=== PATIENT | male | born 1945 | race Caucasian/White ===

== ENCOUNTER 2018-03-18 21:21 | Emergency (ER) | payer MEDICARE, OTHER, SELFPAY ==
[2018-03-18 21:31] VITALS: BP 183/80; PULSE 78; RESP 20; TEMP 36.8; O2SAT 98; BMI 30.4
== END 2018-03-18 22:33 | disposition left against medical advice (07) ==
LOC: ED 21:24
DX: R10.9 Unspecified abdominal pain (principal)
CPT/HCPCS: 99281; 99282

== ENCOUNTER 2019-07-09 23:27 | Observation (INO) | payer MEDICARE, OTHER, SELFPAY ==
[2019-07-09 23:30] VITALS: BP 173/89; PULSE 97; RESP 16; TEMP 37.1; O2SAT 97; BMI 30.4
[2019-07-09 23:50] LABS: Add Manual Diff / Slide Review NO; Basophils Absolute Auto 100 /uL (0-100); Basophils Percent Auto 0.6 % (0-2); Eosinophils Absolute Auto 100 /uL (0-450); Eosinophils Percent Auto 0.5 % (2-4); Hematocrit 44.5 % (41-53); Hemoglobin 14.9 g/dL (13.5-17.5); Lymphocytes Absolute Auto 500 /uL (1100-4500); Lymphocytes Percent Auto 2.9 % (25-40); Mean Corpuscular HGB Conc 33.6 % (30-36); Mean Corpuscular Hemoglobin 29.1 PG (26-34); Mean Corpuscular Volume 86.5 fL (80-100); Monocytes Absolute Auto 400 /uL (0-900); Monocytes Percent Auto 2.6 % (3-14); Neutrophils Absolute Auto 15700 /uL (1500-7000); Neutrophils Percent Auto 93.4 % (50-75); Platelet Count 172 X10^3/uL (150-400); Red Blood Cell Count 5.14 X10^6/uL (4.5-5.9); Red Cell Distribution Width 13.4 % (11.6-14.8); White Blood Cell Count 16.8 X10^3/uL (4.5-11.0)
[2019-07-09 23:54] LABS: Prothrombin Time 11.9 SECONDS (10.1-12.7)
[2019-07-09 23:57] LABS: PTT Partial Thromboplastin Tim 41 SECONDS (26.4-36.2)
[2019-07-09 23:59] LABS: Alanine Aminotransferase 97 IU/L (21-72); Albumin 4.5 g/dL (3.5-5.0); Albumin Globulin Ratio 1.6 (1.0-2.8); Alkaline Phosphatase 102 U/L (38-126); Aspartate Aminotransferase 251 IU/L (17-59); Bilirubin Total 1.2 mg/dL (0.2-1.3); Blood Urea Nitrogen 16 mg/dL (9-20); Calcium 9.8 mg/dL (8.4-10.2); Carbon Dioxide 30 mmol/L (22-32); Chloride 100 mmol/L (98-107); Estimated Glomerular Filt Rate > 60.0 mL/min (>60); Globulin 2.9 g/dL (1.7-4.1); Glucose 155 mg/dL (80-110); HEMOLYSIS < 15 (0-50); Lipase 67 U/L (23-300); Potassium 3.7 mmol/L (3.4-5.1); Sodium 139 mmol/L (137-145); Total Protein 7.4 g/dL (6.3-8.2)
[2019-07-10] VITALS (26 sets, daily range): BP systolic 109–172; BP diastolic 50–92; PULSE 66–103; RESP 10–94; TEMP 36.5–38; O2SAT 94–98; BMI 29.5
--- NOTE | 2019-07-10 | PATH_ITS ---
[facility] Accession Number: [id number] . 01 Material submitted: . gallbladder - GALLBLADDER AND CONTENTS . 02 Diagnosis: Gallbladder and Contents: Acute and chronic cholecystitis, cholesterolosis, and cholelithiasis. MRV 07/12/2019 1433 Local . 02 Electronically signed: . Hattie Noriega MD, Pathologist NPI- [id number] . 01 Gross description: . Received in formalin, labeled gallbladder and contents, is a perforated gallbladder (length-9.5 cm, diameter-3.5 cm) with doherty-pink smooth shiny serosa and a patent cystic duct. No lymph nodes are identified. The lumen contains brown-green watery bile and multiple brown gritty friable calculi (3.7 x 2.5 x 0.7 cm in aggregate). The mucosa is diaz smooth and flat. The wall is up to 0.1 thick. No nodules, masses or lesions are identified. Section code: (A1) cystic duct resection margin and two serial sections from the body; (A2) two longitudinal sections from the fundus. ([id number]) /MRV 07/11/2019 1045 Local . 02 Pathologist provided ICD-10: K81.2, K80.60 . 02 CPT . 475743 Performed at: 01 [facility] [address], [place], [place] [id number] MD Edvin Galvan MD Phone: [phone] Performed at: 02 [facility] [address] [place], [place] [id number] MD Maya Ramsay MD Phone: [phone]
--- NOTE | 2019-07-10 00:26 | ED_ITS ---
HPI - Abdominal Pain General Chief Complaint: Abdominal Pain Stated Complaint: Stomach pain and chills Time Seen by Provider: 07/10/19 00:15 Source: patient Mode of arrival: ambulatory Limitations: no limitations History of Present Illness HPI narrative: This 74-year-old gentleman who comes to the emergency department with complaint of abdominal pain patient states pain started this evening sort of abruptly in onset. Patient states that it did seem a little bit worse after eating some saltines. It is sort of eased up somewhat but is still present. He denies any fevers but felt a little chilled. He denies any shortness of breath. He denies any pain in his chest. He denies any diaphoresis. Patient states that he has not had any nausea or vomiting. He had 1 episode of diarrhea earlier but states it was not a significant amount. He denies any bright red blood or melena. He denies any urinary issues. Patient states that the pain is in the anterior abdomen and does not radiate to his back chest or elsewhere. Has not changed in location. He states he takes medication for hypertension and he has been told in the past that he has a heart murmur. Related Data Home Medications Medication Instructions Recorded Confirmed losartan-hydrochlorothiazide 1 tab PO DAILY 07/10/19 07/10/19 Allergies Allergy/AdvReac Type Severity Reaction Status Date / Time Sulfa (Sulfonamide Allergy Mild Verified 07/09/19 23:39 Antibiotics) Review of Systems Review of Systems ROS Unobtainable: All systems reviewed & are unremarkable except as noted in HPI and below Constitutional Constitutional: Denies chills, Denies fever(s), Denies lethargy and Denies weakness Cardiovascular Cardiovascular: Denies chest pain, Denies edema, Denies irregular heart rhythm, Denies lightheadedness, Denies palpitations, Denies dyspnea, Denies dyspnea on exertion and Denies orthopnea Respiratory Respiratory: Denies change in phlegm color, Denies chest congestion, Denies cough, Denies dyspnea and Denies dyspnea on exertion Gastrointestinal Gastrointestinal: Reports abdominal pain, Denies melena, Denies hematochezia, Denies change in bowel habits, Reports diarrhea, Denies nausea and Denies vomiting Genitourinary Genitourinary: Denies hematuria, Reports difficulty urinating, Denies dysuria, Denies flank pain, Denies urinary frequency, Denies urinary hesitancy, Denies urinary incontinence and Denies urinary urgency Musculoskeletal Musculoskeletal: Denies back pain Integumentary/Breasts Skin/Breast: Denies rash Neurologic Neurologic: Denies weakness Endocrine Endocrine: Denies palpitations PENDING SALE TO [facility] Medical History Heart murmur (Acute) High blood pressure (Acute) Social History Smoking Status: Never smoker Social History Smoking Status: Never smoker alcohol intake: never substance use type: does not use Exam Narrative Exam Narrative: GENERAL: Alert and oriented x three, well-nourished, well- appearing male in mild distress HEENT: Head normocephalic, atraumatic, EOMI, pupils reactive, face symmetric, moist mucous membranes NECK: Supple, full range of motion CARDIOVASCULAR: Regular rate and rhythm with systolic ejection murmurs, rubs or gallops. No JVD. No swelling in lower extremities. RESPIRATORY: Breath sounds equal bilaterally, no wheezes rales or rhonchi. ABDOMEN: Soft, nontender. Normoactive bowel sounds all 4 quadrants. No guarding or rebound, rigidity, no mass, no pulsatile mass. : No CVA tenderness EXTREMITIES: Normal range of motion, no clubbing or edema. Neurovascularly intact NEUROLOGICAL: Cranial nerves II through XII grossly intact. Moving all extremities SKIN: Warm, dry, no petechiae, no rashes or lesions of abdomen or chest Initial Vital Signs Initial Vital Signs: Vital Signs Temperature 98.8 F 07/09/19 23:30 Pulse Rate 97 H 07/09/19 23:30 Respiratory Rate 16 07/09/19 23:30 Blood Pressure 173/89 H 07/09/19 23:30 Pulse Oximetry 97 07/09/19 23:30 Course Orders Ordered: ED Orders 07/09/19 23:35 Complete Blood Count AUTO DIFF Stat Comprehensive Metabolic Panel Stat Lipase Stat Partial Thromboplastin Time Stat Prothrombin Time INR Stat 07/09/19 23:38 EKG-12 Lead Stat 07/10/19 00:26 Troponin & CK Cardiac Panel Stat 07/10/19 00:30 XR KUB Stat 07/10/19 00:40 Lactate (Lactic Acid) Stat 07/10/19 01:05 Blood Culture Stat 07/10/19 01:23 CT abdomen pelvis w con Stat Sodium Chloride (Normal Saline 0.9%) 1,000 mls @ 200 mls/hr IV CONT DUSTIN Morphine Sulfate (Morphine) 2 mg IV Q4HR PRN PRN Reason: Pain, Mild (1-3) Ondansetron HCl (Zofran) 4 mg IV Q4HR PRN PRN Reason: Nausea And Vomiting Discontinued Medications Acetaminophen (Tylenol) 650 mg PO NOW ONE Stop: 07/10/19 02:47 Last Admin: 07/10/19 03:09 Dose: 650 mg Documented by: TRINH Sodium Chloride (Normal Saline 0.9%) 1,000 mls @ 1,000 mls/hr IV BOLUS ONE Stop: 07/10/19 01:25 Last Infusion: 07/10/19 03:02 Dose: 0 mls/hr Documented by: Infusion: 07/10/19 01:36 Dose: 0 mls/hr Documented by: Infusion: 07/10/19 01:18 Dose: 1,000 mls/hr Documented by: Infusion: 07/10/19 00:45 Dose: 0 mls/hr Documented by: Admin: 07/10/19 00:32 Dose: 1,000 mls/hr Documented by: BISMARK Piperacillin/Tazobactam/Dextrose (Zosyn) 3.375 gm in 50 mls @ 100 mls/hr IV NOW ONE Stop: 07/10/19 03:15 Last Infusion: 07/10/19 03:45 Dose: 0 mls/hr Documented by: Admin: 07/10/19 03:10 Dose: 100 mls/hr Documented by: TRINH Sodium Chloride (Normal Saline 0.9%) 1,000 mls @ 1,000 mls/hr IV BOLUS ONE Stop: 07/10/19 03:45 Last Admin: 07/10/19 03:09 Dose: 1,000 mls/hr Documented by: TRINH Ketorolac Tromethamine (Toradol) 15 mg IV NOW ONE Stop: 07/10/19 00:27 Last Admin: 07/10/19 00:32 Dose: 15 mg Documented by: BISMARK Vital Signs Vital signs: Vital Signs - 8 hr 07/09/19 23:30 07/10/19 01:31 07/10/19 02:29 Temperature 98.8 F 100.4 F H Pulse Rate 97 H 103 H Respiratory Rate 16 20 Blood Pressure 173/89 H Blood Pressure [Right Arm] 160/67 H Pulse Oximetry 97 97 MDM - Abdominal Pain Lab Data Attestation: I reviewed the patient's lab results. Result diagrams: 07/09/19 23:35 07/09/19 23:35 Labs: Lab Results 07/09/19 07/09/19 07/09/19 Range/Units 23:35 23:35 23:35 WBC 16.8 H (4.5-11.0) X10^3/uL RBC 5.14 (4.5-5.9) X10^6/uL Hgb 14.9 (13.5-17.5) g/dL Hct 44.5 (41-53) % MCV 86.5 (80-100) fL MCH 29.1 (26-34) PG MCHC 33.6 (30-36) % RDW 13.4 (11.6-14.8) % Plt Count 172 (150-400) X10^3/uL Neut % (Auto) 93.4 H (50-75) % Lymph % (Auto) 2.9 L (25-40) % [place] % (Auto) 2.6 L (3-14) % Eos % (Auto) 0.5 L (2-4) % Baso % (Auto) 0.6 (0-2) % Neut # (Auto) 89442 H (7199-2306) /uL Lymph # (Auto) 500 L (0759-7581) /uL [place] # (Auto) 400 (0-900) /uL Eos # (Auto) 100 (0-450) /uL Baso # (Auto) 100 (0-100) /uL PT 11.9 (10.1-12.7) SECONDS INR 1.0 (0.9-1.3) APTT 41 H (26.4-36.2) SECONDS Sodium 139 (137-145) mmol/L Potassium 3.7 (3.4-5.1) mmol/L Chloride 100 (98-107) mmol/L Carbon Dioxide 30 (22-32) mmol/L BUN 16 (9-20) mg/dL Creatinine 0.80 (0.66-1.25) mg/dL Estimated GFR > 60.0 (>60) mL/min BUN/Creatinine Ratio 20.0 (6-22) Glucose 155 H (80-110) mg/dL Lactate (0.7-2.1) mmol/L Calcium 9.8 (8.4-10.2) mg/dL Total Bilirubin 1.2 (0.2-1.3) mg/dL AST 251 H (17-59) IU/L ALT 97 H (21-72) IU/L Alkaline Phosphatase 102 (38-126) U/L Total Creatine Kinase (55-170) U/L CK-MB (CK-2) CK-MB (CK-2) Rel Index Troponin I (0.01-0.034) ng/mL Total Protein 7.4 (6.3-8.2) g/dL Albumin 4.5 (3.5-5.0) g/dL Globulin 2.9 (1.7-4.1) g/dL Albumin/Globulin Ratio 1.6 (1.0-2.8) Lipase 67 (23-300) U/L 07/09/19 07/10/19 Range/Units 23:35 00:40 WBC (4.5-11.0) X10^3/uL RBC (4.5-5.9) X10^6/uL Hgb (13.5-17.5) g/dL Hct (41-53) % MCV (80-100) fL MCH (26-34) PG MCHC (30-36) % RDW (11.6-14.8) % Plt Count (150-400) X10^3/uL Neut % (Auto) (50-75) % Lymph % (Auto) (25-40) % [place] % (Auto) (3-14) % Eos % (Auto) (2-4) % Baso % (Auto) (0-2) % Neut # (Auto) (4107-6479) /uL Lymph # (Auto) (2653-0161) /uL [place] # (Auto) (0-900) /uL Eos # (Auto) (0-450) /uL Baso # (Auto) (0-100) /uL PT (10.1-12.7) SECONDS INR (0.9-1.3) APTT (26.4-36.2) SECONDS Sodium (137-145) mmol/L Potassium (3.4-5.1) mmol/L Chloride (98-107) mmol/L Carbon Dioxide (22-32) mmol/L BUN (9-20) mg/dL Creatinine (0.66-1.25) mg/dL Estimated GFR (>60) mL/min BUN/Creatinine Ratio (6-22) Glucose (80-110) mg/dL Lactate 3.3 H (0.7-2.1) mmol/L Calcium (8.4-10.2) mg/dL Total Bilirubin (0.2-1.3) mg/dL AST (17-59) IU/L ALT (21-72) IU/L Alkaline Phosphatase (38-126) U/L Total Creatine Kinase 93 (55-170) U/L CK-MB (CK-2) TNP CK-MB (CK-2) Rel Index TNP Troponin I < 0.012 (0.01-0.034) ng/mL Total Protein (6.3-8.2) g/dL Albumin (3.5-5.0) g/dL Globulin (1.7-4.1) g/dL Albumin/Globulin Ratio (1.0-2.8) Lipase (23-300) U/L Imaging Data KUB xray: My impression: nap noted. CT scan - abdomen: Radiologist's impression: Gallbladder wall thickening suggest possibility of cholecystitis. Pericholecystic fluid suspected. Sludge is present within the neck, small avulsed gallstones within this could be present. A few small wall calcifications are suspected. Hiatal hernia. Sigmoid diverticula without diverticulitis. Prostate enlargement. Chronic appearing compressions of anterior aspects L1 and L3. ECG Data Attestation: I personally reviewed and interpreted this ECG as follows: Prior ECG tracings: not available for review Interpretation: Sinus rhythm with a rate of 98 P are 180 do QRS of 112 and QTC of 386. Left anterior fascicular block. No ST elevation appreciated, no depression noted. No prior EKGs available for comparison. MDM Narrative Medical decision making narrative: Recheck after pain medication and fluids started, patient is feeling better. His HR is still a little elevated, WBC is elevated at 16 with elevated neuts, electrolytes are normal range with normal room function, lactate elevated at 3.3 with elevated AST and ALT at 2:51 a.m. and 97, alk phos and bilirubin are normal with a normal lipase. Patient's troponin is negative. Patient has had a cough some but his pain is more intra- abdominal so my suspicion for pneumonia is lower. CT abd/pelvis ordered and shows changes consistent with a coli cystitis. poc urine shows leuks but no nitrates. Patient has developed a fever the department, he has had his heart rate elevated above 90 and typically in the 1 teen range consistently. Patient's blood pressure has been intermittently elevated than low. He does seem to respond to fluids. IV antibiotics were started with Zosyn. Spoke with General surgery and Dr. De Santiago accepts with plan for surgical intervention later today. Patient is NPO status and aware. Patient pain is much improved after initial medication. Discharge Plan Departure Patient Disposition: Admitted As Inpatient Clinical Impression: Cholecystitis, Sepsis Admit Date/Time: 07/10/19 02:52 Admit Provider: Aaron De Santiago
--- NOTE | 2019-07-10 00:30 | DI.RAD.S_ITS ---
PROCEDURE: XR KUB INDICATIONS: epigastric pain, sudden onset TECHNIQUE: One view of the abdomen acquired. COMPARISON: None. FINDINGS: Surgical changes and devices: A certified medical coder projects over the left femoral head and likely outside the patient's body. Bowel: Bowel gas pattern is normal. Moderate fecal load identified in the right abdomen. Soft tissues: No suspicious abdominal calcifications. Visualized solid organ contours appear normal in size. Several pelvic calcifications are present. Bones: No suspicious bony lesions. IMPRESSION: Nonobstructive bowel gas pattern. No acute radiographic abnormalities. Dictated by: Scar Reardon M.D. on 07/10/2019 at 8:08 Approved by: Scar Reardon M.D. on 07/10/2019 at 8:27
[2019-07-10] MEDS: SODIUM CHLORIDE 0.9% 1,000 ML 1000 ML IV ×2 (00:32→03:09)
[2019-07-10] MEDS: KETOROLAC 60 MG/2 ML VIAL 15 MG IV (00:32)
[2019-07-10 01:02] LABS: Creatine Kinase 93 U/L (55-170)
[2019-07-10 01:03] LABS: Lactate (Lactic Acid) 3.3 mmol/L (0.7-2.1)
[2019-07-10 01:14] LABS: Troponin I < 0.012 ng/mL (0.01-0.034)
--- NOTE | 2019-07-10 01:23 | DI.CT.S_ITS ---
PROCEDURE: CT ABDOMEN PELVIS W CON INDICATIONS: epigastric pain TECHNIQUE: After the administration of intravenous contrast, 5 mm thick sections acquired from the diaphragm to the symphysis. 5 mm coronal and sagittal reformats were acquired. For radiation dose reduction, the following was used: automated exposure control, adjustment of mA and/or kV according to patient size. COMPARISON: None. FINDINGS: Image quality: Excellent. ABDOMEN: Lung bases: Mild bibasilar atelectasis. Heart size is normal. Moderate-sized hiatal hernia. Solid organs: Liver is normal in size and enhancement. Gallbladder demonstrates mild wall thickening and pericholecystic stranding. There is also relative hyperdense material in the dependent portions of the gallbladder neck. No hypodense gallstones identified.. Biliary system is non dilated. Pancreas enhances normally. Spleen is normal in size and enhancement. No adrenal nodules. Kidneys demonstrate normal size and enhancement, without hydronephrosis. Peritoneum and bowel: Bowel loops demonstrate normal wall thickness and caliber. No free fluid or air. Scattered colonic diverticulosis without acute diverticulitis. Nodes and vessels: No retroperitoneal or mesenteric adenopathy by size criteria. Aorta and inferior vena cava are normal in size. Miscellaneous: No ventral hernias. PELVIS: Genitourinary: Bladder wall thickness is normal. There is prostatic enlargement which causes mass effect upon the inferior margin of the urinary bladder. Miscellaneous: No inguinal hernias or adenopathy. Bones: No suspicious bony lesions. No acute vertebral body compression fractures. Chronic appearing anterior compression deformities of L1 and L3. IMPRESSION: #1. Gallbladder wall thickening with surrounding pericholecystic inflammatory stranding and likely sludge in the gallbladder neck. Findings may represent acute cholecystitis. #2. Moderate-sized hiatal hernia. #3. Scattered colonic diverticulosis without acute diverticulitis. #4. Chronic appearing anterior compression deformities of the L1 and L3 vertebral bodies. #5. Prostatic hypertrophy. No significant discrepancy with the chainstitch binder radiology preliminary report. Dictated by: Scar Reardon M.D. on 07/10/2019 at 9:32 Approved by: Scar Reardon M.D. on 07/10/2019 at 9:50
--- NOTE | 2019-07-10 01:28 | PC.NURSE ---
Dr. Wooten at bedside to update patient.
[2019-07-10 02:47] LABS: Reflexed Lactate in 2 Hours Y
[2019-07-10] MEDS: ACETAMINOPHEN 325 MG TABLET 650 MG PO (03:09)
[2019-07-10] MEDS: PIPERACILLIN-TAZO 3.375 GM/50 ML FROZ.PIGGY IV ×4 (03:10→19:52)
[2019-07-10 03:21] LABS: Lactate 2HR (Lactic Acid Rflx) 2.9 mmol/L (0.7-2.1)
--- NOTE | 2019-07-10 03:54 | PC.NURSE ---
report called to beau burks
[2019-07-10] MEDS: SODIUM CHLORIDE 0.9% 1,000 ML 200 ML IV (04:53)
[2019-07-10] MEDS: SODIUM CHLORIDE 0.9% FLUSH 10 ML IV (04:53)
[2019-07-10 05:22] LABS: Bacteria Urine Occasional (0-1); RBC Urine 0-1/HPF (0-5/HPF); WBC Urine 0-1/HPF (0-5/HPF)
[2019-07-10 05:23] LABS: Culture Indicated Urine Specimen Cultured; Squamous Epithelial Cell Urine 0-1 /HPF (0-5/HPF)
--- NOTE | 2019-07-10 05:25 | PC.ADMIT ---
Patient admitted to room 226 per stretcher from ER at 0416. Is alert and oriented although reports he had a concussion several years ago and sometimes has trouble completing his thought/conversation. Breath sounds CTA with RA sat of 96%. HRR. Denies nausea. BT present and abdomen is soft. Denies dysuria, frequency, urgency or incontinence; up to bathroom with SBA and voided 150cc clear sharla urine. Is able to turn self in bed. Scattered abrasions/scratches noted on bilateral LE and right UE. Skin is soiled from working. Denies pain at present time. Discussed plan of care including NPO status with potential for surgery later today. Fall risk score is moderate; bed alarm activated and patient verbalizes understanding to call for assistance if getting out of bed. Oriented to room, call light and bed controls. Checkbook, debit cards and maradiaga placed in valuables envelope and placed in safe by coordinatorAlana. [address] Admission Note: The patient,Herbert Bautista,74 y/o, was given written information regarding hospital policies, unit procedures and contact persons. Patient's smoking status: Never smoker. Vital Signs - 8 hr 07/09/19 23:30 07/10/19 01:31 07/10/19 02:29 Temperature 98.8 F 100.4 F H Pulse Rate 97 H 103 H Respiratory Rate 16 20 Blood Pressure 173/89 H Blood Pressure [Right Arm] 160/67 H Pulse Oximetry 97 97 07/10/19 04:01 07/10/19 04:10 07/10/19 04:16 Temperature 98.9 F 98.5 F Pulse Rate 103 H 96 H Respiratory Rate 16 18 Blood Pressure 120/61 Blood Pressure [Right Arm] 109/50 L Pulse Oximetry 95 96
[2019-07-10] MEDS: SODIUM CHLORIDE 0.9% 1,000 ML 100 ML IV (08:49)
--- NOTE | 2019-07-10 08:52 | PM.HP.1 ---
History of Present Illness History of Present Illness Date Patient Seen: 07/10/19 Time Patient Seen: 08:52 Chief complaint: Stomach pain and chills Narrative: 74-year-old white male with rather sudden onset of abdominal pain right upper quadrant epigastrium yesterday with some nausea vomiting actually some diarrhea as well. Denies prior significant history for this. [place] [id number] [place] scan showing acute cholecystitis and he had the findings of early sepsis. Was admitted given IV fluids and started on IV Zosyn in preparation for laparoscopic cholecystectomy today. Does have a history of hypertension and has a history of a heart murmur takes losartan hydrochlorothiazide. Heart murmurs felt to be benign. Denies prior surgery or history of cardiac decompensation. Patient History Medical History Heart murmur (Acute) High blood pressure (Acute) Social History household members: none Smoking Status: Never smoker alcohol intake: never substance use type: does not use Family & Social History Social History: household members none Prior Living Arrangements Mobile home Safety & Behavioral: Feels Safe in Current Yes Environment Been Physically Hurt or No Threatened By a Person Suicidal Ideation Description None Tobacco & Substance use: Smoking Status Never smoker alcohol intake never alcohol intake frequency holiday/special occasion Substance Use Type does not use Meds Home Medications and Allergies Home Medications Medication Instructions Recorded Confirmed Type losartan-hydrochlorothiazide 1 tab PO DAILY 07/10/19 07/10/19 History Allergies Allergy/AdvReac Type Severity Reaction Status Date / Time Sulfa (Sulfonamide Allergy Mild Verified 07/09/19 23:39 Antibiotics) Review of Systems Review of Systems ROS Unobtainable: All systems reviewed & are unremarkable except as noted in HPI and below Exam Vital Signs (past 8 hours): - 07/10/19 01:31 07/10/19 02:29 07/10/19 04:01 Temperature 100.4 F H Pulse Rate 103 H 103 H Respiratory Rate 20 16 Blood Pressure Blood Pressure [Right Arm] 160/67 H 109/50 L Pulse Oximetry 97 95 07/10/19 04:10 07/10/19 04:16 07/10/19 08:10 Temperature 98.9 F 98.5 F 99.2 F Pulse Rate 96 H 81 Respiratory Rate 18 16 Blood Pressure 120/61 128/81 Blood Pressure [Right Arm] Pulse Oximetry 96 98 Oxygen Delivery Method Room Air Narrative Exam Narrative: Patient is alert and oriented and denies any significant abdominal pain at this moment. Blood pressure 120/80 heart rate in the upper 80s regular. Ears nose and throat are unremarkable skin is clear with no signs of icterus Lungs are clear with no rales or wheezes Heart regular rhythm he does have a grade 3/6 systolic ejection murmur heard in the upper sternum radiates toward the neck. This is likely aortic in origin. No diastolic murmur. Abdomen very slight right subcostal tenderness now. No abdominal masses no scars no organomegaly. No hernia identified. Neurologic is unremarkable Extremities unremarkable Objective Labs Result Diagrams: 07/09/19 23:35 07/09/19 23:35 Labs: Laboratory Results - last 24 hr 07/09/19 07/09/19 07/09/19 23:35 23:35 23:35 WBC 16.8 H RBC 5.14 Hgb 14.9 Hct 44.5 MCV 86.5 MCH 29.1 MCHC 33.6 RDW 13.4 Plt Count 172 Neut % (Auto) 93.4 H Lymph % (Auto) 2.9 L [place] % (Auto) 2.6 L Eos % (Auto) 0.5 L Baso % (Auto) 0.6 Neut # (Auto) 35373 H Lymph # (Auto) 500 L [place] # (Auto) 400 Eos # (Auto) 100 Baso # (Auto) 100 PT 11.9 INR 1.0 APTT 41 H Sodium 139 Potassium 3.7 Chloride 100 Carbon Dioxide 30 BUN 16 Creatinine 0.80 Estimated GFR > 60.0 BUN/Creatinine Ratio 20.0 Glucose 155 H Lactate Calcium 9.8 Total Bilirubin 1.2 AST 251 H ALT 97 H Alkaline Phosphatase 102 Total Creatine Kinase CK-MB (CK-2) CK-MB (CK-2) Rel Index Troponin I Total Protein 7.4 Albumin 4.5 Globulin 2.9 Albumin/Globulin Ratio 1.6 Lipase 67 Urine RBC Urine WBC Ur Squamous Epith Cells Urine Bacteria Ur Culture Indicated? 07/09/19 07/10/19 07/10/19 23:35 00:40 02:58 WBC RBC Hgb Hct MCV MCH MCHC RDW Plt Count Neut % (Auto) Lymph % (Auto) [place] % (Auto) Eos % (Auto) Baso % (Auto) Neut # (Auto) Lymph # (Auto) [place] # (Auto) Eos # (Auto) Baso # (Auto) PT INR APTT Sodium Potassium Chloride Carbon Dioxide BUN Creatinine Estimated GFR BUN/Creatinine Ratio Glucose Lactate 3.3 H 2.9 H Calcium Total Bilirubin AST ALT Alkaline Phosphatase Total Creatine Kinase 93 CK-MB (CK-2) TNP CK-MB (CK-2) Rel Index TNP Troponin I < 0.012 Total Protein Albumin Globulin Albumin/Globulin Ratio Lipase Urine RBC Urine WBC Ur Squamous Epith Cells Urine Bacteria Ur Culture Indicated? 07/10/19 05:19 WBC RBC Hgb Hct MCV MCH MCHC RDW Plt Count Neut % (Auto) Lymph % (Auto) [place] % (Auto) Eos % (Auto) Baso % (Auto) Neut # (Auto) Lymph # (Auto) [place] # (Auto) Eos # (Auto) Baso # (Auto) PT INR APTT Sodium Potassium Chloride Carbon Dioxide BUN Creatinine Estimated GFR BUN/Creatinine Ratio Glucose Lactate Calcium Total Bilirubin AST ALT Alkaline Phosphatase Total Creatine Kinase CK-MB (CK-2) CK-MB (CK-2) Rel Index Troponin I Total Protein Albumin Globulin Albumin/Globulin Ratio Lipase Urine RBC 0-1/hpf Urine WBC 0-1/hpf Ur Squamous Epith Cells 0-1 /hpf Urine Bacteria Occasional (0-1) Ur Culture Indicated? Specimen cultured Assessment & Plan Assessment & Plan narrative: Patient with acute cholecystitis early signs of sepsis which are resolving with IV fluid therapy and antibiotics. He is being prepared for laparoscopic cholecystectomy today. Patient understands the nature of his illness and agrees to the plan of cholecystectomy. He has no unanswered questions. Quality VTE Deep Vein Thrombosis/Pulmonary Embolism Present on Admission: No
--- NOTE | 2019-07-10 09:59 | PC.NURSE ---
Addendum entered by Anamika Estrella R.N. 07/10/19 15:31: Pt's black strapped watch placed in pt's belongings bag in the room closet of room 226. Original Note: Day Shift- Pt A&OX4, able to make needs known using call light. Moderate fall risk, bed alarm on. Pt aware and compliant with care. Rates 2-3/10 abd cramping with intermittent sharp spasms to RUQ Abd. IVF decreased from 200ml/hr to 100ml/hr at 0849 per order. NPO at this time. Water mouth swabs given for comfort. Pt last had solid and liquid foods yesterday 07/09 at 1300. Pt also c/o right hell pain, skin intact, no redness noted. Pt states having had this symptom for some time. He is in the process of switching PCP and Cardiologists. 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 Awaiting surgery around [address] De Santiago. Pt does have scabs and abrasions to BLE and BUE. Plan for pt to have shower prior to surgery.
[2019-07-10] MEDS: ALBUTEROL/IPRATROPIUM 3 ML AMPUL INH (15:56)
--- NOTE | 2019-07-10 16:39 | SUR.OPER ---
Supine on padded OR bed, head on pillow, arms secured on padded arm boards at <90 degrees abduction, legs uncrossed, safety belt at thigh, tape over blanket over lower legs.
[2019-07-10] MEDS: NEOMYCIN/POLYMYXIN/BACITRA UD OINT 1 EACH TOP (16:45)
[2019-07-10] MEDS: BUPIVACAINE 0.5% W/ EPI (PF) VIAL 30 ML INJ (16:46)
[2019-07-10] MEDS: LACTATED RINGERS 1,000 ML 42 ML IV (17:05)
--- NOTE | 2019-07-10 17:10 | PM.OP.1 ---
Operative Date/Time/Diagnoses Date of procedure: 07/10/19 Time of procedure: 17:10 Pre-op diagnosis: Acute cholecystitis cholelithiasis Post-op diagnosis: same Procedure & Clinicians Procedure: Laparoscopic cholecystectomy Same procedure as scheduled: Yes Surgeon: Aaron De Santiago Click Yes if Unassisted: Yes Anesthesia Type: General Operative Notes Findings: Very edematous gallbladder with acute cholecystitis and cholelithiasis Closure Type: primary Specimen(s): other (Gallbladder) Estimated Blood Loss (mL): 100 Blood products transfused: none Procedure in detail: The patient was properly identified during surgical pause. He was prepped and draped in a sterile fashion exposure of the right upper quadrant. He was given general endotracheal anesthetic. 5 mm incision is made to the right to the umbilicus using an Opti View port direct entry was made into the peritoneal cavity under direct vision and a pneumoperitoneum safely established there was no visceral injury. Three right subcostal ports placed under direct vision. Gallbladder was severely edematous I opened the gallbladder to aspirate its contents to make dissection safer and easier. Gallbladder was then elevated toward the patient's right shoulder and the cholecystoduodenal ligament dissect down to the critical view of Calot's triangle clearly showing the cystic duct cystic artery and Calot's node there was considerable edema there. Cystic duct was closed with multiple clips divided leaving several with the patient there was no bile leak cystic artery closed with multiple clips divided leaving several with the patient there was no bleeding. The gallbladder was then elevated further and dissected away from the liver bed using the Bovie electric cautery for meticulous hemostasis clips were used at various places to ensure hemostasis. Because of the inflammatory changes in the gallbladder bed I laid a piece of Surgicel for added security for hemostasis. The operative site irrigated with a L of sterile saline aspirated dry the was no bleeding and no bile leak. Trocars removed under direct vision there was no bleeding the skin closed with rhina sterile dressings applied the procedure was very well tolerated ending dictation.
[2019-07-10] MEDS: fentaNYL 100 MCG/2 ML INJ 50 MCG IV ×2 (17:47→17:55)
[2019-07-10] MEDS: OXYCODONE/ACETAMINOPHEN 5/325 TABLET 1 TAB PO (19:50)
[2019-07-10] MEDS: GABAPENTIN 300 MG CAPSULE PO (19:52)
--- NOTE | 2019-07-10 21:54 | PC.NURSE ---
Evening Shift Note_ Patient arrived bed from PACU via bed at . Patient alert and oriented and able to make needs known to staff. No complaints of pain upon arrival. No complaints of N/V. Patient given soup and crackers, tolerated without issue. Lung sounds clear. Even and unlabored respirations noted. Patient complaints of occasional cough. Patient requested cough drops, called Dr Mustafa. New order recieved for cepacol lozenges. Safety measures in place. Patient agrees to call for assistance. Bed alarm activated. Call harris and phone within reach. Will continue to monitor.
[2019-07-11] VITALS (9 sets, daily range): BP systolic 108–149; BP diastolic 61–73; PULSE 59–95; RESP 18–20; TEMP 36.2–37; O2SAT 95–97
[2019-07-11] MEDS: PIPERACILLIN-TAZO 3.375 GM/50 ML FROZ.PIGGY IV ×4 (03:55→20:54)
[2019-07-11] MEDS: OXYCODONE/ACETAMINOPHEN 5/325 TABLET 1 TAB PO ×3 (06:56→20:54)
--- NOTE | 2019-07-11 07:39 | PC.NURSE ---
Pt had 440mL in bladder scan at start of shift. Anyi called for a straight cath. Got 525mL dark sharla urine out. NS@100mL/hr running as ordered. Pt drank a few teas and full cups of water during the night. This morning pt voided only 50cc of dark sharla urine again with some blood looking to appear in it. Bladder scanned after showed 280mL. Will pass along to reassess. Lap sites with some old drainage, looking fine. Passing gas but no BM.
[2019-07-11] MEDS: ACETAMINOPHEN 325 MG TABLET 650 MG PO (08:36)
[2019-07-11] MEDS: GABAPENTIN 300 MG CAPSULE PO ×3 (08:37→20:53)
--- NOTE | 2019-07-11 09:27 | P.PN_ITS ---
Subjective Subjective Date Patient Seen: 07/11/19 Time Patient Seen: 09:27 Interval history: Patient is approximately 12 hours post laparoscopic cholecystectomy for severe acute cholecystitis with cholelithiasis. Subjectively he feels much better today than preoperatively. He is tolerating a soft diet with no nausea or vomiting. He still has right upper quadrant abdominal pain post surgery. No bowel movement yet. Exam Vital Signs (past 8 hours): - 07/11/19 05:20 07/11/19 07:55 07/11/19 08:39 Temperature 97.8 F 98.6 F Pulse Rate 65 61 Respiratory Rate 18 18 Blood Pressure 108/62 111/61 Pulse Oximetry 96 97 97 Oxygen Delivery Method Room Air Oxygen Flow Rate 0 Narrative Exam Narrative: Patient is afebrile resting comfortably in bed eating his breakfast. Vital signs are stable. Abdomen is mildly distended trocar sites healing normally for 12 hours postop. No signs of bleeding. Objective Labs Result Diagrams: 07/09/19 23:35 07/09/19 23:35 Labs: Laboratory Results - last 24 hr 07/10/19 05:19 Urine RBC 0-1/hpf Urine WBC 0-1/hpf Ur Squamous Epith Cells 0-1 /hpf Urine Bacteria Occasional (0-1) Ur Culture Indicated? Specimen cultured Assessment & Plan Assessment & Plan narrative: Patient had considerable inflammatory change and infection around the gallbladder. I will continue another day of IV antibiotic therapy. Check his CBC to see if his white count has fallen from 16/6. Patient will ambulate today he has SCDs for DVT prophylaxis and he is getting out of be d. Anticipate patient being discharged tomorrow. Quality VTE Deep Vein Thrombosis/Pulmonary Embolism Present on Admission: No
[2019-07-11] MEDS: SIMETHICONE 80 MG TABLET PO ×4 (10:06→20:53)
[2019-07-11] MEDS: BISACODYL 10 MG SUPP PR (10:06)
[2019-07-11 12:22] LABS: Add Manual Diff / Slide Review NO; Basophils Absolute Auto 0 /uL (0-100); Eosinophils Absolute Auto 0 /uL (0-450); Hematocrit 37.2 % (41-53); Hemoglobin 12.4 g/dL (13.5-17.5); Lymphocytes Absolute Auto 200 /uL (1100-4500); Lymphocytes Percent Auto 2.2 % (25-40); Mean Corpuscular HGB Conc 33.3 % (30-36); Mean Corpuscular Hemoglobin 28.9 PG (26-34); Mean Corpuscular Volume 86.9 fL (80-100); Monocytes Absolute Auto 500 /uL (0-900); Monocytes Percent Auto 4.4 % (3-14); Neutrophils Absolute Auto 9600 /uL (1500-7000); Neutrophils Percent Auto 93.4 % (50-75); Platelet Count 137 X10^3/uL (150-400); Red Blood Cell Count 4.28 X10^6/uL (4.5-5.9); Red Cell Distribution Width 13.9 % (11.6-14.8); White Blood Cell Count 10.3 X10^3/uL (4.5-11.0)
[2019-07-11] MEDS: SODIUM CHLORIDE 0.9% FLUSH 10 ML IV (20:54)
[2019-07-12] VITALS (10 sets, daily range): BP systolic 106–169; BP diastolic 60–101; PULSE 60–84; RESP 16–19; TEMP 36.3–37.1; O2SAT 95–98
[2019-07-12] MEDS: PIPERACILLIN-TAZO 3.375 GM/50 ML FROZ.PIGGY IV ×2 (03:13→09:16)
[2019-07-12] MEDS: SODIUM CHLORIDE 0.9% FLUSH 10 ML IV ×3 (03:13→20:51)
[2019-07-12] MEDS: SIMETHICONE 80 MG TABLET PO ×3 (09:18→20:49)
[2019-07-12] MEDS: GABAPENTIN 300 MG CAPSULE PO ×3 (09:18→20:50)
--- NOTE | 2019-07-12 11:41 | PM.DS.1 ---
History of Present Illness History of Present Illness Chief complaint: Stomach pain and chills Narrative: 74-year-old white male with rather sudden onset of abdominal pain right upper quadrant epigastrium yesterday with some nausea vomiting actually some diarrhea as well. Denies prior significant history for this. Came [place] [address] [place] scan showing acute cholecystitis and he had the findings of early sepsis. Was admitted given IV fluids and started on IV Zosyn in preparation for laparoscopic cholecystectomy today. Does have a history of hypertension and has a history of a heart murmur takes losartan hydrochlorothiazide. Heart murmurs felt to be benign. Denies prior surgery or history of cardiac decompensation. Discharge Providers Provider Date of admission: 07/10/19 02:52 Discharge Date: 07/12/19 Discharge provider: Aaron De Santiago MD Summary Hospital Course Discharge Diagnosis: Acute cholecystitis cholelithiasis Hospital Course: 74-year-old white male patient is admitted through the emergency department at about 3:00 a.m. given intravenous fluids and intravenous Zosyn to alleviate early signs of sepsis. Approximately 12 hours after admission was taken to the operating room and underwent a laparoscopic cholecystectomy. The findings were acute cholecystitis with a lot of edema around the gallbladder no purulence was noted. Postoperatively he did very well. [place] [id number]. Hemoglobin remained stable at 12.5. He was able to tolerate a solid diet with no nausea vomiting had a bowel movement prior to discharge passing flatus. He is discharged on Augmentin 500 t.i.d.. Ultram for as needed pain. I started Flomax because he has a history of BPH with difficulty passing his urine. He will continue his pre-admission home medication of losartan. He was seen in the clinic in a week for having staple removal. Normal bathing. Status at Discharge Cognitive/behavioral status at discharge: oriented Functional status at discharge: independent ambulation Overall status at discharge: patient is back to baseline Time Spent with Patient Time spent: Greater than 30 minutes Exam Vital Signs (past 8 hours): - 07/12/19 03:50 07/12/19 04:00 07/12/19 07:51 Temperature 98.3 F 97.9 F 98.3 F Pulse Rate 60 60 72 Respiratory Rate 16 16 19 Blood Pressure 148/83 H 135/77 137/77 Pulse Oximetry 98 96 97 07/12/19 09:00 07/12/19 11:31 Temperature 98.4 F Pulse Rate 80 Respiratory Rate 17 Blood Pressure 139/72 Pulse Oximetry 97 97 Oxygen Delivery Method Room Air Oxygen Flow Rate 0 Objective Labs Result Diagrams: 07/11/19 11:35 07/09/19 23:35 Labs: Laboratory Results - last 24 hr 07/11/19 11:35 WBC 10.3 RBC 4.28 L Hgb 12.4 L Hct 37.2 L MCV 86.9 MCH 28.9 MCHC 33.3 RDW 13.9 Plt Count 137 L Neut % (Auto) 93.4 H Lymph % (Auto) 2.2 L Arroyo % (Auto) 4.4 Eos % (Auto) 0.0 L Baso % (Auto) 0.0 Neut # (Auto) 9600 H Lymph # (Auto) 200 L Arroyo # (Auto) 500 Eos # (Auto) 0 Baso # (Auto) 0 Discharge Plan Discharge Plan Patient Disposition: Home Discharge Med Rec/Prescriptions Prescriptions: New amoxicillin-pot clavulanate [Augmentin] 500-125 mg Tablet 1 tab PO TID 5 Days Qty: 15 RF: 0 tramadol 50 mg Tablet 50 mg PO TID PRN (Reason: Pain, Moderate (4-6)) 5 Days Qty: 15 RF: 0 tamsulosin [Flomax] 0.4 mg Capsule 0.4 mg PO DAILY Qty: 30 RF: 0 Continued losartan-hydrochlorothiazide 100-12.5 mg Tablet 1 tab PO DAILY RF: 0 Follow up/Referrals: Aaron De Santiago MD [Physician] - 07/18/19 9:30 am (Office visit will be Dr. Colorado to have your rhina removed) Provider Discharge Instructions Diet: Diet as Tolerated Skin/Wound/Dressing Care Report to your healthcare provider any signs of infection, such as:: chills, fever, night sweats, increased pain, unusual drainage and unusual redness Dressing: bathe normally Other wound treatment: rhina removed in a week Visit Report/Discharge Packet Instructions: DI for Cholecystectomy, How to Prevent Falls, DI for Postoperative Pain, Tramadol, Tamsulosin, [facility]: Wound Care Discharge Data Attending Provider: Aaron De Santiago Admit Date/Time: 07/10/19 02:52 Quality VTE Deep Vein Thrombosis/Pulmonary Embolism Present on Admission: No
--- NOTE | 2019-07-12 11:45 | PC.NURSE ---
Addendum entered by Anamika Estrella R.N. 07/12/19 12:22: Dr. De Santiago removed Lap Site X4 outer bandages, rhina GEOVANNY. Original Note: Day Shift- Spoke with Dr. De Santiago regarding pt's urinary frequency and flow interruptions. New order for Flomax rec'd. Biscodyl PRN Supp given at 1147. for abd bloating. Plan to go home likely after lunch.
[2019-07-12] MEDS: BISACODYL 10 MG SUPP PR (11:52)
[2019-07-12] MEDS: TAMSULOSIN 0.4 MG CAPSULE PO (11:52)
[2019-07-12] MEDS: TRAMADOL 50 MG TABLET PO (15:29)
[2019-07-12] MEDS: ACETAMINOPHEN 325 MG TABLET 650 MG PO (15:29)
[2019-07-12] MEDS: LOSARTAN 50 MG TABLET 100 MG PO (15:36)
[2019-07-12] MEDS: hydroCHLOROthiazide 25 MG TABLET 12.5 MG PO (15:38)
--- NOTE | 2019-07-12 16:20 | CM.DANOTE ---
Discharge Planning/Care Management DCP: assessment: Case received yesterday and discussed Team Rounds. Care team members noted that pt was having was having ongoing issues with pain,nausea and urinary retention with need for in and out straight needed. DC was not planned and caseload triage dictated need to see pt today to continue this process. Met now with pt and introduced self and role. Pt is found lying in bed, urinal in place, I feel like I am going to explode. I need a catheter placed. Kiara WATERS stated she is aware and is alerting Dr. Mustafa who had put in a d/c order for home. Pt is a 74 year old male who admitted 07/10 with acute cholecystitis: care of [facility] Team:Dr. Mustafa. Dr. Mustafa took him to surgery for a Lap Ira. Payer: Medicare and [employer] PCP: he says he currently does not have one. Is trying to get established and I know it's important and I will work on that when I get home. Pt says his friend Alejandra will be picking him up at d/c. He lives alone but says he has lots of community support. P: home setting when medically stable for same. DCP will follow prn for needs. CM Discharge Assessment Start: 07/12/19 16:19 Freq: Status: Active Protocol: Document 07/12/19 16:20 ITV (Rec: 07/12/19 16:20 ITV [id number]) Discharge Planning Assessment Advance Directives? No History Provided By Patient,Medical Record Prior Living Arrangements Mobile home Household Members none Independent with ADL's Yes Is patient alert and oriented? Yes Review Status In Process
[2019-07-12] MEDS: AMOXICILLIN/CLAV 500/125 MG 1 TAB PO ×2 (16:55→20:50)
--- NOTE | 2019-07-12 18:14 | PC.NURSE ---
Pt struggling to void for 2 hours at beginning of shift. C/o prostate pain. Bladder scan = 693. Used 16 Fr and 16 Fr coude with no success and evidence of blood clots and bleeding, so obtained order for indwelling and another RN was successful on second try. Got +/- 1000 mLs out after 60 mins.
[2019-07-13] VITALS: BP 121/70; PULSE 78; RESP 17; TEMP 36.6; O2SAT 96
[2019-07-13 06:00] VITALS: BP 107/66; PULSE 80; RESP 16; TEMP 36.9; O2SAT 95
[2019-07-13] MEDS: ACETAMINOPHEN 325 MG TABLET 650 MG PO ×2 (06:17→14:29)
[2019-07-13 08:00] VITALS: BP 122/64; PULSE 80; RESP 18; TEMP 36.7; O2SAT 95
[2019-07-13] MEDS: hydroCHLOROthiazide 25 MG TABLET 12.5 MG PO (08:39)
[2019-07-13 08:40] VITALS: BP 122/64; PULSE 64
[2019-07-13] MEDS: LOSARTAN 50 MG TABLET 100 MG PO (08:40)
[2019-07-13] MEDS: SIMETHICONE 80 MG TABLET PO ×2 (08:41→13:12)
[2019-07-13] MEDS: TAMSULOSIN 0.4 MG CAPSULE PO (08:42)
[2019-07-13] MEDS: GABAPENTIN 300 MG CAPSULE PO ×2 (08:42→14:30)
[2019-07-13] MEDS: AMOXICILLIN/CLAV 500/125 MG 1 TAB PO ×2 (08:43→13:47)
--- NOTE | 2019-07-13 10:23 | P.DS_ITS ---
History of Present Illness History of Present Illness Chief complaint: Stomach pain and chills Narrative: 74-year-old white male with rather sudden onset of abdominal pain right upper quadrant epigastrium yesterday with some nausea vomiting actually some diarrhea as well. Denies prior significant history for this. Came [place] [address] [place] scan showing acute cholecystitis and he had the findings of early sepsis. Was admitted given IV fluids and started on IV Zosyn in preparation for laparoscopic cholecystectomy today. Does have a history of hypertension and has a history of a heart murmur takes losartan hydrochlorothiazide. Heart murmurs felt to be benign. Denies prior surgery or history of cardiac decompensation. Discharge Providers Provider Date of admission: 07/10/19 02:52 Discharge Date: 07/13/19 Discharge provider: Aaron De aSntiago MD Summary Hospital Course Discharge Diagnosis: Acute cholecystitis cholelithiasis with early sepsis Hospital Course: 74-year-old white male came in with acute cholecystitis cholelithiasis and early sepsis was treated with IV fluids and IV antibiotic therapy. He was taken promptly to the operating room underwent a laparoscopic cholecystectomy and recovered very nicely. His only postoperative problem was urinary retention which is been going on for some months prior to being hospitalized. He has not seen a urologist and is not been on any medication for BPH. I tried to discharge him yesterday but then he went into urinary retention again so I kept him overnight placed an indwelling Torres catheter with a leg bag. We will discharge him with that Torres and leg bag and have started him on Flomax. He will see a urologist as an outpatient. He will come back to our clinic in a week. Status at Discharge Cognitive/behavioral status at discharge: oriented Functional status at discharge: independent ambulation Overall status at discharge: patient is back to baseline Time Spent with Patient Time spent: Less than 30 minutes Exam Vital Signs (past 8 hours): - 07/13/19 06:00 07/13/19 08:00 07/13/19 08:40 Temperature 98.5 F 98.1 F Pulse Rate 80 80 64 Respiratory Rate 16 18 Blood Pressure 107/66 122/64 122/64 Pulse Oximetry 95 95 Oxygen Delivery Method Room Air Oxygen Flow Rate 0 Objective Labs Result Diagrams: 07/11/19 11:35 07/09/19 23:35 Discharge Plan Discharge Plan Patient Disposition: Home Discharge Med Rec/Prescriptions Prescriptions: New amoxicillin-pot clavulanate [Augmentin] 500-125 mg Tablet 1 tab PO TID 5 Days Qty: 15 RF: 0 tramadol 50 mg Tablet 50 mg PO TID PRN (Reason: Pain, Moderate (4-6)) 5 Days Qty: 15 RF: 0 tamsulosin [Flomax] 0.4 mg Capsule 0.4 mg PO DAILY Qty: 30 RF: 0 Continued losartan-hydrochlorothiazide 100-12.5 mg Tablet 1 tab PO DAILY RF: 0 Follow up/Referrals: Aaron De Santiago MD [Physician] - 07/18/19 9:30 am (Office visit will be Dr. Colorado to have your rhina removed) Provider Discharge Instructions Diet: Diet as Tolerated Skin/Wound/Dressing Care Report to your healthcare provider any signs of infection, such as:: chills, fever, night sweats, increased pain, unusual drainage and unusual redness Dressing: bathe normally Other wound treatment: rhina removed in a week Visit Report/Discharge Packet Instructions: DI for Cholecystectomy, How to Prevent Falls, DI for Postop erative Pain, Tramadol, Tamsulosin, [facility]: Wound Care Discharge Data Attending Provider: Aaron De Santiago Admit Date/Time: 07/10/19 02:52 Quality VTE Deep Vein Thrombosis/Pulmonary Embolism Present on Admission: No
--- NOTE | 2019-07-13 10:49 | PC.NURSE ---
Addendum entered by Cheyanne Ambriz R.N. 07/13/19 15:15: 1514 patient is discharging home. Leaving with friend, Pastor Servin. Discharge paperwork and education complete. IV removed-tip intact, site is WNL. Original Note: 0800 patient resting in bed, eating breakfast. Denies pain, SOB, or nausea at this time. C/O productive cough with doherty sputum, noted cup containing phlegm at bedside. Torres catheter is patent and draining pink urine-patient denies burning or pain at this time. Abd is slightly distended, incisions are clean, rhina intact, absence of drainage, redness or warmth.
[2019-07-13 12:00] VITALS: RESP 18
--- NOTE | 2019-07-13 15:09 | CM.DPC ---
DCP Discharge Home Per MD, pt has some urinary retention over the past few months and continues to have urinary retention here which is why he could not d/c home yesterday. MD had indwelling doe placed and pt will d/c home with that and a leg bag with follow up with his urologist and their clinic after discharge today. No further identified discharge planning needs. Plan: Patient to d/c home today with doe and leg bag and follow up outpt. No further SW needs at this time. JESSICA Albert
--- NOTE | 2019-07-26 12:30 | PC.NURSE ---
late entry: lactated ringers stopped 07/10 1855
== END 2019-07-13 18:24 | disposition home or self-care (01) ==
LOC: ED 07-10 02:52 → AC 07-10 03:03
PROVIDERS: Admitting Provider Surgery; Emergency Provider Emergency Medicine; Visit Provider Surgery
PROC: 0FT44ZZ Resection of Gallbladder, Percutaneous Endoscopic Approach (ICD-10-PCS; CPT 47562; principal; 2019-07-10 16:30)
DX: K80.00 Calculus of gallbladder with acute cholecystitis without obstruction (principal); R10.9 Unspecified abdominal pain; R01.1 Cardiac murmur, unspecified; I10 Essential (primary) hypertension
CPT/HCPCS: 47562; 36415; 36591; 74018; 74177; 80053; 81003; 81015; 82550; 83605; 83690; 84484; 85025; 85610; 85730; 87040; 87077; 87086; 87147; 87186; 93005; 93010; 96361; 96365; 96366; 96375; 99220; 99285; G0378; J0330; J1100; J1885; J2405; J2543; J2704; J3010; Q9967

== ENCOUNTER 2019-07-21 20:28 | Emergency (ER) | payer MEDICARE, OTHER, SELFPAY ==
[2019-07-10 04:21] VITALS: BMI 29.5
[2019-07-21 20:45] VITALS: BP 142/74; PULSE 59; RESP 15; TEMP 37.3; O2SAT 98; BMI 30.4
--- NOTE | 2019-07-21 21:12 | ED.EXTPRO ---
HPI - Extremity Problem General Chief complaint: Extremity Problem,Nontraumatic Stated complaint: right thigh has a sore spot, thinks blood clot Time Seen by Provider: 07/21/19 20:54 Source: patient Mode of arrival: Ambulatory Limitations: no limitations History of Present Illness HPI Narrative: Patient is a 74-year-old male here for evaluation of 3 days of occasional sharp pain on the front of his right leg. Patient is concerned about a blood clot. He states he has never had a blood clot in the past but he has heard about them and is concerned about this. No skin changes. No trauma. He states that the pain is sharp. It does radiate to the front of his right leg. Has not tried anything for symptoms prior to arrival. No hip pain, no knee pain, no ankle pain, Related Data Home Medications Medication Instructions Recorded Confirmed losartan-hydrochlorothiazide 1 tab PO DAILY 07/10/19 07/18/19 Previous Rx's Medication Instructions Recorded amoxicillin-pot clavulanate 1 tab PO TID 5 Days #15 tab 07/12/19 [Augmentin] tamsulosin [Flomax] 0.4 mg PO DAILY #30 cap 07/12/19 tramadol 50 mg PO TID PRN 5 Days #15 tab 07/12/19 Allergies Allergy/AdvReac Type Severity Reaction Status Date / Time Sulfa (Sulfonamide Allergy Mild Verified 07/18/19 10:02 Antibiotics) Review of Systems Constitutional Constitutional: Denies fatigue and Denies frequent falls Cardiovascular Cardiovascular: Denies chest pain and Denies dyspnea Respiratory Respiratory: Denies dyspnea Gastrointestinal Gastrointestinal: Denies abdominal pain Musculoskeletal Musculoskeletal: Denies myalgias and Denies arthralgias Integumentary/Breasts Comments: Pain on the front of his right hip Neurologic Neurologic: Denies frequent falls Comments: Tingling/sharp pain in the front of his right hip Endocrine Endocrine: Denies fatigue Hematologic/Lymphatic Hematologic/Lymphatic: Denies easy bleeding and Denies easy bruising [facility] Medical History Heart murmur (Acute) High blood pressure (Acute) Social History household members: none Smoking Status: Never smoker alcohol intake: never substance use type: does not use Exam Initial Vital Signs Initial Vital Signs: Vital Signs Temperature 99.1 F 07/21/19 20:45 Pulse Rate 59 L 07/21/19 20:45 Respiratory Rate 15 07/21/19 20:45 Blood Pressure 142/74 H 07/21/19 20:45 Pulse Oximetry 98 07/21/19 20:45 Const General: cooperative, healthy appearing, comfortable, well developed and well groomed Orientation: alert, awake and oriented x3 HENMT Head: normal to inspection and normocephalic Resp Effort & Inspection: normal respiratory effort Cardio Rate: regular rate Skin Lesions: no lesions Rashes: no rashes Neuro General: alert, awake and oriented x3 Cognition: normal cognition Speech: speech normal Sensory Exam: no sensory deficits noted Extrem General: normal to inspection and capillary refill normal Other: Patient has no tenderness to palpation on the medial aspect of his right upper extremity. No tenderness to palpation of the calf or posterior right knee. Patient points to the anterior portion of his right thigh has to wear his symptoms occur. It is in the distribution of the anterior femoral cutaneous nerve. Psych Appearance: well kempt Mental Status: mental status grossly normal Attitude: cooperative Thought Content: normal Judgment: judgment good Course Vital Signs Vital signs: Vital Signs - 8 hr 07/21/19 20:45 Temperature 99.1 F Pulse Rate 59 L Respiratory Rate 15 Blood Pressure 142/74 H Pulse Oximetry 98 MDM - Extremity (Nontraumatic) MDM Narrative Medical decision making narrative: Given the patient's history and physical exam I have low suspicion for a DVT. Will hold on ultrasound for now. He has no rashes consistent with zoster. His symptoms do seem to occur in the distribution of the right anterior femoral cutaneous nerve. I do suspect that irritation of this nerve is the cause of his symptoms. He has no trauma. He can move his right hip without any discomfort. We did discuss the use of anti-inflammatories. We discussed return precautions. Patient expressed understanding and agreement with plan. Discharge Plan Departure Patient Disposition: Home Clinical Impression: Right leg paresthesias Discharge Date/Time: 07/21/19 21:27 Instructions: DI for Numbness/tingling Activity Restrictions/Additional Instructions: I recommend that you take Advil like we discussed with food. If your legs starts to develop a rash please return to the emergency department. Contact your primary provider for a follow-up. Go Disautel Prescriptions: No Action losartan-hydrochlorothiazide 100-12.5 mg Tablet 1 tab PO DAILY RF: 0 amoxicillin-pot clavulanate [Augmentin] 500-125 mg Tablet 1 tab PO TID 5 Days Qty: 15 RF: 0 tramadol 50 mg Tablet 50 mg PO TID PRN (Reason: Pain, Moderate (4-6)) 5 Days Qty: 15 RF: 0 tamsulosin [Flomax] 0.4 mg Capsule 0.4 mg PO DAILY Qty: 30 RF: 0
== END 2019-07-21 21:27 | disposition home or self-care (01) ==
PROVIDERS: Emergency Provider Emergency Medicine
DX: R20.2 Paresthesia of skin (principal)
CPT/HCPCS: 99282

== ENCOUNTER 2021-11-02 21:35 | Observation (INO) | payer MEDICARE, OTHER, SELFPAY ==
--- NOTE | 2021-11-02 | DI.US.S_ITS ---
PROCEDURE: US CAROTID DOPPLER BI INDICATIONS: TRANSIENT ISCHEMIC ATTACK TECHNIQUE: Color and pulse Doppler interrogation was performed of both carotid systems, with image documentation and velocity measurements. COMPARISON: None. FINDINGS: This is a technically difficult exam, with high carotid bifurcations and patient immobility. Stenosis calculations are based on SRU (Society of Radiologists in Ultrasound) criteria. The flow velocities and the arterial waveforms are normal within both carotid arterial systems. Atherosclerotic plaque is seen on both sides. The estimated degree of internal carotid artery stenosis is less than 50%. Antegrade flow is confirmed within both vertebral arteries. IMPRESSION: No hemodynamically significant stenosis is seen. Atherosclerotic plaque is noted bilaterally. Dictated by: Petey Vega M.D. on 11/03/2021 at 15:23 Approved by: Petey Vega M.D. on 11/03/2021 at 15:24
[2021-11-02 21:36] VITALS: BMI 29.5
[2021-11-02 21:40] VITALS: BP 208/109; PULSE 88; RESP 20; TEMP 36.6; O2SAT 96; BMI 30.4
--- NOTE | 2021-11-02 21:51 | DI.CT.S_ITS ---
PROCEDURE: CT HEAD/BRAIN WO CON INDICATIONS: word finding issues TECHNIQUE: Noncontrast 4.5 mm thick angled axial sections acquired from the foramen magnum to the vertex, with coronal and sagittal reformats. For radiation dose reduction, the following was used: automated exposure control, adjustment of mA and/or kV according to patient size. COMPARISON: None. FINDINGS: Image quality: Excellent. CSF spaces: Basal cisterns are patent. No extra-axial fluid collections. There is mild to moderate cerebral volume loss, with resultant ventricular and sulcal prominence. Brain: No intracranial hemorrhage, mass, or mass effect. There are subcortical, periventricular and deep white matter hypodensities consistent with mild to moderate chronic small vessel ischemic changes. A focal hypodensity in the right external capsule is consistent with sequelae of a prior lacunar infarct. The doherty-white matter junction appears preserved. There is intracranial internal carotid artery atherosclerosis. Skull and face: Calvarium and visualized facial bones appear intact, without suspicious lesions. Sinuses: Visualized sinuses and mastoids are clear. IMPRESSION: 1. No definite acute intracranial abnormality. 2. Mild to moderate cerebral volume loss and chronic white matter small vessel ischemic changes. 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 Dictated by: Edvin Dietz M.D. on 11/02/2021 at 22:18 Approved by: Edvin Dietz M.D. on 11/02/2021 at 22:22
[2021-11-02 22:03] VITALS: PULSE 76; RESP 24; O2SAT 96
--- NOTE | 2021-11-02 22:04 | ED_ITS ---
HPI - Neuro Symptoms/Deficit General Chief Complaint: Neuro Symptoms/Deficit Stated Complaint: disoriented, aphagia Time Seen by Provider: 11/02/21 21:51 Source: patient Mode of arrival: Ambulatory History of Present Illness HPI Narrative: Patient is a 76-year-old male. Does have a history of high blood pressure but does not take any medications for this. States he does not take any medication. Several hours prior to arrival he was talk with the family member on the phone. The pain remember states that he seem to have a lot of problems with speaking. She stated that he seemed to have problems with finding words that he wanted to say. Also seem like he was very disoriented. The patient agreed that for short period of time he knew what he wanted to say but could not actually express it. The words he was saying seem to be clear. Patient's family states that he has been more ?disoriented? over the past couple days. At the time my evaluation patient reports that all of his symptoms that initially brought him to the [facility] department had resolved. He denied any other symptoms at the time of the word-finding issues. Has not tried that with symptoms prior to arrival. On Anticoagulants: No Related Data Home Medications Medication Instructions Recorded Confirmed No Known Home Medications 11/03/21 11/03/21 Allergies Allergy/AdvReac Type Severity Reaction Status Date / Time Sulfa (Sulfonamide Allergy Mild Verified 07/18/19 10:02 Antibiotics) Review of Systems Constitutional Constitutional: Denies fatigue, Denies fever(s), Denies headache(s) and Denies weakness Eyes Eyes: Denies change in vision ENT Ears, Nose, Mouth, and Throat: Denies vertigo, Denies dizziness, Denies headache(s) and Denies disequilibrium Cardiovascular Cardiovascular: Denies chest pain, Denies syncope, Denies rapid heart rate and Denies dyspnea Respiratory Respiratory: Denies cough and Denies dyspnea Gastrointestinal Gastrointestinal: Denies abdominal pain, Denies nausea and Denies vomiting Genitourinary Genitourinary: Reports system reviewed and no additional complaints, except as documented Musculoskeletal Musculoskeletal: Reports system reviewed and no additional complaints, except as documented, Denies numbness and Denies tingling Integumentary/Breasts Skin/Breast: Reports system reviewed and no additional complaints, except as documented Neurologic Neurologic: Denies abnormal movements, Reports abnormal speech, Reports confusion, Denies vertigo, Denies dizziness, Denies syncope, Denies headache(s), Denies localized weakness, Denies numbness, Denies tingling, Denies disequilibrium and Denies weakness Psychiatric Psychiatric: Reports confusion Endocrine Endocrine: Denies fatigue Hematologic/Lymphatic On Anticoagulants: No Allergic/Immunologic Allergic/Immunologic: Reports system reviewed and no additional complaints, except as documented Patient History Medical History H/O: CVA (cerebrovascular accident) Heart murmur High blood pressure Surgical History (Updated 11/02/21 @ 23:05 by Chasidy Lyons MD) History of cholecystectomy Family History (Updated 11/02/21 @ 23:03 by Chasidy Lyons MD) Mother Dementia Social History household members: none Smoking Status: Never smoker alcohol intake: never substance use type: does not use Smoking Status: Never smoker alcohol intake frequency: holidays/special occasions only Substance Use Type: does not use Exam Initial Vital Signs Initial Vital Signs: Vital Signs Temperature 97.9 F 11/02/21 21:40 Pulse Rate 88 11/02/21 21:40 Respiratory Rate 20 11/02/21 21:40 Blood Pressure 208/109 H 11/02/21 21:40 Pulse Oximetry 96 11/02/21 21:40 Const General: cooperative, healthy appearing, comfortable and well developed HENOH Head: normal to inspection and normocephalic Face and sinus: normal facial exam Mouth: oral mucosae normal Eyes Pupils: PERRL EOM: EOM intact bilaterally Resp Effort & Inspection: normal respiratory effort Auscultation: clear to auscultation bilaterally Cardio Rate: regular rate Rhythm: regular rhythm GI Palpation: soft and No tender Skin General: no rashes or lesions noted Lesions: no lesions Neuro General: patient alert, patient awake, patient oriented x3 and moves all extremities Cranial Nerves: CN's II-XI intact bilaterally Cognition: normal cognition Speech: speech normal Motor: muscle tone normal throughout Sensory Exam: no sensory deficits noted Coordination: [id number] test normal and [id number] test normal Extrem General: normal to inspection and capillary refill normal Psych Appearance: grossly normal and well kempt Scores GCS [place] coma scale eye opening: Spontaneous Jay coma scale verbal response: Orientated [place] coma scale motor response: Obey commands Jay coma scale total score: 15 NIH Stroke Scale Level of Conciousness: Alert, keenly responsive Ask month/age: Answers both questions correctly. Open/close eyes, close hand: Performs both tasks correctly Best gaze horizontal: Normal Visual mercado: No visual loss Facial palsy: Normal symetrical movement Left arm drift: No drift for full 10 sec Right arm drift: No drift for full 10 sec Left leg drift: No drift for full 5 sec Right leg drift: No drift for full 5 sec Limb ataxia: Present in one limb (Left lower extremity) Sensory on face/arms/legs: Normal, no sensory loss Best language: No aphasia, normal Dysarthria: Normal Extinction or inattention: No abnormality Total NIH Stroke scale score: 1 Course Orders Ordered: ED Orders 11/02/21 21:51 CT head/brain wo con Stat 11/02/21 22:00 A1C [Hemoglobin A1C% w Est Avg Glu] Stat Complete Blood Count AUTO DIFF Stat Comprehensive Metabolic Panel Stat Lipase Stat Partial Thromboplastin Time Stat Prothrombin Time INR Stat Troponin & CK Cardiac Panel Stat 11/02/21 22:02 COVID19 - ADMIT (CLASSROOM AIDE swab/PCR) Stat 11/02/21 22:38 EKG-12 Lead Stat 11/02/21 22:40 Consult to Discharge Planning Routine Consult to Occupational Therapy Evaluate & Treat Consult to Physical Therapy Evaluate & Treat Consult to Speech Therapy Evaluate & Treat MR stroke Stat Education, smoking cessation ONGOING Education, smoking cessation ONGOING 11/02/21 22:41 EC echo doppler complete Urgent 11/03/21 05:00 Basic Metabolic Panel Routine Complete Blood Count AUTO DIFF Routine Magnesium Routine Thyroid Stimulating Hormone Routine 11/03/21 06:00 Lipid Panel Stat Metoprolol Tartrate (Metoprolol Ir 25 Mg Tablet) 25 mg PO BID[facility] Last Admin: 11/02/21 23:59 Dose: 25 mg Documented by: SARA Naloxone HCl (Naloxone 0.4 Mg/Ml Vial) 0.2 mg IV Q2MIN PRN PRN Reason: Opiate Reversal Vital Signs Vital signs: Vital Signs - 8 hr 11/02/21 21:40 11/02/21 22:03 11/02/21 22:30 Temperature 97.9 F Pulse Rate 88 76 75 Respiratory Rate 20 24 23 Blood Pressure 208/109 H Pulse Oximetry 96 96 96 MDM - Neuro Symptoms/Deficit Lab Data Attestation: I reviewed the patient's lab results. Result diagrams: 11/02/21 22:00 11/02/21 22:00 Labs: Lab Results 11/02/21 11/02/21 11/02/21 Range/Units 22:00 22:00 22:00 WBC 9.4 (4.5-11.0) X10^3/uL RBC 5.25 (4.5-5.9) X10^6/uL Hgb 15.3 (13.5-17.5) g/dL Hct 44.8 (41-53) % MCV 85.3 (80-100) fL MCH 29.1 (26-34) PG MCHC 34.1 (30-36) % RDW 13.6 (11.6-14.8) % Plt Count 184 (150-400) X10^3/uL Neut % (Auto) 74.7 (50-75) % Lymph % (Auto) 14.3 L (25-40) % [place] % (Auto) 8.5 (3-14) % Eos % (Auto) 1.4 L (2-4) % Baso % (Auto) 1.1 (0-2) % Neut # (Auto) 7000 (6941-1129) /uL Lymph # (Auto) 1400 (0059-7647) /uL [place] # (Auto) 800 (0-900) /uL Eos # (Auto) 100 (0-450) /uL Baso # (Auto) 100 (0-100) /uL PT 11.9 (10.1-12.7) SECONDS INR 1.1 (0.9-1.3) APTT 41 H (26.4-36.2) SECONDS Sodium 139 (137-145) mmol/L Potassium 3.6 (3.4-5.1) mmol/L Chloride 103 (98-107) mmol/L Carbon Dioxide 33 H (22-32) mmol/L BUN 15 (9-20) mg/dL Creatinine 0.85 (0.66-1.25) mg/dL Estimated GFR > 60.0 (>60) mL/min BUN/Creatinine Ratio 17.6 (6-22) Glucose 117 H (80-110) mg/dL Hemoglobin A1c (4.0-6.0) % Calcium 10.7 H (8.4-10.2) mg/dL Total Bilirubin 0.7 (0.2-1.3) mg/dL AST 25 (17-59) IU/L ALT 16 (<50) IU/L Alkaline Phosphatase 71 (38-126) U/L Total Creatine Kinase 71 (55-170) U/L CK-MB (CK-2) TNP CK-MB (CK-2) Rel Index TNP Troponin I < 0.012 (0.01-0.034) ng/mL Total Protein 7.7 (6.3-8.2) g/dL Albumin 4.6 (3.5-5.0) g/dL Globulin 3.1 (1.7-4.1) g/dL Albumin/Globulin Ratio 1.5 (1.0-2.8) Lipase 66 (23-300) U/L SARS-CoV-2 (PCR) (Negative) 11/02/21 11/02/21 Range/Units 22:00 22:02 WBC (4.5-11.0) X10^3/uL RBC (4.5-5.9) X10^6/uL Hgb (13.5-17.5) g/dL Hct (41-53) % MCV (80-100) fL MCH (26-34) PG MCHC (30-36) % RDW (11.6-14.8) % Plt Count (150-400) X10^3/uL Neut % (Auto) (50-75) % Lymph % (Auto) (25-40) % [place] % (Auto) (3-14) % Eos % (Auto) (2-4) % Baso % (Auto) (0-2) % Neut # (Auto) (4736-1979) /uL Lymph # (Auto) (6048-0610) /uL [place] # (Auto) (0-900) /uL Eos # (Auto) (0-450) /uL Baso # (Auto) (0-100) /uL PT (10.1-12.7) SECONDS INR (0.9-1.3) APTT (26.4-36.2) SECONDS Sodium (137-145) mmol/L Potassium (3.4-5.1) mmol/L Chloride (98-107) mmol/L Carbon Dioxide (22-32) mmol/L BUN (9-20) mg/dL Creatinine (0.66-1.25) mg/dL Estimated GFR (>60) mL/min BUN/Creatinine Ratio (6-22) Glucose (80-110) mg/dL Hemoglobin A1c 5.7 (4.0-6.0) % Calcium (8.4-10.2) mg/dL Total Bilirubin (0.2-1.3) mg/dL AST (17-59) IU/L ALT (<50) IU/L Alkaline Phosphatase (38-126) U/L Total Creatine Kinase (55-170) U/L CK-MB (CK-2) CK-MB (CK-2) Rel Index Troponin I (0.01-0.034) ng/mL Total Protein (6.3-8.2) g/dL Albumin (3.5-5.0) g/dL Globulin (1.7-4.1) g/dL Albumin/Globulin Ratio (1.0-2.8) Lipase (23-300) U/L SARS-CoV-2 (PCR) Negative (Negative) Imaging Data CT scan - head: Radiologist's Impression: [place] [address] CT Scan Report Signed Patient: Herbert Bautista MR#: [id number] : 1945 Acct:[id number] Age/Sex: 76 / M Date of Service: 11/02/21 Loc: ED Accession Number: [id number] ?? Procedure: CT head/brain wo con Ordering Provider: Rakan Mckenzie D.O. PROCEDURE:? CT HEAD/BRAIN WO CON ? INDICATIONS:? word finding issues ? TECHNIQUE:? Noncontrast 4.5 mm thick angled axial sections acquired from the foramen magnum to the vertex, with coronal and sagittal reformats.? For radiation dose reduction, the following was used:? automated exposure control, adjustment of mA and/or kV according to patient size.? ? COMPARISON:? None. ? FINDINGS:? Image quality:? Excellent.? ? CSF spaces:? Basal cisterns are patent.? No extra-axial fluid collections.? There is mild to moderate cerebral volume loss, with resultant ventricular and sulcal prominence.? ? Brain:? No intracranial hemorrhage, mass, or mass effect.? There are subcortica l, periventricular and deep white matter hypodensities consistent with mild to moderate chronic small vessel ischemic changes.? A focal hypodensity in the right external capsule is consistent with sequelae of a prior lacunar infarct.? The doherty-white matter junction appears preserved.? There is intracranial internal carotid artery atherosclerosis.? ? Skull and face:? Calvarium and visualized facial bones appear intact, without suspicious lesions.? ? Sinuses:? Visualized sinuses and mastoids are clear.? ? IMPRESSION:? ? 1. No definite acute intracranial abnormality. ? 2. Mild to moderate cerebral volume loss and chronic white matter small vessel ischemic changes.? Sequelae of a prior infarct demonstrated in the right external capsule.? ? Dictated by: Edvin Dietz M.D. on 11/02/2021 at 22:18 ? ? Approved by: Edvin Dietz M.D. on 11/02/2021 at 22:22 ECG Data Attestation: I personally reviewed and interpreted this ECG as follows: Interpretation: Sinus rhythm Ventricular rate is 67 Occasional PACs Left axis deviation Normal QRS Normal QTC No ST T wave changes MDM Narrative Medical decision making narrative: Patient reports that his presenting symptoms have completely resolved. Was hypertensive upon arrival with systolic blood pressure greater than 200 which improved to a systolic blood pressure in the 70s without intervention. He does have a NIH score of 1 is he had difficulty with heel to jimenez with the left lower extremity. Does have somewhat of a droop to the right side of his mouth but family at bedside states this is normal for him. His head CT is unremarkable. We did discuss his presenting symptoms and the concern for TIA. Discussed options and recommendations for admission to the hospital for further workup. Patient expressed understanding and is agreeable to be admitted to the hospital. Discussed the case with Dr. Lyons 3rd who bedside who will admit for further evaluation treatment. Discharge Plan Departure Patient Disposition: Admitted as Observation Clinical Impression: Transient cerebral ischemia, Hypertension Admit Date/Time: 11/02/21 23:11 Admit Provider: Chasidy Lyons
[2021-11-02 22:07] LABS: Add Manual Diff / Slide Review NO; Basophils Absolute Auto 100 /uL (0-100); Basophils Percent Auto 1.1 % (0-2); Eosinophils Absolute Auto 100 /uL (0-450); Eosinophils Percent Auto 1.4 % (2-4); Hematocrit 44.8 % (41-53); Hemoglobin 15.3 g/dL (13.5-17.5); Lymphocytes Absolute Auto 1400 /uL (1100-4500); Lymphocytes Percent Auto 14.3 % (25-40); Mean Corpuscular HGB Conc 34.1 % (30-36); Mean Corpuscular Hemoglobin 29.1 PG (26-34); Mean Corpuscular Volume 85.3 fL (80-100); Monocytes Absolute Auto 800 /uL (0-900); Monocytes Percent Auto 8.5 % (3-14); Neutrophils Absolute Auto 7000 /uL (1500-7000); Neutrophils Percent Auto 74.7 % (50-75); Platelet Count 184 X10^3/uL (150-400); Red Blood Cell Count 5.25 X10^6/uL (4.5-5.9); Red Cell Distribution Width 13.6 % (11.6-14.8); White Blood Cell Count 9.4 X10^3/uL (4.5-11.0)
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
[2021-11-02 22:13] LABS: INR 1.1 (0.9-1.3); Prothrombin Time 11.9 SECONDS (10.1-12.7)
[2021-11-02 22:15] LABS: PTT Partial Thromboplastin Tim 41 SECONDS (26.4-36.2)
[2021-11-02 22:18] LABS: Alanine Aminotransferase 16 IU/L (<50); Albumin 4.6 g/dL (3.5-5.0); Albumin Globulin Ratio 1.5 (1.0-2.8); Alkaline Phosphatase 71 U/L (38-126); Aspartate Aminotransferase 25 IU/L (17-59); BUN Creatinine Ratio 17.6 (6-22); Bilirubin Total 0.7 mg/dL (0.2-1.3); Blood Urea Nitrogen 15 mg/dL (9-20); Calcium 10.7 mg/dL (8.4-10.2); Carbon Dioxide 33 mmol/L (22-32); Chloride 103 mmol/L (98-107); Creatine Kinase 71 U/L (55-170); Estimated Glomerular Filt Rate > 60.0 mL/min (>60); Globulin 3.1 g/dL (1.7-4.1); Glucose 117 mg/dL (80-110); HEMOLYSIS 22 (0-50); Lipase 66 U/L (23-300); Potassium 3.6 mmol/L (3.4-5.1); Sodium 139 mmol/L (137-145); Total Protein 7.7 g/dL (6.3-8.2)
[2021-11-02 22:29] LABS: Troponin I < 0.012 ng/mL (0.01-0.034)
[2021-11-02 22:30] VITALS: PULSE 75; RESP 23; O2SAT 96
--- NOTE | 2021-11-02 22:40 | DI.MRI.S_ITS ---
PROCEDURE: MR HEAD/BRAIN WO CON INDICATIONS: TIA TECHNIQUE: Non-contrast sagittal FLAIR, axial diffusion and ADC through the brain. Please note patient requested termination of imaging prior to acquisition of all sequences. COMPARISON: [facility], CT, CT HEAD/BRAIN WO CON, 11/02/2021, 22:00. FINDINGS: Image quality: Limited secondary to incomplete image acquisition at the request of the patient to terminate the study. CSF spaces: Lateral and 3rd ventricles are enlarged. Basal cisterns are patent. No extra-axial fluid collections. Brain: No intracranial bleeds or mass effects. There is mild cerebral volume loss for age. There are mild periventricular and deep white matter chronic small vessel ischemic changes. Brainstem appears normal. Diffusion-weighted images show no acute ischemic insults. No chronic ischemic insults. Normal intravascular flow voids are present. Skull and face: Calvarial bone marrow is normal in signal. Orbits are normal. Sinuses: Mucosal thickening noted in the right maxillary sinus. Right maxillary sinus mucous retention cyst versus polyp. The mastoids are clear. IMPRESSION: 1. Limited examination secondary to incomplete image acquisition. Patient requested termination of the study prior to acquisition of all sequences. 2. No areas of acute or chronic infarction. 3. Ventriculomegaly which could be due to central volume loss versus normal pressure hydrocephalus. Recommend correlation with clinical findings. 4. Mild, diffuse cerebral volume loss. 5. Mild periventricular and subcortical white matter chronic microvascular ischemic change. Dictated by: Tati Mehta MD, PhD on 11/03/2021 at 10:00 Approved by: Tati Mehta MD, PhD on 11/03/2021 at 10:05
--- NOTE | 2021-11-02 22:41 | DI.ECHO.S_ITS ---
[facility]---------+ [facility] +---------+ : : [address] : : : : [id number] : : : : Phone: [phone] Echocardiogram Report + + :Name: NAFISA MUKHERJEE Study Date: 11/03/2021 Height: 68 in : :[facility] ReadingLocation: Weight: 200 lb : : Gender: Male BSA: 2.0 m2 : :: 1945 Age: 76 yrs BP: 149/83 mmHg: :Reason For Study: TIA : :Ordering Physician: KEVIN, : :NANCY Jimenez Performed By: Micheline eBdoya : :Referring: NANCY BROWN : + + Interpretation Summary The left ventricle is normal in size and wall thickness. The ejection fraction is estimated to be 60-65%. The right ventricle is normal in size and function. The aortic valve is mildly calcified. The peak aortic velocity is 2.7 m/sec. The aortic valve mean gradient is 18 mmHg. The calculated aortic valve area is 1.4 cm2. There is mild to moderate aortic stenosis. There is mild aortic regurgitation. There is aortic root sclerosis/calcification. Procedure: A two-dimensional transthoracic echocardiogram with color flow and Doppler was performed. The study quality was technically adequate. There is no prior echocardiogram noted for this patient. The patient was in sinus rhythm with heart rates between 57-86 bpm during the exam. The patient had frequent PACs during the exam. Left Ventricle: The left ventricle is normal in size and wall thickness. There is no thrombus. The ejection fraction is estimated to be 60-65%. There are no focal wall motion abnormalities. Diastolic parameters suggest a relaxation abnormality of the left ventricle, consistent with probable normal filling pressures. Right Ventricle: The right ventricle is normal in size and function. Atria: The left atrial size is normal. Right atrial size is normal. There is no Doppler evidence for an interatrial shunt. Mitral Valve: There is mild mitral annular calcification. The mitral valve leaflets are mildly calcified. The tip of anterior mitral leaflet is calcified. No significant mitral stenosis. There is trace mitral regurgitation. Aortic Valve: The aortic valve is mildly calcified. The aortic valve is not well visualized. There is mild to moderate aortic stenosis. The peak aortic velocity is 2.7 m/sec. The aortic valve mean gradient is 18 mmHg. The calculated aortic valve area is 1.4 cm2. There is mild aortic regurgitation. Tricuspid Valve: The tricuspid valve is normal in structure and function. There is trace tricuspid regurgitation. The right ventricular systolic pressure is estimated to be at least 17 mmHg based on an estimated right atrial pressure of 3 mm Hg. Pulmonic Valve: The pulmonic valve is not well visualized. There is no pulmonic valvular regurgitation. Great Vessels: The aortic root is normal size. There is aortic root sclerosis/calcification. The dimensions of the ascending aorta are normal. The IVC is of normal diameter and collapses greater than 50% with a sniff. This suggests a low right atrial pressure of 3 mm Hg. Pericardium/ Pleura There is no pericardial effusion. There is no pleural effusion. MMode/2D Measurements & Calculations LVIDd: 4.4 cm LVOT diam: 2.2 cm LVIDs: 2.7 cm Ao root diam: 3.5 cm FS: 39.3 % asc Aorta Diam: 3.1 cm IVSd: 1.1 cm Ao Arch Diam (Prox Trans): 2.6 cm LVPWd: 0.98 cm LV garay. diameter/BSA (cm/m^2): 2.2 LV sys. diameter/BSA (cm/m^2): 1.3 LA A2 area: 22.0 cm2 RA long axis: 5.8 cm LA A4 area: 20.2 cm2 RA area: 17.8 cm2 LA length (vol): 6.0 cm RA vol: 46.8 ml LA vol: 63.4 ml RA : 22.9 ml/m2 LA vol index: 31.0 ml/m2 IVC diam: 1.6 cm RVD1 (basal): 3.2 cm RVD2 (mid): 3.3 cm TAPSE: 2.6 cm Doppler Measurements & Calculations Ao V2 max: 269.1 cm/sec LVOT Max Benito: 91.0 cm/sec Ao V2 mean: 193.9 cm/sec LV V1 max P.3 mmHg Ao max P.0 mmHg LV V1 VTI: 21.4 cm Ao mean P.1 mmHg RAYMOND(I,D): 1.4 cm2 Ao V2 VTI: 57.6 cm RAYMOND(V,D): 1.3 cm2 sev ratio: 0.37 RAYMOND indexed to BSA (cm^2/m^2): 0.68 MV E max benito: 73.2 cm/sec TR max benito: 187.0 cm/sec MV A max benito: 86.0 cm/sec TR max P.0 mmHg MV E/A: 0.85 PA pr(Accel): 39.6 mmHg Med Peak E' Benito: 5.6 cm/sec E/E' med: 13.1 Lat Peak E' Benito: 6.1 cm/sec E/E' lat: 11.9 E/e' average: 12.5 MV dec time: 0.28 sec SV(LVOT): 80.6 ml Reading Physician:01:32 PM
[2021-11-02 22:54] LABS: COVID19 - ADMIT (NP swab/PCR) Negative (Negative)
[2021-11-02 23:15] VITALS: BP 149/83; PULSE 75; RESP 16; TEMP 36.6; O2SAT 95
[2021-11-02 23:32] LABS: Hemoglobin A1C% w Est Avg Glu 5.7 % (4.0-6.0)
[2021-11-02 23:39] VITALS: BMI 30.4
[2021-11-02] MEDS: METOPROLOL IR 25 MG TABLET PO (23:59)
[2021-11-03 03:30] VITALS: BP 149/87; PULSE 70; RESP 15; TEMP 36.3; O2SAT 96
--- NOTE | 2021-11-03 03:34 | PC.NURSE ---
Late entry: Pt arrived via wheelchair from the ED at 2315. Pt was able to ambulate from the chair to the bed with SBA. Patient did not want to remove his clothing at this time so a full skin assessment could not be done. Home medications were reviewed and patient states his PCP left and he stopped taking his medications after that but does take an over the counter prostate medication. Pt was oriented to room, call light, and fall precautions. Call light and belongings were left within reach and patient refused SCD's. Bed is in lowest and locked position and patient is resting comfortably.
[2021-11-03 07:36] LABS: Add Manual Diff / Slide Review NO; Basophils Absolute Auto 100 /uL (0-100); Basophils Percent Auto 1.9 % (0-2); Eosinophils Absolute Auto 200 /uL (0-450); Eosinophils Percent Auto 3.2 % (2-4); Hematocrit 40.8 % (41-53); Hemoglobin 13.9 g/dL (13.5-17.5); Lymphocytes Absolute Auto 1300 /uL (1100-4500); Lymphocytes Percent Auto 21.6 % (25-40); Mean Corpuscular HGB Conc 34.1 % (30-36); Mean Corpuscular Volume 85.2 fL (80-100); Monocytes Absolute Auto 700 /uL (0-900); Monocytes Percent Auto 10.8 % (3-14); Neutrophils Absolute Auto 3900 /uL (1500-7000); Neutrophils Percent Auto 62.5 % (50-75); Platelet Count 163 X10^3/uL (150-400); Red Blood Cell Count 4.79 X10^6/uL (4.5-5.9); Red Cell Distribution Width 13.4 % (11.6-14.8); White Blood Cell Count 6.2 X10^3/uL (4.5-11.0)
[2021-11-03 07:51] LABS: Cholesterol 185 mg/dL (140-199); HDL Cholesterol 41 mg/dL (40-60); LDL Cholesterol Calculated 118 mg/dL (<100); Triglycerides 131 mg/dL (35-150)
[2021-11-03 07:57] LABS: BUN Creatinine Ratio 16.5 (6-22); Blood Urea Nitrogen 15 mg/dL (9-20); Calcium 10.2 mg/dL (8.4-10.2); Carbon Dioxide 30 mmol/L (22-32); Chloride 105 mmol/L (98-107); Estimated Glomerular Filt Rate > 60.0 mL/min (>60); Glucose 103 mg/dL (80-110); HEMOLYSIS 21 (0-50); Magnesium 2.1 mg/dL (1.6-2.3); Potassium 3.8 mmol/L (3.4-5.1); Sodium 139 mmol/L (137-145)
[2021-11-03 08:21] LABS: Thyroid Stimulating Hormone 1.11 uIU/mL (0.47-4.68)
[2021-11-03 08:50] VITALS: BP 143/78; PULSE 65; RESP 18; TEMP 36.4; O2SAT 96
[2021-11-03] MEDS: METOPROLOL IR 25 MG TABLET PO (09:16)
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
[2021-11-03] MEDS: ATORVASTATIN 20 MG TABLET PO (12:29)
[2021-11-03] MEDS: ASPIRIN EC 81 MG TABLET 162 MG PO (12:29)
[2021-11-03] MEDS: NIFEdipine 30 MG TAB ER PO (12:29)
--- NOTE | 2021-11-03 12:44 | CM.DANOTE ---
DCP: Case received, EMR reviewed and met with patient. Introduced self and role. Was able to obtain some information regarding patient's baseline activity level at home prior to hospitalization, as well as his current living situation. Received additional information from speech and occupational therapy. DCP assessment completed with information currently available. Patient is a 76 year old male who admitted yesterday evening to the care of the hospitalist team. PCP: None currently, used to see Sachin Rush. Payer: confirmed: Medicare/[employer]. Patient came to the hospital via private vehicle secondary to having some difficulty with word finding, as well as disorientation. According to notes, symptoms had resolved here at the hospital. Patient had MRI as well. Diagnosis TIA. Patient has history of right internal capsule CVA. Met with patient in his room. He was ambulatory. Working with Sharon occupational therapist. Patient resides alone in [place]. Main contact is Lew Shu, a friend. He is single, no immediate family. Patient indicated that he is independent, and still drives. He has no current provider, patient indicated, he used to have Sachin Rush, but he left. Went ahead and printed him out providers from [facility]. According to speech and occupational therapy, patient does have cognitive deficits. It is unclear what his baseline is, as far as cognition. Patient is alert to self, place, where he lives. He told this community development planner that he does have a friend available to pick him up. The therapy team mentioned patient having a friend named Alejandra, but is not listed on demographics. P: DCP to continue to follow. Plan is more than likely home. He will need to have friend pick him up. 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 No History Provided By Patient,Medical Record Prior Living Arrangements Mobile home Household Members none Type of transporation used prior to Drives own vehicle admit Independent with ADL's Yes Is patient alert and oriented? Yes Caregiver for Another No Barriers to Discharge No Comment O.T, and Speech, stated, patient did poorly on SLUMMS, but unsure of baseline. Discharge Plan Home Transportation Arrangement Friend Referrals Initiated None needed Review Status In Process Next Review Type Continued Stay Review
--- NOTE | 2021-11-03 12:55 | PT.IIE ---
Medical History (Last Reviewed 11/03/21 @ 01:54 by Rakan Mckenzie DO) H/O: CVA (cerebrovascular accident) Heart murmur High blood pressure Physical Therapy Inpatient Evaluation/Re-Eval M1 PT/OT-IP Prior Functional Status Start: 11/03/21 09:15 Freq: NEEDED Status: Active Protocol: Document 11/03/21 12:55 [facility] (Rec: 11/03/21 13:27 AW [id number]) Medical Review Prior Functional Status Medical History Reviewed Yes Communication Independent Mobility and Gait Pt states does not use a device to get around with. Activities of Daily Living and IADL's Pt states prior completely independent for all ADL,IADl, medication and finances. Prior Functional Level (Other details) Pt states has a friend who assists his at times but not sure if she would stay with him to assist him. Social History Household Members none Living Arrangements Mobile home Number of Stairs To Enter/Railing? 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 He lives alone in [place] and still likes to get out and about fixing cars. He has a friend who drove him here and will take him home. She checks on him occasionally but he denies any needs. I have my cell phone if something goes wrong. M2 PT-IP Current Condition Start: 11/03/21 09:15 Freq: NEEDED Status: Active Protocol: Document 11/03/21 12:55 [facility] (Rec: 11/03/21 13:27 AW [id number]) Physical Therapy Current Condition Current Condition Evaluation Date 11/03/21 Treatment Diagnosis TIA; impaired balance Onset Date 11/02/21 M3 PT-IP Subjective Start: 11/03/21 09:15 Freq: NEEDED Status: Active Protocol: Document 11/03/21 12:55 [facility] (Rec: 11/03/21 13:27 AW [id number]) Subjective Physical Therapy Visit Type Type Initial Evaluation Visit Start Time 12:33 Visit Stop Time 12:55 Total Visit Minutes 22 Physical Therapy Visit Comments Patient Comments Pt is willing to participate with PT. I'm feeling like I'm ready to get out of here. Patient Goals Return home. Pt is open to outpatient PT to improve balance. Therapy Pain Assessment Pain When Pain Assessed During Mobility Pain Present Pain Present Denied Pain M4 PT-IP Mobility and Gait Start: 11/03/21 09:15 Freq: NEEDED Status: Active Protocol: Document 11/03/21 12:55 AW (Rec: 11/03/21 13:27 AW [id number]) PT-Bed Mobility Assessment Supine to Sit Supine to Sit Independent Sit to Supine Sit to Supine Independent PT-Transfer Assessment Sit to and From Stand Sit to and from Stand Independent Equipment Transfer Assistive Device None,Gait Belt Transfers Transfer Destination Chair Transfer Technique pt ambulated without AD Transfer Ability Level of Assist Standby Assistance Comments Mobility Comments Pt was sitting up in the chair as PT arrived. BP 140/78. Pt stood from the chair SBA and ambulated in the halls a total of 200 feet, completing Dynamic Gait Index. Prior to testing, pt had one lateral LOB during a turn; he was able to recover without assist. On return to the room, pt demonstrated independent bed mobility and then transferred back to the chair SBA. Pt was left with call light in reach. Gait Assessment Gait Gait Assistance Required: Standby Assistance Distance (Feet) 200 Assistive Devices Assistive Device None,Gait Belt Orthotic/Prosthetic Devices or Brace: No Gait Deviations General Gait Pattern Decreased Stride Length, Decreased Feet Clearance Factors Limiting Gait Function Factors Limiting Gait Function Poor Balance,Poor Safety Awareness Comments Gait Comments Pt scored 17/24 on Dynamic Gait Index. Single points were deducted for change in speed, gait with horizontal and vertical head turns, step over object, and stairs. Two points were deducted for pivot turn due to slow movement and LOB. Stair Climbing Assessment Evaluation Level of Assist On Stairs Standby Assistance Devices Stair Climbing Assistive Devices None Technique/Endurance Stair Climbing Direction Ascend and Descend Stair Climbing Technique Step Over Step Number of Steps Climbed 3 Query Text: Stair Climbing Set # Repetitions (reps) 2 Comments Stair Climbing Comments One set with rails. One set without rails. Close SBA required without rails. PT-Balance Assessment Sitting Balance and Reactions Static Sitting Balance Ability Normal Dynamic Sitting Balance Ability Normal Standing Balance and Reactions Static Standing Balance Ability Good Dynamic Standing Balance Ability Fair Device Used no AD Functional Assessments Functional Tests Dynamic Gait Index 17/24 M5 PT-IP Objective Assessments Start: 11/03/21 09:15 Freq: NEEDED Status: Active Protocol: Document 11/03/21 12:55 AW (Rec: 11/03/21 13:27 AW [id number]) Orientation Orientation/Cognition Level of Alertness Alert Orientation Name,Day of Week,Place, Situation Language Function Ability No Deficits Noted Safety Awareness Decreased Safety Awareness Gross Range of Motion Lower Extremity ROM Assessment Within Functional Limits Strength Lower Extremity Strength Assessment Within Functional Limits Hip 4+/5 Knee 4+/5 Ankle 4/5 Comments Strength Comments No unilateral deficit was appreciated on exam. Coordination Assessment Assessment Finger to Nose Test Normal Performance Pronation/Supination Test Minimal Impairment Foot Tapping Test Normal Performance Heel on Rosa Test Normal Performance Sensation Assessment Sensation Gross Sensation WNL Muscle Tone Muscle Tone WNL Yes Other Assessments Other Other Assessments Oculomotor exam was grossly normal. Cranial nerves intact. M6 PT-IP Treatment Start: 11/03/21 09:15 Freq: NEEDED Status: Active Protocol: Document 11/03/21 12:55 AW (Rec: 11/03/21 13:27 [id number]) Physical Therapy Treatment Education Education Provided Safety Other Treatments Other Treatment Performed Educated pt on recommendation for outpatient PT to address dynamic balance impairments. Requested pt arrange transportation to appointments as driving unsafe per SLUMS completed with OT. M7 PT-IP Assessment and Plan Start: 11/03/21 09:15 Freq: NEEDED Status: Active Protocol: Document 11/03/21 12:55 AW (Rec: 11/03/21 13:27 [id number]) PT Summary Assessment and Plan Potential Rehabilitation Potential Good Status of Condition at Evaluation Stable Summary Impairments Balance,Transfers,Gait Assessment Summary Herbert is a 76 yo man seen for PT evaluation per stroke protocol. He is independent in all regards at baseline. He lives alone in a mobile home but has some supportive friends. On assessment, pt had mildly impaired coordination on dysdiadochokinesia testing and dynamic balance was impaired as evidenced by score of 17/24 on DGI which indicates elevated falls risk. Pt states balance has not been affected in the past 48 hours and his performance on DGI reflects baseline performance. PT recommends discharge home with assist PRN and outpatient PT to address balance deficits. Ideally, pt would have transportation to appointment as he is unsafe to drive per cognitive testing and observation conducted by OT and TRANSPORTATION DISPATCH MANAGER. Goals Transfer Goal Independent Gait Goal Independent Gait Distance 500 Other Goals - up/down 4 steps without rails IND Frequency of Treatment Frequency Of Treatment Once a Day Treatment Plan Physical Therapy Treatment Plan Transfer Training,Gait Training,Therapeutic Exercise, Balance Retraining,Discharge Planning,Neuromuscular Re-ed Other Recommendations and Next Treatment static and dynamic balance Focus interventions, gait training Recommendations To Nursing Amount of Assist Needed Standby Assistance Discharge Recommendations PT Discharge Recommendations Home with Assistance, Outpatient PT Transportation Needs at Discharge Private Vehicle
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
--- NOTE | 2021-11-03 16:48 | PM.PN.1 ---
Subjective Subjective Date Patient Seen: 11/03/21 Interval history: PATIENT ADMITTED TO HOSPITAL SUSPICION OF POSSIBLE TIA HE HAS SIGNIFICANT UNDERLYING DEMENTIA REVIEW OF SYSTEM IS UNRELIABLE HE DOES ANSWER QUESTIONS HOWEVER NOT QUITE APPROPRIATELY Exam Vital Signs (past 8 hours): - 11/03/21 08:50 Temperature 97.5 F L Pulse Rate 65 Respiratory Rate 18 Blood Pressure 143/78 H Pulse Oximetry 96 Oxygen Delivery Method Room Air Narrative Exam Narrative: NO ACUTE DISTRESS.? PATIENT IS AA BUT ORIENTED TO PERSON BUT NOT ORIENTED TO TIME AND PLACE HEAD ATRAUMATIC NORMOCEPHALIC NECK : SUPPLE WITHOUT ADENOPATHY NO CAROTID BRUITS EYE:? EOMI, PERRLA, NORMAL CONJUNCTIVA; NO JAUNDICE CHEST:? REGULAR RATE.? ? NO RUBS.? PMI IS NON DISPLACED.? NO MURMURS; NORMAL S1-S2 PULMONARY:? DECREASED BS OVER THE BASES.? MILD BIBASILAR CRACKLES NOTED; NO INCREASED DULLNESS TO PERCUSSION ABDOMEN:? OBESE BUT SOFT.? NONTENDER.? NONDISTENDED.? BOWEL SOUNDS ARE PRESENT IN ALL 4 QUADRANTS.? NO MASS. EXTREMITIES: NO EDEMA..? NO CYANOSIS CLUBBING NOTED. NEURO:? CRANIAL NERVES 2-12 GROSSLY INTACT. NO FOCAL NEUROLOGICAL DEFICIT NOTED. DEMENTIA MSK:? NORMAL RANGE OF MOTION FOR AGE.? NO JOINT EFFUSION. SKIN:? .? NO LESION. ? FAIR? TURGOR.; NO RASHES PSYCH :? CALM. COOPERATIVE. POOR INSIGHT Objective Labs Result Diagrams: 11/03/21 06:50 11/03/21 06:50 Labs: Laboratory Results - last 24 hr 11/02/21 11/02/21 11/02/21 22:00 22:00 22:00 WBC 9.4 RBC 5.25 Hgb 15.3 Hct 44.8 MCV 85.3 MCH 29.1 MCHC 34.1 RDW 13.6 Plt Count 184 Neut % (Auto) 74.7 Lymph % (Auto) 14.3 L Pender % (Auto) 8.5 Eos % (Auto) 1.4 L Baso % (Auto) 1.1 Neut # (Auto) 7000 Lymph # (Auto) 1400 Pender # (Auto) 800 Eos # (Auto) 100 Baso # (Auto) 100 PT 11.9 INR 1.1 APTT 41 H Sodium 139 Potassium 3.6 Chloride 103 Carbon Dioxide 33 H BUN 15 Creatinine 0.85 Estimated GFR > 60.0 BUN/Creatinine Ratio 17.6 Glucose 117 H Hemoglobin A1c Calcium 10.7 H Magnesium Total Bilirubin 0.7 AST 25 ALT 16 Alkaline Phosphatase 71 Total Creatine Kinase 71 CK-MB (CK-2) TNP CK-MB (CK-2) Rel Index TNP Troponin I < 0.012 Total Protein 7.7 Albumin 4.6 Globulin 3.1 Albumin/Globulin Ratio 1.5 Triglycerides Cholesterol LDL Cholesterol, Calc HDL Cholesterol Lipase 66 TSH SARS-CoV-2 (PCR) 11/02/21 11/02/21 11/03/21 22:00 22:02 06:50 WBC 6.2 RBC 4.79 Hgb 13.9 Hct 40.8 L MCV 85.2 MCH 29.0 MCHC 34.1 RDW 13.4 Plt Count 163 Neut % (Auto) 62.5 Lymph % (Auto) 21.6 L Pender % (Auto) 10.8 Eos % (Auto) 3.2 Baso % (Auto) 1.9 Neut # (Auto) 3900 Lymph # (Auto) 1300 Pender # (Auto) 700 Eos # (Auto) 200 Baso # (Auto) 100 PT INR APTT Sodium Potassium Chloride Carbon Dioxide BUN Creatinine Estimated GFR BUN/Creatinine Ratio Glucose Hemoglobin A1c 5.7 Calcium Magnesium Total Bilirubin AST ALT Alkaline Phosphatase Total Creatine Kinase CK-MB (CK-2) CK-MB (CK-2) Rel Index Troponin I Total Protein Albumin Globulin Albumin/Globulin Ratio Triglycerides Cholesterol LDL Cholesterol, Calc HDL Cholesterol Lipase TSH SARS-CoV-2 (PCR) Negative 11/03/21 11/03/21 11/03/21 06:50 06:50 06:50 WBC RBC Hgb Hct MCV MCH MCHC RDW Plt Count Neut % (Auto) Lymph % (Auto) Pender % (Auto) Eos % (Auto) Baso % (Auto) Neut # (Auto) Lymph # (Auto) Pender # (Auto) Eos # (Auto) Baso # (Auto) PT INR APTT Sodium 139 Potassium 3.8 Chloride 105 Carbon Dioxide 30 BUN 15 Creatinine 0.91 Estimated GFR > 60.0 BUN/Creatinine Ratio 16.5 Glucose 103 Hemoglobin A1c Calcium 10.2 Magnesium 2.1 Total Bilirubin AST ALT Alkaline Phosphatase Total Creatine Kinase CK-MB (CK-2) CK-MB (CK-2) Rel Index Troponin I Total Protein Albumin Globulin Albumin/Globulin Ratio Triglycerides 131 Cholesterol 185 LDL Cholesterol, Calc 118 H HDL Cholesterol 41 Lipase TSH 1.11 SARS-CoV-2 (PCR) [facility] Medical History H/O: CVA (cerebrovascular accident) Heart murmur High blood pressure Surgical History (Updated 11/02/21 @ 23:05 by Chasidy Lyons MD) History of cholecystectomy Family History (Updated 11/02/21 @ 23:03 by Chasidy Lyons MD) Mother Dementia Social History household members: none Smoking Status: Never smoker alcohol intake: never substance use type: does not use Assessment & Plan Assessment & Plan narrative: PROBLEM LIST POSSIBLE TIA. CVA STATUS SUSPECTED HYPERTENSIVE URGENCY. RESOLVED DEMENTIA. APPEAR TO BE AT BASELINE. PLAN WILL SWITCH METOPROLOL IR TO XL WILL ALSO ADD NIFEDIPINE FOR BETTER BP CONTROL WILL ALSO ADD SEROQUEL TO HELP SLEEP AT NIGHT AND CONTROL BEHAVIOR REGARD TO HIS DEMENTIA PATIENT HAS SIGNIFICANT MENTAL DEFICIT NURSING STAFF TO KEEP LIGHT ON AT ALL TIMES TO DECREASE THE RISK OF STONE DROWNING MAINTAIN ASPIRATION FALL PRECAUTION WILL GET LABS IN THE MORNING ADDITIONAL MANAGEMENT PER CLINICAL COURSE Time Spent With Patient Critical Care time: I spent a total of [] minutes of critical care time on this patient's care today; this time is exclusive of procedural time.
[2021-11-03] MEDS: QUETIAPINE 25 MG TABLET 12.5 MG PO (20:44)
[2021-11-03] MEDS: risperiDONE 0.25 MG TABLET PO (20:44)
[2021-11-03 21:28] VITALS: BP 129/69; PULSE 73; RESP 20; TEMP 36.7; O2SAT 96
[2021-11-04 06:00] VITALS: BP 130/70; PULSE 78; RESP 18; TEMP 36.6; O2SAT 96
[2021-11-04 08:00] VITALS: BP 138/86; PULSE 72; RESP 18; TEMP 36.9; O2SAT 95
[2021-11-04] MEDS: MEMANTINE HCL 5 MG TABLET PO (10:00)
[2021-11-04] MEDS: ATORVASTATIN 20 MG TABLET 40 MG PO (10:00)
[2021-11-04 10:36] VITALS: BP 138/86; PULSE 72
[2021-11-04] MEDS: risperiDONE 0.25 MG TABLET PO (10:36)
[2021-11-04] MEDS: METOPROLOL ER 25 MG TABLET PO (10:36)
--- NOTE | 2021-11-04 10:36 | OT.IP.TRT ---
Occupational Therapy Treatment Note M2 OT-IP Current Condition Start: 11/03/21 12:19 Freq: Status: Active Protocol: Document 11/03/21 12:20 [facility] (Rec: 11/03/21 12:42 [facility] [id number]) Occupational Therapy Current Condition Current Condition Evaluation Date 11/03/21 Treatment Diagnosis TIA Diagnosis Onset Date 11/02/21 M3 OT- IP Subjective and Pain Start: 11/03/21 12:19 Freq: Status: Active Protocol: Document 11/04/21 10:05 [facility] (Rec: 11/04/21 13:37 [facility] [id number]) OT- Subjective Occupational Therapy Visit Type Type Treatment Note Visit Start Time 10:05 Visit Stop Time 10:36 Total Visit Minutes 31 Occupational Therapy Visit Comments Patient Comments Pt agreed to get up but not wanting to do any cognitive assessment. Pt insists that he is okay and that he does not think well in the mornings. Patient/Caregiver Goals To go home. OT Pain Assessment Pain When Pain Assessed At Rest Pain Present Pain Present Pain Reported OT ADL-Toileting Comments OT Toileting Comments Pt not having to use the toilet. OT ADL-Bathing Comments OT Bathing Comments NOt performed. Pt would benefit from a shower chair at home for safety. M5 OT- IP IADL's Start: 11/03/21 12:19 Freq: Status: Active Protocol: Document 11/03/21 12:20 [facility] (Rec: 11/03/21 12:42 [facility] [id number]) OT-Instrumental Activities of Daily Living Home Safety Awareness Awareness of Need for Assistance at Home Decreased Awareness Ability to Problem Solve Emergency Able to Problem Solve Situations Home Safety Comments Due to pt's STM deficits, would be best to have someone assist pt especially for all his IADL needs. Driving Driving Concerns Identified Regarding Safety M6 OT- IP Functional Cognition Start: 11/03/21 12:19 Freq: Status: Active Protocol: Document 11/04/21 10:05 [facility] (Rec: 11/04/21 13:37 [facility] [id number]) Cognitive Factors Limiting Selfcare Function Cognitive Ability Level of Alertness Alert Attention Span Ability Capable of Focused Attention, Capable of Sustained Attention Ability to Follow Commands Able to Follow One Step Commands Memory Description Short Term Impaired,Working Impaired Safety Awareness Underestimates Need for Assistance Problem Solving Ability Unable to Identify Errors, Needs Assist to Identify Solutions Executive Function Ability Unable to Filter Distractions, Unable to Remember Details Cognitive Comments Cognitive Assessment Comments Pt not able to figure out how to use his cell phone to call his friend. When asked about the wrong time on his watch, pt states has not changed it from the time change and has not had time to go back to [facility] to have them fix it. Pt also states that his cell phone has the correct time. M7 OT- IP Mobility and Balance Start: 11/03/21 12:19 Freq: Status: Active Protocol: Document 11/04/21 10:05 [facility] (Rec: 11/04/21 13:37 [facility] [id number]) OT-Transfer Assessment Comments Mobility Comments Pt able to carry his food tray in the room with good balance and able to walk in the room without difficulty. OT- Gait Assessment Comments Gait Ability Comments distant SBA for level surfaces . OT- Balance Assessment Sitting Balance and Reactions Static Sitting Balance Ability Normal Dynamic Sitting Balance Ability Normal Standing Balance and Reactions Static Standing Balance Ability Good Dynamic Standing Balance Ability Fair M8 OT- IP Objective Assessments Start: 11/03/21 12:19 Freq: Status: Active Protocol: Document 11/03/21 12:20 [facility] (Rec: 11/03/21 12:42 [facility] [id number]) OT Gross Range of Motion Upper Extremity Range of Motion Assessment Within Functional Limits OT Strength Upper Extremity Strength Assessment Within Functional Limits OT- Coordination Assessment Upper Extremity Finger to Nose Test Bilateral UE Impaired Comments Coordination Comments Left more impaired then right side Pt able to do buttons and zippers appropriately. OT-Muscle Tone Assessment Muscle Tone WNL Yes OT Sensation Assessment Comments Summary Comments Pt delayed response or no response of left side for UE. M9 OT- IP Assessment and Plan Start: 11/03/21 12:19 Freq: Status: Active Protocol: Document 11/04/21 10:05 [facility] (Rec: 11/04/21 13:37 [facility] [id number]) OT Summary Assessment and Plan Potential Rehabilitation Potential Good Analytic Complexity at Evaluation Moderate Summary OT Impairments Balance,Functional Cognition, Bathing Progress Towards Goals Progressing Toward Goals,Slow Progress due to Cognition Assessment Summary Pt a little steadier on his feet. Noted pt coughing on his pills this morning when taking his medications with water, nursing was present at the time. Able to go over and give pt information for help with his decreased memory . Continued to strongly suggest to pt not to drive, pt continues not to respond whether he will stop driving at this time. Pt will benefit from 24/7 assist at home and HH to go after safety needs in his environment. Goals Self-Feeding Goal Independent Grooming Goal Independent Dressing Goal Independent Toileting Goal Independent Bathing Goal Independent Toilet Transfer Goal Independent Shower Transfer Goal Independent Days to Meet Goals 4 Frequency of Treatment Frequency Of Treatment Once a Day Treatment Plan OT Treatment Plan ADL Training,Functional Cognition Training,Functional Mobility,Patient/Family Education,Discharge Planning Other Treatment Recommendations and Next shower Treatment Focus Discharge Recommendations OT Discharge Recommendations Home with 24/7 Assist Available Home Equipment Needs shower chair Transportation Needs at Discharge Private Vehicle
[2021-11-04] MEDS: ENOXAPARIN 40 MG/0.4 ML SYRINGE SUBCUT (10:37)
[2021-11-04] MEDS: NIFEdipine 30 MG TAB ER PO (10:37)
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
[2021-11-04] MEDS: ASPIRIN EC 81 MG TABLET 162 MG PO (10:38)
--- NOTE | 2021-11-04 11:35 | PT-IP ANOTE ---
Pt refused PT at 11:35, reporting he has no further needs and is trying to rest/sleep before going home. Pt refused transfer from chair to bed.
--- NOTE | 2021-11-04 11:53 | CM.DPC ---
Addendum entered by Jaqueline Ruby R.N. 11/04/21 13:06: Was able to contact patient's friend, Alejandra. Her phone number is: [phone]. She indicated that patient has two sons, one is estranged, and did contact a son in [place]. She did not mention that patient has any contacts with sons. Alejandra helps patient with errands, or any needs. She indicated, it's really not safe for patient to be living on his own. There is no POA information for patient on file. Let her know that patient is insistent on going home, and since it is his decision, can't do anything. There is also no clear information as far as patient's finances. Mentioned POA, and can give her some POA paperwork to look at and go over with patient, so he can have an advocate. She may want to reattempt to reach out to patient's son. Have no current information. At this point, she is patient's advocate. 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 Original Note: DCP Cont: Discussed patient during team rounds. Patient is working well as far as mobility, but cognitive issues. Discussed briefly the possibility of [facility], through [facility] [employer] [facility], for patient does have some balance issues. Discussed this with patient and he stated, No, I don't want any strangers coming into my home. Asked him if he had any contacts, such as his friend who is listed, Lew Ireland. He stated, he and I have broken all ties, he is no longer my contact. He has a friend named Frank, who is also available. He gave permission to call her if needed. She may be the one to pick patient up. Asked patient if he had the print out that this liaison planner gave him on new providers. He said, I probably have it in my stuff, I don't need another one. P: DCP to continue to follow. Patient will be discharging home. He has refused home health services at this time. His friend may need to be contacted for transportation. Jaqueline Ruby RN/Bench Worker Helper
[2021-11-04 12:00] VITALS: BP 131/67; PULSE 72; PULSE 73; RESP 16; TEMP 36.7; O2SAT 95
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
--- NOTE | 2021-11-04 18:03 | PC.NURSE ---
Pt is A&Ox2-3 this a.m. forgetful. He is pleasant this a.m. VSS, afebrile on RA. He is ambulating around his room independently He refuses to shower this morning, although offered and educated about hygiene. Pt reminded about oral care and encouraged as well. He expresses that he is not interested in services CM has offered, nor obtaining a POA. He also acknowledges understanding that he will need a primary care provider but states he does not like choosing one. Alejandra patient's friend encourages patient and is very supportive of him. He is medically cleared for discharge and Alejandra arrives this evening to transport him home in private vehicle. Explained medications to both patient and friend who verbalize understanding of discharge, medications and discharge plan as well as selecting a PCP. He is escorted via w/chair to private vehicle with his friend at 1645 this evening with all of his belongings. He continues to look for his house keys yet Alejandra states they are in a jacket that she has kept for him.
== END 2021-11-04 16:45 | disposition home health service (06) ==
LOC: ED 22:30 → AC 23:11
PROVIDERS: Admitting Provider Family Medicine; Emergency Provider Emergency Medicine; Visit Provider Family Medicine
DX: I16.0 Hypertensive urgency (principal); R41.0 Disorientation, unspecified; R60.0 Localized edema; Z86.73 Personal history of transient ischemic attack (TIA), and cerebral infarction without residual deficits; I10 Essential (primary) hypertension; R01.1 Cardiac murmur, unspecified; N40.0 Benign prostatic hyperplasia without lower urinary tract symptoms; Z20.822 Contact with and (suspected) exposure to COVID-19; R29.701 NIHSS score 1
CPT/HCPCS: 36415; 70450; 70551; 80048; 80053; 80061; 82550; 82962; 83036; 83690; 83735; 84443; 84484; 85025; 85610; 85730; 87635; 92507; 93005; 93010; 93306; 93880; 96125; 96372; 97161; 97166; 97530; 99283; 99284; C9803; G0378; J1650

== ENCOUNTER 2022-03-02 20:37 | Emergency (ER) | payer MEDICARE, OTHER, SELFPAY ==
[2022-03-02 20:48] VITALS: BP 169/91; PULSE 97; RESP 16; TEMP 36.6; O2SAT 97; BMI 31.0
[2022-03-02 21:39] VITALS: O2SAT 95
[2022-03-02 21:40] VITALS: BP 162/70; PULSE 72; O2SAT 96
--- NOTE | 2022-03-02 21:52 | PC.NURSE ---
spoke with patient about his lower leg edema. he states this started in December, not with the wound on his leg from 4 days ago. He states he was seen here in Oct and given a bunch of medications and some of them have run out, he is unsure of which he is now taking and not but thinks that some of his medications are causing his edema. He states his pharmacist told him this is a side effect from the meds he is on. he shows willingness to comply with medication regime, but states he has been too busy lately helping his friend out to get them filled.
[2022-03-02 22:00] VITALS: PULSE 72; O2SAT 95
[2022-03-02 22:30] VITALS: PULSE 67; O2SAT 95
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
--- NOTE | 2022-03-02 23:33 | ED.LOWEXIN ---
HPI - Extremity Injury (Lower) General Chief Complaint: Extremity Injury, Lower Stated Complaint: left jimenez injury, swelling bilat lower legs Time Seen by Provider: 03/02/22 23:32 Source: patient Mode of arrival: Ambulatory Limitations: no limitations History of Present Illness HPI Narrative: This is a 76-year-old male comes emergency department with complaint of injury to his left jimenez. Patient states that he scraped his leg with some plywood that goes on the bed. Patient states he has developed some redness. He has swelling of both lower extremities but has increased pain in the leg. He has had some clearish drainage but no purulent drainage. He states he is able to ambulate uncomfortable particularly for the 1st step and then improves. He denies fevers or chills. No chest pain or shortness of breath. No nausea or vomiting. No GI or urinary symptoms. He is on medications including aspirin, atorvastatin, metoprolol, nifedipine, quetiapine, Risperdal and amantadine patient states he thinks he has run hours running out of these medications he is a little unsure knows he is taking them but not which ones. He is not currently established with a primary care physician to follow-up. Patient knows that he was hospitalized for a TIA. Related Data Previous Rx's Medication Instructions Recorded aspirin 81 mg tablet,delayed 162 mg PO DAILY #30 tab 11/04/21 release atorvastatin 20 mg tablet (Lipitor) 40 mg PO DAILY #30 tab 11/04/21 memantine 5 mg tablet (Namenda) 5 mg PO DAILY #30 tab 11/04/21 metoprolol succinate 25 mg 25 mg PO DAILY #30 tab 11/04/21 tablet,extended release 24 hr nifedipine 30 mg tablet,extended 30 mg PO DAILY #30 tab 11/04/21 release 24 hr omega 7-bay-qct-fish oil 100 1 cap PO DAILY #30 cap 11/04/21 mg-160 mg-1,000 mg capsule (Fish Oil) quetiapine 25 mg tablet 12.5 mg PO BEDTIME #30 tab 11/04/21 risperidone 0.25 mg tablet 0.25 mg PO BID #60 tab 11/04/21 doxycycline hyclate 100 mg tablet 100 mg PO BID #14 tab 03/02/22 Allergies Allergy/AdvReac Type Severity Reaction Status Date / Time Sulfa (Sulfonamide Allergy Mild Verified 07/18/19 10:02 Antibiotics) Review of Systems Review of Systems ROS Unobtainable: All systems reviewed & are unremarkable except as noted in HPI and below Patient History Medical History H/O: CVA (cerebrovascular accident) Heart murmur High blood pressure Surgical History History of cholecystectomy Family History Mother Dementia Social History household members: none Smoking Status: Never smoker alcohol intake: never substance use type: does not use Smoking Status: Never smoker alcohol intake frequency: holidays/special occasions only Substance Use Type: does not use Exam Narrative Exam Narrative: GENERAL: Alert and oriented x three, elderly male in mild distress. HEENT: Head normocephalic, atraumatic, EOMI, pupils reactive, face symmetric, moist mucous membranes NECK: Supple, full range of motion CARDIOVASCULAR: Regular rate and rhythm without murmurs, rubs or gallops. RESPIRATORY: Breath sounds equal bilaterally, no wheezes rales or rhonchi. ABDOMEN: Soft, nontender. Normoactive bowel sounds all 4 quadrants. No guarding or rebound, rigidity, no mass : No CVA tenderness EXTREMITIES: Normal range of motion, no clubbing. Neurovascularly intact. Patient has bilateral lower extremity swelling which is equal. Patient has a brace with scabbing that is a 2 x 3 cm on the anterior jimenez with some mild erythema. Patient's cap refill is less than 2 seconds bilateral lower extremities. He has normal sensation. No fluctuance or induration appreciated. There is no drainage. NEUROLOGICAL: Cranial nerves II through XII grossly intact. Moving all extremities SKIN: Warm, dry, no petechiae, no rashes or lesions noted other than above. Initial Vital Signs Initial Vital Signs: Vital Signs Temperature 98 F 03/02/22 20:48 Pulse Rate 97 H 03/02/22 20:48 Respiratory Rate 16 03/02/22 20:48 Blood Pressure 169/91 H 03/02/22 20:48 Pulse Oximetry 97 03/02/22 20:48 Course Orders Ordered: ED Orders 03/02/22 23:04 XR tibia fibula LT 2V Stat Discontinued Medications Doxycycline Hyclate (Doxycycline Hyclate 100 Mg Tablet) 100 mg PO NOW ONE Stop: 03/02/22 23:59 Last Admin: 03/03/22 00:19 Dose: 100 mg Documented by: DIMAS Vital Signs Vital signs: Vital Signs - 8 hr 03/02/22 20:48 03/02/22 21:39 03/02/22 21:40 Temperature 98 F Pulse Rate 97 H 72 Respiratory Rate 16 Blood Pressure 169/91 H 162/70 H Pulse Oximetry 97 95 96 03/02/22 22:00 03/02/22 22:30 Temperature Pulse Rate 72 67 Respiratory Rate Blood Pressure Pulse Oximetry 95 95 MDM - Extremity Injury (Lower) Imaging Data Extremity x-ray #1: My Impression: prelim-no acute fracture. Radiologist's Impression: Launch?[place] [address] XRay Report Signed Patient: Herbert Bautista MR#: [id number] : 1945 Acct:[id number] Age/Sex: 76 / M Date of Service: 03/02/22 Loc: ED Accession Number: [id number] ?? Procedure: XR tibia fibula LT 2V Ordering Provider: Katarina Wooten D.O. PROCEDURE:? XR TIBIA FIBULA LT 2V ? INDICATIONS:? trauma- hit with sheet of plywood 4 days ago, ongoing pain ? TECHNIQUE:? 2 views of the tibia and fibula were acquired.? ? COMPARISON:? None. ? FINDINGS:? ? Bones:? No fractures or dislocations.? No suspicious bony lesions.? ? Soft tissues:? No suspicious soft tissue calcifications or masses.? ? IMPRESSION:? ? 1. No fracture or dislocation.? ? ? Dictated by: Edvin Dietz M.D. on 03/03/2022 at 0:43 ? ? Approved by: Edvin Dietz M.D. on 03/03/2022 at 0:43?? [facility] Narrative Medical decision making narrative: This is a pleasant 76-year-old male with injury to his left jimenez abrasion that appears to be developing infection localized cellulitis. He has some bilateral swelling lower extremities but clearly where his socks are others compression and he has not swollen in his feet. Patient is on multiple medications for hypertension, dyslipidemia, memory and behavior. He is appropriate and appears safe for discharge home but would likely benefit from some home healthcare assistance in managing his medications and being established with a primary care physician. Was referred to our social work administrator to reach out to him. Patient states that we can call him with his x-ray results as they are still pending limit dairy are negative by my read. Plan for short course of oral antibiotic. Medication refills and to help patient establish with primary care. Discharge Plan Departure Patient Disposition: Home Clinical Impression: Cellulitis of left leg, Abrasion of left leg, Bilateral leg edema Instructions: DI for Cellulitis -- Adult Activity Restrictions/Additional Instructions: Follow-up with primary care, to establish call [phone] and the call center can help you find a primary care physician. Your skin today shows signs of infection. Take antibiotics until completely gone. Prescription refills have been to the for [facility] on [address]. Wound Care: Keep wound(s) clean and dry. Wash daily with soap and water only. Do not use over the counter products (alcohol or peroxide)on the wounds unless instructed by a physician. If wound condition worsens (increased/expanding redness, developing fluid blisters, or worsening pain), either contact your doctor for an urgent re-assessment , or return to the Emergency Department. Return if fever greater than 100.4 Fahrenheit, increased swelling, increasing pain or worsening symptoms such as increased discharge or spreading redness, new chest pain, shortness of breath, rapidly worsening swelling in both legs other new or concerning symptoms. Prescriptions: New doxycycline hyclate 100 mg tablet 100 mg PO BID Qty: 14 0RF Continued nifedipine 30 mg Tablet Extended Release 24hr 30 mg PO DAILY Qty: 30 2RF quetiapine 25 mg Tablet 12.5 mg PO BEDTIME Qty: 30 2RF atorvastatin [Lipitor] 20 mg Tablet 40 mg PO DAILY Qty: 30 2RF risperidone 0.25 mg Tablet 0.25 mg PO BID Qty: 60 2RF aspirin 81 mg Tablet,Delayed Release (Dr/Ec) 162 mg PO DAILY Qty: 30 2RF metoprolol succinate 25 mg Tablet Extended Release 24 Hr 25 mg PO DAILY Qty: 30 2RF memantine [Namenda] 5 mg Tablet 5 mg PO DAILY Qty: 30 2RF Fish Oil 100-160-1,000 mg capsule 1 cap PO DAILY Qty: 30 2RF
[2022-03-03] MEDS: DOXYCYCLINE HYCLATE 100 MG TABLET PO (00:19)
== END 2022-03-03 00:28 | disposition home or self-care (01) ==
PROVIDERS: Emergency Provider Emergency Medicine
DX: L03.116 Cellulitis of left lower limb (principal); S80.812A Abrasion, left lower leg, initial encounter; R60.0 Localized edema
CPT/HCPCS: 73590; 99283

== ENCOUNTER 2022-03-03 15:17 | Emergency (ER) | payer MEDICARE, OTHER, SELFPAY ==
[2022-03-03 15:20] VITALS: BP 170/93; PULSE 90; RESP 18; TEMP 36.6; O2SAT 98; BMI 28.1
[2022-03-03] MEDS: CLINDAMYCIN 150 MG CAPSULE 450 MG PO (16:50)
[2022-03-03] MEDS: DOXYCYCLINE HYCLATE 100 MG TABLET PO (16:50)
--- NOTE | 2022-03-03 16:57 | ED_ITS ---
HPI - Wound/Laceration <Maya Dennison, [facility] - Last Filed: 03/03/22 17:02> General Chief Complaint: Wound/Laceration Stated Complaint: Leg scrape, inflimation, infection, seen yesterday Time Seen by Provider: 03/03/22 16:30 Source: patient Mode of arrival: Ambulatory History of Present Illness HPI narrative: This is a 76-year-old male comes emergency department with complaint of injury to his left jimenez after being discharged from the emergency department last with cellulitis of his left lower leg. States that he scraped his leg with some plywood that goes on the bed 4 days ago and has developed some redness.? He has swelling of both lower extremities but has increased pain in the left lower leg around the wound He has had some clearish drainage but no purulent drainage.? He states he is able to ambulate uncomfortable particularly for the 1st step and then improves.? He denies fevers or chills.? No chest pain or shortness of breath.? No nausea or vomiting.? No GI or urinary symptoms.? He is on medic ations including aspirin, atorvastatin, metoprolol, nifedipine, quetiapine, Risperdal and amantadine patient states he thinks he has run hours running out of these medications he is a little unsure knows he is taking them but not which ones.? He is not currently established with a primary care physician to follow- up. Patient wishes to establish care with primary care. He does not remember when his last tetanus was. He was started on doxycycline and has received a total of 2 doses 1 last night, and 1 this morning. He denies any nausea vomiting, fatigue, headache, weakness, or fever. Related Data Previous Rx's Medication Instructions Recorded aspirin 81 mg tablet,delayed 162 mg PO DAILY #30 tab 11/04/21 release atorvastatin 20 mg tablet (Lipitor) 40 mg PO DAILY #30 tab 11/04/21 memantine 5 mg tablet (Namenda) 5 mg PO DAILY #30 tab 11/04/21 metoprolol succinate 25 mg 25 mg PO DAILY #30 tab 11/04/21 tablet,extended release 24 hr nifedipine 30 mg tablet,extended 30 mg PO DAILY #30 tab 11/04/21 release 24 hr omega 8-bmo-vux-fish oil 100 1 cap PO DAILY #30 cap 11/04/21 mg-160 mg-1,000 mg capsule (Fish Oil) quetiapine 25 mg tablet 12.5 mg PO BEDTIME #30 tab 11/04/21 risperidone 0.25 mg tablet 0.25 mg PO BID #60 tab 11/04/21 doxycycline hyclate 100 mg tablet 100 mg PO BID #14 tab 03/02/22 clindamycin HCl 150 mg capsule 450 mg PO TID 7 Days #63 cap 03/03/22 diclofenac sodium 1 % topical gel 2 g TOPICAL QID #100 g 03/03/22 (Voltaren Arthritis Pain) hydrocodone 5 mg-acetaminophen 325 1 tab PO BID PRN #10 tab 03/03/22 mg tablet mupirocin 2 % topical ointment 1 applic TOPICAL BID 7 Days #15 g 03/03/22 Allergies Allergy/AdvReac Type Severity Reaction Status Date / Time Sulfa (Sulfonamide Allergy Mild Verified 07/18/19 10:02 Antibiotics) Review of Systems <ANGELICA Kirby - Last Filed: 03/03/22 17:02> Review of Systems Narrative: See HPI Patient History <ANGELICA Kirby - Last Filed: 03/03/22 17:02> Medical History H/O: CVA (cerebrovascular accident) Heart murmur High blood pressure Surgical History History of cholecystectomy Family History Mother Dementia Social History household members: none Smoking Status: Never smoker alcohol intake: never substance use type: does not use Smoking Status: Never smoker alcohol intake frequency: holidays/special occasions only Substance Use Type: does not use Exam <ANGELICA Kirby - Last Filed: 03/03/22 17:02> Narrative Exam Narrative: Exam Narrative: GENERAL: Alert and oriented x three, elderly male in mild distress but pleasant and talkative HEENT: Head normocephalic, atraumatic, EOMI, pupils reactive, face symmetric, moist mucous membranes NECK: Supple, full range of motion CARDIOVASCULAR: Regular rate and rhythm without murmurs, rubs or gallops. RESPIRATORY: Breath sounds equal bilaterally, no wheezes rales or rhonchi. ABDOMEN: Soft, nontender.? Normoactive bowel sounds all 4 quadrants.? No guarding or rebound, rigidity, no mass : No CVA tenderness EXTREMITIES: Normal range of motion, no clubbing.? Neurovascularly intact.? Patient has bilateral lower extremity swelling which is equal.? Patient a scabbed abrasion that is a 2 x 3 cm on the anterior jimenez with some mild surrounding erythema and tenderness to palpation. Patient's cap refill is less than 2 seconds bilateral lower extremities.? He has normal sensation.? No fluctuance or induration appreciated. Approximately 2+ edema to the left lower extremity and 1+ edema to the right lower extremity There is no drainage. NEUROLOGICAL: Cranial nerves II through XII grossly intact.? Moving all extremities SKIN: Warm, dry, no petechiae, no rashes or lesions noted other than above. Initial Vital Signs Initial Vital Signs: Vital Signs Temperature 98 F 03/03/22 15:20 Pulse Rate 90 03/03/22 15:20 Respiratory Rate 18 03/03/22 15:20 Blood Pressure 170/93 H 03/03/22 15:20 Pulse Oximetry 98 03/03/22 15:20 <Flaquita Manzanares DO - Last Filed: 03/08/22 07:53> Initial Vital Signs Initial Vital Signs: Vital Signs Temperature 98 F 03/03/22 15:20 Pulse Rate 90 03/03/22 15:20 Respiratory Rate 18 03/03/22 15:20 Blood Pressure 170/93 H 03/03/22 15:20 Pulse Oximetry 98 03/03/22 15:20 Course <Maya Dennison [facility] - Last Filed: 03/03/22 17:02> Orders Ordered: Discontinued Medications Clindamycin HCl (Clindamycin 150 Mg Capsule) 450 mg PO NOW ONE Stop: 03/03/22 16:39 Last Admin: 03/03/22 16:50 Dose: 450 mg Documented by: JAIRO Diphtheria/Tetanus/Acell Pertussis (Tet,Diph,Pertuss(Acell),Vac/Pf 0.5 Ml Syringe) 0.5 ml IM .ONCE ONE Stop: 03/03/22 16:53 Last Admin: 03/03/22 17:01 Dose: 0.5 ml Documented by: JAIRO Doxycycline Hyclate (Doxycycline Hyclate 100 Mg Tablet) 100 mg PO NOW ONE Stop: 03/03/22 16:39 Last Admin: 03/03/22 16:50 Dose: 100 mg Documented by: JAIRO Vital Signs Vital signs: Vital Signs - 8 hr 03/03/22 15:20 Temperature 98 F Pulse Rate 90 Respiratory Rate 18 Blood Pressure 170/93 H Pulse Oximetry 98 <Flaquita Manzanares DO - Last Filed: 03/08/22 07:53> Orders Ordered: Discontinued Medications Clindamycin HCl (Clindamycin 150 Mg Capsule) 450 mg PO NOW ONE Stop: 03/03/22 16:39 Last Admin: 03/03/22 16:50 Dose: 450 mg Documented by: JAIRO Diphtheria/Tetanus/Acell Pertussis (Tet,Diph,Pertuss(Acell),Vac/Pf 0.5 Ml Syringe) 0.5 ml IM .ONCE ONE Stop: 03/03/22 16:53 Last Admin: 03/03/22 17:01 Dose: 0.5 ml Documented by: JAIRO Doxycycline Hyclate (Doxycycline Hyclate 100 Mg Tablet) 100 mg PO NOW ONE Stop: 03/03/22 16:39 Last Admin: 03/03/22 16:50 Dose: 100 mg Documented by: JAIRO Vital Signs Vital signs: Vital Signs - 8 hr 03/03/22 15:20 Temperature 98 F Pulse Rate 90 Respiratory Rate 18 Blood Pressure 170/93 H Pulse Oximetry 98 MDM - Wound/Laceration <ANGELICA Kirby - Last Filed: 03/03/22 17:02> [facility] Narrative Medical decision making narrative: This is a 76-year-old male who returns to the emergency department for worsening left lower leg swelling, pain, edema related to his left lower leg cellulitis. Patient endorses that he scraped his lower leg on some plywood while moving some furniture 4 days ago. He was started on doxycycline last night, received a total of 2 doses and presents to the emergency department today for worsening pain, swelling, edema, and redness. It does not appear to have spread larger than what was documented last night. Patient is afebrile, without fatigue, muscle aches, or other symptoms of systemic illness. He does not have any tachycardia, hypotension, hypoxia. For concern about MRSA and patient has allergy to sulfa, after discussion with pharmacist, decision to add clindamycin 450 mg t.i.d. for 7 days onto patient's ranging with topical mupirocin ointment. Patient does not have a history of diabetes and is not on any anticoagulants. He is encouraged to call [facility] for an appointment with a primary care provider, he was given a number, encouraged to return here for any worsening and to follow-up with his primary care provider as soon as some of these able to see him for follow-up from this appointment. There is no fluctuan ce, drainage, signs of abscess at this time. Patient is appropriate and amenable to discharge home. Vital signs are stable on repeat examination is unremarkable. Patient has been informed of results. Patient has been given strict return to ER precautions for any new or worsening symptoms. Patient understands to follow up closely with outpatient providers as instructed. Patient understands plan and agrees to discharge home. All questions and concerns answered at this time. Discharge Plan Departure Patient Disposition: Home Clinical Impression: Cellulitis of left leg Instructions: Cellulitis Activity Restrictions/Additional Instructions: *You have been diagnosed with cellulitis of your left leg. Please continue taking your doxycycline 2 times per day until they are gone. Please start taking clindamycin 450 mg 3 times per day for 7 days. You can use hydrocodone as needed for your pain in addition to Tylenol or ibuprofen at home. You can use the diclofenac gel topically around the wound where it is painful but please do not put it in the wound. Use the mupirocin ointment over the scab in the open areas of the skin after shower, apply a Band-Aid afterwards to help hold that medicine on the wound. If this gets any worse, if he develop a fever, or your pain is worsening, please return to the emergency department for another evaluation. If you develop diarrhea, over 5 or 10 episodes each day and are feeling ill due to diarrhea, please return to the emergency department. I hope this gets better soon. CONTROLLED SUBSTANCE DISCHARGE (Narcotic/benzodiazepine/Flexeril/Phenergan) 1. You have been prescribed narcotic medications, it does have acetaminophen/Tylenol/paracetamol in it, DO NOT TAKE MORE THAN 4,00mg in 24 hours of Tylenol. *Tramadol does not contain tylenol. 2. Please understand that we cannot provide further refills of narcotics, benzodiazepines or controlled substances through the ED and her pain management will need to be through your provider. 3. While on these medications you cannot drive or operate heavy machinery. 4. You cannot sign legal documents or perform any duties such as this. 5. As long as you are taking opiate pain medications he should also be taking a stool softener such as Colace, Dulcolax, MiraLAX or prune juice, to help avoid constipation. *What to do: *Please continue to take your regular medications as directed. [ x New medication prescriptions sent to your pharmacy: [[facility] ] [ ] New medication written as a paper prescription [ ] No new medications given *Please follow up with your primary care provider in 2-3 days, call for an appointment. Let them know you were seen in the Emergency Department and that we asked that you be seen for follow-up. We will electronically transmit a record of today's note if your PCP is in our system *If you do not have a primary care provider please contact [phone] to establish care with one of [facility] primary care providers. Please let them know that you need to schedule follow-up from the emergency department within the next 10 days and ask for whoever might be available to see you for follow-up for your left leg cellulitis *Return to Emergency Department if you should have any new, worsening or concerning symptoms, such as [fever greater than 101F, chills, worsening pain, persistent vomiting or other bothersome symptoms] Prescriptions: New clindamycin HCl 150 mg capsule 450 mg PO TID 7 Days Qty: 63 0RF hydrocodone-acetaminophen 5-325 mg tablet 1 tab PO BID PRN (Reason: pain) Qty: 10 0RF diclofenac sodium [Voltaren Arthritis Pain] 1 % gel 2 g topical QID Qty: 100 0RF Rx Instructions: apply to single elbow, wrist or hand; for hand includes palm/fingers/back of hand mupirocin 2 % ointment 1 applic topical BID 7 Days Qty: 15 0RF No Action nifedipine 30 mg Tablet Extended Release 24hr 30 mg PO DAILY Qty: 30 2RF quetiapine 25 mg Tablet 12.5 mg PO BEDTIME Qty: 30 2RF atorvastatin [Lipitor] 20 mg Tablet 40 mg PO DAILY Qty: 30 2RF risperidone 0.25 mg Tablet 0.25 mg PO BID Qty: 60 2RF aspirin 81 mg Tablet,Delayed Release (Dr/Ec) 162 mg PO DAILY Qty: 30 2RF metoprolol succinate 25 mg Tablet Extended Release 24 Hr 25 mg PO DAILY Qty: 30 2RF memantine [Namenda] 5 mg Tablet 5 mg PO DAILY Qty: 30 2RF Fish Oil 100-160-1,000 mg capsule 1 cap PO DAILY Qty: 30 2RF doxycycline hyclate 100 mg tablet 100 mg PO BID Qty: 14 0RF <Flaquita Manzanares DO - Last Filed: 03/08/22 07:53> Cosign ED Attending Cosignature Attestation: I was immediately available in the department for consultation. Documentation has been reviewed. I agree with assessment and plan.
[2022-03-03] MEDS: TET,DIPH,PERTUSS(ACELL),VAC/PF 0.5 ML SYRINGE IM (17:01)
[2022-03-03 17:16] VITALS: BP 187/94; PULSE 77; RESP 18; O2SAT 99
== END 2022-03-03 17:30 | disposition home or self-care (01) ==
PROVIDERS: Emergency Provider Nurse Practitioner Critical Care Medicine
DX: L03.116 Cellulitis of left lower limb (principal); Z23 Encounter for immunization
CPT/HCPCS: 90471; 99283; 90715

== ENCOUNTER 2022-07-16 15:09 | Emergency (ER) | payer MEDICARE, OTHER, SELFPAY ==
[2022-07-16 15:58] VITALS: BP 162/81; PULSE 80; RESP 18; TEMP 36.6; O2SAT 96; BMI 28.8
--- NOTE | 2022-07-16 17:16 | ED.URI ---
HPI - URI/Sore Throat <Alexis Quezada PA-C - Last Filed: 07/16/22 19:08> General Chief Complaint: Upper Respiratory Symptoms Stated Complaint: sinus pain/infection x7 days Time Seen by Provider: 07/16/22 16:23 Source: patient Mode of arrival: Family Vehicle History of Present Illness HPI Narrative: Patient is a 77-year-old male who presents to the emergency room today with complaint of continue sinus pain injured difficulty urinating. Patient states he was seen at the walk-in clinic yesterday for a sinus infection. He was seen at about 7:00 p.m. and received antibiotic steroids and a nasal spray. States that woke this morning when he woke up he had difficulty urinating. States that that has resolved at this time. Patient also states that he has noticed periodic burning and stinging when he urinates for about 2 weeks. Denies back or sciatic pain, but does admit to having 1 bout of urine that had a strong odor. Denies any other concerns at this time. Related Data Previous Rx's Medication Instructions Recorded aspirin 81 mg tablet,delayed 162 mg PO DAILY #30 tabs 11/04/21 release atorvastatin 20 mg tablet (Lipitor) 40 mg PO DAILY #30 tabs 11/04/21 memantine 5 mg tablet (Namenda) 5 mg PO DAILY #30 tabs 11/04/21 metoprolol succinate 25 mg 25 mg PO DAILY #30 tabs 11/04/21 tablet,extended release 24 hr nifedipine 30 mg tablet,extended 30 mg PO DAILY #30 tabs 11/04/21 release 24 hr omega 7-dxp-fsf-fish oil 100 1 cap PO DAILY #30 caps 11/04/21 mg-160 mg-1,000 mg capsule (Fish Oil) quetiapine 25 mg tablet 12.5 mg PO BEDTIME #30 tabs 11/04/21 risperidone 0.25 mg tablet 0.25 mg PO BID #60 tabs 11/04/21 doxycycline hyclate 100 mg tablet 100 mg PO BID #14 tabs 03/02/22 diclofenac sodium 1 % topical gel 2 g topical QID #100 grams 03/03/22 (Voltaren Arthritis Pain) hydrocodone 5 mg-acetaminophen 325 1 tab PO BID PRN pain #10 tabs 03/03/22 mg tablet Allergies Allergy/AdvReac Type Severity Reaction Status Date / Time Sulfa (Sulfonamide Allergy Mild Verified 07/16/22 15:42 Antibiotics) Review of Systems <Alexis Quezada PA-C - Last Filed: 07/16/22 19:08> Review of Systems Narrative: R.O.S.: General: No fever, chills or fatigue. Cardiovascular: No chest pain or palpitations Respiratory: No S.O.B. HEENT: No congestion, ear pain, rhinorrhea, sore throat or tinnitus Gastrointestinal: No nausea or vomiting Skin: No rash or associated abnormalities Musculoskeletal: No pain in muscles or joints, no limitation of range of motion, no paresthesia or numbness. ?? Neurological: Awake, alert and in not apparent distress. No Headaches, changes in vision or other related neurological concerns. Genitourinary: Pain with urination Patient History <Alexis Quezada PA-C - Last Filed: 07/16/22 19:08> Medical History H/O: CVA (cerebrovascular accident) Heart murmur High blood pressure Surgical History History of cholecystectomy Family History Mother Dementia Social History household members: none Smoking Status: Never smoker alcohol intake: never substance use type: does not use Smoking Status: Never smoker alcohol intake frequency: 0-2 drinks per day Substance Use Type: does not use Exam <Alexis Quezada PA-C - Last Filed: 07/16/22 19:08> Narrative Exam Narrative: Physical Exam: ? General: normal appearance, well developed, well nourished, alert, and awake. Not in acute distress. ? Head: Normocephalic, no lesions. Chest: Lungs CTAB, no rales, rhonchi or wheezes. ?? Heart: RRR, no murmurs, rubs or gallops. Eyes: PERRLA, EOM's full, conjunctivae clear. ? Neuro: Physiological, no localizing findings, CN3-12 intact. ?? Extremities: Warm, well perfused, FROM, no deformities, no edema. ?? Skin: Normal, no rashes, no lesions noted. ?? PSYCHIATRIC: The mood is good, no blunted affect. Speech is clear. Thought process is linear, thought content is appropriate. The voice is without significant inflection. Gastrointestinal: Negative CVA tenderness; Soft; NT; ND; Pos BS with Neg. rebound tenderness. No scars or major deformities noted on Visual Inspection. Initial Vital Signs Initial Vital Signs: Vital Signs Temperature 98 F 07/16/22 15:58 Pulse Rate 80 07/16/22 15:58 Respiratory Rate 18 07/16/22 15:58 Blood Pressure 162/81 H 07/16/22 15:58 Pulse Oximetry 96 07/16/22 15:58 Oxygen Delivery Method 07/16/22 15:58 <Rakan Mckenzie DO - Last Filed: 07/17/22 07:11> Initial Vital Signs Initial Vital Signs: Vital Signs Temperature 98 F 07/16/22 15:58 Pulse Rate 80 07/16/22 15:58 Respiratory Rate 18 07/16/22 15:58 Blood Pressure 162/81 H 07/16/22 15:58 Pulse Oximetry 96 07/16/22 15:58 Oxygen Delivery Method 07/16/22 15:58 Course <Alexis Quezada PA-C - Last Filed: 07/16/22 19:08> Vital Signs Vital signs: Vital Signs - 8 hr 07/16/22 15:58 Temperature 98 F Pulse Rate 80 Respiratory Rate 18 Blood Pressure 162/81 H Pulse Oximetry 96 Oxygen Delivery Method Room Air <DO Selvin Pierson Last Filed: 07/17/22 07:11> Vital Signs Vital signs: Vital Signs - 8 hr 07/16/22 15:58 Temperature 98 F Pulse Rate 80 Respiratory Rate 18 Blood Pressure 162/81 H Pulse Oximetry 96 Oxygen Delivery Method Room Air MDM - URI/Sore Throat <STEFANIE Cat Last Filed: 07/16/22 19:08> Lab Data Labs: Urine Dip Bedside Urine Glucose Negative Bedside Urine Bilirubin - Negative Bedside Urine Ketone - Negative Urine Specific [place] 1.015 Bedside Urine Occult Blood - Negative Bedside Urine pH 6.0 Bedside Urine Protein +/- 15 Bedside Urine Urobilinogen - Negative Bedside Urine Nitrite - Negative Bedside Urine Leukocytes - Negative Esterase MDM Narrative Medical decision making narrative: Patient is a male who appears to be slightly confused. Patient's main concern today is continued sinus infection and difficulty urinating this morning. Upon further discussion patient is additional complaint is pain with urination that started about 2 weeks ago. Urine was ordered to check for urinary tract infection. The patient was informed the unremarkable urine results and advised to continue his medications as ordered. Advised patient to contact Urology should any non emergent urology concerns arise in the future. Patient was also advised to return to emergency room if any emergent concerns arise and to follow with his primary care provider should any non emergent concerns arise. Patient was also not sure as to how he should be taking his steroids. This provider explained that to the patient. <Rakan Mckenzie, DO - Last Filed: 07/17/22 07:11> Lab Data Labs: Urine Dip Bedside Urine Glucose Negative Bedside Urine Bilirubin - Negative Bedside Urine Ketone - Negative Urine Specific [place] 1.015 Bedside Urine Occult Blood - Negative Bedside Urine pH 6.0 Bedside Urine Protein +/- 15 Bedside Urine Urobilinogen - Negative Bedside Urine Nitrite - Negative Bedside Urine Leukocytes - Negative Esterase Discharge Plan Departure Patient Disposition: Home Clinical Impression: Upper respiratory infection Instructions: Sinusitis Activity Restrictions/Additional Instructions: *You have been diagnosed with continued sinusitis and periodic pain with urination. Her urine sample taken today ruled out for urinary tract infection at this time. I suggest she continue to take your medicines for your sinus infection at this time. Review of another bout of painful or difficulty urinating I suggest you contact Urology. Urology provider is Dr. Nuñez and the phone number is [phone]. Please return to the emergency room for any emergent concerns arise and contact the primary care provider should any nonemergent concerns arise. [ ] *What to do: *Please continue to take your regular medications as directed. [ ] New medication prescriptions sent to your pharmacy: [ ] [ ] New medication written as a paper prescription [x] No new medications given *Please follow up with your primary care provider in 2-3 days, call for an appointment. Let them know you were seen in the Emergency Department and that we ask that you be seen in follow up. We will electronically transmit a record of today's note if your PCP is in our system *If you do not have a primary care provider please contact the [facility] Resource line at [phone]. They will ask some questions about your medical history and help get you set up with a doctor in the community. *Return to Emergency Department if you should have any new, worsening or concerning symptoms, such as [fever greater than 101 F, shaking chills, worsening pain, persistent vomiting or other bothersome symptoms] Prescriptions: No Action hydrocodone-acetaminophen 5-325 mg tablet 1 tab PO BID PRN (Reason: pain) Qty: 10 0RF diclofenac sodium [Voltaren Arthritis Pain] 1 % gel 2 g topical QID Qty: 100 0RF Rx Instructions: apply to single elbow, wrist or hand; for hand includes palm/fingers/back of hand nifedipine 30 mg Tablet Extended Release 24hr 30 mg PO DAILY Qty: 30 2RF quetiapine 25 mg Tablet 12.5 mg PO BEDTIME Qty: 30 2RF atorvastatin [Lipitor] 20 mg Tablet 40 mg PO DAILY Qty: 30 2RF risperidone 0.25 mg Tablet 0.25 mg PO BID Qty: 60 2RF aspirin 81 mg Tablet,Delayed Release (Dr/Ec) 162 mg PO DAILY Qty: 30 2RF metoprolol succinate 25 mg Tablet Extended Release 24 Hr 25 mg PO DAILY Qty: 30 2RF memantine [Namenda] 5 mg Tablet 5 mg PO DAILY Qty: 30 2RF Fish Oil 100-160-1,000 mg capsule 1 cap PO DAILY Qty: 30 2RF doxycycline hyclate 100 mg tablet 100 mg PO BID Qty: 14 0RF Referrals: Sachin Nuñez MD [Physician] - Visit Report Forms: Patient Portal/API <Rakan Mckenzie DO - Last Filed: 07/17/22 07:11> [facility]: Dr Mckenzie Co-Sign Statement: I was available for consultation during this patient's emergency department visit. This chart is signed by myself for administrative purposes only. I did not have direct contact with this patient during this visit. They were seen independently by the APC.
[2022-07-16 19:16] VITALS: BP 167/82; PULSE 59; O2SAT 97
== END 2022-07-16 19:29 | disposition home or self-care (01) ==
PROVIDERS: Emergency Provider Physician Assistant
DX: J06.9 Acute upper respiratory infection, unspecified (principal); Z20.822 Contact with and (suspected) exposure to COVID-19; R39.198 Other difficulties with micturition
CPT/HCPCS: 81003; 99282

== ENCOUNTER 2022-07-25 16:45 | Inpatient (IN) | payer MEDICARE, OTHER, SELFPAY ==
[2022-07-25] VITALS (22 sets, daily range): BP systolic 115–191; BP diastolic 56–95; PULSE 68–145; RESP 18–40; TEMP 37.2–39.2; O2SAT 91–98; BMI 27.6
--- NOTE | 2022-07-25 17:44 | DI.RAD.S_ITS ---
PROCEDURE: XR CHEST 1V INDICATIONS: chest pain TECHNIQUE: One view of the chest was acquired. COMPARISON: [facility], CT, CT HEAD/BRAIN WO CON, 07/25/2022, 17:51. FINDINGS: Surgical changes and devices: None. Lungs and pleura: An incomplete inspiratory result is noted, causing a crowded appearance to the lung markings. No focal infiltrates are seen. No pneumothorax or significant pleural effusions are seen. Generalized interstitial prominence can be seen. Mediastinum: Mediastinal contours appear normal. Heart size is moderately enlarged. Atherosclerotic calcification of the aortic arch is noted. Bones and chest wall: No suspicious bony lesions. Overlying soft tissues appear unremarkable. IMPRESSION: Cardiomegaly and interstitial prominence. Mild CHF is suspected. Dictated by: Petey Vega M.D. on 07/25/2022 at 17:29 Approved by: Petey Vega M.D. on 07/25/2022 at 17:29
--- NOTE | 2022-07-25 17:44 | DI.CT.S_ITS ---
PROCEDURE: CT HEAD/BRAIN WO CON INDICATIONS: [place] TECHNIQUE: Noncontrast 4.5 mm thick angled axial sections acquired from the foramen magnum to the vertex, with coronal and sagittal reformats. For radiation dose reduction, the following was used: automated exposure control, adjustment of mA and/or kV according to patient size. COMPARISON: [facility], CT, CT HEAD/BRAIN WO CON, 11/02/2021, 22:00. FINDINGS: Image quality: Excellent. CSF spaces: Basal cisterns are patent. No extra-axial fluid collections. The ventricles are symmetric in size and shape. Brain: No intracranial bleeds or masses. There is cerebral volume loss for age, with suggestion of possible mildly disproportione ventricular dilatation. There are periventricular and deep white matter chronic small vessel ischemic changes. There is intracranial internal carotid artery atherosclerosis. Skull and face: Calvarium and visualized facial bones appear intact, without suspicious lesions. Sinuses: Moderate left mastoid air cell effusion inferiorly. Right mastoid air cells clear. Sinuses clear. IMPRESSION: Age related moderate global cerebral volume loss and moderate chronic microvascular ischemic changes. Possible greater than expected ventricular caliber, raising possibility of adult hydrocephalus (normal pressure hydrocephalus) Dictated by: Yovani Schultz M.D. on 07/25/2022 at 18:05 Approved by: Yovani Schultz M.D. on 07/25/2022 at 18:08
[2022-07-25 18:11] LABS: Add Manual Diff / Slide Review NO; Basophils Absolute Auto 0 /uL (0-100); Basophils Percent Auto 0.1 % (0-2); Eosinophils Absolute Auto 0 /uL (0-450); Hematocrit 39.8 % (41-53); Hemoglobin 13.2 g/dL (13.5-17.5); Lymphocytes Absolute Auto 400 /uL (1100-4500); Lymphocytes Percent Auto 1.8 % (25-40); Mean Corpuscular HGB Conc 33.3 % (30-36); Mean Corpuscular Hemoglobin 27.9 PG (26-34); Mean Corpuscular Volume 83.8 fL (80-100); Monocytes Absolute Auto 1300 /uL (0-900); Monocytes Percent Auto 6.2 % (3-14); Neutrophils Absolute Auto 18600 /uL (1500-7000); Neutrophils Percent Auto 91.9 % (50-75); Platelet Count 140 X10^3/uL (150-400); Red Blood Cell Count 4.75 X10^6/uL (4.5-5.9); Red Cell Distribution Width 15.2 % (11.6-14.8); White Blood Cell Count 20.3 X10^3/uL (4.5-11.0)
[2022-07-25 18:32] LABS: Alanine Aminotransferase 21 IU/L (<50); Albumin 3.8 g/dL (3.5-5.0); Albumin Globulin Ratio 1.5 (1.0-2.8); Alkaline Phosphatase 36 U/L (38-126); Aspartate Aminotransferase 39 IU/L (17-59); BUN Creatinine Ratio 20.9 (6-22); Bilirubin Total 1.7 mg/dL (0.2-1.3); Blood Urea Nitrogen 18 mg/dL (9-20); Calcium 9.2 mg/dL (8.4-10.2); Carbon Dioxide 24 mmol/L (22-32); Chloride 99 mmol/L (98-107); Creatine Kinase 699 U/L (55-170); Estimated Glomerular Filt Rate > 60 mL/min (>60); Globulin 2.5 g/dL (1.7-4.1); Glucose 157 mg/dL (80-110); Lipase 34 U/L (23-300); Potassium 3.2 mmol/L (3.4-5.1); Sodium 135 mmol/L (137-145); Total Protein 6.3 g/dL (6.3-8.2)
[2022-07-25 18:44] LABS: Troponin I 0.078 ng/mL (0.01-0.034)
[2022-07-25 18:47] LABS: Lactate (Lactic Acid) 4.1 mmol/L (0.7-2.1)
[2022-07-25 18:48] LABS: CKMB % Relative Index 0.1 % (1.5-5.0); Creatine Kinase MB 0.94 ng/mL (<2.37); HEMOLYSIS 35 (0-50)
--- NOTE | 2022-07-25 18:50 | ED.FALL ---
HPI - Fall General Chief Complaint: Fall Stated Complaint: FALLS UTI Time Seen by Provider: 07/25/22 18:50 Source: patient Mode of arrival: Wheelchair History of Present Illness HPI Narrative: 77-year-old male nonsmoker with history of hypertension, hyperlipidemia and some elements of dementia who lives at home alone presents for evaluation of multiple falls and generalized weakness as well as some confusion. He was reported to have been seen and evaluated at an outside facility within the past day or 2 and had lab work and imaging performed which was unremarkable. He did carry a diagnosis of urinary tract infection and apparently has been on an antibiotic. He denies any headache or blurred vision. He is had no chest pain or shortness of breath. He denies nausea or vomiting. He has no abdominal pain, constipation or diarrhea. He states that his falls have occurred because he is very weak and [place] also a [place] slippery. He did strike his head but denies any loss of consciousness Related Data Previous Rx's Medication Instructions Recorded aspirin 81 mg tablet,delayed 162 mg PO DAILY #30 tabs 11/04/21 release atorvastatin 20 mg tablet (Lipitor) 40 mg PO DAILY #30 tabs 11/04/21 memantine 5 mg tablet (Namenda) 5 mg PO DAILY #30 tabs 11/04/21 metoprolol succinate 25 mg 25 mg PO DAILY #30 tabs 11/04/21 tablet,extended release 24 hr nifedipine 30 mg tablet,extended 30 mg PO DAILY #30 tabs 11/04/21 release 24 hr omega 3-ucz-jzn-fish oil 100 1 cap PO DAILY #30 caps 11/04/21 mg-160 mg-1,000 mg capsule (Fish Oil) quetiapine 25 mg tablet 12.5 mg PO BEDTIME #30 tabs 11/04/21 risperidone 0.25 mg tablet 0.25 mg PO BID #60 tabs 11/04/21 diclofenac sodium 1 % topical gel 2 g topical QID #100 grams 03/03/22 (Voltaren Arthritis Pain) hydrocodone 5 mg-acetaminophen 325 1 tab PO BID PRN pain #10 tabs 03/03/22 mg tablet Allergies Allergy/AdvReac Type Severity Reaction Status Date / Time Sulfa (Sulfonamide Allergy Mild Verified 07/25/22 17:48 Antibiotics) Review of Systems Review of Systems Narrative: GENERAL: See HPI HEENT: Denies sinus pain, ear pain, sore throat, difficulty swallowing, dizziness. RESPIRATORY: Denies dyspnea, cough, wheezing, hemoptysis, sputum. CARDIOVASCULAR: Denies chest pain, palpitations, orthopnea, edema, GASTROINTESTINAL: Denies nausea, vomiting, abdominal pain, diarrhea, constipation, melena. : Denies dysuria, frequency, incontinence, hematuria, urinary retention. MUSCULOSKELETAL: denies weakness, joint pain, or bony pain SKIN: Denies rash, skin lesions, or other NEUROLOGIC: See HPI PSYCHIATRIC: No concerning psychosocial issues. 12 point review of systems is negative except for those stated above Patient History Medical History (Updated 07/26/22 @ 00:20 by ART Horner) BPH (benign prostatic hyperplasia) Dementia H/O: CVA (cerebrovascular accident) Heart murmur High blood pressure Peripheral edema Surgical History History of cholecystectomy Family History Mother Dementia Social History household members: none Smoking Status: Never smoker alcohol intake: never substance use type: does not use Smoking Status: Never smoker alcohol intake frequency: 0-2 drinks per day Substance Use Type: does not use Exam Narrative Exam Narrative: GENERAL: [77] year old patient appears stated age. Well-developed patient, in mild distress. GCS 15 HEAD: Ecchymosis about left eye, no obvious hematoma, abrasion or laceration EYES: Pupils equal round and reactive. Extraocular motions intact. No scleral icterus. No injection or drainage. ENT: Dry mucous membranes Nose without bleeding, purulent drainage. Throat without erythema, tonsillar hypertrophy or exudate. Airway patent. NECK: Trachea midline. Non tender CARDIOVASCULAR: Tachycardic but regular without murmurs, gallops, or rubs. RESPIRATORY: Clear to auscultation. Breath sounds equal bilaterally. No wheezes, rales, or rhonchi. GASTROINTESTINAL: Abdomen soft, non-tender, nondistended. EXTREMITIES: No edema or joint tenderness. BACK: Nontender without deformity or crepitance. No flank tenderness. NEURO: AOx3. SKIN: No rash or erythema of visible areas Initial Vital Signs Initial Vital Signs: Vital Signs Temperature 98.9 F 07/25/22 17:34 Pulse Rate 89 07/25/22 17:34 Respiratory Rate 18 07/25/22 17:34 Blood Pressure 134/71 07/25/22 17:34 Pulse Oximetry 97 07/25/22 17:34 Oxygen Delivery Method 07/25/22 17:34 Course Orders Ordered: ED Orders 07/25/22 19:50 COVID19 -Nasal RAPID/Pre-Proc Stat 07/25/22 20:20 UA Complete [Urinalysis and Microscopic] Stat Urine Culture Stat 07/25/22 20:30 Blood Culture Stat C-Reactive Protein Quant Urgent LDH [Lactate Dehydrogenase] Urgent Magnesium Urgent NT-proBNP (BNP-Adult 18+) Urgent Troponin & CK Cardiac Panel Stat 07/25/22 20:55 Consult to Physical Therapy Evaluate & Treat 07/25/22 20:56 Consult to Dietitian, Adult Routine Consult to Occupational Therapy Evaluate & Treat 07/25/22 21:01 CT abdomen pelvis w con Urgent Erythrocyte Sedimentation Rate Urgent 07/25/22 21:05 Consult to Tele-dry wall plasterer Routine 07/26/22 05:00 Complete Blood Count AUTO DIFF DAILY Comprehensive Metabolic Panel DAILY Partial Thromboplastin Time Routine Procalcitonin Routine Prothrombin Time INR Routine Trop I [Troponin I] Routine 07/27/22 05:00 Complete Blood Count AUTO DIFF DAILY Comprehensive Metabolic Panel DAILY 07/28/22 05:00 Complete Blood Count AUTO DIFF DAILY Comprehensive Metabolic Panel DAILY Acetaminophen (Acetaminophen 325 Mg Tablet) 650 mg PO Q6HR PRN PRN Reason: Fever/Mild Pain (1-3) Last Admin: 07/25/22 23:05 Dose: 650 mg Documented By: ANDREW Hydrocodone Bitart/Acetaminophen (Hydrocodone/Acet 5/325 Tablet) 1 tab PO BID PRN PRN Reason: pain Atorvastatin Calcium (Atorvastatin 20 Mg Tablet) 40 mg PO DAILY [facility] Diclofenac Sodium (Diclofenac 1% Gel 100 Gm) 1 applic TOP QID PRN PRN Reason: Muscle Pain Enoxaparin Sodium (Enoxaparin 40 Mg/0.4 Ml Syringe) 40 mg SUBCUT DAILY [facility] Meropenem 1 gm/ Sodium (Chloride) 100 mls @ 200 mls/hr IV Q8H [facility] Last Infusion: 07/25/22 23:30 Dose: 0 mls/hr Documented By: Admin: 07/25/22 22:59 Dose: 200 mls/hr Documented By: ANDREW Vancomycin HCl/Dextrose (Vancomycin) 2,000 mg in 400 mls @ 200 mls/hr IV Q12H [facility] Last Infusion: 07/26/22 02:25 Dose: 0 mls/hr Documented By: Admin: 07/26/22 00:21 Dose: 200 mls/hr Documented By: ANDREW Sodium Chloride (Normal Saline 0.9%) 1,000 mls @ 100 mls/hr IV CONT [facility] Last Admin: 07/25/22 23:15 Dose: 100 mls/hr Documented By: ANDREW Memantine (Memantine Hcl 5 Mg Tablet) 5 mg PO DAILY [facility] Metoprolol Succinate (Metoprolol Er 25 Mg Tablet) 25 mg PO DAILY [facility] Ondansetron HCl (Ondansetron 4 Mg/2 Ml Inj) 4 mg IV Q8HR PRN PRN Reason: Nausea And Vomiting Phenazopyridine HCl (Phenazopyridine 100 Mg Tablet) 100 mg PO TID [facility] Last Admin: 07/25/22 23:18 Dose: 100 mg Documented By: ANDREW Quetiapine Fumarate (Quetiapine 25 Mg Tablet) 12.5 mg PO BEDTIME [facility] Last Admin: 07/25/22 23:06 Dose: 12.5 mg Documented By: ANDREW Risperidone (Risperidone 0.25 Mg Tablet) 0.25 mg PO BID [facility] Last Admin: 07/25/22 23:05 Dose: 0.25 mg Documented By: ANDREW Sennosides (Sennosides 8.6 Mg Tablet) 17.2 mg PO BEDTIME [facility] Last Admin: 07/25/22 23:04 Dose: 17.2 mg Documented By: ANDREW Tamsulosin HCl (Tamsulosin 0.4 Mg Capsule) 0.4 mg PO DAILY [facility] Discontinued Medications Ceftriaxone Sodium 2,000 mg/ (Sodium Chloride) 100 mls @ 200 mls/hr IV NOW ONE Stop: 07/25/22 18:54 Last Infusion: 07/25/22 20:28 Dose: 0 mls/hr Documented By: Admin: 07/25/22 19:50 Dose: 200 mls/hr Documented By: KRISTIE Sodium Chloride (Normal Saline 0.9%) 2,619.51 mls @ 873.17 mls/hr 30 ml/kg infuse over 3 hr (2619.51 ml) IV NOW ONE Stop: 07/25/22 21:57 Last Infusion: 07/25/22 21:58 Dose: 0 mls/hr Documented By: Admin: 07/25/22 19:23 Dose: 873.17 mls/hr Documented By: KRISTIE POTASSIUM CHLORIDE IN WATER (Potassium Cl 10 Meq/100 Ml Mine) 10 meq in 100 mls @ 100 mls/hr IV Q1H [facility] Stop: 07/26/22 01:14 Last Infusion: 07/26/22 03:15 Dose: 0 mls/hr Documented By: Admin: 07/26/22 02:10 Dose: 100 mls/hr Documented By: Infusion: 07/26/22 02:05 Dose: 100 mls/hr Documented By: Admin: 07/26/22 01:05 Dose: 100 mls/hr Documented By: Infusion: 07/26/22 01:00 Dose: 100 mls/hr Documented By: Admin: 07/26/22 00:00 Dose: 100 mls/hr Documented By: Infusion: 07/26/22 00:00 Dose: 100 mls/hr Documented By: Admin: 07/25/22 23:02 Dose: 100 mls/hr Documented By: ANDREW Metoprolol Tartrate (Metoprolol Tartrate 5 Mg/5 Ml Inj) 5 mg IV Q5M [facility] Stop: 07/25/22 23:26 Last Admin: 07/25/22 23:45 Dose: 5 mg Documented By: Admin: 07/25/22 23:36 Dose: 5 mg Documented By: Admin: 07/25/22 23:23 Dose: 5 mg Documented By: ANDREW Nifedipine (Nifedipine 30 Mg Tab Er) 30 mg PO DAILY [facility] Vancomycin HCl (Vancomycin Per Pharmacy) 1 request MISC NOW ONE Stop: 07/25/22 22:22 Last Admin: 07/26/22 00:28 Dose: 1 request Documented By: ANDREW Vital Signs Vital signs: Vital Signs - 8 hr 07/25/22 20:30 07/25/22 20:34 07/25/22 20:34 Temperature Pulse Rate 86 90 Respiratory Rate 34 H 30 H Blood Pressure 145/74 H Pulse Oximetry 97 97 Oxygen Delivery Method Room Air Room Air 07/25/22 21:00 07/25/22 21:00 09/26/22 21:24 Temperature Pulse Rate 83 Respiratory Rate 29 H Blood Pressure 159/75 H 191/95 H Pulse Oximetry 96 Oxygen Delivery Method 07/25/22 21:24 07/25/22 22:20 07/25/22 22:20 Temperature Pulse Rate 109 H 98 H Respiratory Rate 38 H 34 H Blood Pressure 156/84 H Pulse Oximetry 91 95 Oxygen Delivery Method 07/25/22 22:29 07/25/22 22:29 07/25/22 20:42 Temperature Pulse Rate 97 H Respiratory Rate 39 H Blood Pressure 154/87 H Pulse Oximetry 94 93 Oxygen Delivery Method Room Air 07/25/22 22:00 Temperature 102.5 F H Pulse Rate 95 H Respiratory Rate 24 Blood Pressure 156/84 H Pulse Oximetry 95 Oxygen Delivery Method MDM - Fall Lab Data Result diagrams: 07/25/22 16:50 07/25/22 16:50 Labs: Lab Results 07/25/22 07/25/22 07/25/22 Range/Units 16:50 16:50 16:50 WBC 20.3 H (4.5-11.0) X10^3/uL RBC 4.75 (4.5-5.9) X10^6/uL Hgb 13.2 L (13.5-17.5) g/dL Hct 39.8 L (41-53) % MCV 83.8 (80-100) fL MCH 27.9 (26-34) PG MCHC 33.3 (30-36) % RDW 15.2 H (11.6-14.8) % Plt Count 140 L (150-400) X10^3/uL Neut % (Auto) 91.9 H (50-75) % Lymph % (Auto) 1.8 L (25-40) % [place] % (Auto) 6.2 (3-14) % Eos % (Auto) 0.0 L (2-4) % Baso % (Auto) 0.1 (0-2) % Neut # (Auto) 29929 H (4107-3530) /uL Lymph # (Auto) 400 L (3054-5206) /uL [place] # (Auto) 1300 H (0-900) /uL Eos # (Auto) 0 (0-450) /uL Baso # (Auto) 0 (0-100) /uL Sodium 135 L (137-145) mmol/L Potassium 3.2 L (3.4-5.1) mmol/L Chloride 99 (98-107) mmol/L Carbon Dioxide 24 (22-32) mmol/L BUN 18 (9-20) mg/dL Creatinine 0.86 (0.66-1.25) mg/dL Estimated GFR > 60 (>60) mL/min BUN/Creatinine Ratio 20.9 (6-22) Glucose 157 H (80-110) mg/dL Hemoglobin A1c (4.0-6.0) % Lactate 4.1 H* (0.7-2.1) mmol/L Calcium 9.2 (8.4-10.2) mg/dL Magnesium (1.6-2.3) mg/dL Total Bilirubin 1.7 H (0.2-1.3) mg/dL AST 39 (17-59) IU/L ALT 21 (<50) IU/L Alkaline Phosphatase 36 L (38-126) U/L Lactate Dehydrogenase (313-618) U/L Total Creatine Kinase 699 H (55-170) U/L CK-MB (CK-2) 0.94 (<2.37) ng/mL CK-MB (CK-2) Rel Index 0.1 L (1.5-5.0) % Troponin I 0.078 H (0.01-0.034) ng/mL C-Reactive Protein (<1.0) mg/dL NT-Pro-B Natriuret Pep (<450) pg/mL Total Protein 6.3 (6.3-8.2) g/dL Albumin 3.8 (3.5-5.0) g/dL Globulin 2.5 (1.7-4.1) g/dL Albumin/Globulin Ratio 1.5 (1.0-2.8) Lipase 34 (23-300) U/L Procalcitonin (<0.5) ng/mL Urine Color Urine Appearance Urine pH (4.5-8.0) Ur Specific [place] (1.000-1.035) Urine Protein (Negative) Urine Glucose (UA) (Negative) g/dL Urine Ketones (NEGATIVE) Urine Occult Blood (Negative) Urine Nitrate (Negative) Urine Bilirubin (NEGATIVE) Urine Urobilinogen (0.2) E.U./dL Ur Leukocyte Esterase (NEGATIVE) Urine RBC (0-5/HPF) Urine WBC (0-5/HPF) Ur Squamous Epith Cells (0-5/HPF) Amorphous Sediment Urine Bacteria (None) Urine Mucus (Negative) Ur Culture Indicated? Nasal Screen MRSA (PCR) (Negative) SARS-CoV-2 (PCR) (Negative) 07/25/22 07/25/22 07/25/22 Range/Units 16:50 16:50 19:50 WBC (4.5-11.0) X10^3/uL RBC (4.5-5.9) X10^6/uL Hgb (13.5-17.5) g/dL Hct (41-53) % MCV (80-100) fL MCH (26-34) PG MCHC (30-36) % RDW (11.6-14.8) % Plt Count (150-400) X10^3/uL Neut % (Auto) (50-75) % Lymph % (Auto) (25-40) % [place] % (Auto) (3-14) % Eos % (Auto) (2-4) % Baso % (Auto) (0-2) % Neut # (Auto) (0464-9585) /uL Lymph # (Auto) (9870-3297) /uL [place] # (Auto) (0-900) /uL Eos # (Auto) (0-450) /uL Baso # (Auto) (0-100) /uL Sodium (137-145) mmol/L Potassium (3.4-5.1) mmol/L Chloride (98-107) mmol/L Carbon Dioxide (22-32) mmol/L BUN (9-20) mg/dL Creatinine (0.66-1.25) mg/dL Estimated GFR (>60) mL/min BUN/Creatinine Ratio (6-22) Glucose (80-110) mg/dL Hemoglobin A1c 5.6 (4.0-6.0) % Lactate (0.7-2.1) mmol/L Calcium (8.4-10.2) mg/dL Magnesium (1.6-2.3) mg/dL Total Bilirubin (0.2-1.3) mg/dL AST (17-59) IU/L ALT (<50) IU/L Alkaline Phosphatase (38-126) U/L Lactate Dehydrogenase (313-618) U/L Total Creatine Kinase (55-170) U/L CK-MB (CK-2) (<2.37) ng/mL CK-MB (CK-2) Rel Index (1.5-5.0) % Troponin I (0.01-0.034) ng/mL C-Reactive Protein (<1.0) mg/dL NT-Pro-B Natriuret Pep (<450) pg/mL Total Protein (6.3-8.2) g/dL Albumin (3.5-5.0) g/dL Globulin (1.7-4.1) g/dL Albumin/Globulin Ratio (1.0-2.8) Lipase (23-300) U/L Procalcitonin 2.01 H (<0.5) ng/mL Urine Color Urine Appearance Urine pH (4.5-8.0) Ur Specific [place] (1.000-1.035) Urine Protein (Negative) Urine Glucose (UA) (Negative) g/dL Urine Ketones (NEGATIVE) Urine Occult Blood (Negative) Urine Nitrate (Negative) Urine Bilirubin (NEGATIVE) Urine Urobilinogen (0.2) E.U./dL Ur Leukocyte Esterase (NEGATIVE) Urine RBC (0-5/HPF) Urine WBC (0-5/HPF) Ur Squamous Epith Cells (0-5/HPF) Amorphous Sediment Urine Bacteria (None) Urine Mucus (Negative) Ur Culture Indicated? Nasal Screen MRSA (PCR) (Negative) SARS-CoV-2 (PCR) Negative (Negative) 07/25/22 07/25/22 07/25/22 Range/Units 20:20 20:30 20:30 WBC (4.5-11.0) X10^3/uL RBC (4.5-5.9) X10^6/uL Hgb (13.5-17.5) g/dL Hct (41-53) % MCV (80-100) fL MCH (26-34) PG MCHC (30-36) % RDW (11.6-14.8) % Plt Count (150-400) X10^3/uL Neut % (Auto) (50-75) % Lymph % (Auto) (25-40) % [place] % (Auto) (3-14) % Eos % (Auto) (2-4) % Baso % (Auto) (0-2) % Neut # (Auto) (3671-8267) /uL Lymph # (Auto) (5735-2527) /uL [place] # (Auto) (0-900) /uL Eos # (Auto) (0-450) /uL Baso # (Auto) (0-100) /uL Sodium (137-145) mmol/L Potassium (3.4-5.1) mmol/L Chloride (98-107) mmol/L Carbon Dioxide (22-32) mmol/L BUN (9-20) mg/dL Creatinine (0.66-1.25) mg/dL Estimated GFR (>60) mL/min BUN/Creatinine Ratio (6-22) Glucose (80-110) mg/dL Hemoglobin A1c (4.0-6.0) % Lactate 2.0 (0.7-2.1) mmol/L Calcium (8.4-10.2) mg/dL Magnesium (1.6-2.3) mg/dL Total Bilirubin (0.2-1.3) mg/dL AST (17-59) IU/L ALT (<50) IU/L Alkaline Phosphatase (38-126) U/L Lactate Dehydrogenase (313-618) U/L Total Creatine Kinase 573 H (55-170) U/L CK-MB (CK-2) 0.80 (<2.37) ng/mL CK-MB (CK-2) Rel Index 0.1 L (1.5-5.0) % Troponin I 0.073 H (0.01-0.034) ng/mL C-Reactive Protein (<1.0) mg/dL NT-Pro-B Natriuret Pep (<450) pg/mL Total Protein (6.3-8.2) g/dL Albumin (3.5-5.0) g/dL Globulin (1.7-4.1) g/dL Albumin/Globulin Ratio (1.0-2.8) Lipase (23-300) U/L Procalcitonin (<0.5) ng/mL Urine Color Yellow Urine Appearance Cloudy Urine pH 5.0 (4.5-8.0) Ur Specific [place] 1.025 (1.000-1.035) Urine Protein 2+ H (Negative) Urine Glucose (UA) Negative (Negative) g/dL Urine Ketones Trace H (NEGATIVE) Urine Occult Blood 3+ H (Negative) Urine Nitrate Positive H (Negative) Urine Bilirubin Negative (NEGATIVE) Urine Urobilinogen 0.2 (0.2) E.U./dL Ur Leukocyte Esterase 2+ H (NEGATIVE) Urine RBC 30-100/hpf H (0-5/HPF) Urine WBC >100/hpf H (0-5/HPF) Ur Squamous Epith Cells 0-1 /hpf (0-5/HPF) Amorphous Sediment 1+ Urine Bacteria Many (>30) H (None) Urine Mucus 1+ H (Negative) Ur Culture Indicated? Specimen cultured Nasal Screen MRSA (PCR) (Negative) SARS-CoV-2 (PCR) (Negative) 07/25/22 07/25/22 07/25/22 Range/Units 20:30 20:30 20:30 WBC (4.5-11.0) X10^3/uL RBC (4.5-5.9) X10^6/uL Hgb (13.5-17.5) g/dL Hct (41-53) % MCV (80-100) fL MCH (26-34) PG MCHC (30-36) % RDW (11.6-14.8) % Plt Count (150-400) X10^3/uL Neut % (Auto) (50-75) % Lymph % (Auto) (25-40) % [place] % (Auto) (3-14) % Eos % (Auto) (2-4) % Baso % (Auto) (0-2) % Neut # (Auto) (5828-4780) /uL Lymph # (Auto) (2224-1301) /uL [place] # (Auto) (0-900) /uL Eos # (Auto) (0-450) /uL Baso # (Auto) (0-100) /uL Sodium (137-145) mmol/L Potassium (3.4-5.1) mmol/L Chloride (98-107) mmol/L Carbon Dioxide (22-32) mmol/L BUN (9-20) mg/dL Creatinine (0.66-1.25) mg/dL Estimated GFR (>60) mL/min BUN/Creatinine Ratio (6-22) Glucose (80-110) mg/dL Hemoglobin A1c (4.0-6.0) % Lactate (0.7-2.1) mmol/L Calcium (8.4-10.2) mg/dL Magnesium 1.7 (1.6-2.3) mg/dL Total Bilirubin (0.2-1.3) mg/dL AST (17-59) IU/L ALT (<50) IU/L Alkaline Phosphatase (38-126) U/L Lactate Dehydrogenase (313-618) U/L Total Creatine Kinase (55-170) U/L CK-MB (CK-2) (<2.37) ng/mL CK-MB (CK-2) Rel Index (1.5-5.0) % Troponin I (0.01-0.034) ng/mL C-Reactive Protein 7.1 H (<1.0) mg/dL NT-Pro-B Natriuret Pep 1130 H (<450) pg/mL Total Protein (6.3-8.2) g/dL Albumin (3.5-5.0) g/dL Globulin (1.7-4.1) g/dL Albumin/Globulin Ratio (1.0-2.8) Lipase (23-300) U/L Procalcitonin (<0.5) ng/mL Urine Color Urine Appearance Urine pH (4.5-8.0) Ur Specific [place] (1.000-1.035) Urine Protein (Negative) Urine Glucose (UA) (Negative) g/dL Urine Ketones (NEGATIVE) Urine Occult Blood (Negative) Urine Nitrate (Negative) Urine Bilirubin (NEGATIVE) Urine Urobilinogen (0.2) E.U./dL Ur Leukocyte Esterase (NEGATIVE) Urine RBC (0-5/HPF) Urine WBC (0-5/HPF) Ur Squamous Epith Cells (0-5/HPF) Amorphous Sediment Urine Bacteria (None) Urine Mucus (Negative) Ur Culture Indicated? Nasal Screen MRSA (PCR) (Negative) SARS-CoV-2 (PCR) (Negative) 07/25/22 07/25/22 Range/Units 20:30 22:20 WBC (4.5-11.0) X10^3/uL RBC (4.5-5.9) X10^6/uL Hgb (13.5-17.5) g/dL Hct (41-53) % MCV (80-100) fL MCH (26-34) PG MCHC (30-36) % RDW (11.6-14.8) % Plt Count (150-400) X10^3/uL Neut % (Auto) (50-75) % Lymph % (Auto) (25-40) % [place] % (Auto) (3-14) % Eos % (Auto) (2-4) % Baso % (Auto) (0-2) % Neut # (Auto) (1296-4175) /uL Lymph # (Auto) (3624-4022) /uL [place] # (Auto) (0-900) /uL Eos # (Auto) (0-450) /uL Baso # (Auto) (0-100) /uL Sodium (137-145) mmol/L Potassium (3.4-5.1) mmol/L Chloride (98-107) mmol/L Carbon Dioxide (22-32) mmol/L BUN (9-20) mg/dL Creatinine (0.66-1.25) mg/dL Estimated GFR (>60) mL/min BUN/Creatinine Ratio (6-22) Glucose (80-110) mg/dL Hemoglobin A1c (4.0-6.0) % Lactate (0.7-2.1) mmol/L Calcium (8.4-10.2) mg/dL Magnesium (1.6-2.3) mg/dL Total Bilirubin (0.2-1.3) mg/dL AST (17-59) IU/L ALT (<50) IU/L Alkaline Phosphatase (38-126) U/L Lactate Dehydrogenase 569 (313-618) U/L Total Creatine Kinase (55-170) U/L CK-MB (CK-2) (<2.37) ng/mL CK-MB (CK-2) Rel Index (1.5-5.0) % Troponin I (0.01-0.034) ng/mL C-Reactive Protein (<1.0) mg/dL NT-Pro-B Natriuret Pep (<450) pg/mL Total Protein (6.3-8.2) g/dL Albumin (3.5-5.0) g/dL Globulin (1.7-4.1) g/dL Albumin/Globulin Ratio (1.0-2.8) Lipase (23-300) U/L Procalcitonin (<0.5) ng/mL Urine Color Urine Appearance Urine pH (4.5-8.0) Ur Specific [place] (1.000-1.035) Urine Protein (Negative) Urine Glucose (UA) (Negative) g/dL Urine Ketones (NEGATIVE) Urine Occult Blood (Negative) Urine Nitrate (Negative) Urine Bilirubin (NEGATIVE) Urine Urobilinogen (0.2) E.U./dL Ur Leukocyte Esterase (NEGATIVE) Urine RBC (0-5/HPF) Urine WBC (0-5/HPF) Ur Squamous Epith Cells (0-5/HPF) Amorphous Sediment Urine Bacteria (None) Urine Mucus (Negative) Ur Culture Indicated? Nasal Screen MRSA (PCR) Negative for mrsa (Negative) SARS-CoV-2 (PCR) (Negative) Imaging Data CT scan - head: Radiologist's Impression: ? Chart Viewer Diagnostics Subcategory All Activity ??:?? All Time ??:?? All Subcategories Filter Laboratory Imaging Microbiology Pathology Blood Bank Tests Cardiovascular Other Specialty DATE TYPE STATUS REF RANGE/AUTHOR Hx Today 17:[address] Signed Yovani Schultz Today 17:44 Chest X-Ray Signed Petey Vega 03/02/22 23:04 Tibia/Fibula X-Ray Signed Edvin Dietz 11/02/21 23:11 Telemetry Strips ? 11/02/21 22:41 Echocardiogram Ultrasound Signed Efraín Deluca 11/02/21 22:40 Brain MRI Signed Tati Mehta 11/02/21 21:[address] Signed Edvin Dietz 11/02/21 00:00 Carotid Doppler Study Signed Petey Vega 07/10/19 01:23 Abdomen/Pelvis CT Signed Scar Reardon 07/10/19 00:30 KUB X-Ray Signed Scar Reardon MicheleHerbert [facility] 77, M?1945 MRN#? [id number] REG ER,?Main ED??R05?? 177.8cm 87.317kg BMI: 27.6kg/m? Fall Acc#? [id number] Resus Status Not Ordered Hx Avail Special Indicators No Data to Display Home Meds Not Confirmed Prescription Monitoring Program Total 10 MME/Day Unconfirmed MEDICATIONS (INSTRUCTIONS) LAST TAKEN Active ??aspirin ??162 mgPODAILY#30 tabs ??atorvastatin [Lipitor] ??40 mgPODAILY#30 tabs ??diclofenac sodium [Voltaren Arthritis Pain] ??2 gtopicalQID#100 grams ??doxycycline hyclate ??100 mgPOBID#14 tabs ??Fish Oil ??1 capPODAILY#30 caps ??hydrocodone-acetaminophen ??1 tabPOBIDPRNpain#10 tabs 10 MME/Day ??memantine [Namenda] ??5 mgPODAILY#30 tabs ??metoprolol succinate ??25 mgPODAILY#30 tabs ??nifedipine ??30 mgPODAILY#30 tabs ??quetiapine ??12.5 mgPOBEDTIME#30 tabs ??risperidone ??0.25 mgPOBID#60 tabs Allergies Sulfa (Sulfonamide Antibiotics) Problems ? ONSET Abrasion of left leg Upper respiratory infection Transient cerebral ischemia Hypertension Cholecystitis Sepsis Vital Signs Today 19:42 BP 150/80?H Pulse 105?H Resp 18? O2 Sat 94? Delivery Room Air? Diagnostics Reports Herbert Bautista??77??M??1945 ? Allergy/Adv: Sulfa (Sulfonamide Antibiotics) (More??) Close Head CT (Signed) Yovani Schultz - 07/25/22 Chest X-Ray (Signed) Petey Vega - 07/25/22 Tibia/Fibula X-Ray (Signed) Edvin Dietz - 03/02/22 Telemetry Strips 11/02/21 Echocardiogram Ultrasound (Signed) Efraín Deluca - 11/02/21 Brain MRI (Signed) Tati Mehta - 11/02/[address] (Signed) Edvin Dietz - 11/02/21 Carotid Doppler Study (Signed) Petey Vega - 11/02/21 Abdomen/Pelvis CT (Signed) Scar Reardon - 07/10/19 KUB X-Ray (Signed) Scar Reardon - 07/10/19 Launch?[address] [address] [address] Scan Report Signed Patient: Herbert Bautista MR#: [id number] : 1945 Acct:[id number] Age/Sex: 77 / M Date of Service: 07/25/22 Loc: ED Accession Number: [id number] ?? Procedure: CT head/brain wo con Ordering Provider: Flaquita Manzanares D.O. PROCEDURE:? CT HEAD/BRAIN WO CON ? INDICATIONS:? Falls ? TECHNIQUE:? Noncontrast 4.5 mm thick angled axial sections acquired from the foramen magnum to the vertex, with coronal and sagittal reformats.? For radiation dose reduction, the following was used:? automated exposure control, adjustment of mA and/or kV according to patient size.? ? COMPARISON:? [facility], CT, CT HEAD/BRAIN WO CON, 11/02/2021, 22:00. ? FINDINGS:? Image quality:? Excellent.? ? CSF spaces:? Basal cisterns are patent.? No extra-axial fluid collections.? The ventricles are symmetric in size and shape.? ? Brain:? No intracranial bleeds or masses.? There is cerebral volume loss for age, with suggestion of possible mildly disproportione ventricular dilatation.? There are periventricular and deep white matter chronic small vessel ischemic changes.? There is intracranial internal carotid artery atherosclerosis.? ? Skull and face:? Calvarium and visualized facial bones appear intact, without suspicious lesions.? ? Sinuses:? Moderate left mastoid air cell effusion inferiorly. Right mastoid air cells clear. Sinuses clear.? ? IMPRESSION:? ? Age related moderate global cerebral volume loss and moderate chronic microvascular ischemic changes. ? Possible greater than expected ventricular caliber, raising possibility of adult hydrocephalus (normal pressure hydrocephalus) ? Dictated by: Yovani Schultz M.D. on 07/25/2022 at 18:05 ? ? Approved by: Yovani Schultz M.D. on 07/25/2022 at 18:08 ? Discharge Plan Departure Patient Disposition: Admitted As Inpatient Clinical Impression: Acute UTI, Sepsis Admit Date/Time: 07/25/22 22:32 Admit Provider: Li Steiner
[2022-07-25] MEDS: SODIUM CHLORIDE 0.9% 873.17 ML IV (19:23)
[2022-07-25 19:30] LABS: Procalcitonin 2.01 ng/mL (<0.5)
[2022-07-25] MEDS: cefTRIAXone 2,000 MG in SODIUM CHLORIDE 0.9% 100 ML 200 MG IV (19:50)
--- NOTE | 2022-07-25 19:52 | PC.NURSE ---
Patient alert and oriented to person and time, answering questions appropriately. He denies any pain at this point in time. Will continue to monitor.
[2022-07-25 20:02] LABS: Reflexed Lactate in 2 Hours Y
[2022-07-25 20:24] LABS: COVID19 -Nasal RAPID Negative (Negative)
[2022-07-25 20:29] LABS: Bilirubin Urine UA NEGATIVE (NEGATIVE); Color Urine UA YELLOW; Glucose Urine UA NEGATIVE (Negative); Ketones Urine UA TRACE (NEGATIVE); Leukocyte Esterase Urine UA 2+ (NEGATIVE); Nitrite Urine UA POSITIVE (Negative); Occult Blood Urine UA 3+ (Negative); Protein Urine UA 2+ (Negative); Specific Gravity Urine UA 1.025 (1.000-1.035); Urobilinogen Urine UA 0.2 E.U./dL (0.2)
[2022-07-25 20:31] LABS: Appearance Urine UA CLOUDY
[2022-07-25 20:34] LABS: Amorphous Sediment Urine 1+; Bacteria Urine Many (>30); Culture Indicated Urine Specimen Cultured; Mucus Urine 1+ (Negative); RBC Urine 30-100/HPF (0-5/HPF); Squamous Epithelial Cell Urine 0-1 /HPF (0-5/HPF); WBC Urine >100/HPF (0-5/HPF)
--- NOTE | 2022-07-25 21:01 | DI.CT.S_ITS ---
PROCEDURE: CT ABDOMEN PELVIS W CON INDICATIONS: Urosepsis, encephalopathy TECHNIQUE: After the administration of IV contrast, axial sections were acquired from the lung bases to the pubic symphysis. Coronal and sagittal reformats were performed. For radiation dose reduction, the following was used: automated exposure control, adjustment of mA and/or kV according to patient size. COMPARISON: [facility], CT, CT ABDOMEN PELVIS W CON, 07/10/2019, 1:29. FINDINGS: Image quality: There is motion artifact limiting evaluation. Lung bases: There is minimal dependent atelectasis. Heart: Heart is normal in size. A moderate-sized hiatal hernia is present. ABDOMEN: Liver: No mass lesion. Gallbladder: Surgically absent. Biliary ducts: No biliary ductal dilatation. Pancreas: Unremarkable. Spleen: Normal in size. Adrenal Glands: No adrenal nodules. Kidneys and Ureters: No hydronephrosis. No renal or ureteral stones. There is mild nonspecific perinephric stranding redemonstrated bilaterally Stomach and Bowel: Stomach, small bowel loops, and colon are normal in caliber and wall thickness. No pericecal inflammatory changes to suggest appendicitis. There is colonic diverticulosis without acute diverticulitis. Peritoneum: No abnormal intraperitoneal fluid. No free air. Ventral Wall: No hernia. Abdominal Nodes: No retroperitoneal or mesenteric adenopathy by size criteria. Vessels: Aorta and inferior vena cava are normal in size. PELVIS: Pelvic Organs: Unremarkable. Bladder: There are dependent calcifications within the bladder compatible with urinary stones. There is also a focal calcification within the left bladder wall which is nonspecific and may represent a stone or dystrophic calcification. There is mild bladder wall trabeculation. The prostate is markedly enlarged. Pelvic Nodes: No enlarged lymph nodes. Miscellaneous: No inguinal hernias are seen. Bones: Visualized osseous structures demonstrate no suspicious focal lesions. IMPRESSION: 1. No evidence of hydronephrosis. 2. Dependent urinary stones within the bladder. 3. Mild bladder wall trabeculation is present likely secondary to chronic bladder outlet obstruction from marked prostate enlargement. Dictated by: Edvin Dietz M.D. on 07/25/2022 at 22:38 Approved by: Edvin Dietz M.D. on 07/25/2022 at 22:43
[2022-07-25 21:16] LABS: Creatine Kinase 573 U/L (55-170)
[2022-07-25 21:29] LABS: Troponin I 0.073 ng/mL (0.01-0.034)
[2022-07-25 21:32] LABS: CKMB % Relative Index 0.1 % (1.5-5.0)
[2022-07-25 21:39] LABS: Hemoglobin A1C% w Est Avg Glu 5.6 % (4.0-6.0)
[2022-07-25 21:56] LABS: Lactate Dehydrogenase 569 U/L (313-618)
[2022-07-25 21:59] LABS: C-Reactive Protein Quant 7.1 mg/dL (<1.0); Magnesium 1.7 mg/dL (1.6-2.3)
[2022-07-25 22:08] LABS: NT-proBNP (BNP-Adult 18+) 1130 pg/mL (<450)
--- NOTE | 2022-07-25 22:39 | P.TELICUCN_ITS ---
History of Present Illness Consult details IF CAMERA ACTIVATED, patient seen via real-time interactive audiovisual communication: Camera activated Chief complaint: FALLS UTI Consent obtained for tele-quantitative associate care: Yes Patient Location: ICU Provider location (State): [place] Other participants/roles: na [facility] Medical History H/O: CVA (cerebrovascular accident) Heart murmur High blood pressure Surgical History History of cholecystectomy Family History Mother Dementia Social History household members: none Smoking Status: Never smoker alcohol intake: never substance use type: does not use Current Medications Current Medications Medications: Home Medications aspirin 81 mg tablet,delayed release 162 mg PO DAILY #30 tabs 11/04/21 [Rx] atorvastatin 20 mg tablet (Lipitor) 40 mg PO DAILY #30 tabs 11/04/21 [Rx] memantine 5 mg tablet (Namenda) 5 mg PO DAILY #30 tabs 11/04/21 [Rx] metoprolol succinate 25 mg tablet,extended release 24 hr 25 mg PO DAILY #30 tabs 11/04/21 [Rx] nifedipine 30 mg tablet,extended release 24 hr 30 mg PO DAILY #30 tabs 11/04/21 [Rx] omega [id number]-fish oil 100 mg-160 mg-1,000 mg capsule (Fish Oil) 1 cap PO DAILY #30 caps 11/04/21 [Rx] quetiapine 25 mg tablet 12.5 mg PO BEDTIME #30 tabs 11/04/21 [Rx] risperidone 0.25 mg tablet 0.25 mg PO BID #60 tabs 11/04/21 [Rx] doxycycline hyclate 100 mg tablet 100 mg PO BID #14 tabs 03/02/22 [Rx] diclofenac sodium 1 % topical gel (Voltaren Arthritis Pain) 2 g topical QID #100 grams 03/03/22 [Rx] hydrocodone 5 mg-acetaminophen 325 mg tablet 1 tab PO BID PRN pain #10 tabs 03/03/22 [Rx] Exam Vital Signs (past 8 hours): - 07/25/22 17:34 07/25/22 19:42 07/25/22 19:00 Temperature 98.9 F Pulse Rate 89 105 H Respiratory Rate 18 18 Blood Pressure 134/71 150/80 H 137/65 Pulse Oximetry 97 94 Oxygen Delivery Method Room Air Room Air 07/25/22 19:02 07/25/22 19:03 07/25/22 19:03 Temperature Pulse Rate 71 74 Respiratory Rate 28 H Blood Pressure 135/65 Pulse Oximetry 96 98 Oxygen Delivery Method Room Air Room Air 07/25/22 19:26 07/25/22 19:26 07/25/22 19:30 Temperature Pulse Rate 82 Respiratory Rate Blood Pressure 157/67 H 145/69 H Pulse Oximetry 98 Oxygen Delivery Method Room Air 07/25/22 19:30 07/25/22 19:37 07/25/22 19:37 Temperature Pulse Rate 124 H 145 H Respiratory Rate 33 H 40 H Blood Pressure 150/80 H Pulse Oximetry Oxygen Delivery Method 07/25/22 19:59 07/25/22 19:59 07/25/22 20:00 Temperature Pulse Rate 79 Respiratory Rate 33 H Blood Pressure 136/66 140/72 Pulse Oximetry 96 Oxygen Delivery Method 07/25/22 20:00 07/25/22 20:30 07/25/22 20:34 Temperature Pulse Rate 80 86 Respiratory Rate 31 H 34 H Blood Pressure 145/74 H Pulse Oximetry 95 97 Oxygen Delivery Method Room Air Room Air 07/25/22 20:34 07/25/22 21:00 07/25/22 21:00 Temperature Pulse Rate 90 83 Respiratory Rate 30 H 29 H Blood Pressure 159/75 H Pulse Oximetry 97 96 Oxygen Delivery Method Room Air 07/25/22 21:24 07/25/22 21:24 Temperature Pulse Rate 109 H Respiratory Rate 38 H Blood Pressure 191/95 H Pulse Oximetry 91 Oxygen Delivery Method Oxygen Delivery Method Room Air Objective Labs Result Diagrams: 07/25/22 16:50 07/25/22 16:50 Labs: Laboratory Results - last 24 hr 07/25/22 07/25/22 07/25/22 16:50 16:50 16:50 WBC 20.3 H RBC 4.75 Hgb 13.2 L Hct 39.8 L MCV 83.8 MCH 27.9 MCHC 33.3 RDW 15.2 H Plt Count 140 L Neut % (Auto) 91.9 H Lymph % (Auto) 1.8 L [place] % (Auto) 6.2 Eos % (Auto) 0.0 L Baso % (Auto) 0.1 Neut # (Auto) 57200 H Lymph # (Auto) 400 L [place] # (Auto) 1300 H Eos # (Auto) 0 Baso # (Auto) 0 Sodium 135 L Potassium 3.2 L Chloride 99 Carbon Dioxide 24 BUN 18 Creatinine 0.86 Estimated GFR > 60 BUN/Creatinine Ratio 20.9 Glucose 157 H Hemoglobin A1c Lactate 4.1 H* Calcium 9.2 Magnesium Total Bilirubin 1.7 H AST 39 ALT 21 Alkaline Phosphatase 36 L Lactate Dehydrogenase Total Creatine Kinase 699 H CK-MB (CK-2) 0.94 CK-MB (CK-2) Rel Index 0.1 L Troponin I 0.078 H C-Reactive Protein NT-Pro-B Natriuret Pep Total Protein 6.3 Albumin 3.8 Globulin 2.5 Albumin/Globulin Ratio 1.5 Lipase 34 Procalcitonin Urine Color Urine Appearance Urine pH Ur Specific [place] Urine Protein Urine Glucose (UA) Urine Ketones Urine Occult Blood Urine Nitrate Urine Bilirubin Urine Urobilinogen Ur Leukocyte Esterase Urine RBC Urine WBC Ur Squamous Epith Cells Amorphous Sediment Urine Bacteria Urine Mucus Ur Culture Indicated? SARS-CoV-2 (PCR) 07/25/22 07/25/22 07/25/22 16:50 16:50 19:50 WBC RBC Hgb Hct MCV MCH MCHC RDW Plt Count Neut % (Auto) Lymph % (Auto) [place] % (Auto) Eos % (Auto) Baso % (Auto) Neut # (Auto) Lymph # (Auto) [place] # (Auto) Eos # (Auto) Baso # (Auto) Sodium Potassium Chloride Carbon Dioxide BUN Creatinine Estimated GFR BUN/Creatinine Ratio Glucose Hemoglobin A1c 5.6 Lactate Calcium Magnesium Total Bilirubin AST ALT Alkaline Phosphatase Lactate Dehydrogenase Total Creatine Kinase CK-MB (CK-2) CK-MB (CK-2) Rel Index Troponin I C-Reactive Protein NT-Pro-B Natriuret Pep Total Protein Albumin Globulin Albumin/Globulin Ratio Lipase Procalcitonin 2.01 H Urine Color Urine Appearance Urine pH Ur Specific [place] Urine Protein Urine Glucose (UA) Urine Ketones Urine Occult Blood Urine Nitrate Urine Bilirubin Urine Urobilinogen Ur Leukocyte Esterase Urine RBC Urine WBC Ur Squamous Epith Cells Amorphous Sediment Urine Bacteria Urine Mucus Ur Culture Indicated? SARS-CoV-2 (PCR) Negative 07/25/22 07/25/22 07/25/22 20:20 20:30 20:30 WBC RBC Hgb Hct MCV MCH MCHC RDW Plt Count Neut % (Auto) Lymph % (Auto) [place] % (Auto) Eos % (Auto) Baso % (Auto) Neut # (Auto) Lymph # (Auto) [place] # (Auto) Eos # (Auto) Baso # (Auto) Sodium Potassium Chloride Carbon Dioxide BUN Creatinine Estimated GFR BUN/Creatinine Ratio Glucose Hemoglobin A1c Lactate 2.0 Calcium Magnesium Total Bilirubin AST ALT Alkaline Phosphatase Lactate Dehydrogenase Total Creatine Kinase 573 H CK-MB (CK-2) 0.80 CK-MB (CK-2) Rel Index 0.1 L Troponin I 0.073 H C-Reactive Protein NT-Pro-B Natriuret Pep Total Protein Albumin Globulin Albumin/Globulin Ratio Lipase Procalcitonin Urine Color Yellow Urine Appearance Cloudy Urine pH 5.0 Ur Specific [place] 1.025 Urine Protein 2+ H Urine Glucose (UA) Negative Urine Ketones Trace H Urine Occult Blood 3+ H Urine Nitrate Positive H Urine Bilirubin Negative Urine Urobilinogen 0.2 Ur Leukocyte Esterase 2+ H Urine RBC 30-100/hpf H Urine WBC >100/hpf H Ur Squamous Epith Cells 0-1 /hpf Amorphous Sediment 1+ Urine Bacteria Many (>30) H Urine Mucus 1+ H Ur Culture Indicated? Specimen cultured SARS-CoV-2 (PCR) 07/25/22 07/25/22 07/25/22 20:30 20:30 20:30 WBC RBC Hgb Hct MCV MCH MCHC RDW Plt Count Neut % (Auto) Lymph % (Auto) [place] % (Auto) Eos % (Auto) Baso % (Auto) Neut # (Auto) Lymph # (Auto) [place] # (Auto) Eos # (Auto) Baso # (Auto) Sodium Potassium Chloride Carbon Dioxide BUN Creatinine Estimated GFR BUN/Creatinine Ratio Glucose Hemoglobin A1c Lactate Calcium Magnesium 1.7 Total Bilirubin AST ALT Alkaline Phosphatase Lactate Dehydrogenase Total Creatine Kinase CK-MB (CK-2) CK-MB (CK-2) Rel Index Troponin I C-Reactive Protein 7.1 H NT-Pro-B Natriuret Pep 1130 H Total Protein Albumin Globulin Albumin/Globulin Ratio Lipase Procalcitonin Urine Color Urine Appearance Urine pH Ur Specific [place] Urine Protein Urine Glucose (UA) Urine Ketones Urine Occult Blood Urine Nitrate Urine Bilirubin Urine Urobilinogen Ur Leukocyte Esterase Urine RBC Urine WBC Ur Squamous Epith Cells Amorphous Sediment Urine Bacteria Urine Mucus Ur Culture Indicated? SARS-CoV-2 (PCR) 07/25/22 20:30 WBC RBC Hgb Hct MCV MCH MCHC RDW Plt Count Neut % (Auto) Lymph % (Auto) [place] % (Auto) Eos % (Auto) Baso % (Auto) Neut # (Auto) Lymph # (Auto) [place] # (Auto) Eos # (Auto) Baso # (Auto) Sodium Potassium Chloride Carbon Dioxide BUN Creatinine Estimated GFR BUN/Creatinine Ratio Glucose Hemoglobin A1c Lactate Calcium Magnesium Total Bilirubin AST ALT Alkaline Phosphatase Lactate Dehydrogenase 569 Total Creatine Kinase CK-MB (CK-2) CK-MB (CK-2) Rel Index Troponin I C-Reactive Protein NT-Pro-B Natriuret Pep Total Protein Albumin Globulin Albumin/Globulin Ratio Lipase Procalcitonin Urine Color Urine Appearance Urine pH Ur Specific [place] Urine Protein Urine Glucose (UA) Urine Ketones Urine Occult Blood Urine Nitrate Urine Bilirubin Urine Urobilinogen Ur Leukocyte Esterase Urine RBC Urine WBC Ur Squamous Epith Cells Amorphous Sediment Urine Bacteria Urine Mucus Ur Culture Indicated? SARS-CoV-2 (PCR) Assessment & Plan Assessment & Plan narrative: patient seen with bedside nurse and provider chart/labs/imaging reviewed 77 year old admitted to ICU for AMS severe sepsis urinary tract infection currenly afebrile, HD stable mental status intact wbc 18 UA + plan -neurochekcs/seizure precautions -avoid sedatives/opiods -ivf -morris cxs -abx -check serial ekg/trop -check echo -keep glucose 140-180s -monitor ins/outs -replace lytes prn -gi/dvt ppx -please call eICU prn Time Spent With Patient Critical Care time: I spent a total of [45] minutes of critical care time on this patient's care today; this time is exclusive of procedural time.
[2022-07-25] MEDS: MEROPENEM 1 GM in SODIUM CHLORIDE 0.9% 100 ML IV (22:59)
[2022-07-25] MEDS: POTASSIUM CHLORIDE IN WATER 10 MEQ/100 ML PIGGYBACK 100 MEQ IV (23:02)
[2022-07-25] MEDS: SENNOSIDES 8.6 MG TABLET 17.2 MG PO (23:04)
[2022-07-25] MEDS: ACETAMINOPHEN 325 MG TABLET 650 MG PO (23:05)
[2022-07-25] MEDS: risperiDONE 0.25 MG TABLET PO (23:05)
[2022-07-25] MEDS: QUETIAPINE 25 MG TABLET 12.5 MG PO (23:06)
--- NOTE | 2022-07-25 23:09 | PM.HP.1 ---
History of Present Illness History of Present Illness Date Patient Seen: 07/25/22 Time Patient Seen: 20:47 Chief complaint: FALLS UTI Narrative: Herbert Bautista is a 68 male with a history of prior Right Internal Capsule CVA, Untreated Hypertension, Heart murmur, untreated BPH was previously on flomax, hyperglycemia and dementia who lives at home alone was brought into the ED for evaluation by his nurse case management for multiple falls and generalized weakness as well as some confusion.? The patient has bruising to the left upper eye orbital. He was reported to have been seen and evaluated at an outside facility within the past day or 2 with an unremarkable work up.?The patient reports that he had a urinary tract infection and apparently has been on an antibiotic.? He denies headache, blurred vision, chest pain, shortness of breath, nausea, vomiting, constipation or diarrhea.? The patient does endorse that he has mild abdominal discomfort with palpation diffuse and generalized, and burning with urination. He states that his falls have occurred because he is very weak and the [place] he lives is also a bit slippery.? He did strike his head but denies any loss of consciousness, the patient has bruising to the left upper eye orbital. Patient is confused, orientated to person and place, extremely poor historian, incongruent thought process and context. The patient reports that he is living in a motel that is arranged through his shinto, his nurse case management that brought him into the ED reported some confusion apparently greater than baseline for the patient. Patient is unable to accurately participate in HPI ROS, family history, surgical history, or medication reconciliation. Patient is resting comfortably in bed upon admit in no distress at this time, patient has spiked a fever 102.5, continues to be hypertensive 191/95, tachycardic HR 109, and tachypneic RR 38, O2 saturation 91% on room air. Patient met SIRS criteria in ED, WBC 20.3, with a left shift neutrophils 18,600, mono 1300. Patient is demonstrating some mild anemia likely secondary to to sepsis reviewed prior labs 11/03/2021 H&H 13.9/44.8, platelets 163, sodium 139. Today H&H 13.2/39.8, platelets 140, sodium 135, mildly decreased potassium 3.2, glucose 157, lactate 4.1, total bili 1.7, TCK 699, initial troponin 0.078, procalcitonin 2.01. SOFA:4 Patient's urine reddish-brown, positive for protein, ketones, blood, nitrates, RBC, WBC, bacteria-culture pending. Head CT: Negative for any acute intracranial process,?greater than expected ventricular caliber, raising possibility of adult hydrocephalus (normal pressure hydrocephalus).CXR: ?Cardiomegaly and interstitial prominence. Patient received sepsis rehydration protocol in ED. Patient admitted for encephalopathy secondary to sepsis from urinary tract infection, anemia. [facility] ED department visit notes 07/23/2022-I personally reviewed: Patient seen for ground level fall/ Generalized weakness: Patient had WBC 14.2, neutrophils 12.3, potassium 3.3, glucose 110, total bili 1.7, TCK 1929, urine was negative for nitrates positive for protein, ketones, and blood negative for bacteria and no culture was completed, I&O documented 1135cc total intake with a total output of 30cc. This is concerning that the patient was either not producing urine, or retaining urine. Dr. Ramirez documented that the patient was feeling better, ambulating in the room with a walker without difficulty, eating and drinking without difficulty and did not meet the criteria for admit and was discharged home on 07/24/2022 at 9:[address]:demonstrated no intracranial hemorrhage or intracranial abnormalities, noted moderate fluid within the left mastoid air cells. Prominence of lateral ventricles which is similar to appearance of CT from 2017 considered possible normal pressure hydrocephalus. C-spine: negative for acute fracture multi levels of route relatively prominent underlying degenerative changes, comparable to prior exam. Chest x-ray demonstrated no acute cardiopulmonary processes. EKG sinus rhythm with a rate of 89, right BBB and LAFB. Patient History Medical History (Updated 07/26/22 @ 00:20 by ART Horner) BPH (benign prostatic hyperplasia) Dementia H/O: CVA (cerebrovascular accident) Heart murmur High blood pressure Peripheral edema Surgical History History of cholecystectomy Family & Social History Family History Mother Dementia Social History: household members none Safety & Behavioral: Feels Safe in Current Yes Environment Been Physically Hurt or No Threatened By a Person Tobacco & Substance use: Smoking Status Never smoker alcohol intake never alcohol intake frequency 0-2 drinks per day Substance Use Type does not use Meds Home Medications and Allergies Home Medications Medication Instructions Recorded Confirmed Type aspirin 81 mg tablet,delayed 162 mg PO DAILY #30 tabs 11/04/21 07/25/22 Rx release atorvastatin 20 mg tablet (Lipitor) 40 mg PO DAILY #30 tabs 11/04/21 07/25/22 Rx memantine 5 mg tablet (Namenda) 5 mg PO DAILY #30 tabs 11/04/21 07/25/22 Rx metoprolol succinate 25 mg 25 mg PO DAILY #30 tabs 11/04/21 07/25/22 Rx tablet,extended release 24 hr nifedipine 30 mg tablet,extended 30 mg PO DAILY #30 tabs 11/04/21 07/25/22 Rx release 24 hr omega 0-suq-yqu-fish oil 100 1 cap PO DAILY #30 caps 11/04/21 07/25/22 Rx mg-160 mg-1,000 mg capsule (Fish Oil) quetiapine 25 mg tablet 12.5 mg PO BEDTIME #30 tabs 11/04/21 07/25/22 Rx risperidone 0.25 mg tablet 0.25 mg PO BID #60 tabs 11/04/21 07/25/22 Rx diclofenac sodium 1 % topical gel 2 g topical QID #100 grams 03/03/22 07/25/22 Rx (Voltaren Arthritis Pain) hydrocodone 5 mg-acetaminophen 325 1 tab PO BID PRN pain #10 tabs 03/03/22 07/25/22 Rx mg tablet Allergies Allergy/AdvReac Type Severity Reaction Status Date / Time Sulfa (Sulfonamide Allergy Mild Verified 07/25/22 17:48 Antibiotics) Review of Systems Review of Systems Narrative: All 12 point systems reviewed with the patient and are negative except otherwise documented. Exam Vital Signs (past 8 hours): - 07/25/22 17:34 07/25/22 19:42 07/25/22 19:00 Temperature 98.9 F Pulse Rate 89 105 H Respiratory Rate 18 18 Blood Pressure 134/71 150/80 H 137/65 Pulse Oximetry 97 94 Oxygen Delivery Method Room Air Room Air 07/25/22 19:02 07/25/22 19:03 07/25/22 19:03 Temperature Pulse Rate 71 74 Respiratory Rate 28 H Blood Pressure 135/65 Pulse Oximetry 96 98 Oxygen Delivery Method Room Air Room Air 07/25/22 19:26 07/25/22 19:26 07/25/22 19:30 Temperature Pulse Rate 82 Respiratory Rate Blood Pressure 157/67 H 145/69 H Pulse Oximetry 98 Oxygen Delivery Method Room Air 07/25/22 19:30 07/25/22 19:37 07/25/22 19:37 Temperature Pulse Rate 124 H 145 H Respiratory Rate 33 H 40 H Blood Pressure 150/80 H Pulse Oximetry Oxygen Delivery Method 07/25/22 19:59 07/25/22 19:59 07/25/22 20:00 Temperature Pulse Rate 79 Respiratory Rate 33 H Blood Pressure 136/66 140/72 Pulse Oximetry 96 Oxygen Delivery Method 07/25/22 20:00 07/25/22 20:30 07/25/22 20:34 Temperature Pulse Rate 80 86 Respiratory Rate 31 H 34 H Blood Pressure 145/74 H Pulse Oximetry 95 97 Oxygen Delivery Method Room Air Room Air 07/25/22 20:34 07/25/22 21:00 07/25/22 21:00 Temperature Pulse Rate 90 83 Respiratory Rate 30 H 29 H Blood Pressure 159/75 H Pulse Oximetry 97 96 Oxygen Delivery Method Room Air 07/25/22 21:24 07/25/22 21:24 Temperature Pulse Rate 109 H Respiratory Rate 38 H Blood Pressure 191/95 H Pulse Oximetry 91 Oxygen Delivery Method Oxygen Delivery Method Room Air Narrative Exam Narrative: General: Patient is a kindly, disheveled, chronically ill-appearing elderly male, in no distress at this time. HEENT: Normocephalic, Ecchymosis above left eye, no obvious hematoma, abrasion or laceration, extraocular muscles intact, oral pharynx is clear and mucous membranes are dry. Neck is supple and symmetric, trachea is midline, no adenopathy, no thyroid enlargement, nontender, no masses palpated. Negative for JVD Chest: Breathing without nasal flaring, retractions, or labored, positive tachypnea. Lungs: Auscultation of all lung mercado are clear without adventitious sounds, wheezes, rhonchi, or rales. Cardio: Tachycardic rate and rhythm without rubs, or gallops, no carotid bruit, no cardiac pulsations present. Positive 2/6 systolic ejection murmur. Abdomen: Soft, mild diffuse tenderness with palpation greatest over suprapubic, negative for organomegaly, or masses. Bowel sounds are present in all 4 quadrants without guarding or rebound, no CVA tenderness. Musculoskeletal: Muscle strength and tone appear equal, no deformity, crepitus, effusions, cyanosis, clubbing or edema present. Full range of motion intact radial and pedal pulses are normal. Skin: Face has a wu appearance, very dry and intact without rashes, ulcerations or petechiae. Neuro: Alert and orientated to person and place, easily confused, does not complete thought process, confused and incoherent answers, moves all extremities, sensation to touch intact, no gross deficits noted of cranial nerves. Psych: Patient has a poorly-kept appearance, appropriate affect, impaired mental status, attitude thought context and judgment are inappropriate for age but appear consistent with diagnosis of dementia, though Quarter Seamer who brought him in, verbalized that he is confused greater than baseline. Objective Labs Result Diagrams: 07/25/22 16:50 07/25/22 16:50 Labs: Laboratory Results - last 24 hr 07/25/22 07/25/22 07/25/22 16:50 16:50 16:50 WBC 20.3 H RBC 4.75 Hgb 13.2 L Hct 39.8 L MCV 83.8 MCH 27.9 MCHC 33.3 RDW 15.2 H Plt Count 140 L Neut % (Auto) 91.9 H Lymph % (Auto) 1.8 L [place] % (Auto) 6.2 Eos % (Auto) 0.0 L Baso % (Auto) 0.1 Neut # (Auto) 96627 H Lymph # (Auto) 400 L [place] # (Auto) 1300 H Eos # (Auto) 0 Baso # (Auto) 0 Sodium 135 L Potassium 3.2 L Chloride 99 Carbon Dioxide 24 BUN 18 Creatinine 0.86 Estimated GFR > 60 BUN/Creatinine Ratio 20.9 Glucose 157 H Hemoglobin A1c Lactate 4.1 H* Calcium 9.2 Magnesium Total Bilirubin 1.7 H AST 39 ALT 21 Alkaline Phosphatase 36 L Lactate Dehydrogenase Total Creatine Kinase 699 H CK-MB (CK-2) 0.94 CK-MB (CK-2) Rel Index 0.1 L Troponin I 0.078 H C-Reactive Protein NT-Pro-B Natriuret Pep Total Protein 6.3 Albumin 3.8 Globulin 2.5 Albumin/Globulin Ratio 1.5 Lipase 34 Procalcitonin Urine Color Urine Appearance Urine pH Ur Specific [place] Urine Protein Urine Glucose (UA) Urine Ketones Urine Occult Blood Urine Nitrate Urine Bilirubin Urine Urobilinogen Ur Leukocyte Esterase Urine RBC Urine WBC Ur Squamous Epith Cells Amorphous Sediment Urine Bacteria Urine Mucus Ur Culture Indicated? SARS-CoV-2 (PCR) 07/25/22 07/25/22 07/25/22 16:50 16:50 19:50 WBC RBC Hgb Hct MCV MCH MCHC RDW Plt Count Neut % (Auto) Lymph % (Auto) [place] % (Auto) Eos % (Auto) Baso % (Auto) Neut # (Auto) Lymph # (Auto) [place] # (Auto) Eos # (Auto) Baso # (Auto) Sodium Potassium Chloride Carbon Dioxide BUN Creatinine Estimated GFR BUN/Creatinine Ratio Glucose Hemoglobin A1c 5.6 Lactate Calcium Magnesium Total Bilirubin AST ALT Alkaline Phosphatase Lactate Dehydrogenase Total Creatine Kinase CK-MB (CK-2) CK-MB (CK-2) Rel Index Troponin I C-Reactive Protein NT-Pro-B Natriuret Pep Total Protein Albumin Globulin Albumin/Globulin Ratio Lipase Procalcitonin 2.01 H Urine Color Urine Appearance Urine pH Ur Specific [place] Urine Protein Urine Glucose (UA) Urine Ketones Urine Occult Blood Urine Nitrate Urine Bilirubin Urine Urobilinogen Ur Leukocyte Esterase Urine RBC Urine WBC Ur Squamous Epith Cells Amorphous Sediment Urine Bacteria Urine Mucus Ur Culture Indicated? SARS-CoV-2 (PCR) Negative 07/25/22 07/25/22 07/25/22 20:20 20:30 20:30 WBC RBC Hgb Hct MCV MCH MCHC RDW Plt Count Neut % (Auto) Lymph % (Auto) [place] % (Auto) Eos % (Auto) Baso % (Auto) Neut # (Auto) Lymph # (Auto) [place] # (Auto) Eos # (Auto) Baso # (Auto) Sodium Potassium Chloride Carbon Dioxide BUN Creatinine Estimated GFR BUN/Creatinine Ratio Glucose Hemoglobin A1c Lactate 2.0 Calcium Magnesium Total Bilirubin AST ALT Alkaline Phosphatase Lactate Dehydrogenase Total Creatine Kinase 573 H CK-MB (CK-2) 0.80 CK-MB (CK-2) Rel Index 0.1 L Troponin I 0.073 H C-Reactive Protein NT-Pro-B Natriuret Pep Total Protein Albumin Globulin Albumin/Globulin Ratio Lipase Procalcitonin Urine Color Yellow Urine Appearance Cloudy Urine pH 5.0 Ur Specific [place] 1.025 Urine Protein 2+ H Urine Glucose (UA) Negative Urine Ketones Trace H Urine Occult Blood 3+ H Urine Nitrate Positive H Urine Bilirubin Negative Urine Urobilinogen 0.2 Ur Leukocyte Esterase 2+ H Urine RBC 30-100/hpf H Urine WBC >100/hpf H Ur Squamous Epith Cells 0-1 /hpf Amorphous Sediment 1+ Urine Bacteria Many (>30) H Urine Mucus 1+ H Ur Culture Indicated? Specimen cultured SARS-CoV-2 (PCR) 07/25/22 07/25/22 07/25/22 20:30 20:30 20:30 WBC RBC Hgb Hct MCV MCH MCHC RDW Plt Count Neut % (Auto) Lymph % (Auto) [place] % (Auto) Eos % (Auto) Baso % (Auto) Neut # (Auto) Lymph # (Auto) [place] # (Auto) Eos # (Auto) Baso # (Auto) Sodium Potassium Chloride Carbon Dioxide BUN Creatinine Estimated GFR BUN/Creatinine Ratio Glucose Hemoglobin A1c Lactate Calcium Magnesium 1.7 Total Bilirubin AST ALT Alkaline Phosphatase Lactate Dehydrogenase Total Creatine Kinase CK-MB (CK-2) CK-MB (CK-2) Rel Index Troponin I C-Reactive Protein 7.1 H NT-Pro-B Natriuret Pep 1130 H Total Protein Albumin Globulin Albumin/Globulin Ratio Lipase Procalcitonin Urine Color Urine Appearance Urine pH Ur Specific [place] Urine Protein Urine Glucose (UA) Urine Ketones Urine Occult Blood Urine Nitrate Urine Bilirubin Urine Urobilinogen Ur Leukocyte Esterase Urine RBC Urine WBC Ur Squamous Epith Cells Amorphous Sediment Urine Bacteria Urine Mucus Ur Culture Indicated? SARS-CoV-2 (PCR) 07/25/22 20:30 WBC RBC Hgb Hct MCV MCH MCHC RDW Plt Count Neut % (Auto) Lymph % (Auto) [place] % (Auto) Eos % (Auto) Baso % (Auto) Neut # (Auto) Lymph # (Auto) [place] # (Auto) Eos # (Auto) Baso # (Auto) Sodium Potassium Chloride Carbon Dioxide BUN Creatinine Estimated GFR BUN/Creatinine Ratio Glucose Hemoglobin A1c Lactate Calcium Magnesium Total Bilirubin AST ALT Alkaline Phosphatase Lactate Dehydrogenase 569 Total Creatine Kinase CK-MB (CK-2) CK-MB (CK-2) Rel Index Troponin I C-Reactive Protein NT-Pro-B Natriuret Pep Total Protein Albumin Globulin Albumin/Globulin Ratio Lipase Procalcitonin Urine Color Urine Appearance Urine pH Ur Specific [place] Urine Protein Urine Glucose (UA) Urine Ketones Urine Occult Blood Urine Nitrate Urine Bilirubin Urine Urobilinogen Ur Leukocyte Esterase Urine RBC Urine WBC Ur Squamous Epith Cells Amorphous Sediment Urine Bacteria Urine Mucus Ur Culture Indicated? SARS-CoV-2 (PCR) Assessment & Plan Assessment & Plan narrative: Herbert Bautista is a 68 male with a history of prior Right Internal Capsule CVA, Untreated Hypertension, Heart murmur, untreated BPH was previously on flomax, hyperglycemia and dementia who lives at home alone was brought into the ED for evaluation by his nurse case management for multiple falls and generalized weakness as well as some confusion, had been seen at [facility] on 07/24/2022 and worked up for GLF and head injury/weakness. This patient requires acute care inpatient hospital management for encephalopathy secondary to sepsis from urinary tract infection, anemia, after failing outpatient management. Patient has a total of 5 ED visits, 2 hospitalizations [facility] in 2021. Most recently ED visits 07/16, 07/24, 07/25. From the statements the patient made to me he may be homeless in being provided correction through his shinto, is not compliant with his medications he is unable to even verbalize what his medications are, this patient has significant social barriers to care. The patient is at much higher risk for medical and surgical complications because of his dementia, may possibly be homeless, and unable to obtain and manage his medications and nutrition. These factors increase the difficulty and complexity of medical and surgical interventions and increases the chances of poor outcomes such as morbidity and mortality. 1. Sepsis, secondary to urinary tract infection, resulting in encephalopathy, thrombocytopenia, lactic acidosis, rhabdomyolysis, acute, present on admission- stable -suspect patient's untreated BPH contributed to urinary retention leading to infection, complicated by the patient's dementia. -Temp 102.5, 191/95, HR 109, RR 38, met SIRS criteria in ED, lactate 4.1, procalcitonin 2.01. SOFA:4, urine reddish-brown, TCK 699 (was 192 @[facility]), Urine positive for infection, culture pending -WBC 20.3, neutrophils 18,600, mono 1300. labs 11/03/2021: platelets 163. Today: platelets 140 TCK 699, -initial troponin 0.078- likely troponin leak secondary to sepsis will trend troponins, EKG was unchanged -[facility] ED department visit notes 07/23/2022: WBC 14.2, neutrophils 12.3, potassium 3.3, TCK 1929, urine was negative- no culture was completed. -Abdomen pelvis CT:No evidence of hydronephrosis, dependent urinary stones within the bladder, with mild bladder wall trabeculation is present likely secondary to chronic bladder outlet obstruction from marked prostate enlargement.? -patient received sepsis fluid bolus in ED, given 2 g Rocephin. -admitted patient to ICU, tele spectrograph operator Dr. Delgado consult-likely able to downgrade to acute care tomorrow with improvement. -ordered urine myoglobin, LDH, ESR, CRP, repeat procalcitonin, lactate, Blood cultures pending. Trend inflammatory markers. Monitor renal function. -initiated vancomycin and meropenem -peridium for dysuria -NS at 100 to run following completion of sepsis bolus -potassium 3.2-40 mEq K rider -neuro checks -fall precautions -consult: PRODUCT ASSURANCE ENGINEER/PT/OT/dietary -Monitor on tele 2. Mild anemia, acute, present on admission -Today H&H 13.2/39.8 likely secondary to to sepsis reviewed prior labs 11/03/2021 H&H 13.9/44.8 -trend CBC -monitor for bleeding -Hemoccult as needed 3. Hypertension, essential, acute on chronic, untreated, Present on admission. -162/88, 150/80 in the ED, upon admit to the floor BP 191/95, 175/87 -Has been off the Lisinopril/HCTZ for 2-3 years -will initiate metoprolol IR IV 5 mg push for HR> 110, SBP> 180, DBP> 100-for greater than 30 minutes -if patient's condition improves in the a.m. will restart 25 mg metoprolol p.o. 4. Dementia vs cognitive impairment/encephalopathy, acute on chronic, present on admission -will re-initiate patient's Seroquel, risperidone, Namenda -recommend mental health referral on discharge for for diagnosis evaluation and clarification. 5. Systolic Murmur, ejection, acute on chronic, Present on admission -last echo 10/2021: ejection fraction 60-65%. 6. Hyperglycemia, acute, Present on Admission -BS 157 on admit? - Check A1c 7. BPH, acute on chronic, Present on admission.? -suspect that BPH plate rule in urinary retention leading to urinary tract infection leading to sepsis. -No current treatment, previously on Flomax -will restart Flomax -bladder scans as needed if> 500 cc in bladder-place Torres catheter 8. Overweight as evidence by BMI of 27.6, acute on chronic, present on admission -suspect that patient's BMI reflects adipose tissue and muscle wasting malnutrition. -consult placed with dietary for nutritional and lifestyle recommendations, PRODUCT ASSURANCE ENGINEER for community Support Code status: Full Surrogate decision maker: Alejandra ROSAS PCR:Negative DVT/VTE prophylaxis: Lovenox and SCDs Disposition: Patient admitted to the ICU, expect improvement overnight inability to downgrade to acute care tomorrow, expected length of stay greater than 2 midnights. Patient may require SNF placement I have utilized all available immediate resources to obtain, update, or review the patient's current medications. I confirmed that the patient's advanced care plan is present, Code status is documented and/or surrogate decision maker is listed in the patient's medical record. Time Spent With Patient Critical Care time: I spent a total of [] minutes of critical care time on this patient's care today; this time is exclusive of procedural time.
[2022-07-25] MEDS: SODIUM CHLORIDE 0.9% 1,000 ML 100 ML IV (23:15)
[2022-07-25] MEDS: PHENAZOPYRIDINE 100 MG TABLET PO (23:18)
[2022-07-25] MEDS: METOPROLOL TARTRATE 5 MG/5 ML INJ IV ×3 (23:23→23:45)
[2022-07-26] VITALS (63 sets, daily range): BP systolic 94–206; BP diastolic 50–102; PULSE 62–190; RESP 17–48; TEMP 36.3–40.2; O2SAT 92–98
[2022-07-26] MEDS: VANCOMYCIN 2,000 MG/400 ML PIGGYBACK 200 MG IV (00:21)
[2022-07-26] MEDS: VANCOMYCIN PER PHARMACY 1 REQUEST MISC (00:28)
[2022-07-26] MEDS: POTASSIUM CHLORIDE IN WATER 10 MEQ/100 ML PIGGYBACK 100 MEQ IV ×7 (01:05→15:23)
[2022-07-26] MEDS: MEROPENEM 1 GM in SODIUM CHLORIDE 0.9% 100 ML IV ×3 (05:46→20:25)
[2022-07-26 06:25] LABS: Add Manual Diff / Slide Review NO; Basophils Absolute Auto 0 /uL (0-100); Basophils Percent Auto 0.2 % (0-2); Eosinophils Absolute Auto 0 /uL (0-450); Hematocrit 34.9 % (41-53); Hemoglobin 11.8 g/dL (13.5-17.5); Lymphocytes Absolute Auto 600 /uL (1100-4500); Lymphocytes Percent Auto 4.5 % (25-40); Mean Corpuscular HGB Conc 33.7 % (30-36); Mean Corpuscular Hemoglobin 27.9 PG (26-34); Mean Corpuscular Volume 82.7 fL (80-100); Monocytes Absolute Auto 900 /uL (0-900); Monocytes Percent Auto 6.6 % (3-14); Neutrophils Absolute Auto 12300 /uL (1500-7000); Neutrophils Percent Auto 88.7 % (50-75); Platelet Count 107 X10^3/uL (150-400); Red Blood Cell Count 4.22 X10^6/uL (4.5-5.9); Red Cell Distribution Width 15.1 % (11.6-14.8); White Blood Cell Count 13.9 X10^3/uL (4.5-11.0)
[2022-07-26] MEDS: SODIUM CHLORIDE 0.9% 1,000 ML 100 ML IV (06:26)
[2022-07-26 06:27] LABS: INR 1.5 (0.9-1.3); Prothrombin Time 16.7 SECONDS (10.1-12.7)
[2022-07-26 06:30] LABS: PTT Partial Thromboplastin Tim 33 SECONDS (26-36)
[2022-07-26 06:35] LABS: Alanine Aminotransferase 18 IU/L (<50); Albumin 2.9 g/dL (3.5-5.0); Albumin Globulin Ratio 1.3 (1.0-2.8); Alkaline Phosphatase 38 U/L (38-126); Aspartate Aminotransferase 26 IU/L (17-59); BUN Creatinine Ratio 19.7 (6-22); Bilirubin Total 1.3 mg/dL (0.2-1.3); Blood Urea Nitrogen 14 mg/dL (9-20); Calcium 8.2 mg/dL (8.4-10.2); Carbon Dioxide 25 mmol/L (22-32); Chloride 106 mmol/L (98-107); Estimated Glomerular Filt Rate > 60 mL/min (>60); Globulin 2.3 g/dL (1.7-4.1); Glucose 108 mg/dL (80-110); HEMOLYSIS < 15 (0-50); Potassium 3.2 mmol/L (3.4-5.1); Sodium 134 mmol/L (137-145); Total Protein 5.2 g/dL (6.3-8.2)
[2022-07-26 06:44] LABS: Troponin I 0.073 ng/mL (0.01-0.034)
[2022-07-26 06:49] LABS: Procalcitonin 2.11 ng/mL (<0.5)
[2022-07-26 06:53] LABS: Erythrocyte Sedimentation Rate 10 MM/HR (0-15)
--- NOTE | 2022-07-26 07:03 | PC.NURSE ---
New ED admit. Patient has baseline dementia. Pleasantly confused, oriented to self. Has been SR 60s. Is incontinent of urine, has a difficult time starting a stream, notified provider, new order for flomax. Patient has had frequent falls at home, was unable to stand at bedside to use urinal.
[2022-07-26] MEDS: MEMANTINE HCL 5 MG TABLET PO (09:05)
[2022-07-26] MEDS: PHENAZOPYRIDINE 100 MG TABLET PO ×2 (09:05→20:32)
[2022-07-26] MEDS: risperiDONE 0.25 MG TABLET PO ×2 (09:05→20:33)
[2022-07-26] MEDS: ATORVASTATIN 20 MG TABLET 40 MG PO (09:05)
[2022-07-26] MEDS: METOPROLOL ER 25 MG TABLET PO (09:05)
[2022-07-26] MEDS: TAMSULOSIN 0.4 MG CAPSULE PO (09:05)
[2022-07-26] MEDS: SODIUM CHLORIDE 0.9% FLUSH 10 ML IV ×2 (09:06→20:35)
[2022-07-26] MEDS: ENOXAPARIN 40 MG/0.4 ML SYRINGE SUBCUT (10:07)
[2022-07-26] MEDS: MAGNESIUM CHLORIDE 64 MG TABLET 128 MG PO (11:00)
--- NOTE | 2022-07-26 11:28 | DI.RAD.S_ITS ---
PROCEDURE: XR CHEST 1V INDICATIONS: respiratory distress TECHNIQUE: One view of the chest was acquired. COMPARISON: [facility], CR, XR CHEST 1V, 07/25/2022, 17:46. FINDINGS: Surgical changes and devices: None. Lungs and pleura: Lungs are clear. No pleural effusions or pneumothorax. Mediastinum: Mediastinal contours appear normal. Heart size is enlarged. Bones and chest wall: No suspicious bony lesions. Overlying soft tissues appear unremarkable. IMPRESSION: No acute pulmonary process. Dictated by: Adia De Leon M.D. on 07/26/2022 at 11:44 Approved by: Adia De Leon M.D. on 07/26/2022 at 11:44
[2022-07-26] MEDS: LORazepam 2 MG/ML INJ 1 MG IV (11:31)
[2022-07-26] MEDS: ACETAMINOPHEN 650 MG SUPP PR (11:47)
[2022-07-26] MEDS: VANCOMYCIN 1,250 MG/250 ML PIGGYBACK 250 MG IV (11:58)
--- NOTE | 2022-07-26 12:37 | PC.NURSE ---
Just after 11am patient complained of some achy-ness and feeling shaky. Patient states he is feeling cold. Temperature initially taken at 100.3F, patient quickly started having uncontrolled shakes and anxiety. An audible wheeze-like noise noted upon expiration. 02 sat and telemetry strip difficult to read due to artifact from rigors, 92% on 2L, and sinus tachycardia to 130's. MD and RT to bedside to evaluate patient. CXR taken. Ativan 1mg given IV x 1 as ordered. Temperature retaken as patient felt warm and now noted at 104F per STOGIE PACKER. Immediate cooling measures of fan, ice packs, and OH tylenol given as ordered. Patient began to relax, vss. Continue to follow.
--- NOTE | 2022-07-26 13:04 | CM.DANOTE ---
DCP Assessment: Payor: Medicare & for life PCP: Unknown Pt is a 77 y.o. M who presented to the ER following multiple falls and generalized weakness and confusion. Pt was seen at an outside facility and treated for a UTI. Pt lives alone in a motel that is provided by his scientologist. Pt military aircraft designer brought him into the hospital. Pt admitted for further evaluation and management for UTI and sepsis. DCP attempted to meet with pt, however, pt had an episode of high fever and rigors and was in distress at time of meeting. DCP spoke with the RN and states that the patient has some dementia and is confused at time. RN states to DCP that right now pt is out of it. DCP attempted to contact the emergency contact, Sachin, by phone this afternoon. Left message to call back. No identifiers left as it was not a confidential voicemail. Discharge needs are unclear at this time. DCP will continue to follow pt case and work with coordination of plan with the team. Cesilia Cardenas RN/TOOTIE Discharge Planning/Care Management CM Discharge Assessment Start: 07/26/22 09:03 Freq: Status: Active Protocol: Document 07/26/22 11:41 JENNIFER (Rec: 07/26/22 11:42 JENNIFER [id number]) Discharge Planning Assessment Assigned Business Intelligence Administrator Cesilia Cardenas RN/TOOTIE Advance Directives? No History Provided By Medical Record Prior Living Arrangements Homeless Comment Lives in a motel Household Members none Independent with ADL's Yes Is patient alert and oriented? Yes Discharge Plan Home Referrals Initiated None needed Additional Comment At this time. Whiteboard Updated in Patient Room with Yes name and ext. # of Business Intelligence Administrator Review Status In Process Please Provide Date Initial DC 07/26/22 Assessment Was Performed Next Review Type Continued Stay Review
--- NOTE | 2022-07-26 14:51 | PT-IP ANOTE ---
Per rounds: pt on hold for PT eval today. Pt is not medically stable to do PT.
--- NOTE | 2022-07-26 17:21 | P.PN_ITS ---
Subjective Subjective Date Patient Seen: 07/26/22 Interval history: 77 year old male admitted with sepsis. Today he developed shaking with fever to 104.3, most likely rigors. Remains on broad antibiotics. Chest xray for upper airway wheezing showed no cardiopulmonary disease. Exam Vital Signs (past 8 hours): - 07/26/22 09:24 07/26/22 09:24 07/26/22 09:30 Temperature Pulse Rate 81 Respiratory Rate 28 H Blood Pressure 178/84 H 162/63 H Pulse Oximetry 97 Oxygen Delivery Method Oxygen Flow Rate 07/26/22 09:30 07/26/22 10:00 07/26/22 10:00 Temperature Pulse Rate 78 75 Respiratory Rate 30 H 29 H Blood Pressure 125/58 L Pulse Oximetry 97 96 Oxygen Delivery Method Oxygen Flow Rate 07/26/22 10:08 07/26/22 10:30 07/26/22 10:30 Temperature Pulse Rate 73 71 Respiratory Rate 30 H Blood Pressure 125/58 L 127/61 Pulse Oximetry 95 Oxygen Delivery Method Oxygen Flow Rate 07/26/22 12:10 07/26/22 11:30 07/26/22 11:20 Temperature 101.4 F H 104.3 F H 100.3 F H Pulse Rate Respiratory Rate Blood Pressure Pulse Oximetry Oxygen Delivery Method Oxygen Flow Rate 07/26/22 11:00 07/26/22 11:10 07/26/22 11:10 Temperature Pulse Rate 83 190 H Respiratory Rate 27 H 37 H Blood Pressure 136/86 Pulse Oximetry 95 92 Oxygen Delivery Method Oxygen Flow Rate 07/26/22 11:30 07/26/22 11:43 07/26/22 11:43 Temperature Pulse Rate 133 H 118 H Respiratory Rate 44 H 28 H Blood Pressure 206/102 H Pulse Oximetry 95 96 Oxygen Delivery Method Oxygen Flow Rate 07/26/22 11:46 07/26/22 11:46 07/26/22 11:50 Temperature Pulse Rate 118 H 118 H Respiratory Rate 40 H 48 H Blood Pressure 196/94 H Pulse Oximetry 97 96 Oxygen Delivery Method Oxygen Flow Rate 07/26/22 11:50 07/26/22 12:00 07/26/22 12:00 Temperature Pulse Rate 114 H Respiratory Rate 41 H Blood Pressure 192/90 H 157/75 H Pulse Oximetry 94 Oxygen Delivery Method Oxygen Flow Rate 07/26/22 12:20 07/26/22 12:49 07/26/22 13:00 Temperature 99.3 F Pulse Rate 115 H Respiratory Rate 37 H Blood Pressure 144/79 H Pulse Oximetry 92 93 Oxygen Delivery Method Room Air Oxygen Flow Rate 0 07/26/22 12:40 07/26/22 12:50 07/26/22 14:34 Temperature 97.9 F Pulse Rate 104 H Respiratory Rate 34 H Blood Pressure 145/73 H 136/68 Pulse Oximetry 93 Oxygen Delivery Method Oxygen Flow Rate 07/26/22 16:00 07/26/22 13:00 07/26/22 13:00 Temperature Pulse Rate 99 H Respiratory Rate 33 H Blood Pressure 123/64 Pulse Oximetry 97 93 Oxygen Delivery Method Room Air Oxygen Flow Rate 0 07/26/22 13:10 07/26/22 13:10 07/26/22 13:20 Temperature Pulse Rate 96 H Respiratory Rate 32 H Blood Pressure 122/63 120/61 Pulse Oximetry 93 Oxygen Delivery Method Oxygen Flow Rate 07/26/22 13:20 07/26/22 13:30 07/26/22 13:30 Temperature Pulse Rate 91 H 90 Respiratory Rate 28 H 28 H Blood Pressure 118/58 L Pulse Oximetry 93 93 Oxygen Delivery Method Oxygen Flow Rate 07/26/22 13:40 07/26/22 13:40 07/26/22 13:51 Temperature Pulse Rate 88 98 H Respiratory Rate 27 H 25 H Blood Pressure 117/59 L Pulse Oximetry 94 95 Oxygen Delivery Method Oxygen Flow Rate 07/26/22 13:51 07/26/22 14:00 07/26/22 14:30 Temperature Pulse Rate 91 H 78 Respiratory Rate 30 H 25 H Blood Pressure 178/83 H Pulse Oximetry 96 96 Oxygen Delivery Method Oxygen Flow Rate 07/26/22 15:00 07/26/22 15:30 07/26/22 16:00 Temperature Pulse Rate 82 69 65 Respiratory Rate 26 H 26 H 23 Blood Pressure Pulse Oximetry 96 95 95 Oxygen Delivery Method Oxygen Flow Rate 07/26/22 16:32 Temperature 98.8 F Pulse Rate 70 Respiratory Rate 25 H Blood Pressure 127/68 Pulse Oximetry 95 Oxygen Delivery Method Oxygen Flow Rate 0 Oxygen Delivery Method Room Air Oxygen Flow Rate 0 Narrative Exam Narrative: General: Patient is a chronically ill-appearing elderly male, in no distress at this time. HEENT: Normocephalic, Ecchymosis above left eye, no obvious hematoma, abrasion or laceration, extraocular muscles intact, oral pharynx is clear and mucous membranes are moist. Neck: supple and symmetric, trachea is midline, no adenopathy Chest: equal chest rise bilaterally, during episode quite tachypnic improved later. Lungs: Upper airway wheezing as noted during above episode, now much improved and CTA b/l. Cardio: 3/6 systoic murmur, tachycardic during febrile, improved later. Abdomen: S NT ND Musculoskeletal: No joint tenderness or joint effusions. Skin: dry and intact without rashes, ulcerations or petechiae other than ecchymosis noted above. Neuro: Alert and orientated to person and place, but confused. No focal deficits. Objective Labs Result Diagrams: 07/26/22 05:46 07/26/22 05:46 Labs: Laboratory Results - last 24 hr 07/25/22 07/25/22 07/25/22 16:50 16:50 16:50 WBC 20.3 H RBC 4.75 Hgb 13.2 L Hct 39.8 L MCV 83.8 MCH 27.9 MCHC 33.3 RDW 15.2 H Plt Count 140 L Neut % (Auto) 91.9 H Lymph % (Auto) 1.8 L [place] % (Auto) 6.2 Eos % (Auto) 0.0 L Baso % (Auto) 0.1 Neut # (Auto) 16605 H Lymph # (Auto) 400 L [place] # (Auto) 1300 H Eos # (Auto) 0 Baso # (Auto) 0 ESR PT INR APTT Sodium 135 L Potassium 3.2 L Chloride 99 Carbon Dioxide 24 BUN 18 Creatinine 0.86 Estimated GFR > 60 BUN/Creatinine Ratio 20.9 Glucose 157 H Hemoglobin A1c Lactate 4.1 H* Calcium 9.2 Magnesium Total Bilirubin 1.7 H AST 39 ALT 21 Alkaline Phosphatase 36 L Lactate Dehydrogenase Total Creatine Kinase 699 H CK-MB (CK-2) 0.94 CK-MB (CK-2) Rel Index 0.1 L Troponin I 0.078 H C-Reactive Protein NT-Pro-B Natriuret Pep Total Protein 6.3 Albumin 3.8 Globulin 2.5 Albumin/Globulin Ratio 1.5 Lipase 34 Procalcitonin Urine Color Urine Appearance Urine pH Ur Specific [place] Urine Protein Urine Glucose (UA) Urine Ketones Urine Occult Blood Urine Nitrate Urine Bilirubin Urine Urobilinogen Ur Leukocyte Esterase Urine RBC Urine WBC Ur Squamous Epith Cells Amorphous Sediment Urine Bacteria Urine Mucus Ur Culture Indicated? Nasal Screen MRSA (PCR) SARS-CoV-2 (PCR) 07/25/22 07/25/22 07/25/22 16:50 16:50 19:50 WBC RBC Hgb Hct MCV MCH MCHC RDW Plt Count Neut % (Auto) Lymph % (Auto) [place] % (Auto) Eos % (Auto) Baso % (Auto) Neut # (Auto) Lymph # (Auto) [place] # (Auto) Eos # (Auto) Baso # (Auto) ESR PT INR APTT Sodium Potassium Chloride Carbon Dioxide BUN Creatinine Estimated GFR BUN/Creatinine Ratio Glucose Hemoglobin A1c 5.6 Lactate Calcium Magnesium Total Bilirubin AST ALT Alkaline Phosphatase Lactate Dehydrogenase Total Creatine Kinase CK-MB (CK-2) CK-MB (CK-2) Rel Index Troponin I C-Reactive Protein NT-Pro-B Natriuret Pep Total Protein Albumin Globulin Albumin/Globulin Ratio Lipase Procalcitonin 2.01 H Urine Color Urine Appearance Urine pH Ur Specific [place] Urine Protein Urine Glucose (UA) Urine Ketones Urine Occult Blood Urine Nitrate Urine Bilirubin Urine Urobilinogen Ur Leukocyte Esterase Urine RBC Urine WBC Ur Squamous Epith Cells Amorphous Sediment Urine Bacteria Urine Mucus Ur Culture Indicated? Nasal Screen MRSA (PCR) SARS-CoV-2 (PCR) Negative 07/25/22 07/25/22 07/25/22 20:20 20:30 20:30 WBC RBC Hgb Hct MCV MCH MCHC RDW Plt Count Neut % (Auto) Lymph % (Auto) [place] % (Auto) Eos % (Auto) Baso % (Auto) Neut # (Auto) Lymph # (Auto) [place] # (Auto) Eos # (Auto) Baso # (Auto) ESR PT INR APTT Sodium Potassium Chloride Carbon Dioxide BUN Creatinine Estimated GFR BUN/Creatinine Ratio Glucose Hemoglobin A1c Lactate 2.0 Calcium Magnesium Total Bilirubin AST ALT Alkaline Phosphatase Lactate Dehydrogenase Total Creatine Kinase 573 H CK-MB (CK-2) 0.80 CK-MB (CK-2) Rel Index 0.1 L Troponin I 0.073 H C-Reactive Protein NT-Pro-B Natriuret Pep Total Protein Albumin Globulin Albumin/Globulin Ratio Lipase Procalcitonin Urine Color Yellow Urine Appearance Cloudy Urine pH 5.0 Ur Specific [place] 1.025 Urine Protein 2+ H Urine Glucose (UA) Negative Urine Ketones Trace H Urine Occult Blood 3+ H Urine Nitrate Positive H Urine Bilirubin Negative Urine Urobilinogen 0.2 Ur Leukocyte Esterase 2+ H Urine RBC 30-100/hpf H Urine WBC >100/hpf H Ur Squamous Epith Cells 0-1 /hpf Amorphous Sediment 1+ Urine Bacteria Many (>30) H Urine Mucus 1+ H Ur Culture Indicated? Specimen cultured Nasal Screen MRSA (PCR) SARS-CoV-2 (PCR) 07/25/22 07/25/22 07/25/22 20:30 20:30 20:30 WBC RBC Hgb Hct MCV MCH MCHC RDW Plt Count Neut % (Auto) Lymph % (Auto) [place] % (Auto) Eos % (Auto) Baso % (Auto) Neut # (Auto) Lymph # (Auto) [place] # (Auto) Eos # (Auto) Baso # (Auto) ESR PT INR APTT Sodium Potassium Chloride Carbon Dioxide BUN Creatinine Estimated GFR BUN/Creatinine Ratio Glucose Hemoglobin A1c Lactate Calcium Magnesium 1.7 Total Bilirubin AST ALT Alkaline Phosphatase Lactate Dehydrogenase Total Creatine Kinase CK-MB (CK-2) CK-MB (CK-2) Rel Index Troponin I C-Reactive Protein 7.1 H NT-Pro-B Natriuret Pep 1130 H Total Protein Albumin Globulin Albumin/Globulin Ratio Lipase Procalcitonin Urine Color Urine Appearance Urine pH Ur Specific [place] Urine Protein Urine Glucose (UA) Urine Ketones Urine Occult Blood Urine Nitrate Urine Bilirubin Urine Urobilinogen Ur Leukocyte Esterase Urine RBC Urine WBC Ur Squamous Epith Cells Amorphous Sediment Urine Bacteria Urine Mucus Ur Culture Indicated? Nasal Screen MRSA (PCR) SARS-CoV-2 (PCR) 07/25/22 07/25/22 07/26/22 20:30 22:20 05:46 WBC RBC Hgb Hct MCV MCH MCHC RDW Plt Count Neut % (Auto) Lymph % (Auto) [place] % (Auto) Eos % (Auto) Baso % (Auto) Neut # (Auto) Lymph # (Auto) [place] # (Auto) Eos # (Auto) Baso # (Auto) ESR 10 PT INR APTT Sodium Potassium Chloride Carbon Dioxide BUN Creatinine Estimated GFR BUN/Creatinine Ratio Glucose Hemoglobin A1c Lactate Calcium Magnesium Total Bilirubin AST ALT Alkaline Phosphatase Lactate Dehydrogenase 569 Total Creatine Kinase CK-MB (CK-2) CK-MB (CK-2) Rel Index Troponin I C-Reactive Protein NT-Pro-B Natriuret Pep Total Protein Albumin Globulin Albumin/Globulin Ratio Lipase Procalcitonin Urine Color Urine Appearance Urine pH Ur Specific [place] Urine Protein Urine Glucose (UA) Urine Ketones Urine Occult Blood Urine Nitrate Urine Bilirubin Urine Urobilinogen Ur Leukocyte Esterase Urine RBC Urine WBC Ur Squamous Epith Cells Amorphous Sediment Urine Bacteria Urine Mucus Ur Culture Indicated? Nasal Screen MRSA (PCR) Negative for mrsa SARS-CoV-2 (PCR) 07/26/22 07/26/22 07/26/22 05:46 05:46 05:46 WBC 13.9 H RBC 4.22 L Hgb 11.8 L Hct 34.9 L MCV 82.7 MCH 27.9 MCHC 33.7 RDW 15.1 H Plt Count 107 L Neut % (Auto) 88.7 H Lymph % (Auto) 4.5 L [place] % (Auto) 6.6 Eos % (Auto) 0.0 L Baso % (Auto) 0.2 Neut # (Auto) 11101 H Lymph # (Auto) 600 L [place] # (Auto) 900 Eos # (Auto) 0 Baso # (Auto) 0 ESR PT 16.7 H INR 1.5 H APTT 33 Sodium 134 L Potassium 3.2 L Chloride 106 Carbon Dioxide 25 BUN 14 Creatinine 0.71 Estimated GFR > 60 BUN/Creatinine Ratio 19.7 Glucose 108 Hemoglobin A1c Lactate Calcium 8.2 L Magnesium Total Bilirubin 1.3 AST 26 ALT 18 Alkaline Phosphatase 38 Lactate Dehydrogenase Total Creatine Kinase CK-MB (CK-2) CK-MB (CK-2) Rel Index Troponin I 0.073 H C-Reactive Protein NT-Pro-B Natriuret Pep Total Protein 5.2 L Albumin 2.9 L Globulin 2.3 Albumin/Globulin Ratio 1.3 Lipase Procalcitonin 2.11 H Urine Color Urine Appearance Urine pH Ur Specific [place] Urine Protein Urine Glucose (UA) Urine Ketones Urine Occult Blood Urine Nitrate Urine Bilirubin Urine Urobilinogen Ur Leukocyte Esterase Urine RBC Urine WBC Ur Squamous Epith Cells Amorphous Sediment Urine Bacteria Urine Mucus Ur Culture Indicated? Nasal Screen MRSA (PCR) SARS-CoV-2 (PCR) [facility] Medical History (Updated 07/26/22 @ 00:20 by ART Horner) BPH (benign prostatic hyperplasia) Dementia H/O: CVA (cerebrovascular accident) Heart murmur High blood pressure Peripheral edema Surgical History History of cholecystectomy Family History Mother Dementia Social History household members: none Smoking Status: Never smoker alcohol intake: never substance use type: does not use Assessment & Plan Assessment & Plan narrative: Herbert Bautista is a 68 male with a history of prior Right Internal Capsule CVA, Untreated Hypertension, Heart murmur, untreated BPH was previously on flomax, hyperglycemia and ? dementia admitted with sepsis. 1. Sepsis, secondary to urinary tract infection, resulting in acute metabolic encephalopathy, thrombocytopenia, lactic acidosis, rhabdomyolysis, acute, present on admission- -continue vanc and meropenem pending cultures. -source is urinary most likely -Fever to 104 today with rigors, but BP is okay today. -acute rhabdo likely from being down due to sepsis. Continued on IVF , will recheck CK tomorrow. 2. Mild anemia, acute, present on admission -Hg 11.8 today, likely was concentrated on admission. No signs or symptoms of bleeding currently. Continue to follow. 3. Hypertension, essential, Present on admission. -hold antihypertensives currently in setting of sepsis. 4. Dementia with acute metabolic encephalopathy, acute on chronic, present on admission -will re-initiate patient's Seroquel, risperidone, Namenda 5. Systolic Murmur, ejection, acute on chronic, Present on admission -last echo 10/2021: ejection fraction 60-65%. -cardiomegaly on CXR, however no signs or symptoms of CHF at this time. No acute indication for TTE currently. If develops edema or hypotension, will order. 6. BPH, acute on chronic, Present on admission.? -continue flomax 8. Overweight as evidence by BMI of 27.6, acute on chronic, present on admission -suspect that patient's BMI reflects adipose tissue and muscle wasting malnutrition. -consult placed with dietary for nutritional and lifestyle recommendations, [employer] for community Support 9. Hypokalemia - replete as needed. Code status: Full Surrogate decision maker: Alejandra ROSAS PCR:Negative DVT/VTE prophylaxis: Lovenox and SCDs Disposition: Stable for floor this AM. PT/OT likely tomorrow, suspect discharge home, timing unclear. Time Spent With Patient Critical Care time: I spent a total of [] minutes of critical care time on this patient's care today; this time is exclusive of procedural time. Quality VTE Deep Vein Thrombosis/Pulmonary Embolism Present on Admission: No
[2022-07-26] MEDS: QUETIAPINE 25 MG TABLET 12.5 MG PO (20:31)
[2022-07-26] MEDS: SENNOSIDES 8.6 MG TABLET 17.2 MG PO (20:32)
[2022-07-26] MEDS: ONDANSETRON 4 MG/2 ML INJ IV (20:35)
[2022-07-26] MEDS: SODIUM CHLORIDE 0.9% 1,000 ML 75 ML IV (21:42)
[2022-07-27] VITALS (11 sets, daily range): BP systolic 115–150; BP diastolic 59–78; PULSE 67–101; RESP 15–26; TEMP 36.3–37.6; O2SAT 94–98; BMI 28.1
[2022-07-27] MEDS: VANCOMYCIN 1,250 MG/250 ML PIGGYBACK 250 MG IV (00:03)
[2022-07-27] MEDS: MEROPENEM 1 GM in SODIUM CHLORIDE 0.9% 100 ML IV (04:21)
--- NOTE | 2022-07-27 06:12 | PC.NURSE ---
Nursing Progress Note Pt AAOx3, MORTENSEN w/ generalized weakness, FC, denies pain. VSS. Room air. Heart healthy diet. PRN Zofran x1 for c/o nausea, with relief. No BM. Brian w/ GALDINO. NS running at 75cc/hr.
[2022-07-27 06:17] LABS: Creatine Kinase 74 U/L (55-170); Magnesium 1.8 mg/dL (1.6-2.3)
[2022-07-27 06:27] LABS: Alanine Aminotransferase 17 IU/L (<50); Albumin 2.7 g/dL (3.5-5.0); Albumin Globulin Ratio 1.2 (1.0-2.8); Alkaline Phosphatase 53 U/L (38-126); Aspartate Aminotransferase 21 IU/L (17-59); BUN Creatinine Ratio 19.5 (6-22); Bilirubin Total 0.8 mg/dL (0.2-1.3); Blood Urea Nitrogen 15 mg/dL (9-20); Calcium 8.3 mg/dL (8.4-10.2); Carbon Dioxide 23 mmol/L (22-32); Chloride 105 mmol/L (98-107); Estimated Glomerular Filt Rate > 60 mL/min (>60); Globulin 2.3 g/dL (1.7-4.1); Glucose 101 mg/dL (80-110); HEMOLYSIS < 15 (0-50); Potassium 3.6 mmol/L (3.4-5.1); Sodium 137 mmol/L (137-145)
[2022-07-27 06:44] LABS: Add Manual Diff / Slide Review NO; Basophils Absolute Auto 100 /uL (0-100); Basophils Percent Auto 0.8 % (0-2); Eosinophils Absolute Auto 100 /uL (0-450); Eosinophils Percent Auto 0.8 % (2-4); Hematocrit 34.7 % (41-53); Hemoglobin 11.7 g/dL (13.5-17.5); Lymphocytes Absolute Auto 700 /uL (1100-4500); Lymphocytes Percent Auto 7.1 % (25-40); Mean Corpuscular HGB Conc 33.7 % (30-36); Mean Corpuscular Hemoglobin 28.2 PG (26-34); Mean Corpuscular Volume 83.6 fL (80-100); Monocytes Absolute Auto 700 /uL (0-900); Monocytes Percent Auto 7.1 % (3-14); Neutrophils Absolute Auto 8800 /uL (1500-7000); Neutrophils Percent Auto 84.2 % (50-75); Platelet Count 83 X10^3/uL (150-400); Red Blood Cell Count 4.14 X10^6/uL (4.5-5.9); Red Cell Distribution Width 15.1 % (11.6-14.8); White Blood Cell Count 10.4 X10^3/uL (4.5-11.0)
[2022-07-27] MEDS: cefTRIAXone 2,000 MG in SODIUM CHLORIDE 0.9% 100 ML 200 MG IV (08:07)
[2022-07-27] MEDS: ATORVASTATIN 20 MG TABLET 40 MG PO (08:54)
[2022-07-27] MEDS: TAMSULOSIN 0.4 MG CAPSULE PO (08:54)
[2022-07-27] MEDS: risperiDONE 0.25 MG TABLET PO ×2 (08:55→20:47)
[2022-07-27] MEDS: METOPROLOL ER 25 MG TABLET PO (08:55)
[2022-07-27] MEDS: PHENAZOPYRIDINE 100 MG TABLET PO ×3 (08:55→20:47)
[2022-07-27] MEDS: ENOXAPARIN 40 MG/0.4 ML SYRINGE SUBCUT (08:56)
[2022-07-27] MEDS: MEMANTINE HCL 5 MG TABLET PO (08:56)
[2022-07-27] MEDS: SODIUM CHLORIDE 0.9% 1,000 ML 75 ML IV (10:59)
[2022-07-27] MEDS: SODIUM CHLORIDE 0.9% FLUSH 10 ML IV ×2 (10:59→21:45)
--- NOTE | 2022-07-27 11:30 | PT.IIE ---
Current Diagnoses Sepsis, unspecified organism (07/25/22) Surgical History (Last Reviewed 07/26/22 @ 00:20 [facility] History of cholecystectomy Medical History (Last Updated 07/26/22 @ 00:20 by MATT HornerMARGE) BPH (benign prostatic hyperplasia) Dementia H/O: CVA (cerebrovascular accident) Heart murmur High blood pressure Peripheral edema Physical Therapy Inpatient Evaluation/Re-Eval M1 PT/OT-IP Prior Functional Status Start: 07/27/22 12:50 Freq: NEEDED Status: Active Protocol: Document 07/27/22 11:30 AB (Rec: 07/27/22 13:17 AB [email or web address]) Medical Review Prior Functional Status Medical History Reviewed Yes Communication able to answer questions but with confusion Mobility and Gait pt stated that he is modified independent with all mobilities and ambulation using FWW but with difficulty. pt stated that he just recently use a FWW ~ few months ago but prior to that, does not use any AD Social History Household Members none Living Arrangements Homeless Number of Stairs To Enter/Railing? pt stated that he has been living in a motel for the last 3 months but does not know if he is going back to the motel M2 PT-IP Current Condition Start: 07/27/22 12:50 Freq: NEEDED Status: Active Protocol: Document 07/27/22 11:30 AB (Rec: 07/27/22 13:17 AB [email or web address]) Physical Therapy Current Condition Current Condition Evaluation Date 07/27/22 Treatment Diagnosis sepsis; difficulty in walking Onset Date 07/25/22 M3 PT-IP Subjective Start: 07/27/22 12:50 Freq: NEEDED Status: Active Protocol: Document 07/27/22 11:30 AB (Rec: 07/27/22 13:17 AB [email or web address]) Subjective Physical Therapy Visit Type Type Initial Evaluation Visit Start Time 11:30 Visit Stop Time 12:05 Total Visit Minutes 35 Number of ANALYST SALES Visits 0 Physical Therapy Visit Comments Patient Comments agreeable to do PT M4 PT-IP Mobility and Gait Start: 07/27/22 12:50 Freq: NEEDED Status: Active Protocol: Document 07/27/22 11:30 AB (Rec: 07/27/22 13:17 AB [email or web address]) PT-Bed Mobility Assessment Supine to Sit Supine to Sit Maximum Assistance,2 Person Assistance,Head of Bed Elevated,Bedrails Scooting Scooting to Edge of Bed Dependent PT-Transfer Assessment Sit to and From Stand Sit to and from Stand Maximum Assistance,2 Person Assistance,Use of Upper Extremities Equipment Transfer Assistive Device Front Wheeled Walker Orthotic/Prosthetic Devices or Brace: No Transfers Transfer Destination Chair Transfer Technique Stand Step Pivot Transfer Ability Level of Assist Maximum Assistance,2 Person Assistance,Use of Upper Extremities Comments Mobility Comments completed supine to sit x 3 attempt requiring max A and max cues with HOB elevated. presents with increase posterior trunk lean and resistance. pt c/o bladder pressure in sitting. nurse informed. pt required total A for scooting to EOB. completed sit to stand max A x 2 and max cues and step transfer to chair max A x2 and max cues. positioned pt on the chair. call light and table placed within reach. Gait Assessment Comments Gait Comments unable at this time PT-Balance Assessment Sitting Balance and Reactions Static Sitting Balance Ability Fair Dynamic Sitting Balance Ability Poor Standing Balance and Reactions Static Standing Balance Ability Poor Dynamic Standing Balance Ability Poor Device Used FWW M5 PT-IP Objective Assessments Start: 07/27/22 12:50 Freq: NEEDED Status: Active Protocol: Document 07/27/22 11:30 AB (Rec: 07/27/22 13:17 AB [id number]) Orientation Orientation/Cognition Level of Alertness Confusional State Orientation Name Safety Awareness Decreased Safety Awareness Memory Description Short Term Impaired,Fdc Impaired Gross Range of Motion Lower Extremity ROM Assessment Within Functional Limits Strength Comments Strength Comments RLE: 4-/5 LLE: 3+/5 Coordination Assessment Gross Coordination Gross Coordination WNL Muscle Tone Muscle Tone WNL Yes M6 PT-IP Treatment Start: 07/27/22 12:50 Freq: NEEDED Status: Active Protocol: Document 07/27/22 11:30 AB (Rec: 07/27/22 13:17 AB [email or web address]) Physical Therapy Treatment Education Education Provided Safety M7 PT-IP Assessment and Plan Start: 07/27/22 12:50 Freq: NEEDED Status: Active Protocol: Document 07/27/22 11:30 AB (Rec: 07/27/22 13:17 AB [email or web address]) PT Summary Assessment and Plan Potential Rehabilitation Potential Fair Status of Condition at Evaluation Evolving Summary Impairments Pain,ROM,Strength,Balance, Coordination,Sensation,Tone, Cognition,Bed Mobility, Transfers,Gait,Activity Tolerance Assessment Summary pt requiring max A x 2 and max cues with mobility and unable to ambulate at this time. pt with confusion affecting safety awareness but able to follow directions. pt will require SNF rehab at this time to improve overall strength and mobility. will continue to assess progress. Goals Bed Mobility Goal Minimal Assistance Transfer Goal Minimal Assistance,Front Wheeled Walker Gait Goal Minimal Assistance,Front Wheel Walker Gait Distance 25 Other Goals improve bed mobility, transfers using FWW to SBA improve ambulation using FWW ~ 125 ft SBA Days to Meet Goals 10 Frequency of Treatment Frequency Of Treatment Once a Day Treatment Plan Physical Therapy Treatment Plan Bed Mobility Training,Transfer Training,Gait Training, Therapeutic Exercise,Balance Retraining,Discharge Planning, Hot or Cold Pack,Neuromuscular Re-ed,Coordination Retraining ,Manual Therapy Precautions Other Precautions falls Recommendations To Nursing Amount of Assist Needed 2 Person Assist Discharge Recommendations PT Discharge Recommendations SNF Rehab Transportation Needs at Discharge Wheelchair/Cabulance
--- NOTE | 2022-07-27 11:36 | DIET.CONS ---
Dietary Consultation Note Admission Date: 07/25/2022 22:32 Assessment: 77y M admitted for urosepsis referred to nutrition for malnutrition screening and obesity. Pt with BMI 28, however, with several factors increasing risk for poor nutrition status including homeless living in hotel, inability to drive, and moderate cognitive impairment (SLUMS in Oct [address] entered pts room, pt attempting to brush teeth, however, states he is unsure how to brush teeth using cup and emesis basin. RD walked pt through steps instructing pt to wet mouth with water. Pt opened mouth after sip of water to brush teeth with foamy water streaming down his [place]. ELECTROFORMER stepped in to help pt. When RD returned, pt on phone with phone company. Pt unable to provide PO box or cell phone number to caller, states I don't know how to do this. Pt states he wants to talk to ldr rn who brought him to hospital so he can learn next steps. Pt unable to clearly communicate PO intake outside of hospital environment. Pt states he is in limbo, does not have EBT food benefits and is temporarily at a hotel. Pt unable to communicate how he obtains food/drinks. Pts nutrition status being negatively impacted by food insecurity and cognitive deficit. Ht: 177.8 cm Wt: 89.1 kg BMI: 27.6 Last BM: 07/25/22 (07/25/22 22:41) MNA: 11 Daniel Score: 20 Diet: 07/25/22 Breakfast Heart Healthy Diet Diet Modifications: Nutrition Percent Meal Consumed 100% 07/26/22 18:21 Percent Meal Consumed 25% 07/26/22 15:00 Percent Meal Consumed 10% 07/26/22 09:30 Labs: RBC 4.14 X10^6/uL (4.5-5.9) L 07/27/22 04:37 Hgb 11.7 g/dL (13.5-17.5) L 07/27/22 04:37 Hct 34.7 % (41-53) L 07/27/22 04:37 Creatinine 0.77 mg/dL (0.66-1.25) 07/27/22 04:37 Hemoglobin A1c 5.6 % (4.0-6.0) 07/25/22 16:50 Lactate 2.0 mmol/L (0.7-2.1) 07/25/22 20:30 NT-Pro-B Natriuret Pep 1130 pg/mL (<450) H 07/25/22 20:30 Nutrition Diagnosis: Chronic Moderate Malnutrition r/t food insecurity and cognitive impairment aeb pt homeless staying in hotel without EBT benefits or way to purchase food, pt unable to drive, pt with SLUMS and no local social support besides latter day ldr rn. -The patient is at much higher risk for medical and surgical complications because of his malnutrition. This increases the difficulty and complexity of medical and surgical interventions and increases the chances of poor outcomes such as morbidity and mortality. Interventions: 1. Pt would benefit from [facility] care environment for stable and structured care and meal service. Pt . 2. While hospitalized, will provide structured heart healthy meals to meet current nutrition needs. EER: 2,200kcals (25kcal/kg), 85-95g PRO (0.9-1.2g/kg) Monitoring/Evaluations: POs Electronically Signed by: Kristen Turcios 07/27/22 11:36 Clinical Dietitian [address] [id number]
--- NOTE | 2022-07-27 13:54 | CM.DANOTE ---
DCP Assessment Cont: DCP contacted pt emergency contact Sachin again this morning to discuss pt baseline level of functioning. Sachin is pt Manager Cable at his [employer]. TOOTIE was able to have a lengthy conversation with Sachin. Sachin states that this pt lives in a Motel that the pt is paying for privately. He also states that patient has property in [place] that he owns but is dilapidated and full of stuff. He described patient has being a hoarder and storing a lot of junk in his property. Sachin also states that the motel he is currently residing in is also full of stuff and he has three cars parked out in the parking lot at the motel. Sachin states that the pt does get social security checks and states there is no family in the area. Sachin states that there is a son in an estranged son who lives in [place] and states that patient does not want to have anything to do with him. When asked about meals, he states that he is unsure how the pt gets meals. He states there is a friend names, Alejandra, who cooks food for the pt on the weekends. There is no kitchenette in the motel, just a microwave and fridge. Sachin expresses major concerns for the patient and expresses that the pt needs a more higher level of care than the railroad car repairman can provide. Sachin expresses that pt mental capacity has severely changed over the last six months. Pt has been having increasing paranoia of people he knows. Sachin very thankful for discussion. BRANDENP was later able to talk with the pt at the bedside this morning. Pt sitting up in bed drinking water. Pt states that he no longer wants to go back to the motel because he cannot afford to live there anymore. Pt states that his phone has been shut off because he needs to pay his phone bill but has been having a difficult time trying to do it while in the hospital. Pt also states that he cannot go back to live on his property because it is unlivable. Pt wanting more assistance and wanted to talk with Manager Cable. DCP able to connect railroad car repairman and pt on the phone. Pt wanting to discuss information with Manager Cable before DCP talks with him again. P: Discharge needs are unclear at this time. Sachin is to come up to the hospital tomorrow morning @ 1000 to talk with pt and help with setting his cellphone back up. DCP will attempt to talk with the Sachin. PT to work with pt today. SNF vs Home. DCP to continue to work with the patient care team and solidify safe discharge plan. Cesilia Cardenas RN/TOOTIE Discharge Planning/Care Management CM Discharge Assessment Start: 07/26/22 09:03 Freq: Status: Active Protocol: Document 07/26/22 11:41 AJ (Rec: 07/26/22 11:42 AJ [id number]) Discharge Planning Assessment Assigned Water Systems Designer Cesilia Cardenas RN/TOOTIE Advance Directives? No History Provided By Medical Record Prior Living Arrangements Homeless Comment Lives in a motel Household Members none Independent with ADL's Yes Is patient alert and oriented? Yes Discharge Plan Home Referrals Initiated None needed Additional Comment At this time. Whiteboard Updated in Patient Room with Yes name and ext. # of Water Systems Designer Review Status In Process Please Provide Date Initial DC 07/26/22 Assessment Was Performed Next Review Type Continued Stay Review
--- NOTE | 2022-07-27 14:55 | OT.IPNOTE ---
Pt just getting back to bed with nurse and NEWS LIBRARY DIRECTOR. Pt appears a bit overwhelmed,states not thinking well and determined with pt best to do OT eval with pt tomorrow as hopefully pt will be in a better frame of mind. No charge.
--- NOTE | 2022-07-27 17:16 | PM.PN.1 ---
Subjective Subjective Date Patient Seen: 07/27/22 Interval history: Feels much improved today, mental status is improving but he remains weak. No abdominal pain, nausea, vomiting. Exam Vital Signs (past 8 hours): - 07/27/22 09:25 07/27/22 12:00 07/27/22 17:07 Temperature 97.3 F L Pulse Rate 89 83 Respiratory Rate 22 Blood Pressure 134/59 L 115/71 Pulse Oximetry 97 95 Oxygen Delivery Method Room Air Oxygen Flow Rate 0 Oxygen Delivery Method Room Air Oxygen Flow Rate 0 Narrative Exam Narrative: General: Patient is a chronically ill-appearing elderly male, in no distress at this time. HEENT: Normocephalic, Ecchymosis above left eye, no obvious hematoma, abrasion or laceration, extraocular muscles intact, oral pharynx is clear and mucous membranes are moist. Neck: supple and symmetric, trachea is midline, no adenopathy Chest: equal chest rise bilaterally, during episode quite tachypnic improved later. Lungs: Upper airway wheezing as noted during above episode, now much improved and CTA b/l. Cardio: 3/6 systoic murmur, tachycardic during febrile, improved later. Abdomen: S NT ND Musculoskeletal: No joint tenderness or joint effusions. Skin: dry and intact without rashes, ulcerations or petechiae other than ecchymosis noted above. Neuro: Alert and orientated x3, improved confusion today. No focal deficits. Objective Labs Result Diagrams: 07/27/22 04:37 07/27/22 04:37 Labs: Laboratory Results - last 24 hr 07/27/22 07/27/22 07/27/22 04:37 04:37 04:37 WBC 10.4 RBC 4.14 L Hgb 11.7 L Hct 34.7 L MCV 83.6 MCH 28.2 MCHC 33.7 RDW 15.1 H Plt Count 83 L Neut % (Auto) 84.2 H Lymph % (Auto) 7.1 L Rusk % (Auto) 7.1 Eos % (Auto) 0.8 L Baso % (Auto) 0.8 Neut # (Auto) 8800 H Lymph # (Auto) 700 L Rusk # (Auto) 700 Eos # (Auto) 100 Baso # (Auto) 100 Sodium 137 Potassium 3.6 Chloride 105 Carbon Dioxide 23 BUN 15 Creatinine 0.77 Estimated GFR > 60 BUN/Creatinine Ratio 19.5 Glucose 101 Calcium 8.3 L Magnesium 1.8 Total Bilirubin 0.8 AST 21 ALT 17 Alkaline Phosphatase 53 Total Creatine Kinase Total Protein 5.0 L Albumin 2.7 L Globulin 2.3 Albumin/Globulin Ratio 1.2 07/27/22 04:37 WBC RBC Hgb Hct MCV MCH MCHC RDW Plt Count Neut % (Auto) Lymph % (Auto) Rusk % (Auto) Eos % (Auto) Baso % (Auto) Neut # (Auto) Lymph # (Auto) Rusk # (Auto) Eos # (Auto) Baso # (Auto) Sodium Potassium Chloride Carbon Dioxide BUN Creatinine Estimated GFR BUN/Creatinine Ratio Glucose Calcium Magnesium Total Bilirubin AST ALT Alkaline Phosphatase Total Creatine Kinase 74 D Total Protein Albumin Globulin Albumin/Globulin Ratio COUNT INCLUDES THE [facility] Medical History (Updated 07/26/22 @ 00:20 by ART Horner) BPH (benign prostatic hyperplasia) Dementia H/O: CVA (cerebrovascular accident) Heart murmur High blood pressure Peripheral edema Surgical History History of cholecystectomy Family History Mother Dementia Social History household members: none Smoking Status: Never smoker alcohol intake: never substance use type: does not use Assessment & Plan Assessment & Plan narrative: Herbert Bautista is a 68 male with a history of prior Right Internal Capsule CVA, Untreated Hypertension, Heart murmur, untreated BPH was previously on flomax, hyperglycemia and ? dementia admitted with sepsis. 1. Sepsis, secondary to urinary tract infection, resulting in acute metabolic encephalopathy, thrombocytopenia, lactic acidosis, rhabdomyolysis, acute, present on admission- -continued vanc and meropenem pending cultures, narrowed to ceftriaxone today given klebsiella oxytoca sensitive to ceftriaxone. -source is urinary -acute rhabdo likely from being down due to sepsis. Continued on IVF , now can stop, rhabdo resolved. -Plt 83, downtrending slightly, hold DVT ppx but suspect sepsis as the cause. 2. Mild anemia, acute, present on admission -Hg stable today, likely was concentrated on admission. No signs or symptoms of bleeding currently. Continue to follow. 3. Hypertension, essential, Present on admission. -hold antihypertensives currently in setting of sepsis. 4. Dementia with acute metabolic encephalopathy, acute on chronic, present on admission -continue patient's Seroquel, risperidone, Namenda 5. Systolic Murmur, ejection, acute on chronic, Present on admission -last echo 10/2021: ejection fraction 60-65%. -cardiomegaly on CXR, however no signs or symptoms of CHF at this time. No acute indication for TTE currently. If develops edema or hypotension, will order. 6. BPH, acute on chronic, Present on admission.? -continue flomax 8. Overweight as evidence by BMI of 27.6, acute on chronic, present on admission -suspect that patient's BMI reflects adipose tissue and muscle wasting malnutrition. -consult placed with dietary for nutritional and lifestyle recommendations, BANBURY MIXER OPERATOR for community Support 9. Hypokalemia - replete as needed. Code status: Full Surrogate decision maker: Alejandra ROSAS PCR:Negative DVT/VTE prophylaxis: Lovenox and SCDs Disposition: PT/OT recommending SNF, possible medical readiness in 1-3 days. Time Spent With Patient Critical Care time: I spent a total of [] minutes of critical care time on this patient's care today; this time is exclusive of procedural time. Quality VTE Deep Vein Thrombosis/Pulmonary Embolism Present on Admission: No
[2022-07-27] MEDS: QUETIAPINE 25 MG TABLET 12.5 MG PO (20:47)
[2022-07-27] MEDS: SENNOSIDES 8.6 MG TABLET 17.2 MG PO (20:48)
[2022-07-28] VITALS (7 sets, daily range): BP systolic 152–180; BP diastolic 86–122; PULSE 81–94; RESP 15–19; TEMP 36.1–37.2; O2SAT 95–97
[2022-07-28] MEDS: HYDROCODONE/ACET 5/325 TABLET 1 TAB PO ×2 (00:19→11:01)
[2022-07-28] MEDS: SODIUM CHLORIDE 0.9% 1,000 ML 75 ML IV (00:21)
--- NOTE | 2022-07-28 00:55 | PC.NURSE ---
Pt A&O2 but easy to redirect. At beginning of shift pt very concerned about maradiaga in wallet, it is now secured in safe. Wallet is still at bedside as pt has stated multiple times having concern for paying [employer] bill and getting ahold of people. RN educated pt that manager social media will help him with that. Pt needs lots of reorienting to place and situation.
[2022-07-28 06:46] LABS: Add Manual Diff / Slide Review NO; Basophils Absolute Auto 0 /uL (0-100); Basophils Percent Auto 0.5 % (0-2); Eosinophils Absolute Auto 100 /uL (0-450); Eosinophils Percent Auto 1.4 % (2-4); Hematocrit 35.3 % (41-53); Hemoglobin 12.2 g/dL (13.5-17.5); Lymphocytes Absolute Auto 700 /uL (1100-4500); Lymphocytes Percent Auto 7.9 % (25-40); Mean Corpuscular HGB Conc 34.5 % (30-36); Mean Corpuscular Hemoglobin 28.8 PG (26-34); Mean Corpuscular Volume 83.5 fL (80-100); Monocytes Absolute Auto 600 /uL (0-900); Neutrophils Absolute Auto 6900 /uL (1500-7000); Neutrophils Percent Auto 83.2 % (50-75); Platelet Count 95 X10^3/uL (150-400); Red Blood Cell Count 4.23 X10^6/uL (4.5-5.9); Red Cell Distribution Width 15.6 % (11.6-14.8); White Blood Cell Count 8.3 X10^3/uL (4.5-11.0)
[2022-07-28 06:56] LABS: Alanine Aminotransferase 25 IU/L (<50); Albumin 2.9 g/dL (3.5-5.0); Albumin Globulin Ratio 1.2 (1.0-2.8); Alkaline Phosphatase 57 U/L (38-126); Aspartate Aminotransferase 26 IU/L (17-59); BUN Creatinine Ratio 22.2 (6-22); Bilirubin Total 0.7 mg/dL (0.2-1.3); Blood Urea Nitrogen 14 mg/dL (9-20); Calcium 8.3 mg/dL (8.4-10.2); Carbon Dioxide 22 mmol/L (22-32); Chloride 103 mmol/L (98-107); Estimated Glomerular Filt Rate > 60 mL/min (>60); Globulin 2.4 g/dL (1.7-4.1); Glucose 111 mg/dL (80-110); HEMOLYSIS 24 (0-50); Potassium 3.5 mmol/L (3.4-5.1); Sodium 133 mmol/L (137-145); Total Protein 5.3 g/dL (6.3-8.2)
[2022-07-28] MEDS: cefTRIAXone 2,000 MG in SODIUM CHLORIDE 0.9% 100 ML 200 MG IV (08:37)
[2022-07-28] MEDS: METOPROLOL ER 25 MG TABLET PO (08:38)
[2022-07-28] MEDS: ATORVASTATIN 20 MG TABLET 40 MG PO (08:38)
[2022-07-28] MEDS: PHENAZOPYRIDINE 100 MG TABLET PO ×3 (08:38→21:53)
[2022-07-28] MEDS: TAMSULOSIN 0.4 MG CAPSULE PO (08:38)
[2022-07-28] MEDS: MEMANTINE HCL 5 MG TABLET PO (08:38)
[2022-07-28] MEDS: risperiDONE 0.25 MG TABLET PO ×2 (08:38→21:53)
[2022-07-28] MEDS: SODIUM CHLORIDE 0.9% FLUSH 10 ML IV ×2 (08:39→21:53)
--- NOTE | 2022-07-28 10:46 | PT.IPTN ---
Current Diagnoses Sepsis, unspecified organism (07/25/22) Physical Therapy Treatment Note M2 PT-IP Current Condition Start: 07/27/22 12:50 Freq: NEEDED Status: Active Protocol: Document 07/27/22 11:30 AB (Rec: 07/27/22 13:17 AB [id number]) Physical Therapy Current Condition Current Condition Evaluation Date 07/27/22 Treatment Diagnosis sepsis; difficulty in walking Onset Date 07/25/22 M3 PT-IP Subjective Start: 07/27/22 12:50 Freq: NEEDED Status: Active Protocol: Document 07/28/22 10:23 KS (Rec: 07/28/22 12:50 KS [id number]) Subjective Physical Therapy Visit Type Type Treatment Note Visit Start Time 10:23 Visit Stop Time 10:46 Total Visit Minutes 23 Number of PEANUT BUTTER MAKER Visits 1 Physical Therapy Visit Comments Patient Comments agreeable to do PT M4 PT-IP Mobility and Gait Start: 07/27/22 12:50 Freq: NEEDED Status: Active Protocol: Document 07/28/22 10:23 KS (Rec: 07/28/22 12:50 KS [id number]) PT-Bed Mobility Assessment Supine to Sit Supine to Sit Maximum Assistance,1 Person Assistance,Head of Bed Elevated,Bedrails Scooting Scooting to Edge of Bed Maximum Assistance PT-Transfer Assessment Sit to and From Stand Sit to and from Stand Minimal Assistance,1 Person Assistance,Use of Upper Extremities Equipment Transfer Assistive Device Front Wheeled Walker Orthotic/Prosthetic Devices or Brace: No Transfers Transfer Destination Bedside Commode Transfer Technique Stand Step Pivot Transfer Ability Level of Assist Minimal Assistance,Moderate Assistance,2 Person Assistance Comments Mobility Comments Pt in bed upon arrival from PT . Lymphedema Therapist was in room. Pt agreeable to mobilize but is confused. Required HOB full elevated, Max A, max cues, and bed rails for sup<>sit and scooting EOB. Once EOB pt reported he needed to have bowel movement. HISTORIC SITE ADMINISTRATOR arrived for assistance. Pt sit<>Stand w/ FWW Min A and performed stand step pivot to BSC w/ Max step by step cues. Pt left on BSC w/ HISTORIC SITE ADMINISTRATOR attending. Gait Assessment Comments Gait Comments Stand step pivot only - pt with difficulty elevating LE to take steps and has R sided lean. PT-Balance Assessment Sitting Balance and Reactions Static Sitting Balance Ability Fair Dynamic Sitting Balance Ability Poor Standing Balance and Reactions Static Standing Balance Ability Poor Dynamic Standing Balance Ability Poor Device Used FWW M5 PT-IP Objective Assessments Start: 07/27/22 12:50 Freq: NEEDED Status: Active Protocol: Document 07/27/22 11:30 AB (Rec: 07/27/22 13:17 AB [id number]) Orientation Orientation/Cognition Level of Alertness Confusional State Orientation Name Safety Awareness Decreased Safety Awareness Memory Description Short Term Impaired,Optometric Aide Impaired Gross Range of Motion Lower Extremity ROM Assessment Within Functional Limits Strength Comments Strength Comments RLE: 4-/5 LLE: 3+/5 Coordination Assessment Gross Coordination Gross Coordination WNL Muscle Tone Muscle Tone WNL Yes M6 PT-IP Treatment Start: 07/27/22 12:50 Freq: NEEDED Status: Active Protocol: Document 07/28/22 10:23 KS (Rec: 07/28/22 12:50 KS [id number]) Physical Therapy Treatment Education Education Provided Safety M7 PT-IP Assessment and Plan Start: 07/27/22 12:50 Freq: NEEDED Status: Active Protocol: Document 07/28/22 10:23 KS (Rec: 07/28/22 12:50 KS [id number]) PT Summary Assessment and Plan Potential Rehabilitation Potential Fair Summary Impairments Pain,ROM,Strength,Balance, Coordination,Sensation,Tone, Cognition,Bed Mobility, Transfers,Gait,Activity Tolerance Progress Towards Goals Slow Progress due to Medical Issues,Slow Progress due to Activity Tolerance Assessment Summary Pt continues to require at least Max A x1 for bed mobility w/ max cues, bed rails, and HOB elevated. Showed improvement w/ stand step pivot transfer to [facility] but for safety, 2 PA and pt needs step by step cues for advancing LE and FWW mgmt. He continues to remain confused and has poor safety awareness. At this time, pt unsafe to go home and will require SNF to improve strength and functional mobility independence. Goals Bed Mobility Goal Minimal Assistance Transfer Goal Minimal Assistance,Front Wheeled Walker Gait Goal Minimal Assistance,Front Wheel Walker Gait Distance 25 Other Goals improve bed mobility, transfers using FWW to SBA improve ambulation using FWW ~ 125 ft SBA Days to Meet Goals 10 Frequency of Treatment Frequency Of Treatment Once a Day Treatment Plan Physical Therapy Treatment Plan Bed Mobility Training,Transfer Training,Gait Training, Therapeutic Exercise,Balance Retraining,Discharge Planning, Hot or Cold Pack,Neuromuscular Re-ed,Coordination Retraining ,Manual Therapy Precautions Other Precautions falls Recommendations To Nursing Amount of Assist Needed 2 Person Assist Discharge Recommendations PT Discharge Recommendations SNF Rehab Transportation Needs at Discharge Wheelchair/Cabulance
[2022-07-28] MEDS: POTASSIUM CHLORIDE 20 MEQ TAB 40 MEQ PO (11:01)
--- NOTE | 2022-07-28 11:06 | OT.IP.EVAL ---
Current Diagnoses Sepsis, unspecified organism (07/25/22) Past Medical History (Last Updated 07/26/22 @ 00:20 by MATT HornerMARGE) BPH (benign prostatic hyperplasia) Dementia H/O: CVA (cerebrovascular accident) Heart murmur High blood pressure Peripheral edema Surgical History (Last Reviewed 07/26/22 @ 00:20 by ART Horner) History of cholecystectomy Occupational Therapy Inpatient Evaluation/Re-Eval M1 PT/OT-IP Prior Functional Status Start: 07/27/22 12:50 Freq: NEEDED Status: Active Protocol: Document 07/28/22 10:49 [facility] (Rec: 07/28/22 12:05 [facility] [id number]) Medical Review Prior Functional Status Medical History Reviewed Yes Communication able to answer questions but with confusion Mobility and Gait pt stated that he is modified independent with all mobilities and ambulation using FWW but with difficulty. pt stated that he just recently use a FWW ~ few months ago but prior to that, does not use any AD Activities of Daily Living and IADL's Pt states recently having having a difficulty time to care for himself. Social History Household Members none Living Arrangements Homeless Number of Stairs To Enter/Railing? pt stated that he has been living in a motel for the last 3 months but does not know if he is going back to the motel M2 OT-IP Current Condition Start: 07/28/22 11:29 Freq: Status: Active Protocol: Document 07/28/22 10:49 [facility] (Rec: 07/28/22 12:05 [facility] [id number]) Occupational Therapy Current Condition Current Condition Evaluation Date 07/28/22 Treatment Diagnosis Sepsis, UTI Diagnosis Onset Date 07/25/22 M3 OT- IP Subjective and Pain Start: 07/28/22 11:29 Freq: Status: Active Protocol: Document 07/28/22 10:49 [facility] (Rec: 07/28/22 12:05 [facility] [id number]) OT- Subjective Occupational Therapy Visit Type Type Initial Evaluation Visit Start Time 10:49 Visit Stop Time 11:06 Total Visit Minutes 17 Occupational Therapy Visit Comments Patient Comments Pt sitting on the BSC when OT came in, nursing aid also in the room to assist. Patient/Caregiver Goals Pt wanting to get better. M4 OT- IP ADL's Start: 07/28/22 11:29 Freq: Status: Active Protocol: Document 07/28/22 10:49 [facility] (Rec: 07/28/22 12:05 [facility] [id number]) OT [id number] Comments OT Self-Feeding Comments Not at meal time. OT ADL-Grooming Comments OT Grooming Comments Not performed. OT ADL-Oral Care Comments Oral Care Comments NOt performed. OT ADL-Dressing General Eval Lower Body Dressing Ability Total Assistance Areas Needing Assistance Underpants/Brief Comments OT Dressing Comments Total assist for brief management needs. OT ADL-Toileting General Evaluation Toileting Ability Total Assistance Areas Needing Assistance Manage Clothing,Perform Perineal Hygiene Comments OT Toileting Comments 2 person assist to help pt stand to FWW. One person assist to stand with FWW CHARLIE and another person assist for brief/hygiene needs. OT ADL-Bathing Comments OT Bathing Comments Sponge bath more appropriate at this time. M5 OT- IP IADL's Start: 07/28/22 11:29 Freq: Status: Active Protocol: Document 07/28/22 10:49 [facility] (Rec: 07/28/22 12:05 [facility] [id number]) OT-Instrumental Activities of Daily Living Deficits IADL Deficits Identified Deficits Home Safety Awareness Awareness of Need for Assistance at Home Decreased Awareness Ability to Problem Solve Emergency Unable to Problem Solve Situations Home Safety Comments Pt is not thinking well or able to follow commands well at this time. Medication Management Medication Management Comments Pt will require assist. Money Management Money Management Comments Pt will require assist. Meal Preparation Meal Preparation Comments Pt will require assist. Help Desk Supervisor Help Desk Supervisor Comments Pt will require assist. M6 OT- IP Functional Cognition Start: 07/28/22 11:29 Freq: Status: Active Protocol: Document 07/28/22 10:49 [facility] (Rec: 07/28/22 12:05 [facility] [id number]) Cognitive Factors Limiting Selfcare Function Cognitive Ability Level of Alertness Alert,Confusional State Patient Orientation Name,Place,Situation Attention Span Ability Capable of Focused Attention, Unable to Sustain Attention Ability to Follow Commands Able to Follow One Step Commands with Increased Time, Able to Follow One Step Commands with Repetition Memory Description Short Term Impaired,Working Impaired Cognitive Comments Cognitive Assessment Comments Pt needing concrete simple vc to follow for ADL's and mobility needs. Pt needing vc to move his feet and for hand placement to push up from surfaces and reach back prior to sitting down. OT- Vision and Hearing OT- Hearing Assessment OT- Hearing Assessment WFL OT- Vision Assessment Visual Acuity Glasses For Reading M7 OT- IP Mobility and Balance Start: 07/28/22 11:29 Freq: Status: Active Protocol: Document 07/28/22 10:49 [facility] (Rec: 07/28/22 12:05 [facility] [id number]) OT- Bed Mobility Assessment Sit to Supine Sit to Supine Assist Maximum Assistance,2 Person Assistance OT-Transfer Assessment Sit to and From Stand Sit to and from Stand Moderate Assistance,2 Person Assistance Transfers Transfer Ability Minimal Assistance,Moderate Assistance,2 Person Assistance Technique Transfer Destination Bed,Bedside Commode Transfer Technique Stand Step Pivot Devices Transfer Assistive Devices Gait Belt,Front Wheeled Walker OT- Balance Assessment Sitting Balance and Reactions Static Sitting Balance Ability Fair Standing Balance and Reactions Static Standing Balance Ability Poor Dynamic Standing Balance Ability Poor Comments Other Balance Tests/Deviations/Treatment Pt tends to lean to the right : when up on his feet. M8 OT- IP Objective Assessments Start: 07/28/22 11:29 Freq: Status: Active Protocol: Document 07/28/22 10:49 [facility] (Rec: 07/28/22 12:05 [facility] [id number]) OT Gross Range of Motion Upper Extremity Range of Motion Assessment Bilaterally Impaired OT Strength Comments Strength Comments Pt having difficulty to follow commands but noted to be at least 3-/5 per pt able to assist for mobility needs. OT Sensation Assessment Comments Summary Comments Pt appears to have decreased sensation of the right UE. M9 OT- IP Assessment and Plan Start: 07/28/22 11:29 Freq: Status: Active Protocol: Document 07/28/22 10:49 [facility] (Rec: 07/28/22 12:05 [facility] [id number]) OT Summary Assessment and Plan Potential Rehabilitation Potential Fair Analytic Complexity at Evaluation Moderate Summary OT Impairments Range of Motion,Strength, Balance,Coordination, Functional Cognition, Functional Mobility,Self- Feeding,Grooming,Dressing, Toileting,Bathing,Toilet Transfers,Shower Transfers, Activity Tolerance Progress Towards Goals Slow Progress due to Medical Issues,Slow Progress due to Activity Tolerance,Slow Progress due to Cognition Assessment Summary Pt MOD complexity due to history of multiple falls, decreased balance, ability to follow commands and now needing extensive two person assist for all ADl and mobility needs. Pt will benefit from skilled rehab to help maximize his level of independence for all ADL and mobility needs. Goals Self-Feeding Goal Standby Assistance Grooming Goal Standby Assistance Dressing Goal Minimal Assistance Toileting Goal Minimal Assistance Bathing Goal Minimal Assistance Toilet Transfer Goal Minimal Assistance Shower Transfer Goal Minimal Assistance Days to Meet Goals 40 Frequency of Treatment Frequency Of Treatment Once a Day Treatment Plan OT Treatment Plan ADL Training,Functional Cognition Training,Functional Mobility,Patient/Family Education,Discharge Planning Other Treatment Recommendations and Next Pt to be able to do grooming Treatment Focus needs while seated from the recliner. Discharge Recommendations OT Discharge Recommendations SNF Rehab Transportation Needs at Discharge Wheelchair/Cabulance
--- NOTE | 2022-07-28 12:41 | CM.DPC ---
Addendum entered by Jaqueline Ruby R.N. 07/28/22 13:10: [facility] can't accept patient secondary to social issues. Can attempt to locate other facilities, but may be the barrier. Will consult with REFRIGERATION REPAIR SUPERVISOR for some feed back for this case as well. Finances are not known, patient has no medical provider, has some cognitive issues, and no custodial plan. Original Note: DCP Cont: Met with patient's manager plumbing, Sachin, who had been at bedside, as well as an advocate for patient. Patient has no POA, and is estranged from his family, wants nothing to do with them. Sachin mentioned that he has one son in [place], and another in [place]. Patient has been living in a motel, is unable to return, has been weak, needing constant cueing. Discussed some behavioral health clinician care options. Sachin is not familiar with all of patient's financial information. Asked him if he may consider being patient's POA, as an advocate. Sachin indicated, he would think about it. Patient trusts his manager plumbing, as when this DC Program Evaluator met with patient, he stated, ask Sachin. Discussed patient going to rehab. Peyton at [facility] has the referral. She has to run this by her team, was concerned due to patient's SLUMM score. Patient is open to going to rehab. Mentioned assisted living to patient, and that is is private pay, and when this DC Program Evaluator mentioned the financial aspect of it, he stated, ask Sachin. At this time, Peyton should have an answer today as to wether she can accept patient. Patient has no preferences upon facilities. If she can't accept, will start to look at other rehab facilities. Can also discuss the possibility of patient going to [facility] after [facility], as long as patient can afford this. P: DCP to continue to follow and work on getting patient into a skilled facility. Jaqueline Ruby RN/Nuclear Weapons Mechanical Specialist
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
--- NOTE | 2022-07-28 15:18 | CM.DPC ---
DCP Cont: Called Sachin, patient's alternative financing specialist, after collaboration with JESSICA Perkins, who had just seen patient. Mentioned patients cognition, dementia, and that financial information will need to be secured. Encouraged Sachin to attempt to consider either helping with the financial piece, possibly attempting to be patient's decision maker in his finances, such as POA for finances, for DC Planners will need to have financial information before securing any facility for patient, since oysterman care will need to be had. It is not known at this time about his monthly income, or if he could possibly qualify for Medicaid. Assets are unknown. No skilled facility or assisted living can be secured without payee information. Sachin will reach out to his board at his yarsanism to see what he can do. He plans on getting back to this DC Hose Tender either this pm, or in the am, with a decision on how to move forward with finances. Asked him if he is willing to reach out to patient's son, although patient indicated that his sons are estranged, for they may also be able to assist with any additional financial information needed. P: DCP to continue to work on planning with patient's alternative financing specialist, and attempting to obtain financial information. Will be unable to secure placement until this is known. Jaqueline Ruby RN/Veterinary Assistant
--- NOTE | 2022-07-28 17:48 | PC.NURSE ---
Patient became confused this afternoon, not realizing he was in the hospital and saying he needs to find his work area in this building.
--- NOTE | 2022-07-28 18:03 | P.PN_ITS ---
Subjective Subjective Date Patient Seen: 07/28/22 Interval history: Patient feels extremely fatigued, requires a lot of assistance with PT. Denies chest pain shortness of breath nausea or vomiting. Exam Vital Signs (past 8 hours): - 07/28/22 11:00 07/28/22 15:00 Temperature 97.0 F L 98.0 F Pulse Rate 81 82 Respiratory Rate 18 18 Blood Pressure 170/96 H 152/87 H Pulse Oximetry 95 95 Oxygen Flow Rate 18 0 Oxygen Delivery Method Room Air Oxygen Flow Rate 0 Narrative Exam Narrative: General: Patient is a chronically ill-appearing elderly male, in no distress at this time. HEENT: Normocephalic, Ecchymosis above left eye, no obvious hematoma, abrasion or laceration, extraocular muscles intact, oral pharynx is clear and mucous membranes are moist. Neck: supple and symmetric, trachea is midline, no adenopathy Chest: equal chest rise bilaterally, during episode quite tachypnic improved later. Lungs: Upper airway wheezing as noted during above episode, now much improved and CTA b/l. Cardio: 3/6 systoic murmur, tachycardic during febrile, improved later. Abdomen: S NT ND Musculoskeletal: No joint tenderness or joint effusions. Skin: dry and intact without rashes, ulcerations or petechiae other than ecchymosis noted above. Neuro: Alert and orientated x3, improved confusion today. No focal deficits. Objective Labs Result Diagrams: 07/28/22 06:06 07/28/22 06:06 Labs: Laboratory Results - last 24 hr 07/28/22 07/28/22 06:06 06:06 WBC 8.3 RBC 4.23 L Hgb 12.2 L Hct 35.3 L MCV 83.5 MCH 28.8 MCHC 34.5 RDW 15.6 H Plt Count 95 L Neut % (Auto) 83.2 H Lymph % (Auto) 7.9 L Castro % (Auto) 7.0 Eos % (Auto) 1.4 L Baso % (Auto) 0.5 Neut # (Auto) 6900 Lymph # (Auto) 700 L Castro # (Auto) 600 Eos # (Auto) 100 Baso # (Auto) 0 Sodium 133 L Potassium 3.5 Chloride 103 Carbon Dioxide 22 BUN 14 Creatinine 0.63 L Estimated GFR > 60 BUN/Creatinine Ratio 22.2 H Glucose 111 H Calcium 8.3 L Total Bilirubin 0.7 AST 26 ALT 25 Alkaline Phosphatase 57 Total Protein 5.3 L Albumin 2.9 L Globulin 2.4 Albumin/Globulin Ratio 1.2 [facility] Medical History (Updated 07/26/22 @ 00:20 by MATT Horner-MARGE) BPH (benign prostatic hyperplasia) Dementia H/O: CVA (cerebrovascular accident) Heart murmur High blood pressure Peripheral edema Surgical History History of cholecystectomy Family History Mother Dementia Social History household members: none Smoking Status: Never smoker alcohol intake: never substance use type: does not use Assessment & Plan Assessment & Plan narrative: Herbert Bautista is a 68 male with a history of prior Right Internal Capsule CVA, Untreated Hypertension, Heart murmur, untreated BPH was previously on flomax, hyperglycemia and probable dementia admitted with sepsis. 1. Sepsis, secondary to urinary tract infection, resulting in acute metabolic encephalopathy, thrombocytopenia, lactic acidosis, rhabdomyolysis, acute, present on admission- -continued vanc and meropenem pending cultures, narrowed to ceftriaxone today given klebsiella oxytoca sensitive to ceftriaxone. -source is urinary -acute rhabdo likely from being down due to sepsis. Continued on IVF , now can stop, rhabdo resolved. -Can resume DVT ppx as Plt count starting to improve. 2. Mild anemia, acute, present on admission -Hg stable today, likely was concentrated on admission. No signs or symptoms of bleeding currently. Continue to follow. 3. Hypertension, essential, Present on admission. -hold antihypertensives currently in setting of sepsis. 4. Dementia with acute metabolic encephalopathy, acute on chronic, present on admission -continue patient's Seroquel, risperidone, Namenda 5. Systolic Murmur, ejection, acute on chronic, Present on admission -last echo 10/2021: ejection fraction 60-65%. -cardiomegaly on CXR, however no signs or symptoms of CHF at this time. No acute indication for TTE currently. If develops edema or hypotension, will order. 6. BPH, acute on chronic, Present on admission.? -continue flomax 8. Overweight as evidence by BMI of 27.6, acute on chronic, present on admission -suspect that patient's BMI reflects adipose tissue and muscle wasting malnutrition. -consult placed with dietary for nutritional and lifestyle recommendations, CUFFER for community Support 9. Hypokalemia - replete as needed. Code status: Full Surrogate decision maker: Alejandra ROSAS PCR:Negative DVT/VTE prophylaxis: Lovenox and SCDs Disposition: PT/OT recommending SNF Time Spent With Patient Critical Care time: I spent a total of [] minutes of critical care time on this patient's care today; this time is exclusive of procedural time. Quality VTE Deep Vein Thrombosis/Pulmonary Embolism Present on Admission: No
[2022-07-28] MEDS: QUETIAPINE 25 MG TABLET 12.5 MG PO (21:26)
[2022-07-28] MEDS: SENNOSIDES 8.6 MG TABLET 17.2 MG PO (21:26)
[2022-07-29] VITALS: BP 186/91; PULSE 79; RESP 17; TEMP 36.5; O2SAT 96
--- NOTE | 2022-07-29 02:50 | PC.NURSE ---
Pt very nice with staff but often trying to get out of bed and does not know where he is. Pt is oriented to himself and , but thinks he is not sick at all and we are on his property. Staff has educated pt that he is at hospital and we are taking care of him. After saying this pt calms down. BP is still high 180s/90s as metoprolol is being held. Staff cleaned catheter from tip of penis and danielle area as there was drainage. Inner thighs and testes are red, cream was applied.
[2022-07-29 04:00] VITALS: BP 195/96; PULSE 98; RESP 19; TEMP 37.3; O2SAT 95
[2022-07-29 07:47] VITALS: BP 184/94; PULSE 90; RESP 20; TEMP 36.8; O2SAT 96
[2022-07-29] MEDS: cefTRIAXone 2,000 MG in SODIUM CHLORIDE 0.9% 100 ML 200 MG IV (09:29)
[2022-07-29] MEDS: METOPROLOL ER 25 MG TABLET PO (09:32)
[2022-07-29] MEDS: MEMANTINE HCL 5 MG TABLET PO (09:32)
[2022-07-29] MEDS: risperiDONE 0.25 MG TABLET PO ×2 (09:32→20:28)
[2022-07-29] MEDS: PHENAZOPYRIDINE 100 MG TABLET PO ×2 (09:32→20:28)
[2022-07-29] MEDS: TAMSULOSIN 0.4 MG CAPSULE PO (09:32)
[2022-07-29] MEDS: ATORVASTATIN 20 MG TABLET 40 MG PO (09:32)
[2022-07-29] MEDS: SODIUM CHLORIDE 0.9% FLUSH 10 ML IV ×2 (09:33→23:00)
[2022-07-29 10:12] LABS: Myoglobin Quantitative Urine 3 ng/mL (0-13)
--- NOTE | 2022-07-29 10:41 | PT.IPTN ---
Current Diagnoses Sepsis, unspecified organism (07/25/22) Physical Therapy Treatment Note M2 PT-IP Current Condition Start: 07/27/22 12:50 Freq: NEEDED Status: Active Protocol: Document 07/27/22 11:30 AB (Rec: 07/27/22 13:17 AB [id number]) Physical Therapy Current Condition Current Condition Evaluation Date 07/27/22 Treatment Diagnosis sepsis; difficulty in walking Onset Date 07/25/22 M3 PT-IP Subjective Start: 07/27/22 12:50 Freq: NEEDED Status: Active Protocol: Document 07/29/22 10:20 [place] (Rec: 07/29/22 11:42 [place] [id number]) Subjective Physical Therapy Visit Type Type Treatment Note Visit Start Time 10:20 Visit Stop Time 10:41 Total Visit Minutes 21 Notes partial co-treat w/ OT Number of FIELD INSTALLATION TECHNICIAN Visits 2 Physical Therapy Visit Comments Patient Comments agreeable to do PT M4 PT-IP Mobility and Gait Start: 07/27/22 12:50 Freq: NEEDED Status: Active Protocol: Document 07/29/22 10:20 [place] (Rec: 07/29/22 11:42 [place] [id number]) PT-Bed Mobility Assessment Supine to Sit Supine to Sit Maximum Assistance,1 Person Assistance,Head of Bed Elevated,Bedrails Scooting Scooting to Edge of Bed Maximum Assistance PT-Transfer Assessment Sit to and From Stand Sit to and from Stand Minimal Assistance,Moderate Assistance,1 Person Assistance ,2 Person Assistance,Use of Upper Extremities Equipment Transfer Assistive Device Gait Belt,Front Wheeled Walker Orthotic/Prosthetic Devices or Brace: No Transfers Transfer Destination Chair Transfer Technique Stand Step Pivot Transfer Ability Level of Assist Minimal Assistance,Moderate Assistance,2 Person Assistance Comments Mobility Comments Pt in bed upon arrival and agreeable to transfer to chair . Pt able to follow instructions but requires increased time to complete and reminders of task requested. Pt required Max A for bed mobility and max cues. Able to sit EOB CGA w/ cues to hold himself up. Min A x2 for sit<> Stand from bed w/ FWW and Min/ Mod x2 for stand step pivot transfer to chair w/ max step by step cues for advancing LE and FWW mgmt. Pt completed 1x additional sit<>stand w/ Mod A x2 and did some marching in place, but had difficulty elevated LE from floor. Pt left in chair w/ OT in room. Gait Assessment Comments Gait Comments Stand step pivot only - pt with difficulty elevating LE to take steps and has R sided lean. Mod A x2 and max cues required. PT-Balance Assessment Sitting Balance and Reactions Static Sitting Balance Ability Fair Dynamic Sitting Balance Ability Poor Standing Balance and Reactions Static Standing Balance Ability Poor Dynamic Standing Balance Ability Poor Device Used FWW M5 PT-IP Objective Assessments Start: 07/27/22 12:50 Freq: NEEDED Status: Active Protocol: Document 07/27/22 11:30 AB (Rec: 07/27/22 13:17 AB [id number]) Orientation Orientation/Cognition Level of Alertness Confusional State Orientation Name Safety Awareness Decreased Safety Awareness Memory Description Short Term Impaired,Correction Impaired Gross Range of Motion Lower Extremity ROM Assessment Within Functional Limits Strength Comments Strength Comments RLE: 4-/5 LLE: 3+/5 Coordination Assessment Gross Coordination Gross Coordination WNL Muscle Tone Muscle Tone WNL Yes M6 PT-IP Treatment Start: 07/27/22 12:50 Freq: NEEDED Status: Active Protocol: Document 07/29/22 10:20 [place] (Rec: 07/29/22 11:42 [place] [id number]) Physical Therapy Treatment Education Education Provided Safety Other Treatments Other Treatment Performed Sit<>stand, marching in place. M7 PT-IP Assessment and Plan Start: 07/27/22 12:50 Freq: NEEDED Status: Active Protocol: Document 07/29/22 10:20 [place] (Rec: 07/29/22 11:42 [place] [id number]) PT Summary Assessment and Plan Potential Rehabilitation Potential Fair Summary Impairments Pain,ROM,Strength,Balance, Coordination,Sensation,Tone, Cognition,Bed Mobility, Transfers,Gait,Activity Tolerance Progress Towards Goals Slow Progress due to Medical Issues,Slow Progress due to Activity Tolerance Assessment Summary Pt requires Max A for bed mobility, Min-Mod x2 for transfers w/ FWW. He has poor safety awareness and needs max cues for all tasks. Difficulty elevating LE from floor due to weakness and is high fall risk. At this time, pt unsafe to go home and will require SNF to improve strength and functional mobility independence. Goals Bed Mobility Goal Minimal Assistance Transfer Goal Minimal Assistance,Front Wheeled Walker Gait Goal Minimal Assistance,Front Wheel Walker Gait Distance 25 Other Goals improve bed mobility, transfers using FWW to SBA improve ambulation using FWW ~ 125 ft SBA Days to Meet Goals 10 Frequency of Treatment Frequency Of Treatment Once a Day Treatment Plan Physical Therapy Treatment Plan Bed Mobility Training,Transfer Training,Gait Training, Therapeutic Exercise,Balance Retraining,Discharge Planning, Hot or Cold Pack,Neuromuscular Re-ed,Coordination Retraining ,Manual Therapy Precautions Other Precautions falls Recommendations To Nursing Amount of Assist Needed 2 Person Assist Discharge Recommendations PT Discharge Recommendations SNF Rehab Transportation Needs at Discharge Wheelchair/Cabulance
--- NOTE | 2022-07-29 11:05 | OT.IP.TRT ---
Current Diagnoses Sepsis, unspecified organism (07/25/22) Occupational Therapy Treatment Note M2 OT-IP Current Condition Start: 07/28/22 11:29 Freq: Status: Active Protocol: Document 07/28/22 10:49 [facility] (Rec: 07/28/22 12:05 [facility] [id number]) Occupational Therapy Current Condition Current Condition Evaluation Date 07/28/22 Treatment Diagnosis Sepsis, UTI Diagnosis Onset Date 07/25/22 M3 OT- IP Subjective and Pain Start: 07/28/22 11:29 Freq: Status: Active Protocol: Document 07/29/22 10:20 [facility] (Rec: 07/29/22 12:13 [facility] [id number]) OT- Subjective Occupational Therapy Visit Type Type Treatment Note Visit Start Time 10:20 Visit Stop Time 11:05 Total Visit Minutes 45 Occupational Therapy Visit Comments Patient Comments Pt agreed to get up. LEAD INJECTION MOLD TECHNICIAN present for part of the session. Patient/Caregiver Goals TO get better. M4 OT- IP ADL's Start: 07/28/22 11:29 Freq: Status: Active Protocol: Document 07/29/22 10:20 [facility] (Rec: 07/29/22 12:13 [facility] [id number]) OT [id number] Comments OT Self-Feeding Comments Not at meal OT ADL-Grooming General Evaluation Grooming Ability Standby Assistance Areas Needing Assistance Retrieving/Set-up of Grooming Items Comments OT Grooming Comments Pt needing MOD vc to sequence for the tasks of grooming. OT ADL-Oral Care General Eval Oral Care Ability Standby Assistance Areas of Assistance Retrieving/Set-Up of Items Comments Oral Care Comments VC for sequencing tasks for oral care needs. OT ADL-Dressing General Eval Lower Body Dressing Ability Maximum Assistance Comments OT Dressing Comments MAX A for socks. OT ADL-Toileting Comments OT Toileting Comments Not performed. OT ADL-Bathing Comments OT Bathing Comments Sponge bath more appropriate at this time due to pt's decreased balance and initiation. M5 OT- IP IADL's Start: 07/28/22 11:29 Freq: Status: Active Protocol: Document 07/28/22 10:49 [facility] (Rec: 07/28/22 12:05 [facility] [id number]) OT-Instrumental Activities of Daily Living Deficits IADL Deficits Identified Deficits Home Safety Awareness Awareness of Need for Assistance at Home Decreased Awareness Ability to Problem Solve Emergency Unable to Problem Solve Situations Home Safety Comments Pt is not thinking well or able to follow commands well at this time. Medication Management Medication Management Comments Pt will require assist. Money Management Money Management Comments Pt will require assist. Meal Preparation Meal Preparation Comments Pt will require assist. Central Supply Tech Central Supply Tech Comments Pt will require assist. M6 OT- IP Functional Cognition Start: 07/28/22 11:29 Freq: Status: Active Protocol: Document 07/29/22 10:20 [facility] (Rec: 07/29/22 12:13 [facility] [id number]) Cognitive Factors Limiting Selfcare Function Cognitive Ability Level of Alertness Confusional State Patient Orientation Name,Month,Year Attention Span Ability Capable of Focused Attention, Unable to Sustain Attention Ability to Follow Commands Able to Follow One Step Commands with Increased Time, Able to Follow One Step Commands with Repetition Memory Description Short Term Impaired,Working Impaired Cognitive Comments Cognitive Assessment Comments Pt needing increased time to process information and initiate movements at this time . Pt also needing vc to sequence through steps of task for grooming and oral care needs at this time. M7 OT- IP Mobility and Balance Start: 07/28/22 11:29 Freq: Status: Active Protocol: Document 07/29/22 10:20 [facility] (Rec: 07/29/22 12:13 [facility] [id number]) OT- Bed Mobility Assessment Supine to Sit Supine to Sit Assist Maximum Assistance,1 Person Assistance OT-Transfer Assessment Sit to and From Stand Sit to and from Stand Moderate Assistance,2 Person Assistance Transfers Transfer Ability Minimal Assistance,Moderate Assistance,2 Person Assistance Technique Transfer Destination Bed,Chair Transfer Technique Stand Step Pivot Devices Transfer Assistive Devices Gait Belt,Front Wheeled Walker OT- Balance Assessment Sitting Balance and Reactions Static Sitting Balance Ability Fair Standing Balance and Reactions Static Standing Balance Ability Poor Dynamic Standing Balance Ability Poor Comments Other Balance Tests/Deviations/Treatment Pt leaning to the left today : while standing. M8 OT- IP Objective Assessments Start: 07/28/22 11:29 Freq: Status: Active Protocol: Document 07/28/22 10:49 [facility] (Rec: 07/28/22 12:05 [facility] [id number]) OT Gross Range of Motion Upper Extremity Range of Motion Assessment Bilaterally Impaired OT Strength Comments Strength Comments Pt having difficulty to follow commands but noted to be at least 3-/5 per pt able to assist for mobility needs. OT Sensation Assessment Comments Summary Comments Pt appears to have decreased sensation of the right UE. M9 OT- IP Assessment and Plan Start: 07/28/22 11:29 Freq: Status: Active Protocol: Document 07/29/22 10:20 [facility] (Rec: 07/29/22 12:13 [facility] [id number]) OT Summary Assessment and Plan Potential Rehabilitation Potential Fair Analytic Complexity at Evaluation Moderate Summary OT Impairments Range of Motion,Strength, Balance,Coordination, Functional Cognition, Functional Mobility,Self- Feeding,Grooming,Dressing, Toileting,Bathing,Toilet Transfers,Shower Transfers, Activity Tolerance Progress Towards Goals Slow Progress due to Medical Issues,Slow Progress due to Activity Tolerance,Slow Progress due to Cognition Assessment Summary Pt having difficulty to initiate his movements today, especially with his RUE during bed mobility needs. Pt is aware that he is not thinking or processing well. Pt would benefit from skilled rehab to maximize his level of independence for ADl and mobility needs and then may benefit from pet walker care or assisted living pending progress. Goals Self-Feeding Goal Standby Assistance Grooming Goal Standby Assistance Dressing Goal Minimal Assistance Toileting Goal Minimal Assistance Bathing Goal Minimal Assistance Toilet Transfer Goal Minimal Assistance Shower Transfer Goal Minimal Assistance Days to Meet Goals 39 Frequency of Treatment Frequency Of Treatment Once a Day Treatment Plan OT Treatment Plan ADL Training,Functional Cognition Training,Functional Mobility,Patient/Family Education,Discharge Planning Other Treatment Recommendations and Next LB dressing needs while seated Treatment Focus . Discharge Recommendations OT Discharge Recommendations SNF Rehab,LTAC Transportation Needs at Discharge Wheelchair/Cabulance
--- NOTE | 2022-07-29 11:07 | CM.DPC ---
DCP Cont: Contacted patient's vehicle fuel systems converter, Sachin, to ask him for any updates. Last conversation yesterday was attempting to find out if he, or another individual could assist in possible financial POA, or decision maker to enable contact with patient's finances. Asked Sachin if patient has been paying for his own motel room. Found out that patient has been paying $1400.00 a month. Asked him if he had any access to his bank, such as bank statements, or how much he receives in social security. Stated that he will be going by his motel room, since they have to vacate his items, and will look for bank statements. He did state that there is an individual named Jefe Lopezon, who is patient's friend, who is willing to advocate for patient, and possible DPOA, for finances. Sachin will call back this pm with further information. P: DCP to continue to follow up with vehicle fuel systems converter regarding finances. Jaqueline Ruby RN/Reporting Coordinator
[2022-07-29 11:21] VITALS: BP 172/72; PULSE 76; RESP 18; TEMP 36.6; O2SAT 96
--- NOTE | 2022-07-29 15:37 | P.PN_ITS ---
Subjective Subjective Date Patient Seen: 07/29/22 Interval history: Patient feels extremely fatigued, requires a lot of assistance with PT. Denies chest pain shortness of breath nausea or vomiting. Exam Vital Signs (past 8 hours): - 07/29/22 07:47 07/29/22 11:21 Temperature 98.3 F 97.8 F Pulse Rate 90 76 Respiratory Rate 20 18 Blood Pressure 184/94 H 172/72 H Pulse Oximetry 96 96 Oxygen Flow Rate 0 0 Oxygen Delivery Method Room Air Oxygen Flow Rate 0 Narrative Exam Narrative: General: Patient is a chronically ill-appearing elderly male, in no distress at this time. HEENT: Normocephalic, Ecchymosis above left eye, no obvious hematoma, abrasion or laceration, extraocular muscles intact, oral pharynx is clear and mucous membranes are moist. Neck: supple and symmetric, trachea is midline, no adenopathy Chest: equal chest rise bilaterally, during episode quite tachypnic improved later. Lungs: Upper airway wheezing as noted during above episode, now much improved and CTA b/l. Cardio: 3/6 systoic murmur, tachycardic during febrile, improved later. Abdomen: S NT ND Musculoskeletal: No joint tenderness or joint effusions. Skin: dry and intact without rashes, ulcerations or petechiae other than ecchymosis noted above. Neuro: Alert and orientated x3, improved confusion today. No focal deficits. Objective Labs Result Diagrams: 07/28/22 06:06 07/28/22 06:06 Labs: Laboratory Results - last 24 hr 07/25/22 10:25 Ur Myoglobin, Quant 3 PFSH Medical History (Updated 07/26/22 @ 00:20 by MATT Horner-MARGE) BPH (benign prostatic hyperplasia) Dementia H/O: CVA (cerebrovascular accident) Heart murmur High blood pressure Peripheral edema Surgical History History of cholecystectomy Family History Mother Dementia Social History household members: none Smoking Status: Never smoker alcohol intake: never substance use type: does not use Assessment & Plan Assessment & Plan narrative: Herbert Bautista is a 68 male with a history of prior Right Internal Capsule CVA, Untreated Hypertension, Heart murmur, untreated BPH was previously on flomax, hyperglycemia and probable dementia admitted with sepsis. 1. Sepsis, secondary to urinary tract infection, resulting in acute metabolic encephalopathy, thrombocytopenia, lactic acidosis, rhabdomyolysis, acute, present on admission- -continued vanc and meropenem pending cultures, narrowed to ceftriaxone given klebsiella oxytoca sensitive to ceftriaxone. -source is urinary -acute rhabdo likely from being down due to sepsis. Continued on IVF , now stopped and rhabdo resolved. -Can resume DVT ppx as Plt count starting to improve. -deconditioned after sepsis, PT/OT recommending SNF. 2. Mild anemia, acute, present on admission -Hg stable today, likely was concentrated on admission. No signs or symptoms of bleeding currently. Will recheck intermittently while awaiting SNF placement. 3. Hypertension, essential, Present on admission. -hold antihypertensives currently in setting of sepsis. 4. Dementia with acute metabolic encephalopathy, acute on chronic, present on admission -continue patient's Seroquel, risperidone, Namenda 5. Systolic Murmur, ejection, acute on chronic, Present on admission -last echo 10/2021: ejection fraction 60-65%. -cardiomegaly on CXR, however no signs or symptoms of CHF at this time. No acute indication for TTE currently. If develops edema or hypotension, will order. 6. BPH, acute on chronic, Present on admission.? -continue flomax 8. Overweight as evidence by BMI of 27.6, acute on chronic, present on admission -suspect that patient's BMI reflects adipose tissue and muscle wasting malnutrition. 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 Hypokalemia - replete as needed. Code status: Full Surrogate decision maker: Alejandra KIRBYID PCR:Negative DVT/VTE prophylaxis: Lovenox and SCDs Disposition: PT/OT recommending SNF. Appreciate care management assistance with placement. COVID-19 COVID-19 status: Negative Time Spent With Patient Critical Care time: I spent a total of [] minutes of critical care time on this patient's care today; this time is exclusive of procedural time. Quality VTE Deep Vein Thrombosis/Pulmonary Embolism Present on Admission: No
[2022-07-29] MEDS: NYSTATIN CREAM 30 GM 1 APPLIC TOP ×2 (17:26→23:00)
[2022-07-29 20:00] VITALS: BP 160/81; PULSE 78; RESP 20; TEMP 36.7; O2SAT 97
[2022-07-29] MEDS: QUETIAPINE 25 MG TABLET 12.5 MG PO (20:28)
[2022-07-29] MEDS: SENNOSIDES 8.6 MG TABLET 17.2 MG PO (20:28)
[2022-07-30 03:46] VITALS: BP 170/91; PULSE 77; RESP 20; TEMP 36.9; O2SAT 95
--- NOTE | 2022-07-30 05:46 | PM.PN.1 ---
Subjective Subjective Date Patient Seen: 07/30/22 Interval history: 77 yo male with prior Right Internal Capsule CVA, Untreated Hypertension, Heart murmur, untreated BPH (previously on flomax), hyperglycemia and probable dementia admitted with sepsis d/t Klebsiella oxytocal UTI (sensitive to all but ancef and ampicillin). Patient is complaining of back pain. He states it began after he was admitted here. He complains that he is not getting medications in a timely fashion. He also would like to be repositioned in bed. Exam Vital Signs (past 8 hours): - 07/30/22 03:46 Temperature 98.5 F Pulse Rate 77 Respiratory Rate 20 Blood Pressure 170/91 H Pulse Oximetry 95 Oxygen Delivery Method Room Air Oxygen Flow Rate 0 Narrative Exam Narrative: GEN: Irritable elderly male, Alert and oriented x 3, NAD HEENT:NC, Face symmetric CHEST: Respiratory excursions symmetric, CTAB CV: RRR, III/ systolic murmur heard best at the LSB, no R/G ABD: Soft, NT/ND, BT present in all 4 quadrants, no organomegaly or masses EXTR: warm, well perfused, no C/C/E SKIN: warm and dry, no rash NEURO: Alert and oriented x 3, nonfocal Objective Labs Result Diagrams: 07/28/22 06:06 07/28/22 06:06 Labs: Laboratory Results - last 24 hr 07/25/22 10:25 Ur Myoglobin, Quant 3 PFSH Medical History (Updated 07/26/22 @ 00:20 by ART Horner) BPH (benign prostatic hyperplasia) Dementia H/O: CVA (cerebrovascular accident) Heart murmur High blood pressure Peripheral edema Surgical History History of cholecystectomy Family History Mother Dementia Social History household members: none Smoking Status: Never smoker alcohol intake: never substance use type: does not use Assessment & Plan Assessment & Plan narrative: 1. Sepsis, secondary to Klebsiella oxytocia urinary tract infection Patient was admitted with sepsis as evidenced by acute metabolic encephalopathy, thrombocytopenia, lactic acidosis, rhabdomyolysis. Patient was initially placed on meropenem and vancomycin. Subsequently antibiotics were narrowed to Rocephin. He will receive his final dose of Rocephin tomorrow. His encephalopathy has improved. Rhabdomyolysis has resolved. Lactic acidosis has resolved. Thrombocytopenia is starting to improve up 95 on July 28. Will recheck labs in the morning. 2. Mild anemia, acute, present on admission Hemoglobin up to 12.2 on July 28. Will repeat labs tomorrow. 3.?Hypertension On metoprolol and nifedipine at baseline. Blood pressures have been hypertensive here. Initially antihypertensive therapy was held, but he is back on his usual home dosage. His blood pressures remain elevated, will consider an increase in his metoprolol tomorrow. 4. Dementia with acute metabolic encephalopathy, acute on chronic, present on admission Continue his usual outpatient doses of Seroquel, risperidone, Namenda 5. Systolic Murmur, Last echocardiogram performed October of 2021 revealed ejection fraction of 60-65%. There was [id number] aortic stenosis, mild aortic regurgitation. Trace mitral regurgitation. Suspect his murmur is secondary to his aortic stenosis. ? 6. BPH, acute on chronic, Present on admission.? Continue on Flomax. Torres catheter in place 7. Elevated BMI BMI is 29.3. He does not yet meet criteria for class 1 obesity. He does have evidence of chronic moderate malnutrition secondary to food insecurity and cognitive impairment as the patient is homeless and staying in a hotel. He has no way to purchase food or drive. He is felt to be at risk for increased morbidity/mortality as a result of his malnutrition. 8. Hypokalemia Resolved after repletion 9. Back pain He attributes it to the bed. Will add Tylenol scheduled. Code status Full Prophylaxis On Lovenox Disposition Care management presently working on discharge options. At this there is a community presybeterian working towards providing additional social supports. Patient may need a skilled facility but as he is homeless up baseline, further plans after discharge from halfway need to be made before he can be accepted. Surrogate decision maker:? Alejandra Chandler Time Spent With Patient Critical Care time: I spent a total of [] minutes of critical care time on this patient's care today; this time is exclusive of procedural time. Quality VTE Deep Vein Thrombosis/Pulmonary Embolism Present on Admission: No
[2022-07-30 07:45] VITALS: BP 171/91; PULSE 84; RESP 18; TEMP 37.1; O2SAT 96
[2022-07-30] MEDS: cefTRIAXone 2,000 MG in SODIUM CHLORIDE 0.9% 100 ML 200 MG IV (08:14)
[2022-07-30] MEDS: PHENAZOPYRIDINE 100 MG TABLET PO ×3 (08:25→21:19)
[2022-07-30] MEDS: SODIUM CHLORIDE 0.9% FLUSH 10 ML IV ×2 (08:25→21:21)
[2022-07-30] MEDS: TAMSULOSIN 0.4 MG CAPSULE PO (08:26)
[2022-07-30] MEDS: MEMANTINE HCL 5 MG TABLET PO (08:26)
[2022-07-30 08:27] VITALS: BP 164/86; PULSE 85
[2022-07-30] MEDS: risperiDONE 0.25 MG TABLET PO ×2 (08:27→21:19)
[2022-07-30] MEDS: METOPROLOL ER 25 MG TABLET PO (08:27)
[2022-07-30] MEDS: ATORVASTATIN 20 MG TABLET 40 MG PO (08:27)
[2022-07-30] MEDS: NYSTATIN CREAM 30 GM 1 APPLIC TOP ×3 (08:28→21:18)
--- NOTE | 2022-07-30 11:10 | PT-IP ANOTE ---
Attempted to see pt this AM for co-treat w/ OT - pt refused therapies stating he just needs to rest. Pt quickly fell asleep. RN and HR BUSINESS PARTNER notified.
--- NOTE | 2022-07-30 11:14 | OT.IPNOTE ---
Pt states just wanting to rest after attempted to get pt up for therapy. Pt did mention that he was hungry but not wanting his food. Able to check with his nurse if he is able to get an ensure to drink. Per nurse okay. Drink brought in to the pt and pt fast asleep. Nursing aid notified of IV being completed and unopened drink placed on his table side. No charge.
--- NOTE | 2022-07-30 13:49 | CM.DPNOTE ---
Discharge Planning Note: Patient sitting up in bed A/O conversant. Concerned that he has no working cell since he was unable to pay his bill. Farida Servin was going to help call his senior estimator so he can have his friends call him and/or he can get their numbers and call on room phone. He is somewhat challenged carrying out simple ADLs due to slow processing of information and some dementia/encephalopathy. Pt c/o of back pain. Torres in place. Real Estate Leasing Manager Pete Arthur called this DCP to ask if we have done an APS referral and I told him that we have not. This DCP asked him if he would make the call and provide the information since he has better 1st hand knowledge. He states he will make the referral. Discussed his being patient's temporary POA for healthcare. Let him know we have forms and have a notary on Monday and could do here. When patient's close friends return in 8 days (Jefe and Taj), they would then need to create the POA. Pete reports that he still has no information on patient's finances or banking information. It is known is house is unfit to live in due to hoarding and he lives in a motel in [place]. Plan: Patient would benefit from SNF but unable to proceed until finances are squared away. Continue to communicate with Pastor Stephenson regarding financial and SS information. Sima De Santiago RN/DCP
[2022-07-30] MEDS: ACETAMINOPHEN 325 MG TABLET 975 MG PO ×2 (15:07→21:19)
[2022-07-30 20:00] VITALS: BP 144/76; PULSE 75; RESP 18; TEMP 36.4; O2SAT 96
[2022-07-30] MEDS: QUETIAPINE 25 MG TABLET 12.5 MG PO (21:19)
[2022-07-30] MEDS: SENNOSIDES 8.6 MG TABLET 17.2 MG PO (21:19)
--- NOTE | 2022-07-31 05:55 | PM.PN.1 ---
Subjective Subjective Date Patient Seen: 07/31/22 Interval history: 77 yo male with? prior Right Internal Capsule CVA, Untreated Hypertension, Heart murmur, untreated BPH (previously on flomax), hyperglycemia and probable dementia admitted with sepsis d/t Klebsiella oxytocal UTI (sensitive to all but ancef and ampicillin). Patient is continuing to complainof back pain.? He reports last night and the night before he had associate of back spasm. He has not been out of bed much. He states he does not like to over around very much. He has had relief with scheduled Tylenol. He denies any other complaint and is presently eating breakfast. Exam Vital Signs (past 8 hours): Oxygen Delivery Method Room Air Oxygen Flow Rate 0 Narrative Exam Narrative: GEN:? Pleasant elderly male, Alert and oriented x 3, NAD HEENT:NC, Face symmetric CHEST: Respiratory excursions symmetric, CTAB CV: RRR, III/ systolic murmur heard best at the LSB, no R/G ABD: Soft, NT/ND, BT present in all 4 quadrants, no organomegaly or masses EXTR: warm, well perfused, no C/C/E SKIN: warm and dry, no rash NEURO: Alert and oriented x 3, nonfocal Objective Labs Result Diagrams: 07/28/22 06:06 07/28/22 06:06 [facility] Medical History (Updated 07/31/22 @ 00:00 by ) BPH (benign prostatic hyperplasia) Dementia H/O: CVA (cerebrovascular accident) Heart murmur High blood pressure Peripheral edema Surgical History History of cholecystectomy Family History Mother Dementia Social History household members: none Smoking Status: Never smoker alcohol intake: never substance use type: does not use Assessment & Plan Assessment & Plan narrative: 1. Sepsis, secondary to Klebsiella oxytocia urinary tract infection Patient was admitted with sepsis as evidenced by acute metabolic encephalopathy, thrombocytopenia, lactic acidosis, rhabdomyolysis. Patient was initially placed on meropenem and vancomycin.? Subsequently antibiotics were narrowed to Rocephin.? He received his final dose of Rocephin this morning.? His encephalopathy has improved.? Rhabdomyolysis has resolved.? Lactic acidosis has resolved.? Thrombocytopenia is starting to improve up 95 on July 28.? Await this morning's labs. 2. Mild anemia, acute, present on admission Hemoglobin up to 12.2 on July 28.? Await this morning's labs. 3.?Hypertension On metoprolol and nifedipine at baseline.? Initially antihypertensive therapy was held, but he is back on his usual home dosage.? Blood pressures are gradually improving and is 142/74 this morning. 4. Dementia with acute metabolic encephalopathy, acute on chronic, present on admission Continue his usual outpatient doses of Seroquel, risperidone, Namenda 5. Systolic Murmur, Last echocardiogram performed October of 2021 revealed ejection fraction of 60-65%.? There was [id number] aortic stenosis, mild aortic regurgitation.? Trace mitral regurgitation.? Suspect his murmur is secondary to his aortic stenosis. ? 6. BPH, acute on chronic, Present on admission.? Continue on Flomax.? Torres catheter in place 7. Elevated BMI BMI is 29.3.? He does not yet meet criteria for class 1 obesity.? He does have evidence of chronic moderate malnutrition secondary to food insecurity and cognitive impairment as the patient is homeless and staying in a hotel.? He has no way to purchase food or drive.? He is felt to be at risk for increased morbidity/mortality as a result of his malnutrition. 8. Hypokalemia Resolved after repletion 9. Back pain He attributes it to the bed.? Continue scheduled Tylenol. I encouraged him to get out of bed to chair today as well. Code status Full Prophylaxis On Lovenox Disposition Care management presently working on discharge options.? At this there is a community congregation working towards providing additional social supports.? Patient may need a skilled facility but as he is homeless up baseline, further plans after discharge from [facility] need to be made before he can be accepted. Surrogate decision maker:? Alejandra Chandler Time Spent With Patient Critical Care time: I spent a total of [] minutes of critical care time on this patient's care today; this time is exclusive of procedural time. Quality VTE Deep Vein Thrombosis/Pulmonary Embolism Present on Admission: No
[2022-07-31] MEDS: ACETAMINOPHEN 325 MG TABLET 975 MG PO ×2 (06:13→16:43)
[2022-07-31] MEDS: cefTRIAXone 2,000 MG in SODIUM CHLORIDE 0.9% 100 ML 200 MG IV (07:58)
[2022-07-31 08:00] VITALS: BP 142/74; PULSE 66; RESP 17; TEMP 36.4; O2SAT 97
[2022-07-31] MEDS: SODIUM CHLORIDE 0.9% FLUSH 10 ML IV ×3 (08:12→21:43)
[2022-07-31] MEDS: ATORVASTATIN 20 MG TABLET 40 MG PO (08:12)
[2022-07-31] MEDS: risperiDONE 0.25 MG TABLET PO ×2 (08:13→21:42)
[2022-07-31] MEDS: PHENAZOPYRIDINE 100 MG TABLET PO ×3 (08:13→21:43)
[2022-07-31] MEDS: TAMSULOSIN 0.4 MG CAPSULE PO (08:13)
[2022-07-31] MEDS: MEMANTINE HCL 5 MG TABLET PO (08:13)
[2022-07-31 08:14] VITALS: BP 142/74; PULSE 66
[2022-07-31] MEDS: NYSTATIN CREAM 30 GM 1 APPLIC TOP ×2 (08:14→21:44)
[2022-07-31] MEDS: METOPROLOL ER 25 MG TABLET PO (08:14)
[2022-07-31 09:09] VITALS: BP 130/68; PULSE 64
[2022-07-31 10:17] LABS: Add Manual Diff / Slide Review NO; Basophils Absolute Auto 100 /uL (0-100); Basophils Percent Auto 0.8 % (0-2); Eosinophils Absolute Auto 300 /uL (0-450); Hematocrit 38.9 % (41-53); Hemoglobin 13.1 g/dL (13.5-17.5); Lymphocytes Absolute Auto 700 /uL (1100-4500); Mean Corpuscular HGB Conc 33.6 % (30-36); Mean Corpuscular Volume 83.3 fL (80-100); Monocytes Absolute Auto 700 /uL (0-900); Monocytes Percent Auto 7.5 % (3-14); Neutrophils Absolute Auto 7600 /uL (1500-7000); Neutrophils Percent Auto 81.7 % (50-75); Platelet Count 167 X10^3/uL (150-400); Red Blood Cell Count 4.67 X10^6/uL (4.5-5.9); Red Cell Distribution Width 15.2 % (11.6-14.8); White Blood Cell Count 9.3 X10^3/uL (4.5-11.0)
[2022-07-31 10:29] LABS: BUN Creatinine Ratio 20.9 (6-22); Blood Urea Nitrogen 14 mg/dL (9-20); Calcium 9.4 mg/dL (8.4-10.2); Carbon Dioxide 28 mmol/L (22-32); Chloride 101 mmol/L (98-107); Estimated Glomerular Filt Rate > 60 mL/min (>60); Glucose 136 mg/dL (80-110); HEMOLYSIS < 15 (0-50); Potassium 3.8 mmol/L (3.4-5.1); Sodium 136 mmol/L (137-145)
--- NOTE | 2022-07-31 11:36 | CM.DPNOTE ---
Discharge Planning Note: Met with patient this morning who continues to be evasive with facts about his personal affairs. He has dementia but is able to communicate and is alert and oriented. he keeps deferring to offer information and asks that we get all of our information from Pastor Freeman. This DCP had spoken with Sachin yesterday and he will come in tomorrow to establish a temporary POA and have it notarized here. He is still attempting to sort out the patient's affairs and see what he can afford. Left message for Sachin. Plan: Follow up with Pastor Stephenson to find out if uncovers more info re finances, and ask if he has called APS yet. Follow up with therapy to ascertain safety and ability (he has been refusing to get out of bed). Continue follow closely. Sima De Santiago RN/DCP
[2022-07-31 12:00] VITALS: BP 165/96; PULSE 72; RESP 18; TEMP 36.3; O2SAT 96
--- NOTE | 2022-07-31 16:20 | PT.IPTN ---
Current Diagnoses Sepsis, unspecified organism (07/25/22) Physical Therapy Treatment Note M2 PT-IP Current Condition Start: 07/27/22 12:50 Freq: NEEDED Status: Active Protocol: Document 07/27/22 11:30 AB (Rec: 07/27/22 13:17 AB [id number]) Physical Therapy Current Condition Current Condition Evaluation Date 07/27/22 Treatment Diagnosis sepsis; difficulty in walking Onset Date 07/25/22 M3 PT-IP Subjective Start: 07/27/22 12:50 Freq: NEEDED Status: Active Protocol: Document 07/31/22 16:20 NBM (Rec: 07/31/22 16:40 NB [id number]) Subjective Physical Therapy Visit Type Type Treatment Note Visit Start Time 15:55 Visit Stop Time 16:20 Total Visit Minutes 25 Number of SCHOOL COMMUNITY RELATIONS COORDINATOR Visits 3 Physical Therapy Visit Comments Patient Comments agreeable to do PT M4 PT-IP Mobility and Gait Start: 07/27/22 12:50 Freq: NEEDED Status: Active Protocol: Document 07/31/22 16:20 NBM (Rec: 07/31/22 16:40 NB [id number]) PT-Bed Mobility Assessment Sit to Supine Sit to Supine Maximum Assistance,2 Person Assistance,Head of Bed Elevated,Bedrails Scooting Scooting Up and Down in Bed Maximum Assistance PT-Transfer Assessment Sit to and From Stand Sit to and from Stand Moderate Assistance,2 Person Assistance,Use of Upper Extremities Equipment Transfer Assistive Device Gait Belt,Front Wheeled Walker Orthotic/Prosthetic Devices or Brace: No Transfers Transfer Destination Bed Transfer Technique Stand Step Pivot Transfer Ability Level of Assist Minimal Assistance,Moderate Assistance,2 Person Assistance Comments Mobility Comments NAC present throughout treatment. Pt in chair upon arrival and agreeable to transfer to bed, but requires increased time for initiating movements. Sit to stand w/ FWW w/ max A x2PA and BUE use, cues for scooting EOB and hand placement. Pt stood ~4 min for gown change w/ occasional cues for upright posture due to posterior lean and cues for glute activation. Pt ambulated ~3 feet using Stand step pivot transfer to bedside w/FWW maxA x 2 w/ cues for FWW management and higher knees- pt uses small, shuffling steps and has R lateral lean. Pt cued for backing up to EOB, sequencing and hand placement sitting EOB maxA x 2 PA. Pt requires max A x1 for sitting EOB, and for BLE elevation sitting EOB to supine; max A x2 w/ [place] to scoot up in bed. Pt left with call light and all needs within reach and NAC in room. Gait Assessment Comments Gait Comments Stand step pivot only - pt with difficulty elevating LE to take steps and has R sided lean. Mod A x2 and max cues required. PT-Balance Assessment Sitting Balance and Reactions Static Sitting Balance Ability Fair Dynamic Sitting Balance Ability Poor Standing Balance and Reactions Static Standing Balance Ability Poor Dynamic Standing Balance Ability Poor Device Used FWW M5 PT-IP Objective Assessments Start: 07/27/22 12:50 Freq: NEEDED Status: Active Protocol: Document 07/27/22 11:30 AB (Rec: 07/27/22 13:17 AB [id number]) Orientation Orientation/Cognition Level of Alertness Confusional State Orientation Name Safety Awareness Decreased Safety Awareness Memory Description Short Term Impaired,Primary Health Organisation Manager Impaired Gross Range of Motion Lower Extremity ROM Assessment Within Functional Limits Strength Comments Strength Comments RLE: 4-/5 LLE: 3+/5 Coordination Assessment Gross Coordination Gross Coordination WNL Muscle Tone Muscle Tone WNL Yes M6 PT-IP Treatment Start: 07/27/22 12:50 Freq: NEEDED Status: Active Protocol: Document 07/31/22 16:20 NB (Rec: 07/31/22 16:40 [facility] [id number]) Physical Therapy Treatment Education Education Provided Safety Other Treatments Other Treatment Performed standing balance ~4 min for gown change M7 PT-IP Assessment and Plan Start: 07/27/22 12:50 Freq: NEEDED Status: Active Protocol: Document 07/31/22 16:20 NB (Rec: 07/31/22 16:40 [facility] [id number]) PT Summary Assessment and Plan Potential Rehabilitation Potential Fair Summary Impairments Pain,ROM,Strength,Balance, Coordination,Sensation,Tone, Cognition,Bed Mobility, Transfers,Gait,Activity Tolerance Progress Towards Goals Slow Progress due to Medical Issues,Slow Progress due to Activity Tolerance Assessment Summary Pt is able to follow instructions for sequencing but requires increased time to initiate movements, demonstrates poor safety awareness and requires max cues for FWW management and hand placement with Sit to Stand and Stand to Sit. Pt requires MaxA to MaxA x 2 for standing, ambulating, transfers and bed mobility, and requires maxA elevating bilateral LE from floor when sitting EOB to supine due to weakness and is high fall risk . At this time, pt is unsafe to go home and will require SNF to improve strength and functional mobility independence. Goals Bed Mobility Goal Minimal Assistance Transfer Goal Minimal Assistance,Front Wheeled Walker Gait Goal Minimal Assistance,Front Wheel Walker Gait Distance 25 Other Goals improve bed mobility, transfers using FWW to SBA improve ambulation using FWW ~ 125 ft SBA Days to Meet Goals 10 Frequency of Treatment Frequency Of Treatment Once a Day Treatment Plan Physical Therapy Treatment Plan Bed Mobility Training,Transfer Training,Gait Training, Therapeutic Exercise,Balance Retraining,Discharge Planning, Hot or Cold Pack,Neuromuscular Re-ed,Coordination Retraining ,Manual Therapy Precautions Other Precautions falls Recommendations To Nursing Amount of Assist Needed 2 Person Assist Discharge Recommendations PT Discharge Recommendations SNF Rehab Transportation Needs at Discharge Wheelchair/Cabulance
[2022-07-31 16:24] VITALS: BP 176/90; PULSE 80; RESP 18; TEMP 36.9; O2SAT 98
[2022-07-31] MEDS: SENNOSIDES 8.6 MG TABLET 17.2 MG PO (21:42)
[2022-07-31] MEDS: QUETIAPINE 25 MG TABLET 12.5 MG PO (21:42)
[2022-08-01] MEDS: ACETAMINOPHEN 325 MG TABLET 975 MG PO ×4 (00:09→22:09)
[2022-08-01 05:00] VITALS: BP 175/91; PULSE 79; RESP 12; TEMP 36.4; O2SAT 94
[2022-08-01 08:39] VITALS: BP 175/91; PULSE 79
[2022-08-01] MEDS: METOPROLOL ER 25 MG TABLET PO (08:39)
[2022-08-01] MEDS: ATORVASTATIN 20 MG TABLET 40 MG PO (08:39)
[2022-08-01] MEDS: TAMSULOSIN 0.4 MG CAPSULE PO (08:39)
[2022-08-01] MEDS: PHENAZOPYRIDINE 100 MG TABLET PO ×3 (08:39→20:01)
[2022-08-01] MEDS: MEMANTINE HCL 5 MG TABLET PO (08:40)
[2022-08-01] MEDS: SODIUM CHLORIDE 0.9% FLUSH 10 ML IV ×2 (08:40→20:01)
[2022-08-01] MEDS: risperiDONE 0.25 MG TABLET PO ×2 (08:40→20:00)
--- NOTE | 2022-08-01 09:21 | PM.PN.1 ---
Subjective Subjective Date Patient Seen: 08/01/22 Time Patient Seen: 11:00 Interval history: Patient worked with PT today and was full assist and they are recommending SNF. Patient feels very unsafe to discharge back to his motel as it was very unsafe living conditions. Echo ordered for today to assess murmur which is likely his . Exam Vital Signs (past 8 hours): - 08/01/22 05:00 08/01/22 08:39 Temperature 97.5 F L Pulse Rate 79 79 Respiratory Rate 12 Blood Pressure 175/91 H 175/91 H Pulse Oximetry 94 Oxygen Flow Rate 0 Oxygen Delivery Method Room Air Oxygen Flow Rate 0 Narrative Exam Narrative: GEN:? Pleasant elderly male, Alert and oriented x 3, NAD HEENT:NC, Face symmetric CHEST: Respiratory excursions symmetric, CTAB CV: RRR, III/ systolic murmur heard best at the LSB, no R/G ABD: Soft, NT/ND, BT present in all 4 quadrants, no organomegaly or masses EXTR: warm, well perfused, no C/C/E SKIN: warm and dry, no rash NEURO: Alert and oriented x 3, nonfocal Objective Labs Result Diagrams: 07/31/22 09:50 07/31/22 09:50 Labs: Laboratory Results - last 24 hr 07/31/22 07/31/22 09:50 09:50 WBC 9.3 RBC 4.67 Hgb 13.1 L Hct 38.9 L MCV 83.3 MCH 28.0 MCHC 33.6 RDW 15.2 H Plt Count 167 Neut % (Auto) 81.7 H Lymph % (Auto) 7.0 L Rutland % (Auto) 7.5 Eos % (Auto) 3.0 Baso % (Auto) 0.8 Neut # (Auto) 7600 H Lymph # (Auto) 700 L [place]land # (Auto) 700 Eos # (Auto) 300 Baso # (Auto) 100 Sodium 136 L Potassium 3.8 Chloride 101 Carbon Dioxide 28 BUN 14 Creatinine 0.67 Estimated GFR > 60 BUN/Creatinine Ratio 20.9 Glucose 136 H Calcium 9.4 PFSH Medical History (Updated 07/31/22 @ 00:00 by ) BPH (benign prostatic hyperplasia) Dementia H/O: CVA (cerebrovascular accident) Heart murmur High blood pressure Peripheral edema Surgical History History of cholecystectomy Family History Mother Dementia Social History household members: none Smoking Status: Never smoker alcohol intake: never substance use type: does not use Assessment & Plan Assessment & Plan narrative: 1. Sepsis, secondary to Klebsiella oxytocia urinary tract infection, improving Patient was admitted with sepsis as evidenced by acute metabolic encephalopathy, thrombocytopenia, lactic acidosis, rhabdomyolysis. Patient was initially placed on meropenem and vancomycin.? Subsequently antibiotics were narrowed to Rocephin and he finished his course.? His encephalopathy has improved.? Rhabdomyolysis has resolved.? Lactic acidosis has resolved.? 2. Mild anemia, acute, present on admission Hemoglobin up to 12.2 on July 28. 3.?Hypertension On metoprolol and nifedipine at baseline.? Initially antihypertensive therapy was held, but he is back on his usual home dosage. 4. Dementia with acute metabolic encephalopathy, acute on chronic, present on admission Continue his usual outpatient doses of Seroquel, risperidone, Namenda 5. Systolic Murmur Last echocardiogram performed October of 2021 revealed ejection fraction of 60-65%.? There was [id number] aortic stenosis, mild aortic regurgitation.? Trace mitral regurgitation.? Suspect his murmur is secondary to his aortic stenosis. Ordering repeat limited echo to assess if worsening given patient notes intermittent lightheadedness. ? 6. BPH, acute on chronic, Present on admission.? Continue on Flomax.? Torres catheter now removed. 7. Elevated BMI BMI is 29.3.? He does not yet meet criteria for class 1 obesity.? He does have evidence of chronic moderate malnutrition secondary to food insecurity and cognitive impairment as the patient is homeless and staying in a hotel.? He has no way to purchase food or drive.? He is felt to be at risk for increased morbidity/mortality as a result of his malnutrition. 8. Hypokalemia Resolved after repletion 9. Back pain He attributes it to the bed.? Continue scheduled Tylenol. I encouraged him to get out of bed to chair today as well. Code status Full Prophylaxis On Lovenox Disposition Care management presently working on discharge options.? At this there is a community congregational working towards providing additional social supports.? CASE MANAGEMENT ASSISTANT looking for SNF's to accept patient. Surrogate decision maker:? Alejandra Chandler Time Spent With Patient Critical Care time: I spent a total of [] minutes of critical care time on this patient's care today; this time is exclusive of procedural time. Quality VTE Deep Vein Thrombosis/Pulmonary Embolism Present on Admission: No
[2022-08-01] MEDS: ENOXAPARIN 40 MG/0.4 ML SYRINGE SUBCUT (09:45)
--- NOTE | 2022-08-01 10:23 | PT.IPTN ---
Current Diagnoses Sepsis, unspecified organism (07/25/22) Physical Therapy Treatment Note M2 PT-IP Current Condition Start: 07/27/22 12:50 Freq: NEEDED Status: Active Protocol: Document 07/27/22 11:30 AB (Rec: 07/27/22 13:17 AB [id number]) Physical Therapy Current Condition Current Condition Evaluation Date 07/27/22 Treatment Diagnosis sepsis; difficulty in walking Onset Date 07/25/22 M3 PT-IP Subjective Start: 07/27/22 12:50 Freq: NEEDED Status: Active Protocol: Document 08/01/22 10:23 AW (Rec: 08/01/22 12:00 AW [id number]) Subjective Physical Therapy Visit Type Type Treatment Note Visit Start Time 10:01 Visit Stop Time 10:23 Total Visit Minutes 22 Notes partial co-treat w/ OT Number of CNC GRINDER Visits 0 Physical Therapy Visit Comments Patient Comments agreeable to do PT M4 PT-IP Mobility and Gait Start: 07/27/22 12:50 Freq: NEEDED Status: Active Protocol: Document 08/01/22 10:23 AW (Rec: 08/01/22 12:00 AW [id number]) PT-Transfer Assessment Sit to and From Stand Sit to and from Stand Moderate Assistance,Maximum Assistance,2 Person Assistance ,Use of Upper Extremities Equipment Transfer Assistive Device Gait Belt,Front Wheeled Walker Orthotic/Prosthetic Devices or Brace: No Transfers Transfer Destination Bedside Commode Transfer Technique pt ambulated with FWW Transfer Ability Level of Assist Moderate Assistance,2 Person Assistance,Use of Upper Extremities Comments Mobility Comments Pt was sitting up in the chair as PT and OT arrived. He complained of penile pain and was asking for nurse to clean around his catheter. PHOTOENGRAVING MACHINE OPERATOR/TENDER arrived and began to wash but decided to get pt into the shower. Pt was agreeable and needed max A x 2 to stand. He had initial unsteadiness and strong posterior lean but was able to redistribute weight. Using FWW, he took very short steps with poor LE elevation to walk toward the bathroom. Ambulation required mod to max A and verbal cues for increased step length/height. Pt walked into the shower and sat on the [facility] mod A. He was left with PHOTOENGRAVING MACHINE OPERATOR/TENDER for shower. Gait Assessment Gait Gait Assistance Required: Moderate Assistance,Maximum Assistance,1 Person Assist Distance (Feet) 10 Assistive Devices Assistive Device Gait Belt,Front Wheeled Walker Orthotic/Prosthetic Devices or Brace: No Gait Deviations General Gait Pattern Antalgic,Decreased Stride Length,Decreased Feet Clearance,Flexed Trunk,Lateral Trunk Lean Factors Limiting Gait Function Factors Limiting Gait Function Decreased Activity Tolerance, Decreased Sensation,Decreased Strength,Difficulty Following Directions,Pain,Poor Balance, Poor Safety Awareness Comments Gait Comments Pt walked from chair to shower with FWW mod/max A. He responds to cues for increased amplitude but reverts quickly to shuffling pattern. PT-Balance Assessment Sitting Balance and Reactions Static Sitting Balance Ability Fair Dynamic Sitting Balance Ability Fair Standing Balance and Reactions Static Standing Balance Ability Poor Dynamic Standing Balance Ability Poor Device Used FWW M5 PT-IP Objective Assessments Start: 07/27/22 12:50 Freq: NEEDED Status: Active Protocol: Document 07/27/22 11:30 AB (Rec: 07/27/22 13:17 AB [id number]) Orientation Orientation/Cognition Level of Alertness Confusional State Orientation Name Safety Awareness Decreased Safety Awareness Memory Description Short Term Impaired,Cloud Operations Engineer Impaired Gross Range of Motion Lower Extremity ROM Assessment Within Functional Limits Strength Comments Strength Comments RLE: 4-/5 LLE: 3+/5 Coordination Assessment Gross Coordination Gross Coordination WNL Muscle Tone Muscle Tone WNL Yes M6 PT-IP Treatment Start: 07/27/22 12:50 Freq: NEEDED Status: Active Protocol: Document 08/01/22 10:23 AW (Rec: 08/01/22 12:00 AW [id number]) Physical Therapy Treatment Education Education Provided Safety M7 PT-IP Assessment and Plan Start: 07/27/22 12:50 Freq: NEEDED Status: Active Protocol: Document 08/01/22 10:23 AW (Rec: 08/01/22 12:00 AW [id number]) PT Summary Assessment and Plan Potential Rehabilitation Potential Fair Summary Impairments Pain,ROM,Strength,Balance, Coordination,Sensation,Tone, Cognition,Bed Mobility, Transfers,Gait,Activity Tolerance Progress Towards Goals Slow Progress due to Medical Issues,Slow Progress due to Activity Tolerance Assessment Summary Pt requires increased time for all tasks. He is needing mod/ max A x 1-2 for sit to stand, ambulation with FWW, and transfers. Of note, this PT conducted Dynamic Gait Index with pt after TIA in October 2021; pt scored 17/24 at that time. It would be unsafe to conduct the same test today. At this time, pt is unsafe to go home and will require SNF to improve strength and functional mobility independence. Goals Bed Mobility Goal Minimal Assistance Transfer Goal Minimal Assistance,Front Wheeled Walker Gait Goal Minimal Assistance,Front Wheel Walker Gait Distance 25 Other Goals improve bed mobility, transfers using FWW to SBA improve ambulation using FWW ~ 125 ft SBA Days to Meet Goals 10 Frequency of Treatment Frequency Of Treatment Once a Day Treatment Plan Physical Therapy Treatment Plan Bed Mobility Training,Transfer Training,Gait Training, Therapeutic Exercise,Balance Retraining,Discharge Planning, Hot or Cold Pack,Neuromuscular Re-ed,Coordination Retraining ,Manual Therapy Precautions Other Precautions falls Recommendations To Nursing Amount of Assist Needed 2 Person Assist Discharge Recommendations PT Discharge Recommendations SNF Rehab Transportation Needs at Discharge Wheelchair/Cabulance
--- NOTE | 2022-08-01 10:24 | OT.IP.TRT ---
Current Diagnoses Sepsis, unspecified organism (07/25/22) Occupational Therapy Treatment Note M2 OT-IP Current Condition Start: 07/28/22 11:29 Freq: Status: Active Protocol: Document 07/28/22 10:49 [facility] (Rec: 07/28/22 12:05 [facility] [id number]) Occupational Therapy Current Condition Current Condition Evaluation Date 07/28/22 Treatment Diagnosis Sepsis, UTI Diagnosis Onset Date 07/25/22 M3 OT- IP Subjective and Pain Start: 07/28/22 11:29 Freq: Status: Active Protocol: Document 08/01/22 14:23 [facility] (Rec: 08/01/22 14:31 [facility] [id number]) OT- Subjective Occupational Therapy Visit Type Type Progress Note Visit Start Time 10:00 Visit Stop Time 10:24 Total Visit Minutes 24 Notes co-treat with p.t. Occupational Therapy Visit Comments Patient Comments This line keeps pinching my penis. M4 OT- IP ADL's Start: 07/28/22 11:29 Freq: Status: Active Protocol: Document 08/01/22 14:23 [facility] (Rec: 08/01/22 14:31 [facility] [id number]) OT [id number] Comments OT Self-Feeding Comments not meal time OT ADL-Grooming Comments OT Grooming Comments not performed OT ADL-Oral Care Comments Oral Care Comments not performed OT ADL-Dressing General Eval Lower Body Dressing Ability Total Assistance Areas Needing Assistance Socks Comments OT Dressing Comments seated OT ADL-Toileting General Evaluation Toileting Ability Total Assistance Comments OT Toileting Comments pt with doe OT ADL-Bathing Comments OT Bathing Comments not performed with this contract technical writer d/t time restrictions M5 OT- IP IADL's Start: 07/28/22 11:29 Freq: Status: Active Protocol: Document 07/28/22 10:49 [facility] (Rec: 07/28/22 12:05 [facility] [id number]) OT-Instrumental Activities of Daily Living Deficits IADL Deficits Identified Deficits Home Safety Awareness Awareness of Need for Assistance at Home Decreased Awareness Ability to Problem Solve Emergency Unable to Problem Solve Situations Home Safety Comments Pt is not thinking well or able to follow commands well at this time. Medication Management Medication Management Comments Pt will require assist. Money Management Money Management Comments Pt will require assist. Meal Preparation Meal Preparation Comments Pt will require assist. Army Manager Army Manager Comments Pt will require assist. M6 OT- IP Functional Cognition Start: 07/28/22 11:29 Freq: Status: Active Protocol: Document 08/01/22 14:23 [facility] (Rec: 08/01/22 14:31 [facility] [id number]) Cognitive Factors Limiting Selfcare Function Cognitive Ability Level of Alertness Alert Patient Orientation Name Cognitive Comments Cognitive Assessment Comments Pt appears evasive with answers to questions. Pt initially states that he can't tolerate getting up d/t pain to his penis with the doe. Pt was then encouraged to do a shower for better cleaning of the area and was able to get up to the shower. Pt needs max vc for all functional mobility. M7 OT- IP Mobility and Balance Start: 07/28/22 11:29 Freq: Status: Active Protocol: Document 08/01/22 14:23 [facility] (Rec: 08/01/22 14:31 [facility] [id number]) OT-Transfer Assessment Sit to and From Stand Sit to and from Stand Maximum Assistance,2 Person Assistance Transfers Transfer Ability Maximum Assistance,1 Person Assistance Technique Transfer Destination Chair,Shower Stall Transfer Technique Stand Step Pivot Devices Transfer Assistive Devices Gait Belt,Front Wheeled Walker Comments Mobility Comments Pt with small shuffing steps, often thinking he is stepping but doesn't actually lift the foot to advance it. Pt is able to take steps with max vc. OT- Balance Assessment Sitting Balance and Reactions Static Sitting Balance Ability Good Dynamic Sitting Balance Ability Good M8 OT- IP Objective Assessments Start: 07/28/22 11:29 Freq: Status: Active Protocol: Document 07/28/22 10:49 [facility] (Rec: 07/28/22 12:05 [facility] [id number]) OT Gross Range of Motion Upper Extremity Range of Motion Assessment Bilaterally Impaired OT Strength Comments Strength Comments Pt having difficulty to follow commands but noted to be at least 3-/5 per pt able to assist for mobility needs. OT Sensation Assessment Comments Summary Comments Pt appears to have decreased sensation of the right UE. M9 OT- IP Assessment and Plan Start: 07/28/22 11:29 Freq: Status: Active Protocol: Document 08/01/22 14:23 [facility] (Rec: 08/01/22 14:31 [facility] [id number]) OT Summary Assessment and Plan Potential Rehabilitation Potential Fair Analytic Complexity at Evaluation Moderate Summary OT Impairments Range of Motion,Strength, Balance,Coordination, Functional Cognition, Functional Mobility,Self- Feeding,Grooming,Dressing, Toileting,Bathing,Toilet Transfers,Shower Transfers, Activity Tolerance Progress Towards Goals Slow Progress due to Medical Issues,Slow Progress due to Activity Tolerance,Slow Progress due to Cognition Assessment Summary Pt participated in ot/pt today with max encouragement. Pt was able to ambulated into the bathroom for shower. Shower performed with nursing d/t limited time for the contract technical writer. Pt will continue to benefit from OT services. Goals Self-Feeding Goal Standby Assistance Grooming Goal Standby Assistance Dressing Goal Minimal Assistance Toileting Goal Minimal Assistance Bathing Goal Minimal Assistance Toilet Transfer Goal Minimal Assistance Shower Transfer Goal Minimal Assistance Days to Meet Goals 39 Frequency of Treatment Frequency Of Treatment Once a Day Treatment Plan OT Treatment Plan ADL Training,Functional Cognition Training,Functional Mobility,Patient/Family Education,Discharge Planning Other Treatment Recommendations and Next LB dressing needs while seated Treatment Focus . Discharge Recommendations OT Discharge Recommendations SNF Rehab,LTAC Transportation Needs at Discharge Wheelchair/Cabulance
[2022-08-01] MEDS: NYSTATIN CREAM 30 GM 1 APPLIC TOP ×3 (11:54→21:22)
[2022-08-01 12:00] VITALS: BP 157/78; PULSE 71; RESP 20; TEMP 36.3; O2SAT 95
--- NOTE | 2022-08-01 13:24 | DI.ECHO.S_ITS ---
[place] [facility]---------+ [facility] +---------+ : : [id number] : : : : [id number] : : : : Phone: [phone] Echocardiogram Report + + :Name: NAFISA MUKHERJEE Study Date: 08/02/2022 Height: 70 in : :[facility] ReadingLocation: Weight: 202 lb : : Gender: Male BSA: 2.1 m2 : :: 1945 Age: 77 yrs BP: 176/90 mmHg: :Reason For Study: AORTIC STENOSIS : :Ordering Physician: TANISHA, : :MATHEUS Mejia D.O Performed By: Micheline Bedoya : :Referring: MATHEUS GARAY D.O : + + Interpretation Summary There is mild concentric left ventricular hypertrophy. The ejection fraction is estimated to be 60-65%. Diastolic function was not assessed. The right ventricle is normal in size and function. The left atrium is mildly dilated. There is mild aortic regurgitation. There is moderate aortic stenosis. Compared to the prior study dated 11/03/2021, there is a slight increase in the aortic valve gradients. Procedure: A two-dimensional transthoracic echocardiogram with color flow and Doppler was performed in limited views only to assess aortic stenosis. The study quality was technically adequate. Comparison is made with the echocardiogram of 11/03/2021. The patient was in sinus rhythm with heart rates between 67-75 bpm during the exam. Left Ventricle: The left ventricle is normal in size. There is mild concentric left ventricular hypertrophy. The ejection fraction is estimated to be 60-65%. Diastolic function was not assessed. Right Ventricle: The right ventricle is normal in size and function. Atria: The left atrium is mildly dilated. Right atrial size is normal. Mitral Valve: The mitral valve leaflets are mildly calcified. The mitral valve leaflets appear to open well. Aortic Valve: The aortic valve is trileaflet. The aortic valve is moderately calcified. There is moderate aortic stenosis. The peak aortic velocity is 3.2 m/sec. The peak aortic velocity on the previous exam was 2.7 m/sec. The aortic valve mean gradient is 24 mmHg. The calculated aortic valve area is 1.3 cm2. There is mild aortic regurgitation. Tricuspid Valve: The tricuspid valve is not well visualized, but is grossly normal. Pulmonic Valve: The pulmonic valve is not well visualized. Great Vessels: The aortic root is normal size. The dimensions of the ascending aorta are normal. The IVC is of normal diameter and collapses greater than 50% with a sniff. This suggests a low right atrial pressure of 3 mm Hg. Pericardium/ Pleura There is no pericardial effusion. There is no pleural effusion. MMode/2D Measurements & Calculations LVIDd: 4.9 cm LVOT diam: 2.2 cm LVIDs: 3.2 cm Ao root diam: 3.4 cm FS: 34.9 % asc Aorta Diam: 3.6 cm IVSd: 1.3 cm LVPWd: 1.2 cm LV garay. diameter/BSA (cm/m^2): 2.3 LV sys. diameter/BSA (cm/m^2): 1.5 LA A2 area: 22.1 cm2 RA long axis: 6.4 cm LA A4 area: 24.9 cm2 RA area: 18.2 cm2 LA length (vol): 6.5 cm RA vol: 44.4 ml LA vol: 72.2 ml RA : 21.2 ml/m2 LA vol index: 34.5 ml/m2 IVC diam: 1.7 cm RVD1 (basal): 3.5 cm RVD2 (mid): 2.9 cm TAPSE: 2.2 cm Doppler Measurements & Calculations Ao V2 max: 322.6 cm/sec LVOT Max Benito: 110.3 cm/sec Ao V2 mean: 226.9 cm/sec LV V1 max P.9 mmHg Ao max P.6 mmHg LV V1 VTI: 24.5 cm Ao mean P.4 mmHg RAYMOND(I,D): 1.4 cm2 Ao V2 VTI: 66.9 cm RAYMOND(V,D): 1.3 cm2 sev ratio: 0.37 RAYMOND indexed to BSA (cm^2/m^2): 0.68 SV(LVOT): 95.3 ml Reading Physician:11:03 AM
--- NOTE | 2022-08-01 13:56 | CM.DPC ---
Addendum entered by Cesilia Cardenas R.N. 08/01/22 15:15: Stevenson from [facility] called to inform DCP they cannot accept the patient. Cesilia Cardenas RN/BRANDENP Addendum entered by Cesilia Cardenas R.N. 08/01/22 14:32: Sachin states that he has filed an APS report. ADJ Original Note: DCP Cont: DCP spoke with Pastor Stephenson regarding pt plans for discharge. Sachin states that he has been in contact with [facility], [facility], & [facility]. states that he has been in contact with the [facility] but has not been able to find any permanent help for the patient upon discharge. DCP verbalized that pt is medically stable for discharge. Pastor Stephenson to come up to the hospital to discuss further planning with the patient. DCP sent referral to [facility]ha, [facility], & [facility], & [facility]. Dr. Ruth states that pt is not medically stable today for discharge and he is recommending SNF. DCP verbalized the unsuccessful SNF search, however, DCP to attempt SNF again now that [facility] and adult family homes have been contacted. DCP had ref[facility] sent to [facility], [facility], and [facility]. Sachin is at the bedside filling out POA paperwork with pt. Sachin made it very clear that he will temporarily be a POA until patient is out of rehab so that he is able to help assist with transitions. DCP to continue working on this case and assisting in providing a safe discharge. Cesilia Cardenas RN/BRANDENP
[2022-08-01] MEDS: QUETIAPINE 25 MG TABLET 12.5 MG PO (20:00)
[2022-08-01] MEDS: SENNOSIDES 8.6 MG TABLET 17.2 MG PO (20:00)
[2022-08-01 20:45] VITALS: BP 143/71; PULSE 63; RESP 18; TEMP 36.8; O2SAT 96
[2022-08-02] MEDS: ACETAMINOPHEN 325 MG TABLET 975 MG PO ×2 (06:06→15:08)
[2022-08-02 08:00] VITALS: BP 167/76; PULSE 67; RESP 16; TEMP 36.4; O2SAT 96
--- NOTE | 2022-08-02 09:33 | PM.PN.1 ---
Subjective Subjective Date Patient Seen: 08/02/22 Time Patient Seen: 13:00 Interval history: No complaints today. Very thankful for the care he is recieving. Exam Vital Signs (past 8 hours): - 08/02/22 08:00 Temperature 97.6 F Pulse Rate 67 Respiratory Rate 16 Blood Pressure 167/76 H Pulse Oximetry 96 Oxygen Flow Rate 0 Oxygen Delivery Method Room Air Oxygen Flow Rate 0 Narrative Exam Narrative: GEN:? Pleasant elderly male, Alert and oriented x 3, NAD HEENT:NC, Face symmetric CHEST: Respiratory excursions symmetric, CTAB CV: RRR, III/ systolic murmur heard best at the LSB, no R/G ABD: Soft, NT/ND, BT present in all 4 quadrants, no organomegaly or masses EXTR: warm, well perfused, no C/C/E SKIN: warm and dry, no rash NEURO: Alert and oriented x 3, nonfocal Objective Labs Result Diagrams: 07/31/22 09:50 07/31/22 09:50 [facility] Medical History (Updated 07/31/22 @ 00:00 by ) BPH (benign prostatic hyperplasia) Dementia H/O: CVA (cerebrovascular accident) Heart murmur High blood pressure Peripheral edema Surgical History History of cholecystectomy Family History Mother Dementia Social History household members: none Smoking Status: Never smoker alcohol intake: never substance use type: does not use Assessment & Plan Assessment & Plan narrative: 1. Sepsis, secondary to Klebsiella oxytocia urinary tract infection, resolved Patient was admitted with sepsis as evidenced by acute metabolic encephalopathy, thrombocytopenia, lactic acidosis, rhabdomyolysis. Patient was initially placed on meropenem and vancomycin.? Subsequently antibiotics were narrowed to Rocephin and he finished his course.? His encephalopathy has improved.? Rhabdomyolysis has resolved.? Lactic acidosis has resolved.? 2. Mild anemia, acute, present on admission Hemoglobin up to 12.2 on July 28. 3.?Hypertension On metoprolol and nifedipine at baseline.? Initially antihypertensive therapy was held, but he is back on his usual home dosage. 4. Dementia with acute metabolic encephalopathy, acute on chronic, present on admission Continue his usual outpatient doses of Seroquel, risperidone, Namenda 5. Systolic Murmur Last echocardiogram performed October of 2021 revealed ejection fraction of 60-65%.? There was [id number] aortic stenosis, mild aortic regurgitation.? Trace mitral regurgitation.? Suspect his murmur is secondary to his aortic stenosis. Ordering repeat limited echo to assess if worsening given patient notes intermittent lightheadedness. ? 6. BPH, acute on chronic, Present on admission.? Continue on Flomax.? Torres catheter now removed. 7. Elevated BMI BMI is 29.3.? He does not yet meet criteria for class 1 obesity.? He does have evidence of chronic moderate malnutrition secondary to food insecurity and cognitive impairment as the patient is homeless and staying in a hotel.? He has no way to purchase food or drive.? He is felt to be at risk for increased morbidity/mortality as a result of his malnutrition. 8. Hypokalemia Resolved after repletion 9. Back pain He attributes it to the bed.? Continue scheduled Tylenol. I encouraged him to get out of bed to chair today as well. Code status Full Prophylaxis On Lovenox Disposition Care management presently working on discharge options.? At this there is a community christianity working towards providing additional social supports.? Likely to SNF on 08/03. Surrogate decision maker:? Alejandra Chandler Time Spent With Patient Critical Care time: I spent a total of [] minutes of critical care time on this patient's care today; this time is exclusive of procedural time. Quality VTE Deep Vein Thrombosis/Pulmonary Embolism Present on Admission: No
[2022-08-02] MEDS: TAMSULOSIN 0.4 MG CAPSULE PO (09:53)
[2022-08-02] MEDS: ATORVASTATIN 20 MG TABLET 40 MG PO (09:53)
[2022-08-02] MEDS: ENOXAPARIN 40 MG/0.4 ML SYRINGE SUBCUT (09:53)
[2022-08-02] MEDS: METOPROLOL ER 25 MG TABLET PO (09:54)
[2022-08-02] MEDS: PHENAZOPYRIDINE 100 MG TABLET PO ×3 (10:39→21:05)
[2022-08-02] MEDS: NYSTATIN CREAM 30 GM 1 APPLIC TOP ×3 (10:39→21:07)
[2022-08-02] MEDS: MEMANTINE HCL 5 MG TABLET PO (10:39)
[2022-08-02] MEDS: SODIUM CHLORIDE 0.9% FLUSH 10 ML IV ×2 (10:39→21:06)
[2022-08-02] MEDS: risperiDONE 0.25 MG TABLET PO ×2 (10:39→21:06)
--- NOTE | 2022-08-02 10:56 | PT.IPTN ---
Current Diagnoses Sepsis, unspecified organism (07/25/22) Physical Therapy Treatment Note M2 PT-IP Current Condition Start: 07/27/22 12:50 Freq: NEEDED Status: Active Protocol: Document 07/27/22 11:30 AB (Rec: 07/27/22 13:17 AB [id number]) Physical Therapy Current Condition Current Condition Evaluation Date 07/27/22 Treatment Diagnosis sepsis; difficulty in walking Onset Date 07/25/22 M3 PT-IP Subjective Start: 07/27/22 12:50 Freq: NEEDED Status: Active Protocol: Document 08/02/22 10:45 KS (Rec: 08/02/22 13:09 KS [id number]) Subjective Physical Therapy Visit Type Type Treatment Note Visit Start Time 10:45 Visit Stop Time 10:56 Total Visit Minutes 11 Notes partial co-treat w/ OT Number of BRICKLAYER SEWER Visits 1 Physical Therapy Visit Comments Patient Comments agreeable to do PT M4 PT-IP Mobility and Gait Start: 07/27/22 12:50 Freq: NEEDED Status: Active Protocol: Document 08/02/22 10:45 KS (Rec: 08/02/22 13:09 KS [id number]) PT-Bed Mobility Assessment Sit to Supine Sit to Supine Moderate Assistance,2 Person Assistance,Head of Bed Elevated Scooting Scooting to Edge of Bed Moderate Assistance,Maximum Assistance PT-Transfer Assessment Sit to and From Stand Sit to and from Stand Moderate Assistance,2 Person Assistance,Use of Upper Extremities Equipment Transfer Assistive Device Gait Belt,Front Wheeled Walker Orthotic/Prosthetic Devices or Brace: No Transfers Transfer Destination Chair Transfer Technique pt ambulated with FWW Transfer Ability Level of Assist Moderate Assistance,2 Person Assistance,Use of Upper Extremities Comments Mobility Comments Pt in bed upon arrival and agreeable to ambulate to chair w/ FWW. Pt requires increased time and verbal cues for all tasks. Mod A x2 for bed mobility and scooting EOB as well as sit<>stand w/ FWW. Pt then ambulated ~3 ft to chair w/ FWW Mod A x2 w/ cues for sequencing and FWW mgmt. Mod x2 for slow descent, Max A x2 for scooting back into chair. Pt performed ankle pumps, LAQs , and seated marchign while in chair. Left w/ OT. Gait Assessment Gait Gait Assistance Required: Moderate Assistance,2 Person Assist Distance (Feet) 3 Assistive Devices Assistive Device Gait Belt,Front Wheeled Walker Orthotic/Prosthetic Devices or Brace: No Gait Deviations General Gait Pattern Antalgic,Decreased Stride Length,Decreased Feet Clearance,Flexed Trunk,Lateral Trunk Lean Factors Limiting Gait Function Factors Limiting Gait Function Decreased Activity Tolerance, Decreased Sensation,Decreased Strength,Difficulty Following Directions,Pain,Poor Balance, Poor Safety Awareness Comments Gait Comments Pt requires max cues for LE advancement, sequencing, and FWW mgmt. PT-Balance Assessment Sitting Balance and Reactions Static Sitting Balance Ability Fair Dynamic Sitting Balance Ability Fair Standing Balance and Reactions Static Standing Balance Ability Poor Dynamic Standing Balance Ability Poor Device Used FWW M5 PT-IP Objective Assessments Start: 07/27/22 12:50 Freq: NEEDED Status: Active Protocol: Document 07/27/22 11:30 AB (Rec: 07/27/22 13:17 AB [id number]) Orientation Orientation/Cognition Level of Alertness Confusional State Orientation Name Safety Awareness Decreased Safety Awareness Memory Description Short Term Impaired,Tail Trimmer Impaired Gross Range of Motion Lower Extremity ROM Assessment Within Functional Limits Strength Comments Strength Comments RLE: 4-/5 LLE: 3+/5 Coordination Assessment Gross Coordination Gross Coordination WNL Muscle Tone Muscle Tone WNL Yes M6 PT-IP Treatment Start: 07/27/22 12:50 Freq: NEEDED Status: Active Protocol: Document 08/02/22 10:45 KS (Rec: 08/02/22 13:09 KS [id number]) Physical Therapy Treatment Exercises Exercises Ankle Pumps Education Education Provided Safety Other Treatments Other Treatment Performed LAQs, seated marching M7 PT-IP Assessment and Plan Start: 07/27/22 12:50 Freq: NEEDED Status: Active Protocol: Document 08/02/22 10:45 KS (Rec: 08/02/22 13:09 KS [id number]) PT Summary Assessment and Plan Potential Rehabilitation Potential Fair Summary Impairments Pain,ROM,Strength,Balance, Coordination,Sensation,Tone, Cognition,Bed Mobility, Transfers,Gait,Activity Tolerance Progress Towards Goals Slow Progress due to Medical Issues,Slow Progress due to Activity Tolerance Assessment Summary Pt continues to require increased time and cues for all tasks. Mod A x2 for sup<> Sit, scooting, and transfer from bed to chair w/ FWW. Requires step by step cues for sequencing, hand placement, LE advancement and FWW use. At this time, pt is unsafe to go home and will require SNF to improve strength and functional mobility independence. Goals Bed Mobility Goal Minimal Assistance Transfer Goal Minimal Assistance,Front Wheeled Walker Gait Goal Minimal Assistance,Front Wheel Walker Gait Distance 25 Other Goals improve bed mobility, transfers using FWW to SBA improve ambulation using FWW ~ 125 ft SBA Days to Meet Goals 10 Frequency of Treatment Frequency Of Treatment Once a Day Treatment Plan Physical Therapy Treatment Plan Bed Mobility Training,Transfer Training,Gait Training, Therapeutic Exercise,Balance Retraining,Discharge Planning, Hot or Cold Pack,Neuromuscular Re-ed,Coordination Retraining ,Manual Therapy Precautions Other Precautions falls Recommendations To Nursing Amount of Assist Needed 2 Person Assist Discharge Recommendations PT Discharge Recommendations SNF Rehab Transportation Needs at Discharge Wheelchair/Cabulance
--- NOTE | 2022-08-02 12:00 | OT.IP.TRT ---
Current Diagnoses Sepsis, unspecified organism (07/25/22) Occupational Therapy Treatment Note M2 OT-IP Current Condition Start: 07/28/22 11:29 Freq: Status: Active Protocol: Document 07/28/22 10:49 [facility] (Rec: 07/28/22 12:05 [facility] [id number]) Occupational Therapy Current Condition Current Condition Evaluation Date 07/28/22 Treatment Diagnosis Sepsis, UTI Diagnosis Onset Date 07/25/22 M3 OT- IP Subjective and Pain Start: 07/28/22 11:29 Freq: Status: Active Protocol: Document 08/02/22 11:45 [facility] (Rec: 08/02/22 13:25 [facility] [id number]) OT- Subjective Occupational Therapy Visit Type Type Treatment Note Visit Start Time 11:45 Visit Stop Time 12:00 Total Visit Minutes 15 Occupational Therapy Visit Comments Patient Comments Pt agreed to get up and do grooming needs. Patient/Caregiver Goals To get better. OT Pain Assessment Pain When Pain Assessed At Rest Pain Present Pain Present Denied Pain M4 OT- IP ADL's Start: 07/28/22 11:29 Freq: Status: Active Protocol: Document 08/02/22 11:45 [facility] (Rec: 08/02/22 13:25 [facility] [id number]) OT [id number] Comments OT Self-Feeding Comments not meal time OT ADL-Grooming General Evaluation Grooming Ability Standby Assistance Areas Needing Assistance Retrieving/Set-up of Grooming Items Comments OT Grooming Comments Pt needing just set-up today and able to sequence on his own for grooming and oral care needs. OT ADL-Oral Care General Eval Oral Care Ability Standby Assistance Areas of Assistance Retrieving/Set-Up of Items OT ADL-Dressing Comments OT Dressing Comments not performed OT ADL-Toileting Comments OT Toileting Comments pt with doe OT ADL-Bathing Comments OT Bathing Comments not performed M5 OT- IP IADL's Start: 07/28/22 11:29 Freq: Status: Active Protocol: Document 07/28/22 10:49 [facility] (Rec: 07/28/22 12:05 [facility] [id number]) OT-Instrumental Activities of Daily Living Deficits IADL Deficits Identified Deficits Home Safety Awareness Awareness of Need for Assistance at Home Decreased Awareness Ability to Problem Solve Emergency Unable to Problem Solve Situations Home Safety Comments Pt is not thinking well or able to follow commands well at this time. Medication Management Medication Management Comments Pt will require assist. Money Management Money Management Comments Pt will require assist. Meal Preparation Meal Preparation Comments Pt will require assist. Slubber Runner Slubber Runner Comments Pt will require assist. M6 OT- IP Functional Cognition Start: 07/28/22 11:29 Freq: Status: Active Protocol: Document 08/02/22 11:45 [facility] (Rec: 08/02/22 13:25 [facility] [id number]) Cognitive Factors Limiting Selfcare Function Cognitive Ability Level of Alertness Alert Patient Orientation Name Cognitive Comments Cognitive Assessment Comments Pt following command better however still needing extra time to move for mobility needs and process information. M7 OT- IP Mobility and Balance Start: 07/28/22 11:29 Freq: Status: Active Protocol: Document 08/02/22 11:45 [facility] (Rec: 08/02/22 13:25 [facility] [id number]) OT- Bed Mobility Assessment Supine to Sit Supine to Sit Assist Moderate Assistance,2 Person Assistance OT-Transfer Assessment Sit to and From Stand Sit to and from Stand Moderate Assistance,2 Person Assistance Transfers Transfer Ability Moderate Assistance,2 Person Assistance Technique Transfer Destination Bed,Chair Transfer Technique Stand Step Pivot Devices Transfer Assistive Devices Gait Belt,Front Wheeled Walker Comments Mobility Comments Pt MODA X 2 for all mobility needs. Pt having difficulty to lift his feet up and tends to shuffle his feet. OT- Balance Assessment Sitting Balance and Reactions Static Sitting Balance Ability Good Standing Balance and Reactions Static Standing Balance Ability Poor Dynamic Standing Balance Ability Poor M9 OT- IP Assessment and Plan Start: 07/28/22 11:29 Freq: Status: Active Protocol: Document 08/02/22 11:45 [facility] (Rec: 08/02/22 13:25 [facility] [id number]) OT Summary Assessment and Plan Potential Rehabilitation Potential Fair Analytic Complexity at Evaluation Moderate Summary OT Impairments Range of Motion,Strength, Balance,Coordination, Functional Cognition, Functional Mobility,Self- Feeding,Grooming,Dressing, Toileting,Bathing,Toilet Transfers,Shower Transfers, Activity Tolerance Progress Towards Goals Slow Progress due to Medical Issues,Slow Progress due to Activity Tolerance,Slow Progress due to Cognition Assessment Summary Pt following commands better and able to sequence grooming andn oral care needs of his own. Pt still needing two person assist for mobility needs. Pt would benefit from skilled rehab if able to qualify to maximize his level of independence, otherwise will benefit from LTC or possible senior care. Goals Self-Feeding Goal Standby Assistance Grooming Goal Standby Assistance Dressing Goal Minimal Assistance Toileting Goal Minimal Assistance Bathing Goal Minimal Assistance Toilet Transfer Goal Minimal Assistance Shower Transfer Goal Minimal Assistance Days to Meet Goals 39 Frequency of Treatment Frequency Of Treatment Once a Day Treatment Plan OT Treatment Plan ADL Training,Functional Cognition Training,Functional Mobility,Patient/Family Education,Discharge Planning Other Treatment Recommendations and Next LB dressing needs while seated Treatment Focus . Discharge Recommendations OT Discharge Recommendations SNF Rehab,LTAC Transportation Needs at Discharge Wheelchair/Cabulance
[2022-08-02] MEDS: lisinopriL 20 MG TABLET PO (14:05)
--- NOTE | 2022-08-02 15:01 | CM.DPC ---
Addendum entered by Beena Salguero 08/02/22 15:10: Dr. Ruth and RN updated on tomorrow's plan. COVID test ordered. Original Note: DCP/continued: Reviewed chart. Patient is currently LOS day#8. Current therapy recommendation is SNF however, CM team having difficultly finding accepting facility. TOOL RENTAL TECHNICIAN called [facility] requesting that they re-evaluate. TOOL RENTAL TECHNICIAN spoke with Kristi at [facility] several times today and she confirms that they can accept tomorrow 10-5. [facility] hopes to arrange transport around 1:00pm. In the meantime, Cesilia VIVAS/RN working with DPOA on long-term planning. [facility], [facility], and [facility] all notified of patient's acceptance at SNF tomorrow. They will all plan to follow up with patient and DPOA there for long-term placement. P: [facility] tomorrow. SHAMEKA
[2022-08-02] MEDS: NIFEdipine 30 MG TAB ER PO (18:56)
[2022-08-02 19:31] LABS: COVID19 -Nasal RAPID Negative (Negative)
--- NOTE | 2022-08-02 19:43 | PC.NURSE ---
Pt being readied for possible d/c when he had black stool. MD made aware. See new orders. later went on to have 2 more black stools which guiac positive and see MD orders. He has had no further stools since. Pt is using the bathroom freq. He was bladder scanned, highest amt once was 300mls, otherwise 100mls or less. He doesn't feel as if he is retaining and he is on flomax. Has denied pain through out the day. Cont with poc.
[2022-08-02 20:00] VITALS: BP 142/67; PULSE 68; RESP 19; TEMP 36.1; O2SAT 96
[2022-08-02] MEDS: QUETIAPINE 25 MG TABLET 12.5 MG PO (21:05)
[2022-08-03] MEDS: ACETAMINOPHEN 325 MG TABLET 975 MG PO ×2 (04:16→18:33)
--- NOTE | 2022-08-03 06:43 | PC.NURSE ---
End of shift note. Patient is oriented to self, place, and situation. Reflects that his memory loss is possibly r/t his urinary infection. uses the call light and also, calls out for assist. C/o right neck pain and stiffness this am, relieved with scheduled tylenol. Plan is to possibly d/c to a SNIF.
[2022-08-03 08:00] VITALS: BP 151/80; PULSE 75; RESP 16; TEMP 36.6; O2SAT 95
--- NOTE | 2022-08-03 08:03 | P.DS_ITS ---
History of Present Illness History of Present Illness Chief complaint: FALLS UTI Narrative: Herbert Bautista is a 68 male with a history of prior Right Internal Capsule CVA, Untreated Hypertension, Heart murmur, untreated BPH was previously on flomax, hyperglycemia and dementia who lives at home alone was brought into the ED for evaluation by his virtual reality specialist for multiple falls and generalized weakness as well as some confusion.? The patient has bruising to the left upper eye orbital. He was reported to have been seen and evaluated at an outside facility within the past day or 2 with an unremarkable work up.?The patient reports that he had a urinary tract infection and apparently has been on an antibiotic.? He denies headache, blurred vision, chest pain, shortness of breath,? nausea, vomiting, constipation or diarrhea.? The patient does endorse that he has mild abdominal discomfort with palpation diffuse and generalized, and burning with urination. He states that his falls have occurred because he is very weak and the [place] where he lives is also a bit slippery.? He did strike his head but denies any loss of consciousness, the patient has bruising to the left upper eye orbital.? Patient is confused, orientated to person and place, extremely poor historian, incongruent thought process and context.? The patient reports that he is living in a motel that is arranged through his buddhist, his virtual reality specialist that brought him into the ED reported some confusion apparently greater than baseline for the patient.? Patient is unable to accurately participate in HPI ROS, family history, surgical history, or medication reconciliation. Patient is resting comfortably in bed upon admit in no distress at this time, patient has spiked a fever 102.5, continues to be hypertensive 191/95, tachycardic HR 109, and tachypneic RR 38, O2 saturation 91% on room air.? Patient met SIRS criteria in ED, WBC 20.3, with a left shift neutrophils 18,600, mono 1300.? Patient is demonstrating some mild anemia likely secondary to to sepsis reviewed prior labs 11/03/2021 H&H 13.9/44.8, platelets 163, sodium 139.? Today H&H 13.2/39.8, platelets 140, sodium 135, mildly decreased potassium 3.2, glucose 157, lactate 4.1, total bili 1.7, TCK 699, initial troponin 0.078, procalcitonin 2.01. SOFA:4 Patient's urine reddish-brown, positive for protein, ketones, blood, nitrates, RBC, WBC, bacteria-culture pending.? Head CT:? Ne gative for any acute intracranial process,?greater than expected ventricular caliber, raising possibility of adult hydrocephalus (normal pressure hydrocephalus).CXR: ?Cardiomegaly and interstitial prominence.? Patient received sepsis rehydration protocol in ED.? Patient admitted for encephalopathy secondary to sepsis from urinary tract infection, anemia. [facility] ED department visit notes 07/23/2022-I personally reviewed:? Patient seen for ground level fall/ Generalized weakness:? Patient had WBC 14.2, neutrophils 12.3, potassium 3.3, glucose 110, total bili 1.7, TCK 1929, urine was negative for nitrates positive for protein, ketones, and blood negative for bacteria and no culture was completed, I&O documented 1135cc total intake with a total output of 30cc. This is concerning that the patient was either not producing urine, or retaining urine.? Dr. Ramirez documented that the patient was feeling better, ambulating in the room with a walker without difficulty, eating and drinking without difficulty and did not meet the criteria for admit and was discharged home on 07/24/2022 at 9:18 a.[address].? Head CT:demonstrated no intracranial hemorrhage or intracranial abnormalities, noted moderate fluid within the left mastoid air cells.? Prominence of lateral ventricles which is similar to appearance of CT from 2017 considered possible normal pressure hydrocephalus.? C-spine: negative for acute fracture multi levels of route relatively prominent underlying degenerative changes, comparable to prior exam.? Chest x-ray demonstrated no acute cardiopulmonary processes.? E KG sinus rhythm with a rate of 89, right BBB and LAFB. Discharge Providers Provider Date of admission: 07/25/22 22:32 Discharge Date: 08/03/22 Consults: 07/25/22 17:41 Consult to PROVISIONING SPECIALIST - Processing Inspector Stat Comment: lives alone; dementia; frequent falls PROVISIONING SPECIALIST Consult needed for:: Community Health Res Need 07/25/22 18:56 Consult to PROVISIONING SPECIALIST - Processing Inspector Stat Comment: 07/25/22 20:55 Consult to Physical Therapy Evaluate & Treat Comment: falls weakness Physician Instructions: Evaluate and Treat 07/25/22 20:56 Consult to Dietitian, Adult Routine Comment: Reason For Exam: overweight BMI 27.6 Consult to Occupational Therapy Evaluate & Treat Comment: falls weakness Physician Instructions: Evaluate and treat 07/25/22 21:05 Consult to Tele-roll trucker Routine Comment: Consulting Provider: Diane Tele-intensivists Reason for consultation: Fastener Technologist services Has provider been notified: No 07/25/22 23:13 Consult to PROVISIONING SPECIALIST - Processing Inspector Routine Comment: 08/03/22 07:34 Consult to Inpatient Wound Care Nurse Routine Comment: Reason for consultation: Groin redness not improving, also complains cream is making him sticky Discharge provider: Pako Ruth DO Summary Hospital Course Discharge Diagnosis: 1. Sepsis, secondary to Klebsiella oxytocia urinary tract infection, resolved Patient was admitted with sepsis as evidenced by acute metabolic encephalopathy, thrombocytopenia, lactic acidosis, rhabdomyolysis. Patient was initially placed on meropenem and vancomycin.? Subsequently antibiotics were narrowed to Rocephin and he finished his course.? His encephalopathy has improved.? Rhabdomyolysis has resolved.? Lactic acidosis has resolved.? 2. Mild anemia, acute, present on admission Hemoglobin up to 12.2 on July 28. 3.?Hypertension On metoprolol and nifedipine at baseline.? Initially antihypertensive therapy was held, but he is back on his usual home dosage. 4. Dementia with acute metabolic encephalopathy, acute on chronic, present on admission Continue his usual outpatient doses of Seroquel, risperidone, Namenda 5. Systolic Murmur Last echocardiogram performed October of 2021 revealed ejection fraction of 60- 65%.? There was [id number] aortic stenosis, mild aortic regurgitation.? Trace mitral regurgitation.? Suspect his murmur is secondary to his aortic stenosis. Ordering repeat limited echo to assess if worsening given patient notes intermittent lightheadedness. ? 6. BPH, acute on chronic, Present on admission.? Continue on Flomax.? Torres catheter now removed. 7. Elevated BMI BMI is 29.3.? He does not yet meet criteria for class 1 obesity.? He does have evidence of chronic moderate malnutrition secondary to food insecurity and cognitive impairment as the patient is homeless and staying in a hotel.? He has no way to purchase food or drive.? He is felt to be at risk for increased morbidity/mortality as a result of his malnutrition. 8. Hypokalemia Resolved after repletion 9. Back pain He attributes it to the bed.? Continue scheduled Tylenol.? I encouraged him to get out of bed to chair today as well. 10. Melena Had black stools during admission guaiac positive. Lovenox held. Hgb remained stable so outpatient colonoscopy recommended. Hospital Course: 77 yo male with? prior Right Internal Capsule CVA, Untreated Hypertension, Heart murmur, untreated BPH (previously on flomax), hyperglycemia and probable dementia admitted with sepsis d/t Klebsiella oxytocal UTI (sensitive to all but ancef and ampicillin). He received a full course of IV abx and sepsis resolved and he improved significantly. He continued to require PT/OT due to poor balance and risk of falls so SNF was recommended. Also patient deemed unsafe to discharge back to [facility] due to very poor living conditions. He had positive guaiac stools but no evidence of significant bleeding or drop in Hgb so outp atient colonoscopy recommended and his home aspirin was held on discharge. He was started on flomax for urinary retention. Time Spent with Patient Time spent: Greater than 30 minutes Exam Vital Signs (past 8 hours): Oxygen Delivery Method Room Air Oxygen Flow Rate 0 Narrative Exam Narrative: GEN:? Pleasant elderly male, Alert and oriented x 3, NAD HEENT:NC, Face symmetric CHEST: Respiratory excursions symmetric, CTAB CV: RRR, III/ systolic murmur heard best at the LSB, no R/G ABD: Soft, NT/ND, BT present in all 4 quadrants, no organomegaly or masses EXTR: warm, well perfused, no C/C/E SKIN: warm and dry, no rash NEURO: Alert and oriented x 3, nonfocal Objective Labs Result Diagrams: 07/31/22 09:50 07/31/22 09:50 Labs: Laboratory Results - last 24 hr 08/02/22 18:20 SARS-CoV-2 (PCR) Negative [facility] Medical History (Updated 07/31/22 @ 00:00 by ) BPH (benign prostatic hyperplasia) Dementia H/O: CVA (cerebrovascular accident) Heart murmur High blood pressure Peripheral edema Surgical History History of cholecystectomy Family History Mother Dementia Social History household members: none Smoking Status: Never smoker alcohol intake: never substance use type: does not use Discharge Plan Discharge Plan Patient Disposition: SNF Discharge orders & Medications Prescriptions: New lisinopril 20 mg Tablet 20 mg PO DAILY Qty: 30 0RF tamsulosin [Flomax] 0.4 mg Capsule 0.4 mg PO DAILY Qty: 30 0RF Continued diclofenac sodium [Voltaren Arthritis Pain] 1 % gel 2 g topical QID Qty: 100 0RF Rx Instructions: apply to single elbow, wrist or hand; for hand includes palm/fingers/back of hand hydrocodone-acetaminophen 5-325 mg tablet 1 tab PO BID PRN (Reason: pain) Qty: 10 0RF nifedipine 30 mg Tablet Extended Release 24hr 30 mg PO DAILY Qty: 30 2RF quetiapine 25 mg Tablet 12.5 mg PO BEDTIME Qty: 30 2RF atorvastatin [Lipitor] 20 mg Tablet 40 mg PO DAILY Qty: 30 2RF risperidone 0.25 mg Tablet 0.25 mg PO BID Qty: 60 2RF metoprolol succinate 25 mg Tablet Extended Release 24 Hr 25 mg PO DAILY Qty: 30 2RF memantine [Namenda] 5 mg Tablet 5 mg PO DAILY Qty: 30 2RF Fish Oil 100-160-1,000 mg capsule 1 cap PO DAILY Qty: 30 2RF Discontinued aspirin 81 mg Tablet,Delayed Release (Dr/Ec) 162 mg PO DAILY Qty: 30 2RF Visit Report/Discharge Packet Instructions: Dementia, DI for High Blood Pressure, DI for Urinary Tract Infection (UTI), DI for Benign Prostatic Hyperplasia Quality VTE Deep Vein Thrombosis/Pulmonary Embolism Present on Admission: No
--- NOTE | 2022-08-03 08:45 | PC.RNWOUND ---
Patient resting in bed, skin to groin folds appears light pink, intact without any erosion or open areas noted, however, nystatin ointment is present on skin, appears to be effective as primary nurse states patient's groin skin was brick red at a previous time during hospital stay.
[2022-08-03 08:54] LABS: Add Manual Diff / Slide Review NO; Basophils Absolute Auto 0 /uL (0-100); Basophils Percent Auto 0.3 % (0-2); Eosinophils Absolute Auto 200 /uL (0-450); Eosinophils Percent Auto 2.7 % (2-4); Hematocrit 37.3 % (41-53); Hemoglobin 12.4 g/dL (13.5-17.5); Lymphocytes Absolute Auto 900 /uL (1100-4500); Lymphocytes Percent Auto 14.1 % (25-40); Mean Corpuscular HGB Conc 33.3 % (30-36); Mean Corpuscular Hemoglobin 27.8 PG (26-34); Mean Corpuscular Volume 83.6 fL (80-100); Monocytes Absolute Auto 500 /uL (0-900); Monocytes Percent Auto 7.1 % (3-14); Neutrophils Absolute Auto 5000 /uL (1500-7000); Neutrophils Percent Auto 75.8 % (50-75); Platelet Count 247 X10^3/uL (150-400); Red Blood Cell Count 4.46 X10^6/uL (4.5-5.9); Red Cell Distribution Width 15.3 % (11.6-14.8); White Blood Cell Count 6.6 X10^3/uL (4.5-11.0)
[2022-08-03 09:04] LABS: Alanine Aminotransferase 56 IU/L (<50); Albumin 3.4 g/dL (3.5-5.0); Albumin Globulin Ratio 1.2 (1.0-2.8); Alkaline Phosphatase 63 U/L (38-126); Aspartate Aminotransferase 36 IU/L (17-59); BUN Creatinine Ratio 20.3 (6-22); Bilirubin Total 0.6 mg/dL (0.2-1.3); Blood Urea Nitrogen 14 mg/dL (9-20); Calcium 9.3 mg/dL (8.4-10.2); Carbon Dioxide 27 mmol/L (22-32); Chloride 103 mmol/L (98-107); Estimated Glomerular Filt Rate > 60 mL/min (>60); Globulin 2.8 g/dL (1.7-4.1); Glucose 104 mg/dL (80-110); HEMOLYSIS 19 (0-50); Potassium 3.8 mmol/L (3.4-5.1); Sodium 137 mmol/L (137-145); Total Protein 6.2 g/dL (6.3-8.2)
--- NOTE | 2022-08-03 09:29 | PM.PN.1 ---
Subjective Subjective Date Patient Seen: 08/03/22 Time Patient Seen: 09:29 Interval history: Patient very confused and disoriented this morning. Lots of stuttering words. He had not gotten any morning meds yet which could have contributed. Stat head CT ordered. Exam Vital Signs (past 8 hours): - 08/03/22 08:00 Temperature 97.9 F Pulse Rate 75 Respiratory Rate 16 Blood Pressure 151/80 H Pulse Oximetry 95 Oxygen Flow Rate 0 Oxygen Delivery Method Room Air Oxygen Flow Rate 0 Narrative Exam Narrative: GEN:? Pleasant elderly male, Disoriented and confused HEENT:NC, Face symmetric CHEST: Respiratory excursions symmetric, CTAB CV: RRR, III/ systolic murmur heard best at the LSB, no R/G ABD: Soft, NT/ND, BT present in all 4 quadrants, no organomegaly or masses EXTR: warm, well perfused, no C/C/E SKIN: warm and dry, no rash NEURO: strength 4/5 in upper extremities, no appreciable facial droop Objective Labs Result Diagrams: 08/03/22 08:41 08/03/22 08:41 Labs: Laboratory Results - last 24 hr 08/02/22 08/03/22 08/03/22 18:20 08:41 08:41 WBC 6.6 RBC 4.46 L Hgb 12.4 L Hct 37.3 L MCV 83.6 MCH 27.8 MCHC 33.3 RDW 15.3 H Plt Count 247 Neut % (Auto) 75.8 H Lymph % (Auto) 14.1 L [place] % (Auto) 7.1 Eos % (Auto) 2.7 Baso % (Auto) 0.3 Neut # (Auto) 5000 Lymph # (Auto) 900 L [place] # (Auto) 500 Eos # (Auto) 200 Baso # (Auto) 0 Sodium 137 Potassium 3.8 Chloride 103 Carbon Dioxide 27 BUN 14 Creatinine 0.69 Estimated GFR > 60 BUN/Creatinine Ratio 20.3 Glucose 104 Calcium 9.3 Total Bilirubin 0.6 AST 36 ALT 56 H Alkaline Phosphatase 63 Total Protein 6.2 L Albumin 3.4 L Globulin 2.8 Albumin/Globulin Ratio 1.2 SARS-CoV-2 (PCR) Negative [facility] Medical History (Updated 07/31/22 @ 00:00 by ) BPH (benign prostatic hyperplasia) Dementia H/O: CVA (cerebrovascular accident) Heart murmur High blood pressure Peripheral edema Surgical History History of cholecystectomy Family History Mother Dementia Social History household members: none Smoking Status: Never smoker alcohol intake: never substance use type: does not use Assessment & Plan Assessment & Plan narrative: 1. Sepsis, secondary to Klebsiella oxytocia urinary tract infection, resolved Patient was admitted with sepsis as evidenced by acute metabolic encephalopathy, thrombocytopenia, lactic acidosis, rhabdomyolysis. Patient was initially placed on meropenem and vancomycin.? Subsequently antibiotics were narrowed to Rocephin and he finished his course.? His encephalopathy has improved.? Rhabdomyolysis has resolved.? Lactic acidosis has resolved.? 2. Mild anemia, acute, present on admission Hemoglobin up to 12.2 on July 28. 3.?Hypertension On metoprolol and nifedipine at baseline.? Initially antihypertensive therapy was held, but he is back on his usual home dosage. 4. Dementia with acute metabolic encephalopathy, acute on chronic, present on admission holding Seroquel, risperidone, Namenda due to AMS on 08/03 5. Systolic Murmur Last echocardiogram performed October of 2021 revealed ejection fraction of 60-65%.? There was [id number] aortic stenosis, mild aortic regurgitation.? Trace mitral regurgitation.? Suspect his murmur is secondary to his aortic stenosis. Ordering repeat limited echo to assess if worsening given patient notes intermittent lightheadedness. ? 6. BPH, acute on chronic, Present on admission.? Continue on Flomax.? Torres catheter now removed. 7. Elevated BMI BMI is 29.3.? He does not yet meet criteria for class 1 obesity.? He does have evidence of chronic moderate malnutrition secondary to food insecurity and cognitive impairment as the patient is homeless and staying in a hotel.? He has no way to purchase food or drive.? He is felt to be at risk for increased morbidity/mortality as a result of his malnutrition. 8. Hypokalemia Resolved after repletion 9. Back pain He attributes it to the bed.? Continue scheduled Tylenol. I encouraged him to get out of bed to chair today as well. 10. Acute encephalopathy, not present on admission -woke up with garbled speech and difficulty getting words out on 08/03, no extremity weakness or noticeable facial droop -holding all psych and pain meds, had not gotten any the morning of -stat head CT ordered due to concern for stroke Code status Full Prophylaxis SCDs due to melena Disposition Care management presently working on discharge options.? At this there is a community buddhist working towards providing additional social supports.? Likely to SNF on 08/03. Surrogate decision maker:? Alejandra Chandler Time Spent With Patient Critical Care time: I spent a total of [] minutes of critical care time on this patient's care today; this time is exclusive of procedural time. Quality VTE Deep Vein Thrombosis/Pulmonary Embolism Present on Admission: No
--- NOTE | 2022-08-03 09:38 | DI.CT.S_ITS ---
PROCEDURE: CT HEAD/BRAIN WO CON INDICATIONS: acute encephalopathy TECHNIQUE: Noncontrast 4.5 mm thick angled axial sections acquired from the foramen magnum to the vertex, with coronal and sagittal reformats. For radiation dose reduction, the following was used: automated exposure control, adjustment of mA and/or kV according to patient size. COMPARISON: [facility], MR, MR HEAD/BRAIN WO CON, 11/03/2021, 9:12. [facility], CT, CT HEAD/BRAIN WO CON, 11/02/2021, 22:00. [facility], CT, CT HEAD/BRAIN WO CON, 07/25/2022, 17:51. FINDINGS: Image quality: Excellent. CSF spaces: Basal cisterns are patent. No extra-axial fluid collections. The ventricles remain symmetrically prominent. Brain: No intracranial bleeds or masses. There is cerebral volume loss for age, with resultant ventricular and sulcal prominence. There are periventricular and deep white matter chronic small vessel ischemic changes. There is intracranial internal carotid artery atherosclerosis. Skull and face: Calvarium and visualized facial bones appear intact, without suspicious lesions. Sinuses: Visualized sinuses and mastoids are clear. IMPRESSION: No significant acute abnormality can be seen. The ventricles remain symmetrically prominent, with the prominence out of proportion to the degree of sulcal atrophy. Please consider normal pressure hydrocephalus. Dictated by: Petey Vega M.D. on 08/03/2022 at 9:10 Approved by: Petey Vega M.D. on 08/03/2022 at 9:12
[2022-08-03] MEDS: NYSTATIN CREAM 30 GM 1 APPLIC TOP ×3 (09:48→22:34)
[2022-08-03] MEDS: TAMSULOSIN 0.4 MG CAPSULE PO (09:48)
[2022-08-03] MEDS: lisinopriL 20 MG TABLET PO (09:48)
[2022-08-03] MEDS: ATORVASTATIN 20 MG TABLET 40 MG PO (09:48)
[2022-08-03] MEDS: METOPROLOL ER 25 MG TABLET PO (09:48)
[2022-08-03] MEDS: SODIUM CHLORIDE 0.9% FLUSH 10 ML IV ×2 (09:49→22:36)
--- NOTE | 2022-08-03 10:23 | DI.MRI.S_ITS ---
PROCEDURE: MR HEAD/BRAIN WO CON INDICATIONS: acute confusion,possible normal pressure hydrocephalus on CT TECHNIQUE: Non-contrast axial gradient, axial diffusion and ADC through the brain. Exam will stopped as patient was unable to continue exam. COMPARISON: [facility], MR, MR HEAD/BRAIN WO CON, 11/03/2021, 9:12. FINDINGS: Image quality: Excellent. Markedly limited exam secondary to limited sequences. There is no restricted diffusion signal. Moderate atrophy is present. Maxillary sinus disease is noted. Ventricles appear mildly prominent in relation to gyral and sulcal atrophy, unchanged. IMPRESSION: Markedly limited exam as noted above. No restricted diffusion to indicate acute ischemia. Mild prominence of the ventricular system in relation to gyral and sulcal atrophy, unchanged. This could represent normal pressure hydrocephalus and clinical correlation is recommended. Dictated by: Adia De Leon M.D. on 08/03/2022 at 15:45 Approved by: Adia De Leon M.D. on 08/03/2022 at 15:48
--- NOTE | 2022-08-03 10:44 | OT.IPNOTE ---
Hold per hospitalist as going to have a MRI today.
--- NOTE | 2022-08-03 12:02 | PT-IP ANOTE ---
Per Hospitalist, hold PT today due to pt having MRI.
--- NOTE | 2022-08-03 12:23 | CM.DPC ---
DCP Cont: DCP spoke with RN and Hospitalist this morning and pt is being sent for TIA workup due to pt presenting with stroke like symptoms this morning. Pt originally scheduled to transfer to [facility] for SNF rehab. Kristi @ [facility] contacted and updated with this information and they are holding a bed in case patient is able to discharge tomorrow. Kristi also expressed concern for his home medication list. DCP spoke with hospitalist and was able to accommodate requests. burak Stephensonor, contacted and updated with information. Sachin thankful. Sachin states that he is going to try and make it up to the hospital today to see pt. Sachin is an active participant in pt care and wants to be called with any other updates. CARMENZA paperwork is with Sachin and has been filling out paperwork with the patient. P: Anticipate discharge tomorrow to [facility] once TIA workup complete and medically stable to discharge. DCP to continue working on this case. Cesilia Cardenas RN/BRANDENP
[2022-08-03] MEDS: LORazepam 2 MG/ML INJ 0.5 MG IV (14:41)
--- NOTE | 2022-08-03 17:35 | PC.NURSE ---
Mental status changes: Pt extremely disoriented this am, Sentences often made no sense. word salad at times. Other times Was able to say short sentences. SIt's my brain, its going crazy. This promotion writer has not seen pt this disoriented before. Jaqueline WATERS has worked with pt before, she went to assess if pt was having more problems. She also reported pt was more disoriented then he has been. He is unable to stand or feed himself. He also had another liquid black stool. Dr. Ruth made aware. See New orders. Pt frequently calling out for help and while yesterday he could use his call light some times, he could not use it at all today. Could not understand how to use controls even though shown. Later in the morning there were times pt couldn't talk at all. Medications were difficult to give. Pt didn't choke but he couldn't remember how to swallow. Had to be verbally cues for meds and each sip of water, thought he had swallowed them but the were still in his mouth, he was completely unaware of that. Pt went for his CT scan, see results. Pt has also been voiding large amounts even though he has taken little fluid in. Dr. Ruth made aware of that to. Pt then was given ativan for his MRI, at dose 0.5 he was very sleepy and did fall asleep, sats 94% or greater on RA. However when he went for the MRI he was unable to tolerate same and only 5 mins of slides were able to be obtained. Pt reported he couldn't take the noise of the machine. When he returned, after being changed he was back to sleep and did sleep for about 1 1/2 hours. When he awoke his mood had changed and he is more aware of his surrounding but he was also more quickly annoyed, expressing displeasure over aspects of his life and what was going on. He thought he was home, and this promotion writer should be taking up his cause against those who are against him. He is suspicious. Reality orientation given but made no difference for now. When report given to oncoming nurse she was made aware pt mood was different now. Dr Ruth made several visits to see pt.
[2022-08-03 20:00] VITALS: BP 130/66; PULSE 66; RESP 17; TEMP 36.6; O2SAT 94
[2022-08-04] VITALS (9 sets, daily range): BP systolic 98–150; BP diastolic 52–90; PULSE 59–82; RESP 16–19; TEMP 36.3–36.9; O2SAT 95–97
[2022-08-04] MEDS: ACETAMINOPHEN 325 MG TABLET 975 MG PO ×4 (01:16→22:56)
--- NOTE | 2022-08-04 08:27 | CM.DPC ---
Addendum entered by Jaqueline Ruby R.N. 08/04/22 15:21: Called patient's nanny caregiver, Sachin, and updated him that [facility] will accept patient tomorrow,unknown time of order picker as of yet. Asked him about custodial care planning. He has been in touch with [facility] and they have assisted in the search. He asked about the time process of patient going to rehab, and let him know that under Medicare, is approximately 20 days. He will work with patient in the skilled setting to fill out paperwork for adult family home/custodial care. Let Sachin know that this DC Hand Turner will update him tomorrow as far as the time of order picker. Original Note: DCP Cont: Spoke to Keisha in admissions at [facility]. Confirmed that they can accept patient tomorrow, Monday. They are unable to accept today due to them having three admissions. Faxed over patient's MRI results from yesterday. Notes indicate that Sachin, patient's temporary POA and paster, has been looking at custodial care facilities for patient. P: DCP to continue to follow. Plan is for [facility] tomorrow. All other long term facilities have refused to accept patient, due to concerns of duster tender care needs. Jaqueline Ruby RN/Laundry Worker
[2022-08-04] MEDS: METOPROLOL ER 25 MG TABLET PO (09:04)
[2022-08-04] MEDS: NYSTATIN CREAM 30 GM 1 APPLIC TOP ×3 (09:13→20:41)
[2022-08-04] MEDS: lisinopriL 20 MG TABLET PO (09:14)
[2022-08-04] MEDS: SODIUM CHLORIDE 0.9% FLUSH 10 ML IV ×2 (09:15→20:41)
[2022-08-04] MEDS: ATORVASTATIN 20 MG TABLET 40 MG PO (09:15)
[2022-08-04] MEDS: TAMSULOSIN 0.4 MG CAPSULE PO (09:16)
--- NOTE | 2022-08-04 11:25 | PT.IPTN ---
Current Diagnoses Sepsis, unspecified organism (07/25/22) Physical Therapy Treatment Note M2 PT-IP Current Condition Start: 07/27/22 12:50 Freq: NEEDED Status: Active Protocol: Document 07/27/22 11:30 AB (Rec: 07/27/22 13:17 AB [id number]) Physical Therapy Current Condition Current Condition Evaluation Date 07/27/22 Treatment Diagnosis sepsis; difficulty in walking Onset Date 07/25/22 M3 PT-IP Subjective Start: 07/27/22 12:50 Freq: NEEDED Status: Active Protocol: Document 08/04/22 11:02 KS (Rec: 08/04/22 12:14 KS [id number]) Subjective Physical Therapy Visit Type Type Treatment Note Visit Start Time 11:02 Visit Stop Time 11:25 Total Visit Minutes 23 Notes partial co-treat w/ OT Number of SCHOOL BUS DRIVER/TEACHER ASSISTANT Visits 2 Physical Therapy Visit Comments Patient Comments agreeable to do PT M4 PT-IP Mobility and Gait Start: 07/27/22 12:50 Freq: NEEDED Status: Active Protocol: Document 08/04/22 11:02 KS (Rec: 08/04/22 12:14 KS [id number]) PT-Bed Mobility Assessment Sit to Supine Sit to Supine Maximum Assistance,1 Person Assistance,Head of Bed Elevated,Bedrails Scooting Scooting to Edge of Bed Moderate Assistance PT-Transfer Assessment Sit to and From Stand Sit to and from Stand Moderate Assistance,2 Person Assistance,Use of Upper Extremities Equipment Transfer Assistive Device Gait Belt,Front Wheeled Walker Orthotic/Prosthetic Devices or Brace: No Transfers Transfer Destination Chair,Bedside Commode Transfer Technique pt ambulated with FWW Transfer Ability Level of Assist Moderate Assistance,2 Person Assistance,Use of Upper Extremities Comments Mobility Comments Pt in bed upon arrival and agreeable to mobilize. Required Max A x1 and cues for sup<>Sit and Mod A for scooting EOB. Mod A x2 w/ cues for hand placement for sit<> stand w/ FWW. Pt then performed stand step pivot transfer from bed to BSC w/ FWW Mod A x2 max cues for LE sequencing and FWW mgmt. Pt then ambulated ~5 ft to chair w/ FWW again mod A x2 and cues for LE advancement and FWW mgmt. Pt able to perform ankle pumps, LAQs, and seated marching but gets distracted easily requiring frequent reidrection and cues for proper technique. Pt left w/ OT. Gait Assessment Gait Gait Assistance Required: Moderate Assistance,2 Person Assist Distance (Feet) 5 Assistive Devices Assistive Device Gait Belt,Front Wheeled Walker Orthotic/Prosthetic Devices or Brace: No Gait Deviations General Gait Pattern Antalgic,Decreased Stride Length,Decreased Feet Clearance,Flexed Trunk,Lateral Trunk Lean Factors Limiting Gait Function Factors Limiting Gait Function Decreased Activity Tolerance, Decreased Sensation,Decreased Strength,Difficulty Following Directions,Pain,Poor Balance, Poor Safety Awareness Comments Gait Comments Pt requires max cues for LE advancement, sequencing, and FWW mgmt. PT-Balance Assessment Sitting Balance and Reactions Static Sitting Balance Ability Fair Dynamic Sitting Balance Ability Fair Standing Balance and Reactions Static Standing Balance Ability Poor Dynamic Standing Balance Ability Poor Device Used FWW M5 PT-IP Objective Assessments Start: 07/27/22 12:50 Freq: NEEDED Status: Active Protocol: Document 07/27/22 11:30 AB (Rec: 07/27/22 13:17 AB [id number]) Orientation Orientation/Cognition Level of Alertness Confusional State Orientation Name Safety Awareness Decreased Safety Awareness Memory Description Short Term Impaired,Foil Cutter Impaired Gross Range of Motion Lower Extremity ROM Assessment Within Functional Limits Strength Comments Strength Comments RLE: 4-/5 LLE: 3+/5 Coordination Assessment Gross Coordination Gross Coordination WNL Muscle Tone Muscle Tone WNL Yes M6 PT-IP Treatment Start: 07/27/22 12:50 Freq: NEEDED Status: Active Protocol: Document 08/04/22 11:02 KS (Rec: 08/04/22 12:14 KS [id number]) Physical Therapy Treatment Exercises Exercises Ankle Pumps Education Education Provided Safety Other Treatments Other Treatment Performed LAQs, seated marching M7 PT-IP Assessment and Plan Start: 07/27/22 12:50 Freq: NEEDED Status: Active Protocol: Document 08/04/22 11:02 KS (Rec: 08/04/22 12:14 KS [id number]) PT Summary Assessment and Plan Potential Rehabilitation Potential Fair Summary Impairments Pain,ROM,Strength,Balance, Coordination,Sensation,Tone, Cognition,Bed Mobility, Transfers,Gait,Activity Tolerance Progress Towards Goals Slow Progress due to Medical Issues,Slow Progress due to Activity Tolerance Assessment Summary Pt improving slowly overall, but ultimately still requiring 2 PA for most mobility. He is limited by weakness and requires increased time and cues for all tasks. Requires cues for LE advancement and FWW mgmt during transfers and short distance ambulation. At this time, pt is unsafe to go home and will require SNF to improve strength and functional mobility independence. Goals Bed Mobility Goal Minimal Assistance Transfer Goal Minimal Assistance,Front Wheeled Walker Gait Goal Minimal Assistance,Front Wheel Walker Gait Distance 25 Other Goals improve bed mobility, transfers using FWW to SBA improve ambulation using FWW ~ 125 ft SBA Days to Meet Goals 10 Frequency of Treatment Frequency Of Treatment Once a Day Treatment Plan Physical Therapy Treatment Plan Bed Mobility Training,Transfer Training,Gait Training, Therapeutic Exercise,Balance Retraining,Discharge Planning, Hot or Cold Pack,Neuromuscular Re-ed,Coordination Retraining ,Manual Therapy Precautions Other Precautions falls Recommendations To Nursing Amount of Assist Needed 2 Person Assist Discharge Recommendations PT Discharge Recommendations SNF Rehab Transportation Needs at Discharge Wheelchair/Cabulance
--- NOTE | 2022-08-04 11:32 | OT.IP.TRT ---
Current Diagnoses Sepsis, unspecified organism (07/25/22) Occupational Therapy Treatment Note M2 OT-IP Current Condition Start: 07/28/22 11:29 Freq: Status: Active Protocol: Document 07/28/22 10:49 [facility] (Rec: 07/28/22 12:05 [facility] [id number]) Occupational Therapy Current Condition Current Condition Evaluation Date 07/28/22 Treatment Diagnosis Sepsis, UTI Diagnosis Onset Date 07/25/22 M3 OT- IP Subjective and Pain Start: 07/28/22 11:29 Freq: Status: Active Protocol: Document 08/04/22 11:32 [facility] (Rec: 08/04/22 12:13 [facility] [id number]) OT- Subjective Occupational Therapy Visit Type Type Treatment Note Visit Start Time 11:02 Visit Stop Time 11:32 Total Visit Minutes 30 Occupational Therapy Visit Comments Patient Comments Pt needing initial encouragement and agreeing to get up. Patient/Caregiver Goals To get better. OT Pain Assessment Pain When Pain Assessed At Rest Pain Present Pain Present Denied Pain M4 OT- IP ADL's Start: 07/28/22 11:29 Freq: Status: Active Protocol: Document 08/04/22 11:32 [facility] (Rec: 08/04/22 12:13 [facility] [id number]) OT [id number] Comments OT Self-Feeding Comments not meal time OT ADL-Grooming General Evaluation Grooming Ability Standby Assistance Areas Needing Assistance Retrieving/Set-up of Grooming Items Comments OT Grooming Comments while seated OT ADL-Oral Care General Eval Oral Care Ability Standby Assistance Areas of Assistance Retrieving/Set-Up of Items Comments Oral Care Comments while seated OT ADL-Toileting General Evaluation Toileting Ability Maximum Assistance Areas Needing Assistance Manage Clothing,Perform Perineal Hygiene Comments OT Toileting Comments Assist for brief and hygiene needs. OT ADL-Bathing Comments OT Bathing Comments not performed M5 OT- IP IADL's Start: 07/28/22 11:29 Freq: Status: Active Protocol: Document 07/28/22 10:49 [facility] (Rec: 07/28/22 12:05 [facility] [id number]) OT-Instrumental Activities of Daily Living Deficits IADL Deficits Identified Deficits Home Safety Awareness Awareness of Need for Assistance at Home Decreased Awareness Ability to Problem Solve Emergency Unable to Problem Solve Situations Home Safety Comments Pt is not thinking well or able to follow commands well at this time. Medication Management Medication Management Comments Pt will require assist. Money Management Money Management Comments Pt will require assist. Meal Preparation Meal Preparation Comments Pt will require assist. Rooming House Inspector Rooming House Inspector Comments Pt will require assist. M6 OT- IP Functional Cognition Start: 07/28/22 11:29 Freq: Status: Active Protocol: Document 08/04/22 11:32 [facility] (Rec: 08/04/22 12:13 [facility] [id number]) Cognitive Factors Limiting Selfcare Function Cognitive Ability Level of Alertness Alert Patient Orientation Name,Year,Place,Situation Attention Span Ability Capable of Focused Attention, Capable of Sustained Attention Ability to Follow Commands Able to Follow One Step Commands with Increased Time, Able to Follow One Step Commands with Repetition Safety Awareness Underestimates Need for Assistance Cognitive Comments Cognitive Assessment Comments Pt able to process information quicker today and follow commands. Pt easily gets distracted and therefore needing to focus on doing just one thing at a time. M7 OT- IP Mobility and Balance Start: 07/28/22 11:29 Freq: Status: Active Protocol: Document 08/04/22 11:32 [facility] (Rec: 08/04/22 12:13 [facility] [id number]) OT- Bed Mobility Assessment Supine to Sit Supine to Sit Assist Maximum Assistance,1 Person Assistance Scooting Scooting to Edge of Bed Moderate Assistance OT-Transfer Assessment Sit to and From Stand Sit to and from Stand Moderate Assistance,2 Person Assistance Transfers Transfer Ability Moderate Assistance,2 Person Assistance Technique Transfer Destination Bed,Chair Transfer Technique Stand Step Pivot Devices Transfer Assistive Devices Gait Belt,Front Wheeled Walker Comments Mobility Comments MAXA X 1 , pt needing to pull on therapist to help to get up and assist to get his trunk upright and feet to the edge of the bed. MODA X 2 to stand and initially CHARLIE x2 to take a few steps and then needing MODA X 2 as having difficulty to turn his feet and draft roller picker his left foot. OT- Balance Assessment Sitting Balance and Reactions Static Sitting Balance Ability Good Standing Balance and Reactions Static Standing Balance Ability Poor Dynamic Standing Balance Ability Poor Comments Other Balance Tests/Deviations/Treatment Pt tends to lean into : posterior tilt while standing and decreased awareness of midline at this time. M9 OT- IP Assessment and Plan Start: 07/28/22 11:29 Freq: Status: Active Protocol: Document 08/04/22 11:32 [facility] (Rec: 08/04/22 12:13 [facility] [id number]) OT Summary Assessment and Plan Potential Rehabilitation Potential Fair Analytic Complexity at Evaluation Moderate Summary OT Impairments Range of Motion,Strength, Balance,Coordination, Functional Cognition, Functional Mobility,Self- Feeding,Grooming,Dressing, Toileting,Bathing,Toilet Transfers,Shower Transfers, Activity Tolerance Progress Towards Goals Slow Progress due to Medical Issues,Slow Progress due to Activity Tolerance,Slow Progress due to Cognition Assessment Summary Pt able to move better today and following commands better. Pt able to joke around with therapist today. Pt closer to one person assist however due to his posterior lean still two person assist is recommended at this time for transfers. Pt will greatly benefit from initial SNF to maximize his level of independence and then will probably need usp care. Goals Self-Feeding Goal Standby Assistance Grooming Goal Standby Assistance Dressing Goal Minimal Assistance Toileting Goal Minimal Assistance Bathing Goal Minimal Assistance Toilet Transfer Goal Minimal Assistance Shower Transfer Goal Minimal Assistance Days to Meet Goals 38 Frequency of Treatment Frequency Of Treatment Once a Day Treatment Plan OT Treatment Plan ADL Training,Functional Cognition Training,Functional Mobility,Patient/Family Education,Discharge Planning Other Treatment Recommendations and Next LB dressing needs while seated Treatment Focus . Discharge Recommendations OT Discharge Recommendations SNF Rehab,LTAC Transportation Needs at Discharge Wheelchair/Cabulance
--- NOTE | 2022-08-04 12:08 | PM.PN.1 ---
Subjective Subjective Date Patient Seen: 08/04/22 Time Patient Seen: 12:09 Interval history: Patient much clearer mentally today and oriented x4. Has no complaints. Wondering if anyone has spoken with his research quality assurance analyst yet. Exam Vital Signs (past 8 hours): - 08/04/22 06:00 08/04/22 09:04 08/04/22 09:14 Temperature 97.5 F L Pulse Rate 63 71 71 Respiratory Rate 16 Blood Pressure 133/77 150/83 H 150/83 H Pulse Oximetry 95 Oxygen Flow Rate 08/04/22 09:39 08/04/22 10:05 Temperature Pulse Rate 69 69 Respiratory Rate 16 Blood Pressure 150/83 H 150/83 H Pulse Oximetry 96 Oxygen Flow Rate 0 Oxygen Delivery Method Room Air Oxygen Flow Rate 0 Narrative Exam Narrative: GEN:? Pleasant elderly male, Disoriented and confused HEENT:NC, Face symmetric CHEST: Respiratory excursions symmetric, CTAB CV: RRR, III/ systolic murmur heard best at the LSB, no R/G ABD: Soft, NT/ND, BT present in all 4 quadrants, no organomegaly or masses EXTR: warm, well perfused, no C/C/E SKIN: warm and dry, no rash NEURO: strength 4/5 in upper extremities, no appreciable facial droop Objective Labs Result Diagrams: 08/03/22 08:41 08/03/22 08:41 [facility] Medical History (Updated 07/31/22 @ 00:00 by ) BPH (benign prostatic hyperplasia) Dementia H/O: CVA (cerebrovascular accident) Heart murmur High blood pressure Peripheral edema Surgical History History of cholecystectomy Family History Mother Dementia Social History household members: none Smoking Status: Never smoker alcohol intake: never substance use type: does not use Assessment & Plan Assessment & Plan narrative: 1. Sepsis, secondary to Klebsiella oxytocia urinary tract infection, resolved Patient was admitted with sepsis as evidenced by acute metabolic encephalopathy, thrombocytopenia, lactic acidosis, rhabdomyolysis. Patient was initially placed on meropenem and vancomycin.? Subsequently antibiotics were narrowed to Rocephin and he finished his course.? His encephalopathy has improved.? Rhabdomyolysis has resolved.? Lactic acidosis has resolved.? 2. Mild anemia, acute, present on admission Hemoglobin up to 12.2 on July 28. 3.?Hypertension On metoprolol and nifedipine at baseline.? Initially antihypertensive therapy was held, but he is back on his usual home dosage. 4. Dementia with acute metabolic encephalopathy, acute on chronic, present on admission holding Seroquel, risperidone, Namenda due to AMS on 08/03 5. Systolic Murmur Last echocardiogram performed October of 2021 revealed ejection fraction of 60-65%.? There was [id number] aortic stenosis, mild aortic regurgitation.? Trace mitral regurgitation.? Suspect his murmur is secondary to his aortic stenosis. Ordering repeat limited echo to assess if worsening given patient notes intermittent lightheadedness. ? 6. BPH, acute on chronic, Present on admission.? Continue on Flomax.? Torres catheter now removed. 7. Elevated BMI BMI is 29.3.? He does not yet meet criteria for class 1 obesity.? He does have evidence of chronic moderate malnutrition secondary to food insecurity and cognitive impairment as the patient is homeless and staying in a hotel.? He has no way to purchase food or drive.? He is felt to be at risk for increased morbidity/mortality as a result of his malnutrition. 8. Hypokalemia Resolved after repletion 9. Back pain He attributes it to the bed.? Continue scheduled Tylenol. I encouraged him to get out of bed to chair today as well. 10. Acute encephalopathy, not present on admission -woke up with garbled speech and difficulty getting words out on 08/03, no extremity weakness or noticeable facial droop -holding all psych and pain meds, had not gotten any the morning of -stat head CT showed possible NPH, MRI brain with mild ventriculomegaly -curbside of neurology said unlikely NPH with sudden acute onset in encephalopathy, but to f/u outpatient with neurosurgery if continues to be a problem -will hold his psych meds on discharge as may have been polypharmacy and contributing to his AMS Code status Full Prophylaxis SCDs due to melena Disposition Discharge to [facility] on 08/05. Surrogate decision maker:? Alejandra Chandler Time Spent With Patient Critical Care time: I spent a total of [] minutes of critical care time on this patient's care today; this time is exclusive of procedural time. Quality VTE Deep Vein Thrombosis/Pulmonary Embolism Present on Admission: No
[2022-08-04] MEDS: ONDANSETRON 4 MG/2 ML INJ IV (14:45)
--- NOTE | 2022-08-04 18:52 | PC.NURSE ---
pt is been agitated,very confused, keep calling every 10mins, pt would not listen how to used the call button pt prefer to yell so he can get attention right away, per pt said. Bed alarm was going off pt was all dis organized naked and stood up by the edge of the bed, asked the pt where he going pt said he is going to the other hospital. pt stated he is bored he needed a company. pt did a appropriate comments pt said he would like to take the nurse home with him, he never met a girl that has that body built. Every time I change the pt, pt grab my hip or my breast and I told the pt hold the side rails not on my hip pt apologized yet keep doing it. nurse notified
[2022-08-04] MEDS: SENNOSIDES 8.6 MG TABLET 17.2 MG PO (20:41)
--- NOTE | 2022-08-05 03:41 | PC.NURSE ---
assumed care of patient at 0130 from EVELIN Zarco. patient is sleeping, appears to be resting well. opens eyes to verbal stimuli, then falls back asleep easily. no increased behaviors this shift, patient has been appropriate + cooperative. restless at times, but 1:1 sitter at bedside is able to redirect patient. anticipate d/c to SNF today.
[2022-08-05 06:05] VITALS: BP 139/81; PULSE 65; RESP 18; TEMP 37; O2SAT 94
[2022-08-05] MEDS: ACETAMINOPHEN 325 MG TABLET 975 MG PO (06:28)
--- NOTE | 2022-08-05 08:00 | CM.DPC ---
Addendum entered by Jaqueline Ruby R.N. 08/05/22 08:50: Confirmed picker packer time for patient at 11:00. Updated patient's solar electric/photovoltaic installer, Sachin. Gave him the name and address of [facility], and their phone number. Asked him about progress of boat canvas maker installer care facilities. He mentioned that [facility] is about $5000.00 a month, too expensive, but may be able to go to [facility], has been in contact with their marketing secretary, Rip. He is going to be meeting with patient when he gets to [facility] to go over VA and additional finances. Faxed [facility] the med sheets, prescriptions, PASSR, vaccination information, pending DC Summary. Spoke to Keisha at [facility] and confirmed picker packer time. Updated nursing, and white board at main nursing station. Original Note: DCP Cont: Called [facility] and left a message asking when patient could be picked up today, and if he needs an updated COVID. P: DCP to work with [facility] on discharge. Jaqueline Ruby, RN/Repair Weaver
[2022-08-05 08:42] VITALS: BP 125/59; PULSE 66
[2022-08-05] MEDS: ATORVASTATIN 20 MG TABLET 40 MG PO (08:42)
[2022-08-05] MEDS: TAMSULOSIN 0.4 MG CAPSULE PO (08:42)
[2022-08-05] MEDS: SODIUM CHLORIDE 0.9% FLUSH 10 ML IV (08:43)
[2022-08-05 09:26] LABS: COVID19 -Nasal RAPID Negative (Negative)
--- NOTE | 2022-08-05 10:19 | P.DS_ITS ---
History of Present Illness History of Present Illness Date Patient Seen: 08/05/22 Time Patient Seen: 10:10 Chief complaint: FALLS UTI Narrative: Herbert Bautista is a 68 male with a history of prior Right Internal Capsule CVA, Untreated Hypertension, Heart murmur, untreated BPH was previously on flomax, hyperglycemia and dementia who lives at home alone was brought into the ED for evaluation by his valve inserter for multiple falls and generalized weakness as well as some confusion.? The patient has bruising to the left upper eye orbital. He was reported to have been seen and evaluated at an outside facility within the past day or 2 with an unremarkable work up.?The patient reports that he had a urinary tract infection and apparently has been on an antibiotic.? He denies headache, blurred vision, chest pain, shortness of breath,? nausea, vomiting, constipation or diarrhea.? The patient does endorse that he has mild abdominal discomfort with palpation diffuse and generalized, and burning with urination. He states that his falls have occurred because he is very weak and the [place] where he lives is also a bit slippery.? He did strike his head but denies any loss of consciousness, the patient has bruising to the left upper eye orbital.? Patient is confused, orientated to person and place, extremely poor historian, incongruent thought process and context.? The patient reports that he is living in a motel that is arranged through his anabaptist, his valve inserter that brought him into the ED reported some confusion apparently greater than baseline for the patient.? Patient is unable to accurately participate in HPI ROS, family history, surgical history, or medication reconciliation. Patient is resting comfortably in bed upon admit in no distress at this time, patient has spiked a fever 102.5, continues to be hypertensive 191/95, tachycardic HR 109, and tachypneic RR 38, O2 saturation 91% on room air.? Patient met SIRS criteria in ED, WBC 20.3, with a left shift neutrophils 18,600, mono 1300.? Patient is demonstrating some mild anemia likely secondary to to sepsis reviewed prior labs 11/03/2021 H&H 13.9/44.8, platelets 163, sodium 139.? Today H&H 13.2/39.8, platelets 140, sodium 135, mildly decreased potassium 3.2, glucose 157, lactate 4.1, total bili 1.7, TCK 699, initial troponin 0.078, procalcitonin 2.01. SOFA:4 Patient's urine reddish-brown, positive for protein, ketones, blood, nitrates, RBC, WBC, bacteria-culture pending.? Head CT:? N egative for any acute intracranial process,?greater than expected ventricular caliber, raising possibility of adult hydrocephalus (normal pressure hydrocephalus).CXR: ?Cardiomegaly and interstitial prominence.? Patient received sepsis rehydration protocol in ED.? Patient admitted for encephalopathy secondary to sepsis from urinary tract infection, anemia. [facility] ED department visit notes 07/23/2022-I personally reviewed:? Patient seen for ground level fall/ Generalized weakness:? Patient had WBC 14.2, neutrophils 12.3, potassium 3.3, glucose 110, total bili 1.7, TCK 1929, urine was negative for nitrates positive for protein, ketones, and blood negative for bacteria and no culture was completed, I&O documented 1135cc total intake with a total output of 30cc. This is concerning that the patient was either not producing urine, or retaining urine.? Dr. Ramirez documented that the patient was feeling better, ambulating in the room with a walker without difficulty, eating and drinking without difficulty and did not meet the criteria for admit and was discharged home on 07/24/2022 at 9:18 a.[address].? Head CT:demonstrated no intracranial hemorrhage or intracranial abnormalities, noted moderate fluid within the left mastoid air cells.? Prominence of lateral ventricles which is similar to appearance of CT from 2017 considered possible normal pressure hydrocephalus.? C-spine: negative for acute fracture multi levels of route relatively prominent underlying degenerative changes, comparable to prior exam.? Chest x-ray demonstrated no acute cardiopulmonary processes.? EKG sinus rhythm with a rate of 89, right BBB and LAFB. Discharge Providers Provider Date of admission: 07/25/22 22:32 Discharge Date: 08/05/22 Consults: 07/25/22 17:41 Consult to ACID EXTRACTOR - Resolution Manager Stat Comment: lives alone; dementia; frequent falls ACID EXTRACTOR Consult needed for:: Community Health Res Need 07/25/22 18:56 Consult to ACID EXTRACTOR - Resolution Manager Stat Comment: 07/25/22 20:55 Consult to Physical Therapy Evaluate & Treat Comment: falls weakness Physician Instructions: Evaluate and Treat 07/25/22 20:56 Consult to Dietitian, Adult Routine Comment: Reason For Exam: overweight BMI 27.6 Consult to Occupational Therapy Evaluate & Treat Comment: falls weakness Physician Instructions: Evaluate and treat 07/25/22 21:05 Consult to Tele-mining support worker Routine Comment: Consulting Provider: Diane Tele-intensivists Reason for consultation: Parts Room Assistant services Has provider been notified: No 07/25/22 23:13 Consult to [facility] - Resolution Manager Routine Comment: 08/03/22 07:34 Consult to Inpatient Wound Care Nurse Routine Comment: Reason for consultation: Groin redness not improving, also complains cream is making him sticky Discharge provider: Pako Ruth DO Summary Hospital Course Discharge Diagnosis: 1. Sepsis, secondary to Klebsiella oxytocia urinary tract infection, resolved Patient was admitted with sepsis as evidenced by acute metabolic encephalopathy, thrombocytopenia, lactic acidosis, rhabdomyolysis. Patient was initially placed on meropenem and vancomycin.? Subsequently antibiotics were narrowed to Rocephin and he finished his course.? His encephalopathy has improved.? Rhabdomyolysis has resolved.? Lactic acidosis has resolved.? 2. Mild anemia, acute, present on admission Hemoglobin up to 12.2 on July 28. 3.?Hypertension On metoprolol and nifedipine at baseline.? Initially antihypertensive therapy was held, but he is back on his usual home dosage. 4. Dementia with acute metabolic encephalopathy, acute on chronic, present on admission -holding Seroquel, risperidone, Namenda due to AMS on 08/03 -discharged without these meds as PCP can decide whether to resume at later time 5. Systolic Murmur Last echocardiogram performed October of 2021 revealed ejection fraction of 60- 65%.? There was [id number] aortic stenosis, mild aortic regurgitation.? Trace mitral regurgitation.? Suspect his murmur is secondary to his aortic stenosis. Ordering repeat limited echo to assess if worsening given patient notes intermittent lightheadedness. ? 6. BPH, acute on chronic, Present on admission.? Continue on Flomax.? Torres catheter now removed. 7. Elevated BMI BMI is 29.3.? He does not yet meet criteria for class 1 obesity.? He does have evidence of chronic moderate malnutrition secondary to food insecurity and cognitive impairment as the patient is homeless and staying in a hotel.? He has no way to purchase food or drive.? He is felt to be at risk for increased morbidity/mortality as a result of his malnutrition. 8. Hypokalemia Resolved after repletion 9. Back pain He attributes it to the bed.? Continue scheduled Tylenol.? I encouraged him to get out of bed to chair today as well. 10. Acute encephalopathy, not present on admission -woke up with garbled speech and difficulty getting words out on 08/03, no extremity weakness or noticeable facial droop -holding all psych and pain meds, had not gotten any the morning of -stat head CT showed possible NPH, MRI brain with mild ventriculomegaly -curbside of neurology said unlikely NPH with sudden acute onset in encephalopathy, but to f/u outpatient with neurosurgery if continues to be a problem -will hold his psych meds and d/c on discharge Hospital Course: Admitted for sepsis secondary to UTI which subsequently improved with IV antibiotics. Patient had bouts of acute encephalopathy so head CT and MRI brain were completed. The showed possible NPH however to correlate clinically. Spoke with neurologist who felt that his presentation was unlikely to be NPH causes. Patient's mentation would clear quickly through the day so this was most likely felt to be due to delirium. His home psych meds were held as they may have been contributing to this. Patient was stable without them and his mental status remained oriented and alert for 2 days prior to discharge to SNF. Time Spent with Patient Time spent: Greater than 30 minutes Exam Vital Signs (past 8 hours): - 08/04/22 06:00 08/04/22 09:04 08/04/22 09:14 Temperature 97.5 F L Pulse Rate 63 71 71 Respiratory Rate 16 Blood Pressure 133/77 150/83 H 150/83 H Pulse Oximetry 95 Oxygen Delivery Method Room Air Oxygen Flow Rate 0 Narrative Exam Narrative: GEN:? Pleasant elderly male, Oriented x3 HEENT:NC, Face symmetric CHEST: Respiratory excursions symmetric, CTAB CV: RRR, III/ systolic murmur heard best at the LSB, no R/G ABD: Soft, NT/ND, BT present in all 4 quadrants, no organomegaly or masses EXTR: warm, well perfused, no C/C/E SKIN: warm and dry, no rash NEURO: no focal deficits Objective Labs Result Diagrams: 08/03/22 08:41 08/03/22 08:41 [facility] Medical History (Updated 07/31/22 @ 00:00 by ) BPH (benign prostatic hyperplasia) Dementia H/O: CVA (cerebrovascular accident) Heart murmur High blood pressure Peripheral edema Surgical History History of cholecystectomy Family History Mother Dementia Social History household members: none Smoking Status: Never smoker alcohol intake: never substance use type: does not use Discharge Plan Discharge Plan Patient Disposition: SNF Transfer to: [facility] Discharge orders & Medications Prescriptions: New lisinopril 20 mg Tablet 20 mg PO DAILY Qty: 30 0RF tamsulosin [Flomax] 0.4 mg Capsule 0.4 mg PO DAILY Qty: 30 0RF Continued diclofenac sodium [Voltaren Arthritis Pain] 1 % gel 2 g topical QID Qty: 100 0RF Rx Instructions: apply to single elbow, wrist or hand; for hand includes palm/fingers/back of hand hydrocodone-acetaminophen 5-325 mg tablet 1 tab PO BID PRN (Reason: pain) Qty: 10 0RF nifedipine 30 mg Tablet Extended Release 24hr 30 mg PO DAILY Qty: 30 2RF atorvastatin [Lipitor] 20 mg Tablet 40 mg PO DAILY Qty: 30 2RF metoprolol succinate 25 mg Tablet Extended Release 24 Hr 25 mg PO DAILY Qty: 30 2RF Fish Oil 100-160-1,000 mg capsule 1 cap PO DAILY Qty: 30 2RF Discontinued quetiapine 25 mg Tablet 12.5 mg PO BEDTIME Qty: 30 2RF risperidone 0.25 mg Tablet 0.25 mg PO BID Qty: 60 2RF aspirin 81 mg Tablet,Delayed Release (Dr/Ec) 162 mg PO DAILY Qty: 30 2RF memantine [Namenda] 5 mg Tablet 5 mg PO DAILY Qty: 30 2RF Diet/Activity/Treatments Diet: Low-fat, Low-sodium and Low-cholesterol Activity: as tolerated Skin/Wound/Dressing Care Report to your healthcare provider any signs of infection, such as:: chills, fever, night sweats, increased pain, unusual drainage and unusual redness Visit Report/Discharge Packet Instructions: Dementia, DI for High Blood Pressure, DI for Urinary Tract Infection (UTI), DI for Benign Prostatic Hyperplasia Quality VTE Deep Vein Thrombosis/Pulmonary Embolism Present on Admission: No
--- NOTE | 2022-08-05 10:24 | OT.IP.TRT ---
Current Diagnoses Sepsis, unspecified organism (07/25/22) Occupational Therapy Treatment Note M2 OT-IP Current Condition Start: 07/28/22 11:29 Freq: Status: Active Protocol: Document 07/28/22 10:49 [facility] (Rec: 07/28/22 12:05 [facility] [id number]) Occupational Therapy Current Condition Current Condition Evaluation Date 07/28/22 Treatment Diagnosis Sepsis, UTI Diagnosis Onset Date 07/25/22 M3 OT- IP Subjective and Pain Start: 07/28/22 11:29 Freq: Status: Active Protocol: Document 08/05/22 10:00 [facility] (Rec: 08/05/22 10:35 [facility] [id number]) OT- Subjective Occupational Therapy Visit Type Type Treatment Note Visit Start Time 10:00 Visit Stop Time 10:24 Total Visit Minutes 24 Occupational Therapy Visit Comments Patient Comments Pt not wanting to shower or sponge off at this time. Pt agreed to work with OT. Pt insistent that he has his FWW here and able to call his leasing manager to clarify and also to put his name on the FWW so able to take to SNF. Pt requesting to lie down prior to leaving. Patient/Caregiver Goals TO get better. OT Pain Assessment Pain When Pain Assessed At Rest Pain Present Pain Present Denied Pain M6 OT- IP Functional Cognition Start: 07/28/22 11:29 Freq: Status: Active Protocol: Document 08/05/22 10:00 [facility] (Rec: 08/05/22 10:35 [facility] [id number]) Cognitive Factors Limiting Selfcare Function Cognitive Ability Level of Alertness Alert,Confusional State Patient Orientation Name,Year,Place,Situation Attention Span Ability Capable of Focused Attention, Capable of Sustained Attention Ability to Follow Commands Able to Follow One Step Commands with Increased Time, Able to Follow One Step Commands with Repetition Memory Description Short Term Impaired,Working Impaired Cognitive Comments Cognitive Assessment Comments Attempted to do SLUMS and pt tried and then states did not sleep well and not wanting to do anymore. Pt able to accurately say the year and place and not able to recall information of math question of 100-23. Pt however is pleasant and cooperative once given concrete cues and simple instructions to follow. Pt still needing safety cues for feet and hand placement for safety prior to standing up. M7 OT- IP Mobility and Balance Start: 07/28/22 11:29 Freq: Status: Active Protocol: Document 08/05/22 10:00 [facility] (Rec: 08/05/22 10:35 [facility] [id number]) OT- Bed Mobility Assessment Sit to Supine Sit to Supine Assist Moderate Assistance OT-Transfer Assessment Sit to and From Stand Sit to and from Stand Maximum Assistance,1 Person Assistance Transfers Transfer Ability Moderate Assistance,1 Person Assistance Technique Transfer Destination Bed,Chair Transfer Technique Stand Step Pivot Devices Transfer Assistive Devices Gait Belt,Front Wheeled Walker Comments Mobility Comments MAX AX 1 to stand to FWW and MODA x1 for transfer, assist for balance and to guide the FWW. OT- Balance Assessment Sitting Balance and Reactions Static Sitting Balance Ability Good Standing Balance and Reactions Static Standing Balance Ability Poor Dynamic Standing Balance Ability Poor Comments Other Balance Tests/Deviations/Treatment Pt noted a little less leaning : into posterior tilt today. Pt able to initiate movements of his feet better and today, however having more difficulty with his right foot versus left. M9 OT- IP Assessment and Plan Start: 07/28/22 11:29 Freq: Status: Active Protocol: Document 08/05/22 10:00 [facility] (Rec: 08/05/22 10:35 [facility] [id number]) OT Summary Assessment and Plan Potential Rehabilitation Potential Fair Analytic Complexity at Evaluation Moderate Summary OT Impairments Range of Motion,Strength, Balance,Coordination, Functional Cognition, Functional Mobility,Self- Feeding,Grooming,Dressing, Toileting,Bathing,Toilet Transfers,Shower Transfers, Activity Tolerance Progress Towards Goals Slow Progress due to Activity Tolerance,Slow Progress due to Cognition Assessment Summary Pt able to do bed mobility and transfer with MOD/MAX XAx1 with FWW today. Pt still tends to lean into posterior tilt and will benefit from 2 person assist for safety at this time. Pt is cooperative when knowing what is going on and given him concrete simple vc to follow. Pt highly gets distracted therefore encourage just one command at a time. Goals Self-Feeding Goal Standby Assistance Grooming Goal Standby Assistance Dressing Goal Minimal Assistance Toileting Goal Minimal Assistance Bathing Goal Minimal Assistance Toilet Transfer Goal Minimal Assistance Shower Transfer Goal Minimal Assistance Days to Meet Goals 37 Frequency of Treatment Frequency Of Treatment Once a Day Treatment Plan OT Treatment Plan ADL Training,Functional Cognition Training,Functional Mobility,Patient/Family Education,Discharge Planning Discharge Recommendations OT Discharge Recommendations SNF Rehab,LTAC Transportation Needs at Discharge Wheelchair/Cabulance
--- NOTE | 2022-08-05 11:19 | PC.NURSE ---
Pt dressed and ready for d/c to [facility]. Pt IV removed. No tele. Pt denies having personal items held in the safe and denies having prescriptions held at the hospital pharmacy. Pt is to be transported by [facility] facility transportation. Spoke to Rakan WATERS at [facility] and provided pt report and answered questions. Pt taken out via wheel chair by FATBACK TRIMMER and [facility].
== END 2022-08-05 11:15 | DRG 871 ==
LOC: ED 20:19 → AC 22:06 → ICU 22:08 → ED 22:32 → ICU 22:32 → AC 07-27 16:10
PROVIDERS: Emergency Medicine; Family Medicine; Internal Medicine; Student in an Organized Health Care Education/Training Program; Admitting Provider Nurse Practitioner Family; Emergency Provider Emergency Medicine; Referring Provider Emergency Medicine; Visit Provider Nurse Practitioner Family
DX: A41.50 Gram-negative sepsis, unspecified (principal); G93.41 Metabolic encephalopathy; M62.82 Rhabdomyolysis; N39.0 Urinary tract infection, site not specified; Z16.11 Resistance to penicillins; Z16.19 Resistance to other specified beta lactam antibiotics; G93.40 Encephalopathy, unspecified; E87.20 Acidosis, unspecified; E44.0 Moderate protein-calorie malnutrition; B96.1 Klebsiella pneumoniae [K. pneumoniae] as the cause of diseases classified elsewhere; R65.20 Severe sepsis without septic shock; D69.6 Thrombocytopenia, unspecified; F03.90 Unspecified dementia, unspecified severity, without behavioral disturbance, psychotic disturbance, mood disturbance, and anxiety; N40.1 Benign prostatic hyperplasia with lower urinary tract symptoms; R33.8 Other retention of urine; I10 Essential (primary) hypertension; E87.6 Hypokalemia; M54.9 Dorsalgia, unspecified; I35.0 Nonrheumatic aortic (valve) stenosis; D64.9 Anemia, unspecified; Z68.28 Body mass index [BMI] 28.0-28.9, adult; Z20.822 Contact with and (suspected) exposure to COVID-19; Z59.00 Homelessness unspecified
CPT/HCPCS: 36415; 70450; 70551; 71045; 74177; 80048; 80053; 81001; 82550; 82553; 83036; 83605; 83615; 83690; 83735; 83874; 83880; 84145; 84484; 85025; 85610; 85651; 85730; 86140; 87040; 87077; 87086; 87186; 87635; 87797; 93005; 93307; 96365; 97110; 97162; 97166; 97530; 97535; 99284; C9803; J0696; J1650; J2060; J2185; J2405; Q9967

== ENCOUNTER 2023-09-01 00:49 | Observation (INO) | payer MEDICARE, OTHER, SELFPAY ==
[2022-07-27 18:47] VITALS: BMI 28.1
[2023-09-01] VITALS (22 sets, daily range): BP systolic 106–197; BP diastolic 54–85; PULSE 54–87; RESP 15–23; TEMP 36.6; O2SAT 95–100; BMI 32.5
--- NOTE | 2023-09-01 | DI.ECHO.S_ITS ---
[facility]---------+ [facility] +---------+ : : [id number] : : : : [id number] : : : : Phone: [phone]---------+ Echocardiogram Report + + :Name: NAFISA MUKHERJEE Study Date: 09/01/2023 Height: 68 in : :[facility] ReadingLocation: Weight: 214 lb : : Gender: Male BSA: 2.1 m2 : :: 1945 Age: 78 yrs BP: 129/71 mmHg: :Reason For Study: TIA : :Ordering Physician: FRANK, : :ANA Performed By: Madhuri Schulz : :Referring: ANA MARIE : + + Interpretation Summary The ejection fraction is estimated to be 60-65%. Diastolic parameters suggest probable normal left ventricular diastolic function and normal filling pressures. The right ventricle is normal in size and function. The right ventricular systolic pressure is estimated to be at least 17 mmHg based on an estimated right atrial pressure of 3 mm Hg. There is moderate aortic stenosis. There is no Doppler evidence for an interatrial shunt. Procedure: A two-dimensional transthoracic echocardiogram with color flow and Doppler was performed. The study quality was technically adequate. Comparison is made with the echocardiogram of 08/02/2022. The patient was in normal sinus rhythm during the exam. The patient had occasional PVCs during the exam. Left Ventricle: The left ventricle is normal in size. The ejection fraction is estimated to be 60-65%. Left ventricular wall motion is normal. Diastolic parameters suggest probable normal left ventricular diastolic function and normal filling pressures. Right Ventricle: The right ventricle is normal in size and function. Atria: The left atrial size is normal. Right atrial size is normal. There is no Doppler evidence for an interatrial shunt. Mitral Valve: The mitral valve leaflets are mildly calcified. There is mild mitral annular calcification. There is no mitral valve stenosis. There is trace mitral regurgitation. Aortic Valve: The aortic valve is moderately calcified. There is moderate aortic stenosis. The peak aortic velocity is 3.41 m/sec. The aortic valve mean gradient is 26 mmHg. There is mild aortic regurgitation. Tricuspid Valve: The tricuspid valve is normal. There is no tricuspid stenosis. There is trace tricuspid regurgitation. The right ventricular systolic pressure is estimated to be at least 17 mmHg based on an estimated right atrial pressure of 3 mm Hg. Pulmonic Valve: The pulmonic valve is not well visualized. There is no pulmonic valvular stenosis. There is trace pulmonic regurgitation. Great Vessels: The aortic root is normal size. The ascending aorta is normal in size. The pulmonary artery is normal size. The IVC is of normal diameter and collapses greater than 50% with a sniff. This suggests a low right atrial pressure of 3 mm Hg. Pericardium/ Pleura There is no pericardial effusion. There is no pleural effusion. MMode/2D Measurements & Calculations LVIDd: 4.2 cm LVOT diam: 2.0 cm LVIDs: 2.8 cm Ao root diam: 3.1 cm FS: 33.3 % asc Aorta Diam: 3.1 cm IVSd: 1.4 cm LVPWd: 1.2 cm LV garay. diameter/BSA (cm/m^2): 2.0 LV sys. diameter/BSA (cm/m^2): 1.3 LA A2 area: 21.0 cm2 RA long axis: 6.2 cm LA A4 area: 15.7 cm2 RA area: 12.5 cm2 LA length (vol): 5.9 cm RA vol: 21.5 ml LA vol: 47.6 ml RA : 10.2 ml/m2 LA vol index: 22.6 ml/m2 RVD1 (basal): 2.7 cm LVLs ap4: 6.2 cm LVLd ap2: 7.0 cm TAPSE_phl: 2.9 cm LVLs ap2: 5.8 cm Doppler Measurements & Calculations Ao V2 max: 332.2 cm/sec LVOT Max Benito: 109.8 cm/sec Ao V2 mean: 227.8 cm/sec LV V1 max P.8 mmHg Ao max P.0 mmHg LV V1 VTI: 25.3 cm Ao mean P.2 mmHg RAYMOND(I,D): 1.0 cm2 Ao V2 VTI: 76.2 cm RAYMOND(V,D): 1.0 cm2 sev ratio: 0.33 RAYMOND indexed to BSA (cm^2/m^2): 0.50 MV E max benito: 87.8 cm/sec TR max benito: 184.5 cm/sec MV A max benito: 97.7 cm/sec TR max P.6 mmHg MV E/A: 0.90 PA V2 max: 93.1 cm/sec Med Peak E' Benito: 5.3 cm/sec PA V2 mean: 63.2 cm/sec E/E' med: 16.4 PA mean P.0 mmHg Lat Peak E' Beinto: 6.9 cm/sec PA pr(Accel): 42.1 mmHg E/E' lat: 12.7 E/e' average: 14.6 MV dec time: 0.24 sec SV(LVOT): 79.4 ml AV VR_phl: 0.33 RAYMOND(VTI)/BSA_phl: 0.50 Reading Physician:MK
--- NOTE | 2023-09-01 00:54 | DI.CT.S_ITS ---
PROCEDURE: CT HEAD/BRAIN WO CON INDICATIONS: Aphasia that has now resolved TECHNIQUE: Noncontrast 4.5 mm thick angled axial sections acquired from the foramen magnum to the vertex, with coronal and sagittal reformats. For radiation dose reduction, the following was used: automated exposure control, adjustment of mA and/or kV according to patient size. COMPARISON: [facility], MR, MR HEAD/BRAIN WO CON, 08/03/2022, 15:07. [facility], CT, CT HEAD/BRAIN WO CON, 08/03/2022, 9:42. FINDINGS: Image quality: Excellent. CSF spaces: Basal cisterns are patent. No extra-axial fluid collections. The ventricles are symmetrically dilated but stable in size and appearance. Brain: No intracranial bleeds or masses. There is cerebral volume loss for age, with resultant ventricular and sulcal prominence. There are periventricular and deep white matter chronic small vessel ischemic changes. There is intracranial internal carotid artery atherosclerosis. Skull and face: Calvarium and visualized facial bones appear intact, without suspicious lesions. Sinuses: Visualized sinuses and mastoids are clear. IMPRESSION: 1. No acute intracranial abnormalities. 2. Cerebral volume loss and chronic microvascular ischemic changes. 3. Stable ventricular dilation. Dictated by: Jamilah Norwood M.D. on 09/01/2023 at 1:45 Approved by: Jamilah Norwood M.D. on 09/01/2023 at 1:47
--- NOTE | 2023-09-01 00:54 | DI.CT.S_ITS ---
PROCEDURE: CT ANGIO HEAD AND NECK INDICATIONS: Aphasia that has now resolved TECHNIQUE: After the administration of intravenous contrast, 1 mm thick sections acquired from the aortic arch through the [place] of [place]. 3-dimensional ijtriqy-rbvyuorgq-podioduboq (MIP) and/or volume rendering reformats were acquired of the central intracranial vasculature and neck separately. For radiation dose reduction, the following was used: automated exposure control, adjustment of mA and/or kV according to patient size. COMPARISON: [facility], CT, CT HEAD/BRAIN WO CON, 08/03/2022, 9:42. [facility], CT, CT HEAD/BRAIN WO CON, 09/01/2023, 1:12. [facility], MR, MR HEAD/BRAIN WO CON, 08/03/2022, 15:07. FINDINGS: Image quality: Diagnostic. BRAIN: CSF spaces: Ventricles are normal in size and shape. Basal cisterns are patent. No extra-axial fluid collections. Brain: No significant abnormality of the brain can be seen. Skull and face: Calvarium and facial bones appear intact, without suspicious lesions. Orbits appear normal. Sinuses: There is right maxillary sinus mucosal thickening. The mastoids are clear. HEAD CT ANGIOGRAPHY: Anterior circulation: Intracranial internal carotid arteries are normal in size and flow. There are calcified plaques at the cavernous segment of the internal carotid arteries bilaterally. The flow within the paired anterior cerebral arteries is normal and symmetric. The flow within the middle cerebral arteries is normal and symmetric. The anterior communicating artery is seen. No aneurysms are seen. Posterior circulation: Visualized portions of the vertebral arteries demonstrate normal caliber, and join to form a normal appearing basilar artery. Flow within the posterior cerebral arteries is normal and symmetric. No aneurysms are seen. NECK CT ANGIOGRAPHY: Carotid system: The great vessels demonstrate a conventional anatomy as they arise from the aortic arch. The origins of the common carotid arteries appear patent. The common carotid arteries demonstrate normal caliber and courses. Calcified plaques at the bifurcation regions bilaterally. The internal carotid arteries demonstrate normal calibers and courses. Posterior circulation: The origins of the vertebral arteries both appear widely patent. The more superior extracranial portions of both vertebral arteries also demonstrate normal courses and calibers. They join to form a normal appearing basilar artery. Soft tissues: Visualized neck soft tissues demonstrate no suspicious abnormalities. Bones: Moderate degenerative disc and facet disease. There is grade 1 anterolisthesis of C4 on C5 and C7 on T1. IMPRESSION: 1. No acute intracranial abnormalities. 2. Cerebral volume loss and chronic microvascular ischemic changes. Ventricles are symmetrically dilated, either secondary to central atrophy or normal pressure hydrocephalus. Ventricular dilation appears stable. 3. No hemodynamic significant stenosis in anterior or posterior circulations. 4. No hemodynamic significant stenosis in cervical carotid arteries or vertebral arteries bilaterally. Any quantitative measurements of stenosis were performed using NASCET criteria. Dictated by: Jamilah Norwood M.D. on 09/01/2023 at 1:48 Approved by: Jamilah Norwood M.D. on 09/01/2023 at 1:56
[2023-09-01 01:09] LABS: Add Manual Diff / Slide Review NO; Basophils Absolute Auto 0 /uL (0-100); Basophils Percent Auto 0.5 % (0-2); Eosinophils Absolute Auto 200 /uL (0-450); Eosinophils Percent Auto 2.5 % (2-4); Hemoglobin 12.8 g/dL (13.5-17.5); Lymphocytes Absolute Auto 1600 /uL (1100-4500); Lymphocytes Percent Auto 22.3 % (25-40); Mean Corpuscular HGB Conc 34.5 % (30-36); Mean Corpuscular Hemoglobin 29.3 PG (26-34); Mean Corpuscular Volume 84.9 fL (80-100); Monocytes Absolute Auto 600 /uL (0-900); Monocytes Percent Auto 8.2 % (3-14); Neutrophils Absolute Auto 4900 /uL (1500-7000); Neutrophils Percent Auto 66.5 % (50-75); Platelet Count 166 X10^3/uL (150-400); Red Blood Cell Count 4.36 X10^6/uL (4.5-5.9); Red Cell Distribution Width 13.6 % (11.6-14.8); White Blood Cell Count 7.3 X10^3/uL (4.5-11.0)
[2023-09-01 01:20] LABS: PTT Partial Thromboplastin Tim 37 SECONDS (26-36)
[2023-09-01 01:24] LABS: Alanine Aminotransferase 21 IU/L (<50); Albumin 4.3 g/dL (3.5-5.0); Albumin Globulin Ratio 1.7 (1.0-2.8); Alkaline Phosphatase 74 U/L (38-126); Aspartate Aminotransferase 23 IU/L (17-59); BUN Creatinine Ratio 23.1 (6-22); Bilirubin Total 0.3 mg/dL (0.2-1.3); Blood Urea Nitrogen 24 mg/dL (9-20); Calcium 10.6 mg/dL (8.4-10.2); Carbon Dioxide 24 mmol/L (22-32); Chloride 102 mmol/L (98-107); Creatine Kinase 77 U/L (55-170); Estimated Glomerular Filt Rate > 60 mL/min (>60); Ethanol (ETOH) < 10 mg/dL; Globulin 2.6 g/dL (1.7-4.1); Glucose 168 mg/dL (80-110); HEMOLYSIS < 15 (0-50); Lipase 89 U/L (23-300); Potassium 3.9 mmol/L (3.4-5.1); Sodium 137 mmol/L (137-145); Total Protein 6.9 g/dL (6.3-8.2)
--- NOTE | 2023-09-01 01:24 | ED_ITS ---
HPI - Neuro Symptoms/Deficit General Chief Complaint: Neuro Symptoms/Deficit Stated Complaint: possible stroke Time Seen by Provider: 09/01/23 00:54 Source: patient and family Mode of arrival: Ambulatory History of Present Illness HPI Narrative: Patient is an 78-year-old male. Not on anticoagulation. At approximately 1145 last evening the patient about a 40 minute episode where he states that he was having problems saying the words that he was thinking of. He would no other associated symptoms at the time. His symptoms have now completely resolved. He thinks that maybe he has been told that he is had a ?minor stroke? in the past but he is unsure of this and has no residual deficits of any kind from it. He states that he was in a fairly stressful situation at the time. Currently he is completely asymptomatic. At the time he had no vision changes, chest pain, shortness of breath, palpitations, headache, numbness or tingling in his upper lower extremities, balance issues, vertigo, abdominal pain, nausea or vomiting. On Anticoagulants: No (aspirin) Related Data Previous Rx's Medication Instructions Recorded atorvastatin 20 mg tablet (Lipitor) 40 mg (2 x 20 mg) PO DAILY #30 tabs 11/04/21 metoprolol succinate 25 mg 25 mg PO DAILY #30 tabs 11/04/21 tablet,extended release 24 hr nifedipine 30 mg tablet,extended 30 mg PO DAILY #30 tabs 11/04/21 release 24 hr omega 5-qio-hcn-fish oil 100 1 cap PO DAILY #30 caps 11/04/21 mg-160 mg-1,000 mg capsule (Fish Oil) diclofenac sodium 1 % topical gel 2 g topical QID #100 grams 03/03/22 (Voltaren Arthritis Pain) hydrocodone 5 mg-acetaminophen 325 1 tab PO BID PRN pain #10 tabs 08/03/22 mg tablet lisinopril 20 mg tablet 20 mg PO DAILY #30 tabs 08/03/22 tamsulosin 0.4 mg capsule (Flomax) 0.4 mg PO DAILY #30 caps 08/03/22 Allergies Allergy/AdvReac Type Severity Reaction Status Date / Time Sulfa (Sulfonamide Allergy Mild Verified 07/25/22 17:48 Antibiotics) Review of Systems Review of Systems ROS Unobtainable: All systems reviewed & are unremarkable except as noted in HPI and below Constitutional Constitutional: Reports system reviewed and no additional complaints, except as documented Eyes Eyes: Reports system reviewed and no additional complaints, except as documented Cardiovascular Cardiovascular: Reports system reviewed and no additional complaints, except as documented Hematologic/Lymphatic On Anticoagulants: No (aspirin) Patient History Medical History Peripheral edema Dementia BPH (benign prostatic hyperplasia) H/O: CVA (cerebrovascular accident) High blood pressure Heart murmur Surgical History History of cholecystectomy Family History Mother Dementia Social History household members: none Smoking Status: Never smoker alcohol intake: never substance use type: does not use Smoking Status: Never smoker alcohol intake frequency: 0-2 drinks per day Substance Use Type: does not use Exam Initial Vital Signs Initial Vital Signs: Vital Signs Temperature 97.8 F 09/01/23 00:56 Pulse Rate 87 09/01/23 00:56 Respiratory Rate 17 09/01/23 00:56 Blood Pressure 197/85 H 09/01/23 00:56 Pulse Oximetry 97 09/01/23 00:56 Oxygen Delivery Method Room Air 09/01/23 00:56 Const General: cooperative, comfortable and No ill appearing HENAL Head: normal to inspection and normocephalic Eyes General: Yes appearance normal, both eyes and all related structures Resp Effort & Inspection: normal respiratory effort Auscultation: clear to auscultation bilaterally Cardio Rate: regular rate Rhythm: regular rhythm GI Inspection: normal to inspection Skin General: no rashes or lesions noted Neuro General: patient alert, patient awake, patient oriented x3 and moves all extremities Cranial Nerves: CN's II-XI intact bilaterally Cognition: normal cognition Speech: speech normal Motor: muscle tone normal throughout Coordination: qsxube-un-fwcc test normal and rtiw-da-hhwf test normal Extrem General: capillary refill normal Scores ABCD2 Age >= 60 years: yes Initial BP. Either SBP >= 140 or DBP >= 90.: yes Clinical features of the TIA: speech disturbance without weakness Duration of symptoms: 10-59 minutes History of diabetes: no ABCD2 Score: 4 GCS [place] coma scale eye opening: Spontaneous [place] coma scale verbal response: Orientated [place] coma scale motor response: Obey commands [place] coma scale total score: 15 NIH Stroke Scale Level of Conciousness: Alert, keenly responsive Ask month/age: Answers both questions correctly. Open/close eyes, close hand: Performs both tasks correctly Best gaze horizontal: Normal Visual merc[place]: No visual loss Facial palsy: Normal symetrical movement Left arm drift: No drift for full 10 sec Right arm drift: No drift for full 10 sec Left leg drift: No drift for full 5 sec Right leg drift: No drift for full 5 sec Limb ataxia: Absent Sensory on face/arms/legs: Normal, no sensory loss Best language: No aphasia, normal Dysarthria: Normal Extinction or inattention: No abnormality Total NIH Stroke scale score: 0 Course Orders Ordered: ED Orders 09/01/23 00:54 CT angio head and neck Stat CT head/brain wo con Stat 09/01/23 00:56 EKG-12 Lead Stat 09/01/23 01:00 Complete Blood Count AUTO DIFF Stat Comprehensive Metabolic Panel Stat Ethanol (ETOH) Stat Lipase Stat PTT Partial Thromboplastin Huang Stat Prothrombin Time INR Stat Troponin & CK Cardiac Panel Stat Acetaminophen (Acetaminophen 325 Mg Tablet) 650 mg PO Q6HR PRN PRN Reason: Fever Aspirin (Aspirin Ec 325 Mg Tablet) 325 mg PO DAILY [facility] Atorvastatin Calcium (Atorvastatin 20 Mg Tablet) 40 mg PO DAILY [facility] Hydralazine HCl (Hydralazine 25 Mg Tablet) 25 mg PO Q6HR PRN PRN Reason: Hypertension Lisinopril (Lisinopril 20 Mg Tablet) 20 mg PO DAILY [facility] Melatonin (Melatonin 3 Mg Tablet) 9 mg PO BEDTIME PRN PRN Reason: insomnia Metoprolol Succinate (Metoprolol Er 25 Mg Tablet) 25 mg PO DAILY [facility] Naloxone HCl (Naloxone 0.4 Mg/Ml Vial) 0.2 mg IV Q2MIN PRN PRN Reason: Opiate Reversal Nifedipine (Nifedipine 30 Mg Tab Er) 30 mg PO DAILY [facility] Ondansetron HCl (Ondansetron 4 Mg/2 Ml Inj) 4 mg IV Q4HR PRN PRN Reason: Nausea And Vomiting Tamsulosin HCl (Tamsulosin 0.4 Mg Capsule) 0.4 mg PO DAILY [facility] Discontinued Medications Aspirin (Aspirin 81 Mg Chew Tab) 324 mg PO NOW ONE Stop: 09/01/23 02:33 Last Admin: 09/01/23 02:36 Dose: 324 mg Documented By: Clopidogrel Bisulfate (Clopidogrel 75 Mg Tablet) 300 mg PO NOW ONE Stop: 09/01/23 02:33 Last Admin: 09/01/23 02:36 Dose: 300 mg Documented By: Vital Signs Vital signs: Vital Signs - 8 hr 09/01/23 00:56 09/01/23 00:57 09/01/23 01:00 Temperature 97.8 F Pulse Rate 87 87 86 Respiratory Rate 17 17 Blood Pressure 197/85 H Pulse Oximetry 97 96 96 Oxygen Delivery Method Room Air 09/01/23 01:33 09/01/23 01:52 09/01/23 01:52 Temperature Pulse Rate 80 68 Respiratory Rate 18 Blood Pressure 106/54 L Pulse Oximetry 96 96 Oxygen Delivery Method 09/01/23 02:00 09/01/23 02:00 Temperature Pulse Rate 64 Respiratory Rate Blood Pressure 107/59 L Pulse Oximetry 95 Oxygen Delivery Method MDM - Neuro Symptoms/Deficit Lab Data Attestation: I reviewed the patient's lab results. 09/01/23 01:00 09/01/23 01:00 Labs: Lab Results 09/01/23 Range/Units 01:00 WBC 7.3 (4.5-11.0) X10^3/uL RBC 4.36 L (4.5-5.9) X10^6/uL Hgb 12.8 L (13.5-17.5) g/dL Hct 37.0 L (41-53) % MCV 84.9 (80-100) fL MCH 29.3 (26-34) PG MCHC 34.5 (30-36) % RDW 13.6 (11.6-14.8) % Plt Count 166 (150-400) X10^3/uL Neut % (Auto) 66.5 (50-75) % Lymph % (Auto) 22.3 L (25-40) % [place] % (Auto) 8.2 (3-14) % Eos % (Auto) 2.5 (2-4) % Baso % (Auto) 0.5 (0-2) % Neut # (Auto) 4900 (2511-9177) /uL Lymph # (Auto) 1600 (3703-7876) /uL [place] # (Auto) 600 (0-900) /uL Eos # (Auto) 200 (0-450) /uL Baso # (Auto) 0 (0-100) /uL PT 12.0 (10.1-12.7) SECONDS INR 1.0 (0.9-1.3) APTT 37 H (26-36) SECONDS Sodium 137 (137-145) mmol/L Potassium 3.9 (3.4-5.1) mmol/L Chloride 102 (98-107) mmol/L Carbon Dioxide 24 (22-32) mmol/L BUN 24 H (9-20) mg/dL Creatinine 1.04 (0.66-1.25) mg/dL Estimated GFR > 60 (>60) mL/min BUN/Creatinine Ratio 23.1 H (6-22) Glucose 168 H (80-110) mg/dL Calcium 10.6 H (8.4-10.2) mg/dL Total Bilirubin 0.3 (0.2-1.3) mg/dL AST 23 (17-59) IU/L ALT 21 (<50) IU/L Alkaline Phosphatase 74 (38-126) U/L Total Creatine Kinase 77 (55-170) U/L Troponin I < 0.012 (0.01-0.034) ng/mL Total Protein 6.9 (6.3-8.2) g/dL Albumin 4.3 (3.5-5.0) g/dL Globulin 2.6 (1.7-4.1) g/dL Albumin/Globulin Ratio 1.7 (1.0-2.8) Lipase 89 (23-300) U/L Ethyl Alcohol < 10 ( - 10) mg/dL Point of Care Testing Glucose POC [address] scan - head: Radiologist's Impression: PROCEDURE: CT HEAD/BRAIN WO CON INDICATIONS: Aphasia that has now resolved TECHNIQUE: Noncontrast 4.5 mm thick angled axial sections acquired from the foramen magnum to the vertex, with coronal and sagittal reformats. For radiation dose reduction, the following was used: automated exposure control, adjustment of mA and/or kV according to patient size. COMPARISON: [facility], MR, MR HEAD/BRAIN WO CON, 08/03/2022, 15:07. [facility], CT, CT HEAD/BRAIN WO CON, 08/03/2022, 9:42. FINDINGS: Image quality: Excellent. CSF spaces: Basal cisterns are patent. No extra-axial fluid collections. The ventricles are symmetrically dilated but stable in size and appearance. Brain: No intracranial bleeds or masses. There is cerebral volume loss for age, with resultant ventricular and sulcal prominence. There are periventricular and deep white matter chronic small vessel ischemic changes. There is intracranial internal carotid artery atherosclerosis. Skull and face: Calvarium and visualized facial bones appear intact, without suspicious lesions. Sinuses: Visualized sinuses and mastoids are clear. IMPRESSION: 1. No acute intracranial abnormalities. 2. Cerebral volume loss and chronic microvascular ischemic changes. 3. Stable ventricular dilation. CTA - brain/neck: Radiologist's Impression: PROCEDURE: CT ANGIO HEAD AND NECK INDICATIONS: Aphasia that has now resolved TECHNIQUE: After the administration of intravenous contrast, 1 mm thick sections acquired from the aortic arch through the [place]. 3-dimensional eayrvxc-qwncklimk-kfdavsojty (MIP) and/or volume rendering reformats were acquired of the central intracranial vasculature and neck separately. For radiation dose reduction, the following was used: automated exposure control, adjustment of mA and/or kV according to patient size. COMPARISON: [facility], CT, CT HEAD/BRAIN WO CON, 08/03/2022, 9:42. [facility], CT, CT HEAD/BRAIN WO CON, 09/01/2023, 1:12. [facility], MR, MR HEAD/BRAIN WO CON, 08/03/2022, 15:07. FINDINGS: Image quality: Diagnostic. BRAIN: CSF spaces: Ventricles are normal in size and shape. Basal cisterns are patent. No extra-axial fluid collections. Brain: No significant abnormality of the brain can be seen. Skull and face: Calvarium and facial bones appear intact, without suspicious lesions. Orbits appear normal. Sinuses: There is right maxillary sinus mucosal thickening. The mastoids are clear. HEAD CT ANGIOGRAPHY: Anterior circulation: Intracranial internal carotid arteries are normal in size and flow. There are calcified plaques at the cavernous segment of the internal carotid arteries bilaterally. The flow within the paired anterior cerebral arteries is normal and symmetric. The flow within the middle cerebral arteries is normal and symmetric. The anterior communicating artery is seen. No aneurysms are seen. Posterior circulation: Visualized portions of the vertebral arteries demonstrate normal caliber, and join to form a normal appearing basilar artery. Flow within the posterior cerebral arteries is normal and symmetric. No aneurysms are seen. NECK CT ANGIOGRAPHY: Carotid system: The great vessels demonstrate a conventional anatomy as they arise from the aortic arch. The origins of the common carotid arteries appear patent. The common carotid arteries demonstrate normal caliber and courses. Calcified plaques at the bifurcation regions bilaterally. The internal carotid arteries demonstrate normal calibers and courses. Posterior circulation: The origins of the vertebral arteries both appear widely patent. The more superior extracranial portions of both vertebral arteries also demonstrate normal courses and calibers. They join to form a normal appearing basilar artery. Soft tissues: Visualized neck soft tissues demonstrate no suspicious abnormalities. Bones: Moderate degenerative disc and facet disease. There is grade 1 anterolisthesis of C4 on C5 and C7 on T1. IMPRESSION: 1. No acute intracranial abnormalities. 2. Cerebral volume loss and chronic microvascular ischemic changes. Ventricles are symmetrically dilated, either secondary to central atrophy or normal pressure hydrocephalus. Ventricular dilation appears stable. 3. No hemodynamic significant stenosis in anterior or posterior circulations. 4. No hemodynamic significant stenosis in cervical carotid arteries or vertebral arteries bilaterally. Any quantitative measurements of stenosis were performed using NASCET criteria. ECG Data Attestation: I personally reviewed and interpreted this ECG as follows: Interpretation: Sinus rhythm Ventricular rate is 79 Left axis deviation QRS 110 milliseconds Normal QTC No ST T wave changes MDM Narrative Medical decision making narrative: NIH score of 0. GCS of 15. Alert and oriented x3. ABCD2 score of 4. Hypertension that improved without specific intervention here in the ER. No indication for tPA or code IR. Symptoms are consistent with TIA. Discussed options to include admission to the hospital for further evaluation and treatment versus follow-up with primary provider. I did recommend admission to the hospital. Patient agrees with admission. Discussed the case with Dr. Caicedo hospitalist on-call who will admit for further evaluation. Discharge Plan Departure Patient Disposition: Admitted as Observation Clinical Impression: Transient cerebral ischemia, Hypertension Admit Date/Time: 09/01/23 02:37 Admit Provider: Bill Gomez
[2023-09-01 01:33] LABS: Troponin I < 0.012 ng/mL (0.01-0.034)
[2023-09-01] MEDS: CLOPIDOGREL 75 MG TABLET 300 MG PO (02:36)
[2023-09-01] MEDS: ASPIRIN 81 MG CHEW TAB 324 MG PO (02:36)
--- NOTE | 2023-09-01 02:46 | DI.MRI.S_ITS ---
PROCEDURE: MR HEAD/BRAIN WO CON INDICATIONS: TIA TECHNIQUE: Non-contrast axial T1 spin echo, axial T2 fast spin echo, sagittal and axial FLAIR, coronal T2 fast spin echo, axial gradient echo, axial diffusion and ADC through the brain. COMPARISON: [facility], CT, CT HEAD/BRAIN WO CON, 09/01/2023, 1:12. [facility], CT, CT ANGIO HEAD AND NECK, 09/01/2023, 1:12. [facility], MR, MR HEAD/BRAIN WO CON, 08/03/2022, 15:07. FINDINGS: Image quality: Excellent. CSF spaces: Stable ventriculomegaly. Basal cisterns are patent. No extra-axial fluid collections. Brain: No intracranial bleeds or mass effects. There is cerebral volume loss for age. There are periventricular and deep white matter chronic small vessel ischemic changes. Brainstem appears normal. Diffusion-weighted images show no acute ischemic insults. No chronic ischemic insults. Normal intravascular flow voids are present. Skull and face: Calvarial bone marrow is normal in signal. Orbits are normal. Sinuses: Sinuses and mastoids are clear. IMPRESSION: 1. No acute intracranial process. 2. Stable ventriculomegaly, small vessel ischemic change. Dictated by: Gilbert Jones M.D. on 09/01/2023 at 8:55 Approved by: Gilbert Jones M.D. on 09/01/2023 at 9:00
[2023-09-01 04:04] LABS: Cholesterol 156 mg/dL (140-199); HDL Cholesterol 43 mg/dL (40-60); LDL Cholesterol Calculated 75 mg/dL (<100); Triglycerides 192 mg/dL (35-150)
[2023-09-01 04:06] LABS: Hemoglobin A1C% w Est Avg Glu 6.1 % (4.0-6.0)
[2023-09-01 04:35] LABS: Thyroid Stimulating Hormone 2.53 uIU/mL (0.47-4.68)
--- NOTE | 2023-09-01 05:49 | PM.HP.1 ---
History of Present Illness History of Present Illness Chief complaint: possible stroke Narrative: 78 years old male with history of hypertension, hyperlipidemia, CAD, BPH, history of CVA, dementia presents to the ER with slurred speech lasted for around 40 minutes. The patient was not able to express himself. The symptoms completely resolved when he was in the ER. Denies any numbness, weakness of extremities, headache, blurry vision, facial droop or loss of balance. He has a history of CVA a long time ago. Currently not on any aspirin or any anticoagulation therapy. In the ER he has CT of the head and CT angiogram of the head and neck which were unremarkable. Initial laboratory shows WBC 7.3, H&H 12.8/37, platelets 166, INR 1, creatinine 1.34, glucose 168, troponin 0.01, lipase 89, TSH 2.53, EtOH level negative, EKG sinus rhythm. Echo done in July 2022 shows mild concentric LVH, ejection fraction 60?65%, mild aortic regurgitation and moderate aortic stenosis. [facility] Medical History Peripheral edema Dementia BPH (benign prostatic hyperplasia) H/O: CVA (cerebrovascular accident) High blood pressure Heart murmur Surgical History History of cholecystectomy Family History Mother Dementia Social History household members: none Smoking Status: Never smoker alcohol intake: never substance use type: does not use Meds Home Medications and Allergies Home Medications Medication Instructions Recorded Confirmed Type atorvastatin 20 mg tablet (Lipitor) 40 mg (2 x 20 mg) PO DAILY #30 tabs 11/04/21 07/25/22 Rx metoprolol succinate 25 mg 25 mg PO DAILY #30 tabs 11/04/21 07/25/22 Rx tablet,extended release 24 hr nifedipine 30 mg tablet,extended 30 mg PO DAILY #30 tabs 11/04/21 07/25/22 Rx release 24 hr omega 5-haj-umg-fish oil 100 1 cap PO DAILY #30 caps 11/04/21 07/25/22 Rx mg-160 mg-1,000 mg capsule (Fish Oil) diclofenac sodium 1 % topical gel 2 g topical QID #100 grams 03/03/22 07/25/22 Rx (Voltaren Arthritis Pain) hydrocodone 5 mg-acetaminophen 325 1 tab PO BID PRN pain #10 tabs 08/03/22 Rx mg tablet lisinopril 20 mg tablet 20 mg PO DAILY #30 tabs 08/03/22 Rx tamsulosin 0.4 mg capsule (Flomax) 0.4 mg PO DAILY #30 caps 08/03/22 Rx Allergies Allergy/AdvReac Type Severity Reaction Status Date / Time Sulfa (Sulfonamide Allergy Mild Verified 07/25/22 17:48 Antibiotics) Review of Systems Review of Systems ROS: Yes All systems reviewed with the patient and are negative except as otherwise documented Constitutional Constitutional: Reports as per HPI and Reports system reviewed and no additional complaints, except as documented Eyes Eyes: Reports as per HPI and Reports system reviewed and no additional complaints, except as documented ENT Ears, Nose, Mouth, and Throat: Yes as per HPI and Yes system reviewed and no additional complaints, except as documented Cardiovascular Cardiovascular: Reports system reviewed and no additional complaints, except as documented Respiratory Respiratory: Reports system reviewed and no additional complaints, except as documented Gastrointestinal Gastrointestinal: Reports system reviewed and no additional complaints, except as documented Genitourinary Genitourinary: Reports system reviewed and no additional complaints, except as documented Musculoskeletal Musculoskeletal: Reports system reviewed and no additional complaints, except as documented, Reports abnormal gait and Reports numbness Neurologic Neurologic: Reports system reviewed and no additional complaints, except as documented, Reports abnormal gait, Reports confusion and Reports numbness Psychiatric Psychiatric: Reports system reviewed and no additional complaints, except as documented and Reports confusion Exam Vital Signs (past 8 hours): - 09/01/23 00:56 09/01/23 00:57 09/01/23 01:00 Temperature 97.8 F Pulse Rate 87 87 86 Respiratory Rate 17 17 Blood Pressure 197/85 H Pulse Oximetry 97 96 96 Oxygen Delivery Method Room Air 09/01/23 01:33 09/01/23 01:52 09/01/23 01:52 Temperature Pulse Rate 80 68 Respiratory Rate 18 Blood Pressure 106/54 L Pulse Oximetry 96 96 Oxygen Delivery Method 09/01/23 02:00 09/01/23 02:00 09/01/23 02:39 Temperature Pulse Rate 64 73 Respiratory Rate Blood Pressure 107/59 L Pulse Oximetry 95 Oxygen Delivery Method 09/01/23 02:40 09/01/23 02:40 Temperature Pulse Rate 66 Respiratory Rate 19 Blood Pressure 127/60 Pulse Oximetry 97 Oxygen Delivery Method Oxygen Delivery Method Room Air Const General: cooperative, comfortable and well developed Orientation: alert and oriented x3 [facility] Head: normal to inspection, normocephalic and atraumatic Face and sinus: normal facial exam Mouth: oral mucosae normal and moist mucous membranes Throat: posterior oropharynx normal Eyes General: appearance normal, both eyes and all related structures Pupils: PERRL EOM: EOM intact bilaterally Neck Neck: normal visual inspection and full ROM Chest Chest: normal inspection of the chest Resp Effort & Inspection: normal respiratory effort and able to speak in complete sentences Auscultation: clear to auscultation bilaterally Cardio Palpation: normal PMI Rate: regular rate Rhythm: regular rhythm Heart Sounds: S1 normal and S2 normal GI Inspection: normal to inspection Palpation: soft and no hepatosplenomegaly Auscultation: normal bowel sounds Skin General: no rashes or lesions noted Lesions: no lesions Rashes: no rashes Trauma: no lacerations or abrasions Neuro General: patient alert, patient awake, patient oriented x3 and no focal motor deficits Cranial Nerves: CN's II-XI intact bilaterally Cognition: normal cognition Speech: speech normal Gait: normal gait Motor: muscle tone normal throughout Sensory Exam: no sensory deficits noted Extrem General: full ROM and no calf tenderness Psych Appearance: grossly normal Mental Status: mental status grossly normal Speech and Movement: speech and movement normal Objective Labs 09/01/23 01:00 09/01/23 01:00 Labs: Laboratory Results - last 24 hr 09/01/23 01:00 WBC 7.3 RBC 4.36 L Hgb 12.8 L Hct 37.0 L MCV 84.9 MCH 29.3 MCHC 34.5 RDW 13.6 Plt Count 166 Neut % (Auto) 66.5 Lymph % (Auto) 22.3 L [place] % (Auto) 8.2 Eos % (Auto) 2.5 Baso % (Auto) 0.5 Neut # (Auto) 4900 Lymph # (Auto) 1600 [place] # (Auto) 600 Eos # (Auto) 200 Baso # (Auto) 0 PT 12.0 INR 1.0 APTT 37 H Sodium 137 Potassium 3.9 Chloride 102 Carbon Dioxide 24 BUN 24 H Creatinine 1.04 Estimated GFR > 60 BUN/Creatinine Ratio 23.1 H Glucose 168 H Hemoglobin A1c 6.1 H Calcium 10.6 H Total Bilirubin 0.3 AST 23 ALT 21 Alkaline Phosphatase 74 Total Creatine Kinase 77 Troponin I < 0.012 Total Protein 6.9 Albumin 4.3 Globulin 2.6 Albumin/Globulin Ratio 1.7 Triglycerides 192 H Cholesterol 156 LDL Cholesterol, Calc 75 HDL Cholesterol 43 Lipase 89 TSH 2.53 Ethyl Alcohol < 10 Assessment & Plan Assessment and plan (1) TIA (transient ischemic attack): Status: Acute Plan: Symptoms completely resolved. Most likely TIA. -Neuro check -Start aspirin -Telemetry -MRI of the brain -Check TSH and lipids -PT, OT and speech evaluation -Monitor blood pressure (2) Hyperglycemia: Status: Acute Plan: History of diabetes in the past. We will check A1c and monitor blood glucose ACHS. (3) Hypertension: Status: Acute Plan: Restart clevidipine, metoprolol and lisinopril. (4) BPH (benign prostatic hyperplasia): Status: Acute Plan: Restart tamsulosin (5) Hyperlipemia: Status: Acute Plan: Check lipids. Restart Lipitor (6) Dementia: Status: Acute Plan: Not on any therapy. Deferred to further management per PCP Time Spent With Patient Time with patient: 50 to 69 minutes with 50% spent counseling/coordinating care Quality VTE Deep Vein Thrombosis/Pulmonary Embolism Present on Admission: No MIPS - Admit I confirm the patient?s Advance Care Plan is present, Code status is documented, Surrogate decision maker is in patient?s record [If Yes, STOP here]: Yes MIPS - Meds 'Current medications' to include all prescriptions, [id number] products, herbals, cannabis/cannabidiol products, and vitamin/mineral/dietary (nutritional) supplements. I have utilized all available resources to obtain, update, or review the patient?s current medications. [If Yes, STOP here]: Yes
--- NOTE | 2023-09-01 07:43 | PM.HP.1 ---
History of Present Illness History of Present Illness Chief complaint: possible stroke Narrative: 78 years old male with history of hypertension, hyperlipidemia, CAD, BPH, history of CVA, dementia presents to the ER with slurred speech lasted for around 40 minutes. The patient was not able to express himself. The symptoms completely resolved when he was in the ER. Denies any numbness, weakness of extremities, headache, blurry vision, facial droop or loss of balance. He has a history of CVA a long time ago. Currently not on any aspirin or any anticoagulation therapy. In the ER he has CT of the head and CT angiogram of the head and neck which were unremarkable. Initial laboratory shows WBC 7.3, H&H 12.8/37, platelets 166, INR 1, creatinine 1.34, glucose 168, troponin 0.01, lipase 89, TSH 2.53, EtOH level negative, EKG sinus rhythm. Echo done in July 2022 shows mild concentric LVH, ejection fraction 60?65%, mild aortic regurgitation and moderate aortic stenosis. [facility] Medical History Peripheral edema Dementia BPH (benign prostatic hyperplasia) H/O: CVA (cerebrovascular accident) High blood pressure Heart murmur Surgical History History of cholecystectomy Family History Mother Dementia Social History household members: none Smoking Status: Never smoker alcohol intake: never substance use type: does not use Meds Home Medications and Allergies Home Medications Medication Instructions Recorded Confirmed Type metoprolol succinate 25 mg 25 mg PO DAILY #30 tabs 11/04/21 07/25/22 Rx tablet,extended release 24 hr nifedipine 30 mg tablet,extended 30 mg PO DAILY #30 tabs 11/04/21 07/25/22 Rx release 24 hr omega 9-gjt-zxh-fish oil 100 1 cap PO DAILY #30 caps 11/04/21 07/25/22 Rx mg-160 mg-1,000 mg capsule (Fish Oil) diclofenac sodium 1 % topical gel 2 g topical QID #100 grams 03/03/22 07/25/22 Rx (Voltaren Arthritis Pain) hydrocodone 5 mg-acetaminophen 325 1 tab PO BID PRN pain #10 tabs 08/03/22 Rx mg tablet lisinopril 20 mg tablet 20 mg PO DAILY #30 tabs 08/03/22 Rx tamsulosin 0.4 mg capsule (Flomax) 0.4 mg PO DAILY #30 caps 08/03/22 Rx aspirin 81 mg tablet,delayed 81 mg PO DAILY #90 tabs 09/01/23 Rx release atorvastatin 80 mg tablet (Lipitor) 80 mg PO BEDTIME #90 tabs 09/01/23 Rx clopidogrel 75 mg tablet 75 mg PO DAILY #20 tabs 09/01/23 Rx Allergies Allergy/AdvReac Type Severity Reaction Status Date / Time Sulfa (Sulfonamide Allergy Mild Verified 07/25/22 17:48 Antibiotics) Review of Systems Review of Systems ROS: Yes All systems reviewed with the patient and are negative except as otherwise documented Constitutional Constitutional: Reports as per HPI and Reports system reviewed and no additional complaints, except as documented Eyes Eyes: Reports as per HPI and Reports system reviewed and no additional complaints, except as documented ENT Ears, Nose, Mouth, and Throat: Yes as per HPI and Yes system reviewed and no additional complaints, except as documented Cardiovascular Cardiovascular: Reports system reviewed and no additional complaints, except as documented Respiratory Respiratory: Reports system reviewed and no additional complaints, except as documented Gastrointestinal Gastrointestinal: Reports system reviewed and no additional complaints, except as documented Genitourinary Genitourinary: Reports system reviewed and no additional complaints, except as documented Musculoskeletal Musculoskeletal: Reports system reviewed and no additional complaints, except as documented, Reports abnormal gait and Reports numbness Neurologic Neurologic: Reports system reviewed and no additional complaints, except as documented, Reports abnormal gait, Reports confusion and Reports numbness Psychiatric Psychiatric: Reports system reviewed and no additional complaints, except as documented and Reports confusion Exam Vital Signs (past 8 hours): - 09/01/23 00:56 09/01/23 00:57 09/01/23 01:00 Temperature 97.8 F Pulse Rate 87 87 86 Respiratory Rate 17 17 Blood Pressure 197/85 H Pulse Oximetry 97 96 96 Oxygen Delivery Method Room Air 09/01/23 01:33 09/01/23 01:52 09/01/23 01:52 Temperature Pulse Rate 80 68 Respiratory Rate 18 Blood Pressure 106/54 L Pulse Oximetry 96 96 Oxygen Delivery Method 09/01/23 02:00 09/01/23 02:00 09/01/23 02:39 Temperature Pulse Rate 64 73 Respiratory Rate Blood Pressure 107/59 L Pulse Oximetry 95 Oxygen Delivery Method 09/01/23 02:40 09/01/23 02:40 09/01/23 03:00 Temperature Pulse Rate 66 56 L Respiratory Rate 19 20 Blood Pressure 127/60 Pulse Oximetry 97 96 Oxygen Delivery Method 09/01/23 03:00 09/01/23 03:30 09/01/23 03:30 Temperature Pulse Rate 57 L Respiratory Rate 19 Blood Pressure 116/56 L 116/56 L Pulse Oximetry 95 Oxygen Delivery Method 09/01/23 04:30 09/01/23 05:00 09/01/23 05:30 Temperature Pulse Rate 54 L 56 L 55 L Respiratory Rate 22 15 19 Blood Pressure Pulse Oximetry 96 Oxygen Delivery Method 09/01/23 06:00 09/01/23 06:31 09/01/23 07:00 Temperature Pulse Rate 54 L 61 59 L Respiratory Rate 19 23 20 Blood Pressure Pulse Oximetry Oxygen Delivery Method Oxygen Delivery Method Room Air Const General: cooperative, comfortable and well developed Orientation: alert and oriented x3 HENTX Head: normal to inspection, normocephalic and atraumatic Face and sinus: normal facial exam Mouth: oral mucosae normal and moist mucous membranes Throat: posterior oropharynx normal Eyes General: appearance normal, both eyes and all related structures Pupils: PERRL EOM: EOM intact bilaterally Neck Neck: normal visual inspection and full ROM Chest Chest: normal inspection of the chest Resp Effort & Inspection: normal respiratory effort and able to speak in complete sentences Auscultation: clear to auscultation bilaterally Cardio Palpation: normal PMI Rate: regular rate Rhythm: regular rhythm Heart Sounds: S1 normal and S2 normal GI Inspection: normal to inspection Palpation: soft and no hepatosplenomegaly Auscultation: normal bowel sounds Skin General: no rashes or lesions noted Lesions: no lesions Rashes: no rashes Trauma: no lacerations or abrasions Neuro General: patient alert, patient awake, patient oriented x3 and no focal motor deficits Cranial Nerves: CN's II-XI intact bilaterally Cognition: normal cognition Speech: speech normal Gait: normal gait Motor: muscle tone normal throughout Sensory Exam: no sensory deficits noted Extrem General: full ROM and no calf tenderness Psych Appearance: grossly normal Mental Status: mental status grossly normal Speech and Movement: speech and movement normal Objective Labs 09/01/23 01:00 09/01/23 01:00 Labs: Laboratory Results - last 24 hr 09/01/23 01:00 WBC 7.3 RBC 4.36 L Hgb 12.8 L Hct 37.0 L MCV 84.9 MCH 29.3 MCHC 34.5 RDW 13.6 Plt Count 166 Neut % (Auto) 66.5 Lymph % (Auto) 22.[address] [place] % (Auto) 8.2 Eos % (Auto) 2.5 Baso % (Auto) 0.5 Neut # (Auto) 4900 Lymph # (Auto) 1600 [place] # (Auto) 600 Eos # (Auto) 200 Baso # (Auto) 0 PT 12.0 INR 1.0 APTT 37 H Sodium 137 Potassium 3.9 Chloride 102 Carbon Dioxide 24 BUN 24 H Creatinine 1.04 Estimated GFR > 60 BUN/Creatinine Ratio 23.1 H Glucose 168 H Hemoglobin A1c 6.1 H Calcium 10.6 H Total Bilirubin 0.3 AST 23 ALT 21 Alkaline Phosphatase 74 Total Creatine Kinase 77 Troponin I < 0.012 Total Protein 6.9 Albumin 4.3 Globulin 2.6 Albumin/Globulin Ratio 1.7 Triglycerides 192 H Cholesterol 156 LDL Cholesterol, Calc 75 HDL Cholesterol 43 Lipase 89 TSH 2.53 Ethyl Alcohol < 10 Assessment & Plan Assessment and plan (1) TIA (transient ischemic attack): Status: Acute Plan: Symptoms completely resolved. Most likely TIA. -Neuro check -Start aspirin -Telemetry -MRI of the brain, ativan for MRI as patient is anxious about it -Check TSH and lipids -PT, OT and speech evaluation -Monitor blood pressure (2) Hyperglycemia: Status: Acute Plan: History of diabetes in the past. We will check A1c and monitor blood glucose ACHS. (3) Hypertension: Status: Acute Plan: Restart clevidipine, metoprolol and lisinopril. (4) BPH (benign prostatic hyperplasia): Status: Acute Plan: Restart tamsulosin (5) Hyperlipemia: Status: Acute Plan: Check lipids. Restart Lipitor (6) Dementia: Status: Acute Plan: Not on any therapy. Deferred to further management per PCP Time Spent With Patient Time with patient: 50 to 69 minutes with 50% spent counseling/coordinating care Quality VTE Deep Vein Thrombosis/Pulmonary Embolism Present on Admission: No
[2023-09-01] MEDS: LORazepam 2 MG/ML INJ 0.5 MG IV (07:59)
[2023-09-01] MEDS: TAMSULOSIN 0.4 MG CAPSULE PO (08:43)
[2023-09-01] MEDS: METOPROLOL ER 25 MG TABLET PO (08:43)
[2023-09-01] MEDS: NIFEdipine 30 MG TAB ER PO (08:48)
[2023-09-01] MEDS: lisinopriL 20 MG TABLET PO (08:48)
[2023-09-01] MEDS: ATORVASTATIN 20 MG TABLET 40 MG PO (08:48)
[2023-09-01] MEDS: ASPIRIN EC 81 MG TABLET PO (08:53)
--- NOTE | 2023-09-01 12:04 | PC.NURSE ---
Dr. Ruth at bedside
--- NOTE | 2023-09-01 12:18 | PT-IP ANOTE ---
PT eval order received. EMR reviewed. Check with nurse and stated that pt is walking around independently and using the toilet by himself. No PT needs. informed hospitalist and agreed to d/c PT eval order.
--- NOTE | 2023-09-01 12:22 | PM.DS.1 ---
History of Present Illness History of Present Illness Chief complaint: possible stroke Narrative: 78 years old male with history of hypertension, hyperlipidemia, CAD, BPH, history of CVA, dementia presents to the ER with slurred speech lasted for around 40 minutes. The patient was not able to express himself. The symptoms completely resolved when he was in the ER. Denies any numbness, weakness of extremities, headache, blurry vision, facial droop or loss of balance. He has a history of CVA a long time ago. Currently not on any aspirin or any anticoagulation therapy. In the ER he has CT of the head and CT angiogram of the head and neck which were unremarkable. Initial laboratory shows WBC 7.3, H&H 12.8/37, platelets 166, INR 1, creatinine 1.34, glucose 168, troponin 0.01, lipase 89, TSH 2.53, EtOH level negative, EKG sinus rhythm. Echo done in July 2022 shows mild concentric LVH, ejection fraction 60?65%, mild aortic regurgitation and moderate aortic stenosis. Discharge Providers Provider Date of admission: 09/01/23 02:37 Discharge Date: 09/01/23 Consults: 09/01/23 02:46 Consult to Discharge Planning Routine Comment: Consult to Occupational Therapy Evaluate & Treat Comment: Physician Instructions: Evaluate and treat Consult to Physical Therapy Evaluate & Treat Comment: Physician Instructions: Evaluate and Treat Consult to Speech Therapy Evaluate & Treat Comment: Physician Instructions: Evaluate and treat Discharge provider: Pako Ruth DO Summary Hospital Course Discharge Diagnosis: (1) TIA (transient ischemic attack): Status: Acute Plan: Symptoms completely resolved. Most likely TIA. ABCD score 4 indicasting high risk TIA. -Start aspirin plus plavix x21 days -Telemetry -MRI of the brain normal -TSH normal and LDL 75 -Echo with EF 60-65%, no clots or PFO (2) Hyperglycemia: Status: Acute Plan: History of diabetes in the past. We will check A1c and monitor blood glucose ACHS. A1c 6.1%. (3) Hypertension: Status: Acute Plan: Restart clevidipine, metoprolol and lisinopril. (4) BPH (benign prostatic hyperplasia): Status: Acute Plan: Restart tamsulosin (5) Hyperlipemia: Status: Acute Plan: Increased lipitor to 80mg nightly. (6) Dementia: Status: Acute Plan: Not on any therapy. Deferred to further management per PCP Hospital Course: Admitted for slurred speech which lasted 40 min then completely resolved. Suspected TIA. Put on DAPT due to ABCD score of 4. Brain MRI, CT head and echo were normal. Lipitor increased to 80mg from 40. Home BP meds restarted on dc. Exam Vital Signs (past 8 hours): - 09/01/23 04:30 09/01/23 05:00 09/01/23 05:30 Pulse Rate 54 L 56 L 55 L Respiratory Rate 22 15 19 Blood Pressure Pulse Oximetry 96 Oxygen Delivery Method 09/01/23 06:00 09/01/23 06:31 09/01/23 07:00 Pulse Rate 54 L 61 59 L Respiratory Rate 19 23 20 Blood Pressure Pulse Oximetry Oxygen Delivery Method 09/01/23 07:30 09/01/23 08:43 09/01/23 08:45 Pulse Rate 72 66 Respiratory Rate 20 Blood Pressure 129/71 Pulse Oximetry 100 Oxygen Delivery Method 09/01/23 08:46 09/01/23 08:46 09/01/23 08:48 Pulse Rate 68 66 Respiratory Rate Blood Pressure 129/71 129/71 Pulse Oximetry 95 Oxygen Delivery Method 09/01/23 08:54 Pulse Rate Respiratory Rate Blood Pressure 129/71 Pulse Oximetry Oxygen Delivery Method Room Air Oxygen Delivery Method Room Air Const General: cooperative, comfortable and well developed Orientation: alert and oriented x3 HENMT Head: normal to inspection, normocephalic and atraumatic Face and sinus: normal facial exam Mouth: oral mucosae normal and moist mucous membranes Throat: posterior oropharynx normal Eyes General: appearance normal, both eyes and all related structures Pupils: PERRL EOM: EOM intact bilaterally Neck Neck: normal visual inspection and full ROM Chest Chest: normal inspection of the chest Resp Effort & Inspection: normal respiratory effort and able to speak in complete sentences Auscultation: clear to auscultation bilaterally Cardio Palpation: normal PMI Rate: regular rate Rhythm: regular rhythm Heart Sounds: S1 normal and S2 normal GI Inspection: normal to inspection Palpation: soft and no hepatosplenomegaly Auscultation: normal bowel sounds Skin General: no rashes or lesions noted Lesions: no lesions Rashes: no rashes Trauma: no lacerations or abrasions Neuro General: patient alert, patient awake, patient oriented x3 and no focal motor deficits Cranial Nerves: CN's II-XI intact bilaterally Cognition: normal cognition Speech: speech normal Gait: normal gait Motor: muscle tone normal throughout Sensory Exam: no sensory deficits noted Extrem General: full ROM and no calf tenderness Psych Appearance: grossly normal Mental Status: mental status grossly normal Speech and Movement: speech and movement normal Objective Labs 09/01/23 01:00 09/01/23 01:00 Labs: Laboratory Results - last 24 hr 09/01/23 01:00 WBC 7.3 RBC 4.36 L Hgb 12.8 L Hct 37.0 L MCV 84.9 MCH 29.3 MCHC 34.5 RDW 13.6 Plt Count 166 Neut % (Auto) 66.5 Lymph % (Auto) 22.3 L [place] % (Auto) 8.2 Eos % (Auto) 2.5 Baso % (Auto) 0.5 Neut # (Auto) 4900 Lymph # (Auto) 1600 [place] # (Auto) 600 Eos # (Auto) 200 Baso # (Auto) 0 PT 12.0 INR 1.0 APTT 37 H Sodium 137 Potassium 3.9 Chloride 102 Carbon Dioxide 24 BUN 24 H Creatinine 1.04 Estimated GFR > 60 BUN/Creatinine Ratio 23.1 H Glucose 168 H Hemoglobin A1c 6.1 H Calcium 10.6 H Total Bilirubin 0.3 AST 23 ALT 21 Alkaline Phosphatase 74 Total Creatine Kinase 77 Troponin I < 0.012 Total Protein 6.9 Albumin 4.3 Globulin 2.6 Albumin/Globulin Ratio 1.7 Triglycerides 192 H Cholesterol 156 LDL Cholesterol, Calc 75 HDL Cholesterol 43 Lipase 89 TSH 2.53 Ethyl Alcohol < 10 PFSH Medical History Peripheral edema Dementia BPH (benign prostatic hyperplasia) H/O: CVA (cerebrovascular accident) High blood pressure Heart murmur Surgical History History of cholecystectomy Family History Mother Dementia Social History household members: none Smoking Status: Never smoker alcohol intake: never substance use type: does not use Discharge Plan Discharge Plan Patient Disposition: Home Provider Discharge Comment: You were admitted for a TIA or ministroke, which means a stroke that cleared before the MRI was done. Your brain MRI therefore was normal. You will now need to take aspirin daily for life, plus plavix for 20 more days. I've increased your statin dose as well. Discharge orders & Medications Prescriptions: New clopidogrel 75 mg Tablet 75 mg PO DAILY Qty: 20 0RF Rx Instructions: start on 09/02 aspirin 81 mg Tablet,Delayed Release (Dr/Ec) 81 mg PO DAILY Qty: 90 0RF atorvastatin [Lipitor] 80 mg tablet 80 mg PO BEDTIME Qty: 90 0RF Continued diclofenac sodium [Voltaren Arthritis Pain] 1 % gel 2 g topical QID Qty: 100 0RF Rx Instructions: apply to single elbow, wrist or hand; for hand includes palm/fingers/back of hand lisinopril 20 mg Tablet 20 mg PO DAILY Qty: 30 0RF tamsulosin [Flomax] 0.4 mg Capsule 0.4 mg PO DAILY Qty: 30 0RF hydrocodone-acetaminophen 5-325 mg tablet 1 tab PO BID PRN (Reason: pain) Qty: 10 0RF nifedipine 30 mg Tablet Extended Release 24hr 30 mg PO DAILY Qty: 30 2RF metoprolol succinate 25 mg Tablet Extended Release 24 Hr 25 mg PO DAILY Qty: 30 2RF Fish Oil 100-160-1,000 mg capsule 1 cap PO DAILY Qty: 30 2RF Discontinued atorvastatin [Lipitor] 20 mg Tablet 40 mg PO DAILY Qty: 30 2RF Visit Report/Discharge Packet Stand Alone Forms: Patient Portal/API, Stroke Signs & Symptoms Discharge Data Attending Provider: Bill Gomez Admit Date/Time: 09/01/23 02:37 Quality VTE Deep Vein Thrombosis/Pulmonary Embolism Present on Admission: No
--- NOTE | 2023-09-01 12:53 | OT.IPNOTE ---
Per hospitalist okay to discharge OT eval orders, pt was been independent with ambulating and toileting needs in the ED.
== END 2023-09-01 13:38 | disposition home or self-care (01) ==
LOC: ED 02:32 → AC 02:38
PROVIDERS: Admitting Provider Internal Medicine; Emergency Provider Internal Medicine; Referring Provider Emergency Medicine; Visit Provider Internal Medicine
DX: G45.9 Transient cerebral ischemic attack, unspecified (principal); R29.700 NIHSS score 0; R73.9 Hyperglycemia, unspecified; I10 Essential (primary) hypertension; N40.0 Benign prostatic hyperplasia without lower urinary tract symptoms; E78.5 Hyperlipidemia, unspecified; F03.90 Unspecified dementia, unspecified severity, without behavioral disturbance, psychotic disturbance, mood disturbance, and anxiety
CPT/HCPCS: 36415; 70450; 70496; 70498; 70551; 80053; 80061; 80320; 82550; 82962; 83036; 83690; 84443; 84484; 85025; 85610; 85730; 93005; 93306; 96374; 99285; G0378; J2060; Q9967

== ENCOUNTER 2024-01-19 01:59 | Observation (INO) | payer MEDICARE, OTHER, SELFPAY ==
[2023-09-01 08:54] VITALS: BMI 32.5
[2024-01-19] VITALS (18 sets, daily range): BP systolic 131–224; BP diastolic 53–107; PULSE 56–87; RESP 12–24; TEMP 36.2–36.6; O2SAT 95–98; BMI 32.4
--- NOTE | 2024-01-19 02:19 | DI.CT.S_ITS ---
PROCEDURE: CT STROKE INDICATIONS: word trouble TECHNIQUE: Noncontrast 4.5 mm thick angled axial sections acquired from the foramen magnum to the vertex, with coronal reformats. For radiation dose reduction, the following was used: automated exposure control, adjustment of mA and/or kV according to patient size. COMPARISON: None. FINDINGS: Image quality: Diagnostic. CSF spaces: Basal cisterns are patent. No extra-axial fluid collections. The ventricles are symmetric in size and shape. Brain: No intracranial bleeds or masses. There is cerebral volume loss for age, with resultant ventricular and sulcal prominence. There are periventricular and deep white matter chronic small vessel ischemic changes. There is intracranial internal carotid artery atherosclerosis. Skull and face: Calvarium and visualized facial bones appear intact, without suspicious lesions. Sinuses: Visualized sinuses and mastoids are clear. IMPRESSION: No acute intracranial pathology. Findings were discussed by the overnight radiologist with Flaquita Manzanares DO at 2:46 a.m. On 01/19/2024. This study fulfills neurological imaging criteria for inclusion or exclusion of acute stroke therapies based on available published neurological guidelines. Findings are concordant with preliminary interpretation provided by [facility]. Dictated by: Taj Kowalski M.D. on 01/19/2024 at 8:03 Approved by: Taj Kowalski M.D. on 01/19/2024 at 8:04
--- NOTE | 2024-01-19 02:19 | DI.CT.S_ITS ---
PROCEDURE: CT ANGIO HEAD AND NECK INDICATIONS: word trouble finding TECHNIQUE: After the administration of intravenous contrast, 1 mm thick sections acquired from the aortic arch through the [place]. 3-dimensional vuvoijk-ncvevxbgr-jeyaxqhmjo (MIP) and/or volume rendering reformats were acquired of the central intracranial vasculature and neck separately. For radiation dose reduction, the following was used: automated exposure control, adjustment of mA and/or kV according to patient size. COMPARISON: [facility], CT, CT ANGIO HEAD AND NECK, 09/01/2023, 1:12. FINDINGS: Image quality: Diagnostic. BRAIN: Please refer to same day CT of the head. HEAD CT ANGIOGRAPHY: Anterior circulation: Intracranial internal carotid arteries are normal in size and flow with atherosclerotic vascular calcifications. The flow within the paired anterior cerebral arteries is normal and symmetric. The flow within the middle cerebral arteries is normal and symmetric. The anterior communicating artery is seen. No aneurysms are seen. Posterior circulation: Atherosclerotic vascular calcifications resulting in moderate stenosis of the right V4 vertebral artery. The vertebral arteries join to form a normal appearing basilar artery. origin left PACK CHANGER. Flow within the posterior cerebral arteries is normal and symmetric. No aneurysms are seen. NECK CT ANGIOGRAPHY: Carotid system: The great vessels demonstrate a conventional anatomy as they arise from the aortic arch with atherosclerotic vascular calcifications. The origins of the common carotid arteries appear patent. The common carotid arteries demonstrate normal caliber and courses. Atherosclerotic vascular calcifications of the bilateral carotid bifurcations with less than 50% stenosis. The internal carotid arteries demonstrate normal calibers and courses. Posterior circulation: The origins of the vertebral arteries both appear widely patent. The more superior extracranial portions of both vertebral arteries also demonstrate normal courses and calibers. They join to form a normal appearing basilar artery. Soft tissues: Visualized neck soft tissues demonstrate no suspicious abnormalities. Multiple thyroid nodules including a 1.9 cm nodule at the inferior left lobe. Bones: No suspicious bony lesions. Degenerative changes of the spine. Visualized cervical spine appears normally aligned. IMPRESSION: No significant intracranial arterial abnormality is seen. No significant abnormality is seen within the arteries of the neck. Atherosclerotic vascular calcifications at the carotid bulbs with mild stenosis, less than 50% stenosis of the bilateral proximal ICAs. Multiple thyroid nodules measuring up to 1.9 cm. Recommend nonurgent dedicated thyroid ultrasound for further evaluation. Any quantitative measurements of stenosis were performed using NASCET criteria. Dictated by: Taj Kowalski M.D. on 01/19/2024 at 8:05 Approved by: Taj Kowalski M.D. on 01/19/2024 at 8:44
--- NOTE | 2024-01-19 02:23 | ED_ITS ---
HPI - Neuro Symptoms/Deficit General Chief Complaint: Neuro Symptoms/Deficit Stated Complaint: can't find words to say things Time Seen by Provider: 01/19/24 02:04 History of Present Illness HPI Narrative: Patient is a 78-year-old male history of hypertension hyperlipidemia CAD previous CVA presenting today with word trouble finding. Last known well of 1:00 a.m.. He has with a friend reports that he was driving her home they went to she noticed some word gibberish. It lasted for about an hour. It seems to be improving in the emergency department. He had a similar episode in August 2023 and presented the same. He is on aspirin. He has no numbness tingling or weakness. No visual loss. She denies any facial droop. He is able to have conversation now. Related Data Previous Rx's Medication Instructions Recorded metoprolol succinate 25 mg 25 mg PO DAILY #30 tabs 11/04/21 tablet,extended release 24 hr nifedipine 30 mg tablet,extended 30 mg PO DAILY #30 tabs 11/04/21 release 24 hr omega 9-fkd-hmq-fish oil 100 1 cap PO DAILY #30 caps 11/04/21 mg-160 mg-1,000 mg capsule (Fish Oil) diclofenac sodium 1 % topical gel 2 g topical QID #100 grams 03/03/22 (Voltaren Arthritis Pain) hydrocodone 5 mg-acetaminophen 325 1 tab PO BID PRN pain #10 tabs 08/03/22 mg tablet lisinopril 20 mg tablet 20 mg PO DAILY #30 tabs 08/03/22 tamsulosin 0.4 mg capsule (Flomax) 0.4 mg PO DAILY #30 caps 08/03/22 aspirin 81 mg tablet,delayed 81 mg PO DAILY #90 tabs 09/01/23 release atorvastatin 80 mg tablet (Lipitor) 80 mg PO BEDTIME #90 tabs 09/01/23 clopidogrel 75 mg tablet 75 mg PO DAILY #20 tabs 09/01/23 Allergies Allergy/AdvReac Type Severity Reaction Status Date / Time Sulfa (Sulfonamide Allergy Mild Verified 07/25/22 17:48 Antibiotics) Patient History Medical History Peripheral edema Dementia BPH (benign prostatic hyperplasia) H/O: CVA (cerebrovascular accident) High blood pressure Heart murmur Surgical History History of cholecystectomy Family History Mother Dementia Social History household members: none Smoking Status: Never smoker alcohol intake: never substance use type: does not use Smoking Status: Never smoker alcohol intake frequency: 0-2 drinks per day Substance Use Type: does not use Exam Initial Vital Signs Initial Vital Signs: Vital Signs Pulse Rate 69 01/19/24 02:14 Blood Pressure 224/107 H 01/19/24 02:14 Pulse Oximetry 96 01/19/24 02:14 GENERAL: Alert pleasant well-appearing 78-year-old male HEENT: Head atraumatic,EOMI, pupils reactive, face symmetric, moist mucous membranes CARDIOVASCULAR: Regular rate and rhythm without murmurs, rubs or gallops. RESPIRATORY: Breath sounds equal bilaterally, no wheezes rales or rhonchi. ABDOMEN: Soft, nontender. Normoactive bowel sounds all 4 quadrants. No guarding or rebound. EXTREMITIES: Normal range of motion, no clubbing or edema. Neurovascularly intact NEUROLOGICAL: Alert and oriented x4.Normal gait and speech. Cranial nerves II through XII grossly intact. Good gfqysk-ij-hgbt, good kbsr-zq-pfdy, strength equal bilaterally, not able to properly identify cactus still having some or trouble finding but no significant slurring of speech, sensation in tact to soft touch bilaterally, no visual changes, no facial droop SKIN: Warm, dry, no laceration, no petechiae, no rashes or lesions. Scores NIH Stroke Scale Level of Conciousness: Alert, keenly responsive Ask month/age: Answers one question correctly, intubated follow commands Open/close eyes, close hand: Performs both tasks correctly Best gaze horizontal: Normal Visual [place]: No visual loss Facial palsy: Normal symetrical movement Left arm drift: No drift for full 10 sec Right arm drift: No drift for full 10 sec Left leg drift: No drift for full 5 sec Right leg drift: No drift for full 5 sec Limb ataxia: Absent Sensory on face/arms/legs: Normal, no sensory loss Best language: No aphasia, normal Dysarthria: Normal Extinction or inattention: No abnormality Total NIH Stroke scale score: 1 Course Orders Ordered: ED Orders 01/19/24 02:17 Complete Blood Count AUTO DIFF Stat Comprehensive Metabolic Panel Stat Ethanol (ETOH) Stat PTT Partial Thromboplastin Huang Stat Prothrombin Time INR Stat Troponin & CK Cardiac Panel Stat Urinalysis and Microscopic Stat Urine Drug Screen, Rapid Stat 01/19/24 02:[address] angio head and neck Stat 01/19/24 02:20 EKG-12 Lead Stat Discontinued Medications Aspirin (Aspirin Ec 325 Mg Tablet) 325 mg PO NOW ONE Stop: 01/19/24 04:44 Vital Signs Vital signs: Vital Signs - 8 hr 01/19/24 02:14 01/19/24 02:14 01/19/24 02:19 Temperature 97.7 F Pulse Rate 69 87 Respiratory Rate 17 Blood Pressure 224/107 H 224/107 H Pulse Oximetry 96 97 Oxygen Delivery Method Room Air 01/19/24 02:34 01/19/24 02:35 01/19/24 02:35 Temperature Pulse Rate 66 61 Respiratory Rate 12 12 Blood Pressure 185/84 H Pulse Oximetry 96 96 Oxygen Delivery Method 01/19/24 03:00 01/19/24 03:01 01/19/24 03:01 Temperature Pulse Rate 57 L 58 L Respiratory Rate 24 20 Blood Pressure 142/76 H Pulse Oximetry 96 96 Oxygen Delivery Method Room Air Room Air MDM - Neuro Symptoms/Deficit Lab Data 01/19/24 02:17 01/19/24 02:17 Labs: Lab Results 01/19/24 01/19/24 Range/Units 02:17 02:17 WBC 6.7 (4.5-11.0) X10^3/uL RBC 5.18 (4.5-5.9) X10^6/uL Hgb 14.4 (13.5-17.5) g/dL Hct 42.6 (41-53) % MCV 82.4 (80-100) fL MCH 27.8 (26-34) PG MCHC 33.7 (30-36) % RDW 14.4 (11.6-14.8) % Plt Count 189 (150-400) X10^3/uL Neut % (Auto) 60.2 (50-75) % Lymph % (Auto) 24.5 L (25-40) % [place] % (Auto) 11.5 (3-14) % Eos % (Auto) 3.6 (2-4) % Baso % (Auto) 0.2 (0-2) % Neut # (Auto) 4100 (6982-4171) /uL Lymph # (Auto) 1700 (9599-2107) /uL [place] # (Auto) 800 (0-900) /uL Eos # (Auto) 200 (0-450) /uL Baso # (Auto) 0 (0-100) /uL PT 11.2 (9.4-12.5) SECONDS INR 1.0 (0.9-1.3) APTT 46 H (25.1-36.5) SECONDS Sodium 139 (137-145) mmol/L Potassium 4.3 (3.4-5.1) mmol/L Chloride 105 (98-107) mmol/L Carbon Dioxide 28 (22-32) mmol/L BUN 19 (9-20) mg/dL Creatinine 0.82 (0.66-1.25) mg/dL Estimated GFR > 60 (>60) mL/min BUN/Creatinine Ratio 23.2 H (6-22) Glucose 103 (80-110) mg/dL Calcium 10.3 H (8.4-10.2) mg/dL Total Bilirubin 0.6 (0.2-1.3) mg/dL AST 26 (17-59) IU/L ALT 22 (<50) IU/L Alkaline Phosphatase 84 (38-126) U/L Total Creatine Kinase 60 (55-170) U/L Troponin I < 0.012 (0.01-0.034) ng/mL Total Protein 7.5 (6.3-8.2) g/dL Albumin 4.5 (3.5-5.0) g/dL Globulin 3.0 (1.7-4.1) g/dL Albumin/Globulin Ratio 1.5 (1.0-2.8) Urine Color Yellow Urine Appearance Clear Urine pH 6.0 Normal (4.5-8.0) Ur Specific [place] 1.020 (1.000-1.035) Urine Protein Negative (Negative) Urine Glucose (UA) Negative (Negative) g/dL Urine Ketones Negative (NEGATIVE) Urine Occult Blood Negative (Negative) Urine Nitrate Negative (Negative) Urine Bilirubin Negative (NEGATIVE) Urine Urobilinogen 0.2 (0.2) E.U./dL Ur Leukocyte Esterase Negative (NEGATIVE) Urine RBC None seen (0-5/HPF) Urine WBC 0-1/hpf (0-5/HPF) Ur Squamous Epith Cells None seen (0-5/HPF) Urine Bacteria None seen (None) Ur Culture Indicated? Cult not indicated Vol Urine Centrifuged 10ml (spun) U Opiates 300ng/mL cut Negative (Negative) Ur Oxycodone Screen Negative (Negative) Urine Methadone Screen Negative (Negative) Ur Barbiturates Screen Negative (Negative) U Tricyclic Antidepress Negative (Negative) Ur Phencyclidine Scrn Negative (Negative) Ur Amphetamines Screen Negative (Negative) U Methamphetamines Scrn Negative (Negative) Ur MDMA Scrn (Ecstasy) Negative (Negative) U Benzodiazepines Scrn Negative (Negative) Urine Cocaine Screen Negative (Negative) U Marijuana (THC) Screen Negative (Negative) Urine Specific [place] Normal (Normal) Ethyl Alcohol < 10 ( - 10) mg/dL Ur Creatinine Normal (Normal) Point of Care Testing Glucose POC 98 Urine Dip Bedside Urine Glucose Negative Bedside Urine Bilirubin - Negative Bedside Urine Ketone - Negative Urine Specific [place] 1.03 Bedside Urine Occult Blood - Negative Bedside Urine pH 6 Bedside Urine Protein - Negative Bedside Urine Urobilinogen - Negative Bedside Urine Nitrite - Negative Bedside Urine Leukocytes +/- [address] scan - head: Radiologist's Impression: Preliminary report no CT evidence of acute intracranial abnormality. Cerebral volume loss intracranial atherosclerotic disease and mild sequela of chronic small vessel ischemic disease CTA - brain/neck: Radiologist's Impression: Preliminary report wide patency of intracranial arterial circulation no intracranial aneurysm or AVM there is less than 50% stenosis in right common carotid artery bifurcation and proximal right internal carotid based. There is less than 50% stenosis left common carotid artery bifurcation proximal left internal carotid artery based on NASCET criteria ECG Data Interpretation: Sinus rhythm rate 57 VA interval 224 QRS 102 QTC 414 T-wave inversion noted in lead [address] elevation or depression MDM Narrative Medical decision making narrative: Patient 78-year-old male history of CVA hypertension hyperlipidemia coronary artery disease presenting today with difficulty speaking. Symptoms have lasted about an hour but seem to be improving in the emergency department. He is difficultly time initially saying cactus but can recall events easily. No other were trouble finding issue. Blood work has been reviewed no clinical significant abnormalities CT imaging reviewed no intracranial hemorrhage, CT angio no large vessel occlusion Patient presents for the 2nd time in 4 months for TIA like symptoms. He is not a candidate for t-PA symptoms are improving. He is taking aspirin 81 mg daily along with Plavix 75 mg. He previously had MRI 09/01/2023 which did not show any acute stroke Patient is ambulatory in the ED symptoms have completely resolved. He continues to have TIAs despite being on aspirin and Plavix. Dr. Gomez accepts patient. Discharge Plan Departure Patient Disposition: Admitted as Observation Clinical Impression: TIA (transient ischemic attack) Admit Date/Time: 01/19/24 04:50 Admit Provider: Bill Gomez
[2024-01-19 02:32] LABS: Appearance Urine UA CLEAR; Bilirubin Urine UA NEGATIVE (NEGATIVE); Color Urine UA YELLOW; Glucose Urine UA NEGATIVE (Negative); Ketones Urine UA NEGATIVE (NEGATIVE); Leukocyte Esterase Urine UA NEGATIVE (NEGATIVE); Nitrite Urine UA NEGATIVE (Negative); Occult Blood Urine UA NEGATIVE (Negative); Protein Urine UA NEGATIVE (Negative); Urobilinogen Urine UA 0.2 E.U./dL (0.2)
[2024-01-19 02:33] LABS: Add Manual Diff / Slide Review NO; Basophils Absolute Auto 0 /uL (0-100); Basophils Percent Auto 0.2 % (0-2); Eosinophils Absolute Auto 200 /uL (0-450); Eosinophils Percent Auto 3.6 % (2-4); Hematocrit 42.6 % (41-53); Hemoglobin 14.4 g/dL (13.5-17.5); Lymphocytes Absolute Auto 1700 /uL (1100-4500); Lymphocytes Percent Auto 24.5 % (25-40); Mean Corpuscular HGB Conc 33.7 % (30-36); Mean Corpuscular Hemoglobin 27.8 PG (26-34); Mean Corpuscular Volume 82.4 fL (80-100); Monocytes Absolute Auto 800 /uL (0-900); Monocytes Percent Auto 11.5 % (3-14); Neutrophils Absolute Auto 4100 /uL (1500-7000); Neutrophils Percent Auto 60.2 % (50-75); Platelet Count 189 X10^3/uL (150-400); Prothrombin Time 11.2 SECONDS (9.4-12.5); Red Blood Cell Count 5.18 X10^6/uL (4.5-5.9); Red Cell Distribution Width 14.4 % (11.6-14.8); White Blood Cell Count 6.7 X10^3/uL (4.5-11.0)
[2024-01-19 02:36] LABS: PTT Partial Thromboplastin Tim 46 SECONDS (25.1-36.5)
[2024-01-19 02:37] LABS: Alanine Aminotransferase 22 IU/L (<50); Albumin 4.5 g/dL (3.5-5.0); Albumin Globulin Ratio 1.5 (1.0-2.8); Alkaline Phosphatase 84 U/L (38-126); Aspartate Aminotransferase 26 IU/L (17-59); BUN Creatinine Ratio 23.2 (6-22); Bilirubin Total 0.6 mg/dL (0.2-1.3); Blood Urea Nitrogen 19 mg/dL (9-20); Calcium 10.3 mg/dL (8.4-10.2); Carbon Dioxide 28 mmol/L (22-32); Chloride 105 mmol/L (98-107); Creatine Kinase 60 U/L (55-170); Estimated Glomerular Filt Rate > 60 mL/min (>60); Ethanol (ETOH) < 10 mg/dL; Glucose 103 mg/dL (80-110); HEMOLYSIS 18 (0-50); Potassium 4.3 mmol/L (3.4-5.1); Sodium 139 mmol/L (137-145); Total Protein 7.5 g/dL (6.3-8.2); UR Morphine/Opiate cutoff 300 Negative (Negative); Ur Creatinine Normal (Normal); Ur Specific Gravity Normal (Normal); Urine Amphetamines Negative (Negative); Urine Barbiturates Negative (Negative); Urine Benzodiazepines Negative (Negative); Urine Cocaine Negative (Negative); Urine MDMA Negative (Negative); Urine Methadone Negative (Negative); Urine Methamphetamines Negative (Negative); Urine Oxycodone Negative (Negative); Urine Phencyclidine Negative (Negative); Urine Tetrahydrocannabinol Negative (Negative); Urine Tricyclic Antidepressant Negative (Negative); Urine pH Normal (Normal)
[2024-01-19 02:49] LABS: Troponin I < 0.012 ng/mL (0.01-0.034)
[2024-01-19 02:55] LABS: Bacteria Urine None Seen; Culture Indicated Urine Cult Not Indicated; RBC Urine None Seen (0-5/HPF); Squamous Epithelial Cell Urine None Seen (0-5/HPF); Urine Volume 10mL (spun); WBC Urine 0-1/HPF (0-5/HPF)
--- NOTE | 2024-01-19 04:57 | DI.MRI.S_ITS ---
PROCEDURE: MR HEAD/BRAIN WO CON INDICATIONS: TIA TECHNIQUE: Non-contrast diffusion and ADC through the brain. COMPARISON: None. FINDINGS: Image quality: Exam terminated early after diffusion sequences. Motion degraded images.. No definite acute infarct is seen. Age-related global volume loss. IMPRESSION: Exam was terminated early after only diffusion sequences were obtained. Motion degraded images. No definite acute infarct is seen. Dictated by: Taj Kowalski M.D. on 01/19/2024 at 19:51 Approved by: Taj Kowalski M.D. on 01/19/2024 at 19:53
[2024-01-19] MEDS: ASPIRIN EC 325 MG TABLET PO (05:06)
[2024-01-19 05:13] LABS: Cholesterol 179 mg/dL (140-199); HDL Cholesterol 41 mg/dL (40-60); LDL Cholesterol Calculated 84 mg/dL (<100); Triglycerides 271 mg/dL (35-150)
[2024-01-19 05:45] LABS: Thyroid Stimulating Hormone 2.93 uIU/mL (0.47-4.68)
--- NOTE | 2024-01-19 06:18 | PM.HP.1 ---
History of Present Illness History of Present Illness Chief complaint: can't find words to say things Narrative: 78 years old male with history of hypertension, hyperlipidemia, CAD, BPH, previous CVA presented to the ER with slurred speech. The patient was noted to speak some gibberish words. Lasted for an hour. Back to baseline in the emergency. Similar episode in August 2023. Denies any headache, blurry vision, numbness or weakness of extremities or loss of balance. Compliant with his home medications. Initial blood pressure was 224/107, pulse 66, oxygen saturation 96% room air, temperature 97.7. Laboratory unremarkable. CTA of the neck and chest preliminary unremarkable. U tox negative, UA negative. EKG sinus bradycardia 57. [facility] Medical History Peripheral edema Dementia BPH (benign prostatic hyperplasia) H/O: CVA (cerebrovascular accident) High blood pressure Heart murmur Surgical History History of cholecystectomy Family History Mother Dementia Social History household members: none Smoking Status: Never smoker alcohol intake: never substance use type: does not use Meds Home Medications and Allergies Home Medications Medication Instructions Recorded Confirmed Type metoprolol succinate 25 mg 25 mg PO DAILY #30 tabs 11/04/21 01/19/24 Rx tablet,extended release 24 hr nifedipine 30 mg tablet,extended 30 mg PO DAILY #30 tabs 11/04/21 07/25/22 Rx release 24 hr omega 2-ohd-pow-fish oil 100 1 cap PO DAILY #30 caps 11/04/21 01/19/24 Rx mg-160 mg-1,000 mg capsule (Fish Oil) tamsulosin 0.4 mg capsule (Flomax) 0.4 mg PO DAILY #30 caps 08/03/22 01/19/24 Rx aspirin 81 mg tablet,delayed 81 mg PO DAILY #90 tabs 09/01/23 01/19/24 Rx release atorvastatin 80 mg tablet (Lipitor) 80 mg PO BEDTIME #90 tabs 09/01/23 01/19/24 Rx clopidogrel 75 mg tablet 75 mg PO DAILY #20 tabs 09/01/23 01/19/24 Rx amlodipine 10 mg tablet 10 mg PO DAILY 01/19/24 History hydrochlorothiazide 12.5 mg tablet 12.5 mg PO QAM 01/19/24 01/19/24 History spironolactone 25 mg tablet 25 mg PO DAILY 01/19/24 01/19/24 History Allergies Allergy/AdvReac Type Severity Reaction Status Date / Time Sulfa (Sulfonamide Allergy Mild Verified 07/25/22 17:48 Antibiotics) Review of Systems Review of Systems ROS: Yes All systems reviewed with the patient and are negative except as otherwise documented Constitutional Constitutional: Reports as per HPI and Reports system reviewed and no additional complaints, except as documented Eyes Eyes: Reports as per HPI and Reports system reviewed and no additional complaints, except as documented ENT Ears, Nose, Mouth, and Throat: Yes as per HPI and Yes system reviewed and no additional complaints, except as documented Cardiovascular Cardiovascular: Reports system reviewed and no additional complaints, except as documented Respiratory Respiratory: Reports system reviewed and no additional complaints, except as documented Gastrointestinal Gastrointestinal: Reports system reviewed and no additional complaints, except as documented Genitourinary Genitourinary: Reports system reviewed and no additional complaints, except as documented Musculoskeletal Musculoskeletal: Reports system reviewed and no additional complaints, except as documented, Reports abnormal gait and Reports numbness Neurologic Neurologic: Reports system reviewed and no additional complaints, except as documented, Reports abnormal gait, Reports confusion and Reports numbness Psychiatric Psychiatric: Reports system reviewed and no additional complaints, except as documented and Reports confusion Exam Vital Signs (past 8 hours): - 01/19/24 02:14 01/19/24 02:14 01/19/24 02:19 Temperature 97.7 F Pulse Rate 69 87 Respiratory Rate 17 Blood Pressure 224/107 H 224/107 H Pulse Oximetry 96 97 Oxygen Delivery Method Room Air Oxygen Flow Rate 01/19/24 02:34 01/19/24 02:35 01/19/24 02:35 Temperature Pulse Rate 66 61 Respiratory Rate 12 12 Blood Pressure 185/84 H Pulse Oximetry 96 96 Oxygen Delivery Method Oxygen Flow Rate 01/19/24 03:00 01/19/24 03:01 01/19/24 03:01 Temperature Pulse Rate 57 L 58 L Respiratory Rate 24 20 Blood Pressure 142/76 H Pulse Oximetry 96 96 Oxygen Delivery Method Room Air Room Air Oxygen Flow Rate 01/19/24 03:30 01/19/24 03:31 01/19/24 03:31 Temperature Pulse Rate 59 L 59 L Respiratory Rate 18 14 Blood Pressure 176/81 H Pulse Oximetry 96 97 Oxygen Delivery Method Oxygen Flow Rate 01/19/24 04:00 01/19/24 04:00 01/19/24 04:30 Temperature Pulse Rate 56 L 56 L Respiratory Rate 15 20 Blood Pressure 154/82 H Pulse Oximetry 95 96 Oxygen Delivery Method Oxygen Flow Rate 01/19/24 04:30 01/19/24 05:00 01/19/24 05:01 Temperature Pulse Rate 62 Respiratory Rate 15 Blood Pressure 132/78 161/84 H Pulse Oximetry 98 Oxygen Delivery Method Oxygen Flow Rate 01/19/24 05:01 01/19/24 05:30 Temperature 97.1 F L Pulse Rate 58 L 63 Respiratory Rate 20 18 Blood Pressure 163/69 H Pulse Oximetry 97 96 Oxygen Delivery Method Oxygen Flow Rate 0 Oxygen Delivery Method Room Air Oxygen Flow Rate 0 Const General: cooperative, comfortable and well developed Orientation: alert and oriented x3 HENMT Head: normal to inspection, normocephalic and atraumatic Face and sinus: normal facial exam Mouth: oral mucosae normal and moist mucous membranes Throat: posterior oropharynx normal Eyes General: appearance normal, both eyes and all related structures Pupils: PERRL EOM: EOM intact bilaterally Neck Neck: normal visual inspection and full ROM Chest Chest: normal inspection of the chest Resp Effort & Inspection: normal respiratory effort and able to speak in complete sentences Auscultation: clear to auscultation bilaterally Cardio Palpation: normal PMI Rate: regular rate Rhythm: regular rhythm Heart Sounds: S1 normal and S2 normal GI Inspection: normal to inspection Palpation: soft and no hepatosplenomegaly Auscultation: normal bowel sounds Skin General: no rashes or lesions noted Lesions: no lesions Rashes: no rashes Trauma: no lacerations or abrasions Neuro General: patient alert, patient awake, patient oriented x3 and no focal motor deficits Cranial Nerves: CN's II-XI intact bilaterally Cognition: normal cognition Speech: speech normal Gait: normal gait Motor: muscle tone normal throughout Sensory Exam: no sensory deficits noted Extrem General: full ROM and no calf tenderness Psych Appearance: grossly normal Mental Status: mental status grossly normal Speech and Movement: speech and movement normal Objective Labs 01/19/24 02:17 01/19/24 02:17 Labs: Laboratory Results - last 24 hr 01/19/24 01/19/24 01/19/24 02:15 02:17 02:17 WBC 6.7 RBC 5.18 Hgb 14.4 Hct 42.6 MCV 82.4 MCH 27.8 MCHC 33.7 RDW 14.4 Plt Count 189 Neut % (Auto) 60.2 Lymph % (Auto) 24.5 L [place] % (Auto) 11.5 Eos % (Auto) 3.6 Baso % (Auto) 0.2 Neut # (Auto) 4100 Lymph # (Auto) 1700 [place] # (Auto) 800 Eos # (Auto) 200 Baso # (Auto) 0 PT 11.2 INR 1.0 APTT 46 H Sodium 139 Potassium 4.3 Chloride 105 Carbon Dioxide 28 BUN 19 Creatinine 0.82 Estimated GFR > 60 BUN/Creatinine Ratio 23.2 H Glucose 103 Calcium 10.3 H Total Bilirubin 0.6 AST 26 ALT 22 Alkaline Phosphatase 84 Total Creatine Kinase 60 Troponin I < 0.012 Total Protein 7.5 Albumin 4.5 Globulin 3.0 Albumin/Globulin Ratio 1.5 Triglycerides 271 H Cholesterol 179 LDL Cholesterol, Calc 84 HDL Cholesterol 41 TSH 2.93 Urine Color Yellow Urine Appearance Clear Urine pH 6.0 Normal Ur Specific [place] 1.020 Urine Protein Negative Urine Glucose (UA) Negative Urine Ketones Negative Urine Occult Blood Negative Urine Nitrate Negative Urine Bilirubin Negative Urine Urobilinogen 0.2 Ur Leukocyte Esterase Negative Urine RBC None seen Urine WBC 0-1/hpf Ur Squamous Epith Cells None seen Urine Bacteria None seen Ur Culture Indicated? Cult not indicated Vol Urine Centrifuged 10ml (spun) U Opiates 300ng/mL cut Negative Ur Oxycodone Screen Negative Urine Methadone Screen Negative Ur Barbiturates Screen Negative U Tricyclic Antidepress Negative Ur Phencyclidine Scrn Negative Ur Amphetamines Screen Negative U Methamphetamines Scrn Negative Ur MDMA Scrn (Ecstasy) Negative U Benzodiazepines Scrn Negative Urine Cocaine Screen Negative U Marijuana (THC) Screen Negative Urine Specific [place] Normal Ethyl Alcohol < 10 Ur Creatinine Normal Assessment & Plan Assessment & Plan narrative: TIA-patient seems to have a TIA which is recovering. Initial CT head and CT angiogram shows no obvious abnormality. -Restart ASA and Plavix, .-ECHO, MRI brain -Telemetry monitoring, Serial neurochecks -Strict bedrest for now -Monitor hemodynamics -Continue IV fluids -Check lipid panel in a.m., thyroid function test, blood sugar monitoring, -PT/OT and swallowing evaluation in a.m. I would keep him n.p.o. for now -Sroke education -fall precaution Hypertension. Restart amlodipine and metoprolol Hyperlipidemia. Restart Lipitor and check lipids BPH. Restart Flomax Time Spent With Patient Time with patient: 50 to 69 minutes with 50% spent counseling/coordinating care Quality VTE Deep Vein Thrombosis/Pulmonary Embolism Present on Admission: No MIPS - Admit I confirm the patient?s Advance Care Plan is present, Code status is documented, Surrogate decision maker is in patient?s record [If Yes, STOP here]: Yes MIPS - Meds 'Current medications' to include all prescriptions, [id number] products, herbals, cannabis/cannabidiol products, and vitamin/mineral/dietary (nutritional) supplements. I have utilized all available resources to obtain, update, or review the patient?s current medications. [If Yes, STOP here]: Yes
--- NOTE | 2024-01-19 07:00 | PC.NURSE ---
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 Patient is alert to self, place, situation, month/year. Appears forgetful at times. NIH: 0. Denies pain. Complaints of mild dizziness when standing. Hypertensive (notified MD Gomez), otherwise VSS. Lung sounds are CTA. Ambulates w/ SBA. Continuous tele monitoring placed. Attempted to reconcile home medications however patient does not remember what he is currently taking. Oriented to room & call-light. Plan of care ongoing.
--- NOTE | 2024-01-19 09:00 | P.HP_ITS ---
History of Present Illness History of Present Illness Chief complaint: can't find words to say things Narrative: From overnight provider: 78 years old male with history of hypertension, hyperlipidemia, CAD, BPH, previous CVA presented to the ER with slurred speech. The patient was noted to speak some gibberish words. Lasted for an hour. Back to baseline in the emergency. Similar episode in August 2023. Denies any headache, blurry vision, numbness or weakness of extremities or loss of balance. Compliant with his home medications. Initial blood pressure was 224/107, pulse 66, oxygen saturation 96% room air, temperature 97.7. Laboratory unremarkable. CTA of the neck and chest preliminary unremarkable. U tox negative, UA negative. EKG sinus bradycardia 57. Patient initially declined the MRI due to it being too loud. Ativan IV offered and he obliged. MRI and echo still pending. [facility] Medical History Peripheral edema Dementia BPH (benign prostatic hyperplasia) H/O: CVA (cerebrovascular accident) High blood pressure Heart murmur Surgical History History of cholecystectomy Family History Mother Dementia Social History household members: none Smoking Status: Never smoker alcohol intake: never substance use type: does not use Meds Home Medications and Allergies Home Medications Medication Instructions Recorded Confirmed Type metoprolol succinate 25 mg 25 mg PO DAILY #30 tabs 11/04/21 01/19/24 Rx tablet,extended release 24 hr nifedipine 30 mg tablet,extended 30 mg PO DAILY #30 tabs 11/04/21 07/25/22 Rx release 24 hr omega 1-pmz-ahs-fish oil 100 1 cap PO DAILY #30 caps 11/04/21 01/19/24 Rx mg-160 mg-1,000 mg capsule (Fish Oil) tamsulosin 0.4 mg capsule (Flomax) 0.4 mg PO DAILY #30 caps 08/03/22 01/19/24 Rx aspirin 81 mg tablet,delayed 81 mg PO DAILY #90 tabs 09/01/23 01/19/24 Rx release atorvastatin 80 mg tablet (Lipitor) 80 mg PO BEDTIME #90 tabs 09/01/23 01/19/24 Rx clopidogrel 75 mg tablet 75 mg PO DAILY #20 tabs 09/01/23 01/19/24 Rx amlodipine 10 mg tablet 10 mg PO DAILY 01/19/24 History hydrochlorothiazide 12.5 mg tablet 12.5 mg PO QAM 01/19/24 01/19/24 History spironolactone 25 mg tablet 25 mg PO DAILY 01/19/24 01/19/24 History Allergies Allergy/AdvReac Type Severity Reaction Status Date / Time Sulfa (Sulfonamide Allergy Mild Verified 07/25/22 17:48 Antibiotics) Review of Systems Review of Systems Narrative: All other systems reviewed with the patient and are negative unless otherwise stated. Exam Vital Signs (past 8 hours): - 01/19/24 02:14 01/19/24 02:14 01/19/24 02:19 Temperature 97.7 F Pulse Rate 69 87 Respiratory Rate 17 Blood Pressure 224/107 H 224/107 H Pulse Oximetry 96 97 Oxygen Delivery Method Room Air Oxygen Flow Rate 01/19/24 02:34 01/19/24 02:35 01/19/24 02:35 Temperature Pulse Rate 66 61 Respiratory Rate 12 12 Blood Pressure 185/84 H Pulse Oximetry 96 96 Oxygen Delivery Method Oxygen Flow Rate 01/19/24 03:00 01/19/24 03:01 01/19/24 03:01 Temperature Pulse Rate 57 L 58 L Respiratory Rate 24 20 Blood Pressure 142/76 H Pulse Oximetry 96 96 Oxygen Delivery Method Room Air Room Air Oxygen Flow Rate 01/19/24 03:30 01/19/24 03:31 01/19/24 03:31 Temperature Pulse Rate 59 L 59 L Respiratory Rate 18 14 Blood Pressure 176/81 H Pulse Oximetry 96 97 Oxygen Delivery Method Oxygen Flow Rate 01/19/24 04:00 01/19/24 04:00 01/19/24 04:30 Temperature Pulse Rate 56 L 56 L Respiratory Rate 15 20 Blood Pressure 154/82 H Pulse Oximetry 95 96 Oxygen Delivery Method Oxygen Flow Rate 01/19/24 04:30 01/19/24 05:00 01/19/24 05:01 Temperature Pulse Rate 62 Respiratory Rate 15 Blood Pressure 132/78 161/84 H Pulse Oximetry 98 Oxygen Delivery Method Oxygen Flow Rate 01/19/24 05:01 01/19/24 05:30 01/19/24 06:20 Temperature 97.1 F L Pulse Rate 58 L 63 Respiratory Rate 20 18 Blood Pressure 163/69 H Pulse Oximetry 97 96 Oxygen Delivery Method Room Air Oxygen Flow Rate 0 01/19/24 07:59 01/19/24 08:42 Temperature 97.5 F L Pulse Rate 67 Respiratory Rate Blood Pressure 138/63 Pulse Oximetry 96 Oxygen Delivery Method Oxygen Flow Rate 0 Oxygen Delivery Method Room Air Oxygen Flow Rate 0 Narrative Exam Narrative: GEN: no acute distress HEENT: moist mucous membranes, PERRL NECK: trachea midline, no JVD CV: regular rate and rhythm, no murmurs PULM: clear bilaterally ABD: soft, nontender, nondistended, no organomegaly EXT: warm and well perfused with no edema NEURO: awake, alert, oriented, no focal deficits Objective Labs 01/19/24 02:17 01/19/24 02:17 Labs: Laboratory Results - last 24 hr 01/19/24 01/19/24 01/19/24 02:15 02:17 02:17 WBC 6.7 RBC 5.18 Hgb 14.4 Hct 42.6 MCV 82.4 MCH 27.8 MCHC 33.7 RDW 14.4 Plt Count 189 Neut % (Auto) 60.2 Lymph % (Auto) 24.5 L [place] % (Auto) 11.5 Eos % (Auto) 3.6 Baso % (Auto) 0.2 Neut # (Auto) 4100 Lymph # (Auto) 1700 [place] # (Auto) 800 Eos # (Auto) 200 Baso # (Auto) 0 PT 11.2 INR 1.0 APTT 46 H Sodium 139 Potassium 4.3 Chloride 105 Carbon Dioxide 28 BUN 19 Creatinine 0.82 Estimated GFR > 60 BUN/Creatinine Ratio 23.2 H Glucose 103 Calcium 10.3 H Total Bilirubin 0.6 AST 26 ALT 22 Alkaline Phosphatase 84 Total Creatine Kinase 60 Troponin I < 0.012 Total Protein 7.5 Albumin 4.5 Globulin 3.0 Albumin/Globulin Ratio 1.5 Triglycerides 271 H Cholesterol 179 LDL Cholesterol, Calc 84 HDL Cholesterol 41 TSH 2.93 Urine Color Yellow Urine Appearance Clear Urine pH 6.0 Normal Ur Specific [place] 1.020 Urine Protein Negative Urine Glucose (UA) Negative Urine Ketones Negative Urine Occult Blood Negative Urine Nitrate Negative Urine Bilirubin Negative Urine Urobilinogen 0.2 Ur Leukocyte Esterase Negative Urine RBC None seen Urine WBC 0-1/hpf Ur Squamous Epith Cells None seen Urine Bacteria None seen Ur Culture Indicated? Cult not indicated Vol Urine Centrifuged 10ml (spun) U Opiates 300ng/mL cut Negative Ur Oxycodone Screen Negative Urine Methadone Screen Negative Ur Barbiturates Screen Negative U Tricyclic Antidepress Negative Ur Phencyclidine Scrn Negative Ur Amphetamines Screen Negative U Methamphetamines Scrn Negative Ur MDMA Scrn (Ecstasy) Negative U Benzodiazepines Scrn Negative Urine Cocaine Screen Negative U Marijuana (THC) Screen Negative Urine Specific [place] Normal Ethyl Alcohol < 10 Ur Creatinine Normal Assessment & Plan Assessment & Plan narrative: TIA -patient seems to have a TIA which is recovering. Initial CT head and CT angiogram shows no obvious abnormality. 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 Restart amlodipine and metoprolol Hyperlipidemia. Restart Lipitor and check lipids BPH. Restart Flomax Dispo: Home today or tomorrow following TIA workup. Time Spent With Patient Time with patient: 50 to 69 minutes with 50% spent counseling/coordinating care Quality VTE Deep Vein Thrombosis/Pulmonary Embolism Present on Admission: No
[2024-01-19] MEDS: ASPIRIN EC 81 MG TABLET PO (09:15)
[2024-01-19] MEDS: METOPROLOL ER 25 MG TABLET PO (09:15)
[2024-01-19] MEDS: ENOXAPARIN 40 MG/0.4 ML SYRINGE SUBCUT (09:15)
[2024-01-19] MEDS: CLOPIDOGREL 75 MG TABLET PO (09:16)
[2024-01-19] MEDS: TAMSULOSIN 0.4 MG CAPSULE PO (09:16)
--- NOTE | 2024-01-19 11:20 | OT.IP.EVAL ---
Past Medical History (Last Reviewed 01/19/24 @ 02:26 by Flaquita Manzanares DO) BPH (benign prostatic hyperplasia) Dementia H/O: CVA (cerebrovascular accident) Heart murmur High blood pressure Peripheral edema Surgical History (Last Reviewed 01/19/24 @ 02:26 by Flaquita Manzanares DO) History of cholecystectomy Occupational Therapy Inpatient Evaluation/Re-Eval M1 PT/OT-IP Prior Functional Status Start: 01/19/24 13:11 Freq: NEEDED Status: Active Protocol: Document 01/19/24 11:45 AB (Rec: 01/19/24 13:22 AB [id number]) Medical Review Prior Functional Status Medical History Reviewed Yes Communication able to make needs known Mobility and Gait pt stated that he was independent with all mobilities and ambulation without AD; stated that he goes to [facility] PT for his back problem Activities of Daily Living and IADL's Pt states is completely independent with all his ADL, IADL and drives. Social History Household Members none Living Arrangements Apartment/Condo Number of Floors (Floors) One Floor Number of Stairs To Enter/Railing? no steps to enter the house Home Environment Standard Height Toilet,Walk in Shower Home Equipment Front Wheel Walker,Hand Held Shower,Grab Bars In Shower M2 OT-IP Current Condition Start: 01/19/24 12:48 Freq: Status: Active Protocol: Document 01/19/24 12:48 [facility] (Rec: 01/19/24 13:08 [facility] [id number]) Occupational Therapy Current Condition Current Condition Evaluation Date 01/19/24 Treatment Diagnosis TIA Diagnosis Onset Date 01/19/24 M3 OT- IP Subjective and Pain Start: 01/19/24 12:48 Freq: Status: Active Protocol: Document 01/19/24 12:48 [facility] (Rec: 01/19/24 13:08 [facility] [id number]) OT- Subjective Occupational Therapy Visit Type Type Initial Evaluation Visit Start Time 10:40 Visit Stop Time 11:20 Occupational Therapy Visit Comments Patient Comments Pt agreed to get up with OT. Patient/Caregiver Goals To go home. OT Pain Assessment Pain When Pain Assessed At Rest Pain Present Pain Present Denied Pain M4 OT- IP ADL's Start: 01/19/24 12:48 Freq: Status: Active Protocol: Document 01/19/24 12:48 [facility] (Rec: 01/19/24 13:08 [facility] [id number]) OT DDI-Eflx-Etfsyeg General Evaluation Self-Feeding Ability Independent OT ADL-Grooming Comments OT Grooming Comments Not performed OT ADL-Oral Care Comments Oral Care Comments No performed. OT ADL-Dressing General Eval Lower Body Dressing Ability Standby Assistance Comments OT Dressing Comments Pt able to morteza/doff his socks while seated and aware to sit to get dressed. OT ADL-Toileting General Evaluation Toileting Ability Independent OT ADL-Bathing Comments OT Bathing Comments Not performed and pt states to do it at home. M5 OT- IP IADL's Start: 01/19/24 12:48 Freq: Status: Active Protocol: Document 01/19/24 12:48 [facility] (Rec: 01/19/24 13:08 [facility] [id number]) OT-Instrumental Activities of Daily Living Deficits IADL Deficits Identified No Deficits Home Safety Awareness Awareness of Need for Assistance at Home Good Awareness Ability to Problem Solve Emergency Able to Problem Solve Situations Medication Management Medication Management Comments Pt states does on his own. Money Management Money Management Comments Pt states does on his own, concerns needing assistance. Meal Preparation Meal Preparation Comments Pt states does his own. Milieu Coordinator Milieu Coordinator Comments Pt states does his own. Driving Driving Concerns Identified Regarding Safety M6 OT- IP Functional Cognition Start: 01/19/24 12:48 Freq: Status: Active Protocol: Document 01/19/24 12:48 [facility] (Rec: 01/19/24 13:08 [facility] [id number]) Cognitive Factors Limiting Selfcare Function Cognitive Ability Level of Alertness Alert Patient Orientation Name,Age,Birthday,Month,Year, Place,Situation Attention Span Ability Capable of Focused Attention, Capable of Sustained Attention Ability to Follow Commands Able to Follow One Step Commands Memory Description Short Term Impaired Executive Function Ability Unable to Remember Details Cognitive Tests SLUMS Pt scored 21/30 which implies mild cognitive deficits and main issues are decreased short term memory which pt is highly aware of and states tends to write everything down . Cognitive Comments Cognitive Assessment Comments Pt not able to completed Trial Making Part B which implies severe deficits for visual attention, speed of processing , task switching, mental flexibility, and executive functioning. Suggested best for pt not to drive at this time but pt disagrees.Pt needing increased time to process and think. OT- Vision and Hearing OT- Hearing Assessment OT- Hearing Assessment WFL OT- Vision Assessment Visual Acuity Glasses For Reading Visual Attentiveness WFL Occular Pursuits WFL Visual Convergence WFL Visual Anderson WFL M7 OT- IP Mobility and Balance Start: 01/19/24 12:48 Freq: Status: Active Protocol: Document 01/19/24 12:48 [facility] (Rec: 01/19/24 13:08 [facility] [id number]) OT-Transfer Assessment Sit to and From Stand Sit to and from Stand Standby Assistance Transfers Transfer Ability Standby Assistance Technique Transfer Destination Bed,Chair Transfer Technique Stand Step Pivot Devices Transfer Assistive Devices None Comments Mobility Comments Pt able to walk in the room without a device but slowly. OT- Balance Assessment Sitting Balance and Reactions Static Sitting Balance Ability Good Dynamic Sitting Balance Ability Good Standing Balance and Reactions Static Standing Balance Ability Good Dynamic Standing Balance Ability Fair M8 OT- IP Objective Assessments Start: 01/19/24 12:48 Freq: Status: Active Protocol: Document 01/19/24 12:48 [facility] (Rec: 01/19/24 13:08 [facility] [id number]) OT Gross Range of Motion Upper Extremity Range of Motion Assessment Bilaterally Impaired ROM Impairments Decreased at end ROM, pt states due to possible nerve damage prior to covid when trying to crawl out from the motel her lived before. OT Strength Comments Strength Comments Distally4/5 for BUE OT- Coordination Assessment Upper Extremity Finger to Nose Test Bilateral UE Impaired Finger Tapping Test Bilateral UE Impaired Comments Coordination Comments Slight off for both UE. M9 OT- IP Assessment and Plan Start: 01/19/24 12:48 Freq: Status: Active Protocol: Document 01/19/24 12:48 [facility] (Rec: 01/19/24 13:08 [facility] [id number]) OT Summary Assessment and Plan Potential Rehabilitation Potential Good Analytic Complexity at Evaluation Low Summary OT Impairments Range of Motion,Strength, Balance,Functional Cognition, Functional Mobility,Bathing, Activity Tolerance Progress Towards Goals Progressing Toward Goals Assessment Summary Pt low complexity and main barriers are decreased for strength, balance, functional cognition especially for short term memory needs. Pt states already has outpt PT that he attends. Pt insistent that he will be fine and back to normal. OT suggested pt get assist especially for driving needs. Pt to go home with assist and continue outpt PT. Goals Dressing Goal Independent Bathing Goal Independent Toilet Transfer Goal Independent Shower Transfer Goal Independent Days to Meet Goals 3 Frequency of Treatment Frequency Of Treatment Once a Day Treatment Plan OT Treatment Plan ADL Training,Functional Cognition Training,Functional Mobility,Patient/Family Education,Discharge Planning Discharge Recommendations OT Discharge Recommendations Home with Assistance, Outpatient PT Transportation Needs at Discharge Private Vehicle
--- NOTE | 2024-01-19 11:45 | PT.IIE ---
Surgical History (Last Reviewed 01/19/24 @ 02:26 by Flaqutia Manzanares DO) History of cholecystectomy Medical History (Last Reviewed 01/19/24 @ 02:26 by Flaquita Manzanares DO) BPH (benign prostatic hyperplasia) Dementia H/O: CVA (cerebrovascular accident) Heart murmur High blood pressure Peripheral edema Physical Therapy Inpatient Evaluation/Re-Eval M1 PT/OT-IP Prior Functional Status Start: 01/19/24 13:11 Freq: NEEDED Status: Active Protocol: Document 01/19/24 11:45 AB (Rec: 01/19/24 13:22 AB [id number]) Medical Review Prior Functional Status Medical History Reviewed Yes Communication able to make needs known Mobility and Gait pt stated that he was independent with all mobilities and ambulation without AD; stated that he goes to [facility] for his back problem Activities of Daily Living and IADL's Pt states is completely independent with all his ADL, IADL and drives. Social History Household Members none Living Arrangements Apartment/Condo Number of Floors (Floors) One Floor Number of Stairs To Enter/Railing? no steps to enter the house Home Environment Standard Height Toilet,Walk in Shower Home Equipment Front Wheel Walker,Hand Held Shower,Grab Bars In Shower M2 PT-IP Current Condition Start: 01/19/24 13:11 Freq: NEEDED Status: Active Protocol: Document 01/19/24 11:45 AB (Rec: 01/19/24 13:22 AB [id number]) Physical Therapy Current Condition Current Condition Evaluation Date 01/19/24 Treatment Diagnosis TIA; difficulty in walking Onset Date 01/18/24 M3 PT-IP Subjective Start: 01/19/24 13:11 Freq: NEEDED Status: Active Protocol: Document 01/19/24 11:45 AB (Rec: 01/19/24 13:22 AB [id number]) Subjective Physical Therapy Visit Type Type Initial Evaluation Visit Start Time 11:45 Visit Stop Time 12:15 Number of SOLAR MANUFACTURER'S REPRESENTATIVE Visits 30 Physical Therapy Visit Comments Patient Comments agreeable to do PT Therapy Pain Assessment Pain Present Pain Present Denied Pain M4 PT-IP Mobility and Gait Start: 01/19/24 13:11 Freq: NEEDED Status: Active Protocol: Document 01/19/24 11:45 AB (Rec: 01/19/24 13:22 AB [id number]) PT-Bed Mobility Assessment Supine to Sit Supine to Sit Independent Sit to Supine Sit to Supine Independent PT-Transfer Assessment Sit to and From Stand Sit to and from Stand Independent Equipment Transfer Assistive Device None,Gait Belt Orthotic/Prosthetic Devices or Brace: No Transfers Transfer Destination Bed,Chair Transfer Technique ambulated Transfer Ability Level of Assist Independent,Use of Upper Extremities Comments Mobility Comments pt sitting on the chair and agreeable to do PT. BPin sittin/82. pt completed sit to stand I from the chair and ambulated in room without AD SBA and sat on EOB. demonstrated bed mobility mod I. pt agreed to do more ambulation and completed ~ 200 ft without in the hallway SBA for safety. pt ambualted back to his room and sat back on the chair. call light and table placed within reach. informed pt that no further PT intervention indicated at this time and pt agreed. pt to continue outpt PT for back issues. Gait Assessment Gait Gait Assistance Required: Standby Assistance Distance (Feet) 200 Able to Maintain Weight Bearing Status Yes During Gait Assistive Devices Assistive Device None,Gait Belt Orthotic/Prosthetic Devices or Brace: No Gait Deviations General Gait Pattern Antalgic Factors Limiting Gait Function Factors Limiting Gait Function Decreased Strength PT-Balance Assessment Sitting Balance and Reactions Static Sitting Balance Ability Normal Dynamic Sitting Balance Ability Normal Standing Balance and Reactions Static Standing Balance Ability Good Dynamic Standing Balance Ability Good M5 PT-IP Objective Assessments Start: 01/19/24 13:11 Freq: NEEDED Status: Active Protocol: Document 01/19/24 11:45 AB (Rec: 01/19/24 13:22 AB [id number]) Orientation Orientation/Cognition Level of Alertness Alert Orientation Name,Place,Situation Language Function Ability No Deficits Noted Safety Awareness Understands Safety Issues Memory Description No Deficits Noted Gross Range of Motion Lower Extremity ROM Assessment Within Functional Limits Strength Lower Extremity Strength Assessment Right Impaired Hip 4-/5 Knee 4-/5 Muscle Tone Muscle Tone WNL Yes M6 PT-IP Treatment Start: 01/19/24 13:11 Freq: NEEDED Status: Active Protocol: Document 01/19/24 11:45 AB (Rec: 01/19/24 13:22 AB [id number]) Physical Therapy Treatment Education Education Provided Safety M7 PT-IP Assessment and Plan Start: 01/19/24 13:11 Freq: NEEDED Status: Active Protocol: Document 01/19/24 11:45 AB (Rec: 01/19/24 13:22 AB [id number]) PT Summary Assessment and Plan Potential Rehabilitation Potential Good Status of Condition at Evaluation Stable Summary Impairments Strength,Balance,Gait Assessment Summary pt is an 78 y/o M who presented to the ED after having difficulty in word finding per EMR and symptoms improved while pt was in the ED. pt admitted for TIA. pt requiring is modified independent in room mobility without AD and provided SBA for long distance ambulation without AD only for safety. no further PT intervention indicated at this time and pt may go home when medically stable. pt stated that he has been going to outpt PT for his back issues and to address his RLE weakness. pt to continue with outpt PT. Frequency of Treatment Frequency Of Treatment Discharge Discharge Recommendations PT Discharge Recommendations Home,Outpatient PT Transportation Needs at Discharge Private Vehicle
--- NOTE | 2024-01-19 12:32 | ST.IPCSEOM ---
Visit Care Team Role Provider Type Flaquita Manzanares DO Emergency Provider Physician Referring Provider Specialty: Emergency Medicine Address: [address] [place] [address], [id number] Email: [email or web address] Bill Gomez MD Admit Provider Physician Attending Provider Specialty: Internal Medicine Address: [address] [place] [address], [address] Fax: Email: [email or web address] Past Medical History (Last Reviewed 01/19/24 @ 02:26 by Flaquita Manzanares DO) BPH (benign prostatic hyperplasia) (Medical) Dementia (Medical) H/O: CVA (cerebrovascular accident) (Medical) Heart murmur (Medical) High blood pressure (Medical) Peripheral edema (Medical) Speech-Language Pathology Swallow Evaluation EM PHYSICIAN Clinical Swallow Evaluation Start: 01/19/24 12:02 Freq: Status: Active Protocol: Document 01/19/24 12:02 TASNEEM (Rec: 01/19/24 12:32 MA [id number]) Clinical Swallow Evaluation Session Time Visit Start Time 11:15 Visit Stop Time 11:45 Total Visit Minutes 30 Visit Information Visit Number [address] Gomez Reason for Referral Possible dysphagia d/t hx of CVA/TIAs Setting Assessment Location Acute Care Visit Type Note Type Initial evaluation Next Note Type Next Note Type Treatment Note Patient Information Identification Type Name,Date of History Per H&P: 78 years old male with history of hypertension, hyperlipidemia, CAD, BPH, previous CVA presented to the ER with slurred speech. The patient was noted to speak some gibberish words. Lasted for an hour. Back to baseline in the emergency. Similar episode in August 2023. Denies any headache, blurry vision, numbness or weakness of extremities or loss of balance. Compliant with his home medications. Initial blood pressure was 224/107, pulse 66, oxygen saturation 96 % room air, temperature 97.7. Laboratory unremarkable. CTA of the neck and chest preliminary unremarkable. U tox negative, UA negative. EKG sinus bradycardia 57. PMHx significant for: Peripheral edema Dementia BPH (benign prostatic hyperplasia) H/O: CVA (cerebrovascular accident) High blood pressure Heart murmur Pt referred for ST evaluation d/t hx of CVAs/TIAs and to rule out any swallowing issues and determine safest and most efficient least restrictive diet. Subjective Observations Pt sitting upright in chair in room. He reports he consumes primarily regular solids and thin liquids, however has some chewing difficulty with some reg solids, such as steak. He states no recent chewing/ swallowing trouble while in hospital. He states he just has to go slow and take small bites. Nursing reports no observed swallow trouble Reported by Patient/Caregiver Current Diet Regular (IDDSI 7) Baseline Feeding Method Independent in self-feeding The IDDSI Framework Protocol: IDDSI.1 Objective Assessment Mental Status Alert,Responsive,Cooperative Comment Oral motor exam revealed Pt with some natural dentition upper and bottom, however missing several. Fair condition. He states chewing difficulties d/t lack of dentition. He reports he does not wear partials/dentures. He exhibited generalized weakness and reduced ROM. Food and Liquid Trials Position During Assessment Upright (90 degrees) Liquids Trialed Thin (IDDSI 0) Solid Trials Regular (IDDSI 7) Administration Type Self-feeding Oral Impairment Mildly impaired Oral Phase Comments Pt presented with mikey crackers and juice via cup. For mikey crackers, he demonstrated small bites, prolonged mastication however adequate bolus formation and control, piecemeal deglutition , minimal oral stasis. For thin liquids via cup Pt took consecutive sips, good oral acceptance and containment, timely ap transport. Pharyngeal Impairment Mildly impaired Pharyngeal Phase Comments Pt with suspected delay in swallow with all PO trials. Occasional double swallow with thin liquids. No overt s/s of aspiration or penetration with all trials. Fatigue/Endurance Endurance WNL The IDDSI Framework Protocol: IDDSI.1 Findings Swallowing Function Oropharyngeal phase dysphagia Severity of Swallow Impairment Mildly impaired Contributing Factors to Swallow Mastication inefficiency Impairment Prognosis Good Impact on Safety and Functioning No limitations Recommendations Instrumental Assessment No Swallowing Treatment No Recommended Solids Regular (IDDSI 7) Recommended Liquids Thin (IDDSI 0) Other Recommendations ST recommends IDDSI 7/IDDSI 0. Pt declined a softer diet and reported he has the awareness to not consume anything too difficult to chew. He states he takes small bites and goes slow and drinks throughout meals to assist with intake. ST recommended he communicate with nursing/MD if any swallowing difficulties arise while in hospital. Pt verbalized understanding. Safety Precautions/Swallowing Remain upright (90 degrees) Recommendations during all oral intake,Upright position at least 30 minutes after meals,Small bites and sips when eating,Slow rate; swallow between bites, Alternate liquids and solids, Strict oral care after intake Medication Recommendations As Tolerated Discharge Recommendations Home Education Patient/Caregiver Education Described results of evaluation,Patient expressed understanding of evaluation
--- NOTE | 2024-01-19 13:08 | CM.DANOTE ---
Patient is an 78 yo male who was admitted OBS for TIA/CVA r/o. Pt has [employer] and [employer] for insurance and his PCP is not listed. EMR was reviewed. Per MD, pt with hx of hypertension and hx of CVA and admitted for likely TIA and to have Echo and MRI. Per MD and RN, pt refusing MRI but currently agreeable with Echo. anticipates pt might be stable for d/c back home today pending Echo results. PT/OT/ST ordered. ST had some recommendations but no further needs. Per OT, scored 21/30 on SLUMS but was able to manage his ADLs independently and already set up with outpt PT. Per RN, pt has definite forgetfulness and repeating of the same questions but pleasant and cooperative. SW met bedside with pt and explained role and pt confirms he still lives in [place] and currently continues to live in a motel shelter. Pt independent with ADLs at baseline and still drives although OT recommended not driving much. Pt confirms that he remains quite involved with his local [place] denominational and they support and assist him as needed. Pt confirms that he has two adult sons that he is estranged from and does not want any involvement with them. Pt denies any formal DPOA and adamantly refuses any DPOA pwk at this time to review. Pt was admitted in Jun 2022 and ended up discharging to [facility]. His current Plasma Center Technician Sachin was quite involved during that admission and provided additional information on patient regarding the following: pt lives in a Motel that the pt is paying for privately although patient has property in [place] that he owns but is dilapidated and full of stuff. He described patient has being a hoarder and storing a lot of junk in his property. Pt does get social security checks and states there is no family in the area. Sachin states that there is an estranged son who lives in [place] and states that patient does not want to have anything to do with him. Pt has a friend, Alejandra, who cooks food for the pt on the weekends. Pt was also admitted last year Aug 2023 for TIA/CVA r/o and was able to discharge home via friend POArpita and no needs at that time. SW inquired if pt completed DPOA pwk since his last admission and pt confirms that he has not and that I definitely don't want my son to have it, he's trying to take all my things. SW inquired about his supportive denominational friends and any other support that he would be willing to consider as his DPOA and pt declines at this time and states his preference is to discharge home later today and that he plans to call a friend to provide transport and declines any discharge needs. Plan: SW to follow for Echo results and to confirm if pt medically stable for discharge home today vs tomorrow and any further identified needs. Pt at risk for need of Guardianship if he does not voluntarily set up DPOA and his cognition continues to decline. JESSICA Albert Discharge Planning/Care Management CM Discharge Assessment Start: 01/19/24 13:04 Freq: Status: Active Protocol: Document 01/19/24 13:04 BF (Rec: 01/19/24 13:08 [id number]) Discharge Planning Assessment Assigned Union Organizer JESSICA Peterson DPOA/Assigned Designee Name none, pt declined pwk Advance Directives? No Advance Directives on File No History Provided By Patient,Medical Record Has Patient been admitted in last 30 No days? Prior Living Arrangements Other Comment Living in a motel Household Members none Type of transporation used prior to Drives own vehicle admit Independent with ADL's Yes Is patient alert and oriented? Yes: somewhat Needs Assistance With Meal Prep,Managing Medications ,Home Chores / Shopping Caregiver for Another No Comment Very involved in his local denominational and gets lots of support from them Patient/Family Preference OP PT Therapy Barriers to Discharge No Discharge Plan Home Transportation Arrangement Friend Referrals Initiated None needed Additional Comment At this time. Whiteboard Updated in Patient Room with Yes name and ext. # of Union Organizer Review Status In Process Please Provide Date Initial DC 01/19/24 Assessment Was Performed Next Review Type Continued Stay Review
[2024-01-19] MEDS: LORazepam 2 MG/ML INJ 1 MG IV (17:29)
[2024-01-19] MEDS: ATORVASTATIN 20 MG TABLET 80 MG PO (21:31)
[2024-01-20] VITALS: BP 141/73; PULSE 71; RESP 18; TEMP 36.3; O2SAT 99
[2024-01-20 04:00] VITALS: BP 149/78; PULSE 65; RESP 18; TEMP 36.3; O2SAT 95
[2024-01-20 08:00] VITALS: BP 142/87; PULSE 65; RESP 22; TEMP 36.7; O2SAT 97
[2024-01-20 08:40] VITALS: BP 142/87; PULSE 65
[2024-01-20] MEDS: TAMSULOSIN 0.4 MG CAPSULE PO (08:40)
[2024-01-20] MEDS: ASPIRIN EC 81 MG TABLET PO (08:40)
[2024-01-20] MEDS: CLOPIDOGREL 75 MG TABLET PO (08:40)
[2024-01-20] MEDS: ENOXAPARIN 40 MG/0.4 ML SYRINGE SUBCUT (08:40)
[2024-01-20] MEDS: METOPROLOL ER 25 MG TABLET PO (08:40)
--- NOTE | 2024-01-20 08:46 | DI.ECHO.S_ITS ---
[place] [facility]---------+ [facility] +---------+ : : [address] : : : : [place] : : : : [id number] : : : : Phone: [phone]+ Echocardiogram Report + + :Name: NAFISA MUKHERJEE Study Date: 01/20/2024 Height: 68 in : :[facility] ReadingLocation: Weight: 213 lb : : Gender: Male BSA: 2.1 m2 : :: 1945 Age: 78 yrs BP: 149/78 mmHg: :Reason For Study: TIA : : Performed By: Yolanda Daniels : :Referring: ANA MARIE : + + Interpretation Summary 1. The left ventricular contractility is normal. Estimated ejection fraction is greater than 55% with no segmental wall motion abnormalities. Grade 1 diastolic dysfunction noted. No LVH present. 2. The right ventricular contractility is normal. 3. The left atrium is mildly dilated. All other cardiac chambers are of normal size. 4. Moderate aortic valvular stenosis present with mean gradient of 36 mmHg. No aortic insufficiency noted. 5. No other significant valvular abnormalities appreciated. 6. No obvious intracardiac masses or thrombi present. 7. No obvious intracardiac shunts noted on agitated saline contrast study. 8. No hemodynamically significant pericardial effusion identified. When compared with echocardiogram from September 01, 2023, mild diastolic dysfunction is present with no other significant changes present. Procedure: A two-dimensional transthoracic echocardiogram with color flow and Doppler was performed. The study quality was technically adequate. Comparison is made with the echocardiogram of 09-01-23. The heart rate ranged between 61-68 bpm during the study. Left Ventricle: The left ventricle is normal in size and wall thickness. The ejection fraction is estimated to be 60-65%. Diastolic parameters suggest a relaxation abnormality of the left ventricle, consistent with probable normal filling pressures. Right Ventricle: The right ventricle grossly appears normal in size with probable normal systolic function. Atria: The left atrium is borderline dilated. Right atrial size is normal. Injection of contrast documented no interatrial shunt. Bubble study was captured on image frame(s) # 86. Mitral Valve: The mitral valve leaflets appear mildly thickened, but open well. There is mild calcification extending into the subvalvular apparatus. There is no mitral regurgitation noted. Aortic Valve: The aortic valve is moderately calcified. The aortic valve area is 1.4 centimeters squared by planimetry. The calculated aortic valve area is 0.8 cm2. The peak aortic velocity is 3.7 m/sec. The peak aortic velocity on the previous exam was 3.4 m/sec. The aortic valve mean gradient is 36 mmHg. No aortic regurgitation is present. Tricuspid Valve: The tricuspid valve is not well visualized, but is grossly normal. There is a trace or physiologic amount of tricuspid regurgitation. The right ventricular systolic pressure is estimated to be at least 24 mmHg based on an estimated right atrial pressure of 3 mm Hg. Pulmonic Valve: The pulmonic valve is not well seen, but is grossly normal. There is a trace or physiologic amount of pulmonic regurgitation. Great Vessels: The aortic root is normal size. The dimensions of the ascending aorta are normal. The aortic arch is normal in size. The IVC is of normal diameter and collapses greater than 50% with a sniff. This suggests a low right atrial pressure of 3 mm Hg. Pericardium/ Pleura There is no pericardial effusion. There is no pleural effusion. MMode/2D Measurements & Calculations LVIDd: 4.5 cm LVOT diam: 2.0 cm LVIDs: 1.8 cm Ao root diam: 3.3 cm FS: 60.7 % asc Aorta Diam: 3.4 cm EPSS: 0.60 cm Ao Arch Diam (Prox Trans): 2.7 cm IVSd: 1.1 cm LVPWd: 1.0 cm LV garay. diameter/BSA (cm/m^2): 2.1 LV sys. diameter/BSA (cm/m^2): 0.84 LA A2 area: 23.5 cm2 RA long axis: 5.4 cm LA A4 area: 21.1 cm2 RA area: 19.2 cm2 LA length (vol): 5.7 cm RA vol: 58.1 ml LA vol: 73.9 ml RA : 27.7 ml/m2 LA vol index: 35.2 ml/m2 IVC diam: 1.9 cm RVD1 (basal): 3.0 cm Doppler Measurements & Calculations Ao V2 max: 367.0 cm/sec LVOT Max Benito: 93.0 cm/sec Ao V2 mean: 289.9 cm/sec LV V1 max P.5 mmHg Ao max P.9 mmHg LV V1 VTI: 23.5 cm Ao mean P.1 mmHg RAYMOND(I,D): 0.86 cm2 Ao V2 VTI: 84.9 cm RAYMOND(V,D): 0.79 cm2 sev ratio: 0.28 RAYMOND indexed to BSA (cm^2/m^2): 0.41 MV E max benito: 84.8 cm/sec TR max benito: 230.6 cm/sec MV A max benito: 96.0 cm/sec TR max P.3 mmHg MV E/A: 0.88 PA V2 max: 83.3 cm/sec Med Peak E' Benito: 6.1 cm/sec PA V2 mean: 57.4 cm/sec E/E' med: 13.8 PA mean P.5 mmHg Lat Peak E' Benito: 8.0 cm/sec PA pr(Accel): 22.5 mmHg E/E' lat: 10.6 E/e' average: 12.2 MV dec time: 0.28 sec SV(LVOT): 73.3 ml Reading Physician:
[2024-01-20 08:55] VITALS: PULSE 65
--- NOTE | 2024-01-20 09:02 | P.DS_ITS ---
History of Present Illness History of Present Illness Chief complaint: can't find words to say things Narrative: 1 years old male with history of hypertension, hyperlipidemia, CAD, BPH, previous CVA presented to the ER with slurred speech. The patient was noted to speak some gibberish words. Lasted for an hour. Back to baseline in the emergency. Similar episode in August 2023. Denies any headache, blurry vision, numbness or weakness of extremities or loss of balance. Compliant with his home medications. Initial blood pressure was 224/107, pulse 66, oxygen saturation 96% room air, temperature 97.7. Laboratory unremarkable. CTA of the neck and chest preliminary unremarkable. U tox negative, UA negative. EKG sinus bradycardia 57. Patient initially declined the MRI due to it being too loud. Ativan IV offered and he obliged. MRI and echo still pending. Discharge Providers Provider Date of admission: 01/19/24 04:50 Discharge Date: 01/20/24 Primary care physician: Navy Rosen. Consults: 01/19/24 04:54 Consult to Occupational Therapy Evaluate & Treat Comment: Physician Instructions: Evaluate and treat Consult to Physical Therapy Evaluate & Treat Comment: Physician Instructions: Evaluate and Treat 01/19/24 04:58 Consult to Speech Therapy Evaluate & Treat Comment: Physician Instructions: Evaluate and treat Discharge provider: Néstor West MD Summary Hospital Course Discharge Diagnosis: 1. TIA. Resolved. 2. HTN. Stable. 3. HLD. Stable. 4. BPH. Stable. 5. Moderate Aortic stenosis, stable. Hospital Course: He presented with transient speech difficulties. The symptoms were resolved by arrival. The patient takes dual antiplatelet therapy chronically as well as high dose atorvastatin. He denies any issues with medication compliance. He had no recurrent symptoms and a CT of the brain as well as a CT angiogram are unremarkable. The patient had an echo last August revealing only aortic stenosis which is moderate. He denies any knowledge of this diagnosis. He was educated. The patient also had a suboptimal MRI due to claustrophobia. This was negative for acute stroke. He was felt to be stable for discharge with no change to his maximum medical therapy for TIA. He has a aortic stenosis does not pose a clear thromboembolic risk. There is no obvious indication for anticoagulation. Status at Discharge Cognitive/behavioral status at discharge: oriented Functional status at discharge: independent ambulation Overall status at discharge: patient is back to baseline Time Spent with Patient Time spent: Greater than 30 minutes Exam Vital Signs (past 8 hours): - 01/20/24 04:00 01/20/24 08:40 Temperature 97.4 F L Pulse Rate 65 65 Respiratory Rate 18 Blood Pressure 149/78 H 142/87 H Pulse Oximetry 95 Oxygen Flow Rate 0 Oxygen Delivery Method Room Air Oxygen Flow Rate 0 Narrative Exam Narrative: NAD, alert and oriented. Fluent speech. Lungs are clear, normal rate and effort. Heart is regular, no murmur gallop or rub. Abdomen is soft, non distended. Extremities are free of edema. Speech is normal, no facial droop. Arms and legs have normal motor strength. Language content is normal. Objective ECG Impression: NSR Imaging Multiple studies: : Radiologist's impression: CT of the brain and CT angiogram of the head and neck are both unremarkable. A suboptimal MRI was negative for obvious stroke. Labs 01/19/24 02:17 01/19/24 02:17 [facility] Medical History Peripheral edema Dementia BPH (benign prostatic hyperplasia) H/O: CVA (cerebrovascular accident) High blood pressure Heart murmur Surgical History History of cholecystectomy Family History Mother Dementia Social History household members: none Smoking Status: Never smoker alcohol intake: never substance use type: does not use Discharge Assessment & Plan Assessment and Plan Assessment: 1. TIA. Resolved. 2. HTN. Stable. 3. HLD. Stable. 4. BPH. Stable. 5. Moderate Aortic stenosis, stable. Plan of Treatment: Discharge home without medication changes. The patient will continue dual antiplatelet therapy and high-dose atorvastatin with close follow up with PCP. 911 for stroke symptoms. Discharge Plan Discharge Plan Patient Disposition: Home Provider Discharge Comment: You are stable for discharge home. No change to her medications, he will continue taking aspirin and Plavix and I recommend close follow up with your doctor. Also would discuss your aortic stenosis issue with your doctor. Discharge orders & Medications Prescriptions: Continued tamsulosin [Flomax] 0.4 mg Capsule 0.4 mg PO DAILY Qty: 30 0RF nifedipine 30 mg Tablet Extended Release 24hr 30 mg PO DAILY Qty: 30 2RF metoprolol succinate 25 mg Tablet Extended Release 24 Hr 25 mg PO DAILY Qty: 30 2RF Fish Oil 100-160-1,000 mg capsule 1 cap PO DAILY Qty: 30 2RF clopidogrel 75 mg Tablet 75 mg PO DAILY Qty: 20 0RF Rx Instructions: start on 09/02 aspirin 81 mg Tablet,Delayed Release (Dr/Ec) 81 mg PO DAILY Qty: 90 0RF atorvastatin [Lipitor] 80 mg tablet 80 mg PO BEDTIME Qty: 90 0RF spironolactone 25 mg tablet 25 mg PO DAILY amlodipine 10 mg tablet 10 mg PO DAILY hydrochlorothiazide 12.5 mg tablet 12.5 mg PO QAM Medication counseling provided by Pharmacist: No Discharge Health Status Multidrug resistant organism: No MDRO Diet/Activity/Treatments Diet: Low-cholesterol Activity: As tolerated. Visit Report/Discharge Packet Stand Alone Forms: Patient Portal/API, Stroke Signs & Symptoms Discharge Data Attending Provider: Bill Gomez Admit Date/Time: 01/19/24 04:50 Quality VTE Deep Vein Thrombosis/Pulmonary Embolism Present on Admission: No
--- NOTE | 2024-01-20 12:24 | CM.DPC ---
DCP Cont: Met with patient in his room, he is discharging home today. He was sitting up in his chair eating his lunch, introduced self and role. Confirmed that his dealer compliance representative will be picking him up. He resides in [place] at a motel, and his adventist is [place], in [place]. He has a lot of support from his adventist. P: Patient is discharging home today, will be picked up by adventist member. Jaqueline Ruby RN/Other Sales Support Worker
== END 2024-01-20 13:15 | disposition home or self-care (01) ==
LOC: ED 03:34 → AC 04:50
PROVIDERS: Admitting Provider Internal Medicine; Emergency Provider Emergency Medicine; Referring Provider Emergency Medicine; Visit Provider Internal Medicine
DX: R47.81 Slurred speech (principal); R29.701 NIHSS score 1; Z86.73 Personal history of transient ischemic attack (TIA), and cerebral infarction without residual deficits; Z79.82 Long term (current) use of aspirin; Z79.02 Long term (current) use of antithrombotics/antiplatelets; I10 Essential (primary) hypertension; E78.5 Hyperlipidemia, unspecified; N40.0 Benign prostatic hyperplasia without lower urinary tract symptoms; I35.0 Nonrheumatic aortic (valve) stenosis
CPT/HCPCS: 36415; 70450; 70496; 70498; 70551; 80053; 80061; 80305; 80320; 81001; 81003; 82550; 82962; 84443; 84484; 85025; 85610; 85730; 92610; 93005; 93306; 96372; 97116; 97129; 97161; 97166; 99285; G0378; J1650; J2060; Q9967

== ENCOUNTER 2024-04-18 22:57 | Emergency (ER) | payer MEDICARE, OTHER, SELFPAY ==
[2024-01-19 05:44] VITALS: BMI 32.4
[2024-04-18 23:04] VITALS: BP 164/73; PULSE 72; RESP 16; TEMP 36.2; O2SAT 95; BMI 30.4
--- NOTE | 2024-04-18 23:15 | DI.CT.S_ITS ---
PROCEDURE: CT CERVICAL SPINE WO CON INDICATIONS: fall/on thinners/hit head on a tree/left ear injury/lac TECHNIQUE: Noncontrast 3 mm thick sections acquired from the skull base to the T4 level. Sagittal and coronal reformats were then constructed. For radiation dose reduction, the following was used: automated exposure control, adjustment of mA and/or kV according to patient size. COMPARISON: [facility], CT, CT ANGIO HEAD AND NECK, 01/19/2024, 2:27. FINDINGS: Image quality: Diagnostic. Bones: No acute fractures or dislocations. No acute compression fractures of the vertebral bodies. Craniocervical junction is intact. C1-C2 relationship is preserved. Visualized superior ribs are intact. Moderate multilevel cervical spondylosis. Soft tissues: Prevertebral soft tissues are normal in thickness. No paravertebral hematomas. No apical pneumothoraces. IMPRESSION: CT cervical spine without acute fracture or traumatic malalignment. Multilevel cervical spondylosis. Dictated by: Scar Reardon M.D. on 04/19/2024 at 0:18 Approved by: Scar Reardon M.D. on 04/19/2024 at 0:21
--- NOTE | 2024-04-18 23:15 | DI.CT.S_ITS ---
PROCEDURE: CT FACIAL BONES WO CON INDICATIONS: fall/on thinners/hit head on a tree/left ear injury/lac TECHNIQUE: Noncontrast 2.5 mm thick axial images acquired from the mandible through the frontal sinuses, with coronal and sagittal reformatting. For radiation dose reduction, the following was used: automated exposure control, adjustment of mA and/or kV according to patient size. COMPARISON: None. FINDINGS: Image quality: Diagnostic. Bones and teeth: Orbital laureano are intact. Sinus laureano show no fracture or deformity. Nasal bones and septum are intact. Visualized portions of the mandible demonstrate no fractures or subluxation. Zygomatic arches are intact. Pterygoid plates are intact. Visualized portions of the skull base and auditory canals are intact. Sinuses: Mild mucosal thickening of scattered ethmoid sinuses, frontal sinuses, and bilateral maxillary sinuses. Mastoid air cells are aerated. Soft tissues: No edema, masses, or fluid collections. No enlarged lymph nodes. Vascular: Visualized vascular structures appear normal in the absence of contrast. Bony vascular foramina and canals are intact. IMPRESSION: Negative CT facial bones for acute fractures. Mild pansinus disease. Dictated by: Scar Reardon M.D. on 04/19/2024 at 0:22 Approved by: Scar Reardon M.D. on 04/19/2024 at 0:26
--- NOTE | 2024-04-18 23:15 | DI.CT.S_ITS ---
PROCEDURE: CT HEAD/BRAIN WO CON INDICATIONS: fall/on thinners/hit head on a tree/left ear injury/lac TECHNIQUE: Noncontrast 4.5 mm thick angled axial sections acquired from the foramen magnum to the vertex, with coronal and sagittal reformats. For radiation dose reduction, the following was used: automated exposure control, adjustment of mA and/or kV according to patient size. COMPARISON: [facility], CT, CT HEAD/BRAIN WO CON, 09/01/2023, 1:12. [facility], CT, CT HEAD/BRAIN WO CON, 08/03/2022, 9:42. FINDINGS: Image quality: Diagnostic. CSF spaces: Basal cisterns are patent. No extra-axial fluid collections. The ventricles are stable in size and shape. Brain: No intracranial bleeds or masses. There is moderate cerebral volume loss for age, with resultant moderate ventricular and sulcal prominence. There are moderate periventricular and deep white matter chronic small vessel ischemic changes. There is intracranial internal carotid artery atherosclerosis. Skull and face: Calvarium and visualized facial bones appear intact, without suspicious lesions. Sinuses: Mild right maxillary sinus mucosal thickening. Remainder of the paranasal sinuses appear clear. Mastoid air cells are well-aerated. IMPRESSION: 1. CT head without acute intracranial abnormalities or acute calvarial fractures. 2. Age-related senescent changes and sequela of chronic small vessel ischemic disease. Dictated by: Scar Reardon M.D. on 04/19/2024 at 0:15 Approved by: Scar Reardon M.D. on 04/19/2024 at 0:18
--- NOTE | 2024-04-19 00:44 | ED_ITS ---
HPI - Fall General Chief Complaint: Fall Stated Complaint: Fall, left ear injury Time Seen by Provider: 04/19/24 00:43 Source: patient and family Mode of arrival: Ambulatory Limitations: no limitations History of Present Illness HPI Narrative: This is an 78-year-old male with history of hypertension, dyslipidemia, coronary artery disease and prior CVA on anticoagulation. Patient states today he was out when he fell into a tree and caught his ear on broken off branch. He states he hears a crunchy sort of sound when he chews or eats in his ear. He states it would not stop bleeding. He denies any other injuries. He states his tetanus is updated as of 2021. He denies any other symptoms. Denies headache, no neck pain, no chest pain or shortness of breath, no other GI or urinary symptoms. No numbness tingling or weakness or other new or concerning changes. Related Data Home Medications Medication Instructions Recorded Confirmed amlodipine 10 mg tablet 10 mg PO DAILY 01/19/24 01/19/24 hydrochlorothiazide 12.5 mg tablet 12.5 mg PO QAM 01/19/24 01/19/24 spironolactone 25 mg tablet 25 mg PO DAILY 01/19/24 01/19/24 Previous Rx's Medication Instructions Recorded metoprolol succinate 25 mg 25 mg PO DAILY #30 tabs 11/04/21 tablet,extended release 24 hr nifedipine 30 mg tablet,extended 30 mg PO DAILY #30 tabs 11/04/21 release 24 hr omega 3-kxt-ypw-fish oil 100 1 cap PO DAILY #30 caps 11/04/21 mg-160 mg-1,000 mg capsule (Fish Oil) tamsulosin 0.4 mg capsule (Flomax) 0.4 mg PO DAILY #30 caps 08/03/22 aspirin 81 mg tablet,delayed 81 mg PO DAILY #90 tabs 09/01/23 release atorvastatin 80 mg tablet (Lipitor) 80 mg PO BEDTIME #90 tabs 09/01/23 clopidogrel 75 mg tablet 75 mg PO DAILY #20 tabs 09/01/23 doxycycline hyclate 100 mg tablet 100 mg PO BID #20 tabs 04/19/24 Allergies Allergy/AdvReac Type Severity Reaction Status Date / Time Sulfa (Sulfonamide Allergy Mild Verified 04/18/24 23:10 Antibiotics) Review of Systems Review of Systems ROS Unobtainable: All systems reviewed & are unremarkable except as noted in HPI and below Patient History Medical History Peripheral edema Dementia BPH (benign prostatic hyperplasia) H/O: CVA (cerebrovascular accident) High blood pressure Heart murmur Surgical History History of cholecystectomy Family History Mother Dementia Social History household members: none Smoking Status: Never smoker alcohol intake: never substance use type: does not use Smoking Status: Never smoker alcohol intake frequency: 0-2 drinks per day Substance Use Type: does not use Exam Narrative Exam Narrative: GEN: Patient appears in mild distress. HEAD: No evidence of trauma, no raccoon/[place] sign. NECK: Nontender, painless range of motion, trachea midline Negative Nexus criteria, no midline line tenderness, distracting injury, altered mental status, neuro deficit, recent EtOH. EYES: PERRLA, EOMI ENT: Patient has a hematoma at the 12 o'clock position on the pinna, there is a very small laceration of the edge but does not go through and through, patient also appears to have a laceration through the tragus , trachea is midline, TM's are normal no hemotypanum, Nares are clear, no septal hematoma, no dental or oral injury, airway is normal and with normal occlusion, No bony tenderness RESP: Chest is nontender and has symmetric movement, no ecchymosis, breath sounds are normal no crackles, wheezes or rales CVS: Heart sounds are normal, no murmur noted, No JVD. ABG/GI: Nontender, soft, normal bowel sounds, no distention, no organomegaly, pelvic rock is negative NEURO: Oriented AOx3, neuro is grossly intact, sensation and motor is normal all 4 extremities moving, cranial nerves II through XII are intact, GCS is 15 PSYCH: Normal mood and affect SKIN: Intact, warm and dry, no crepitus and without decubitus BACK: No CVA tenderness, no vertebral tenderness, no step-off's, no crepitus EXT: Atraumatic, hips are nontender, no pedal edema, normal color and temperature, normal range of motion of extremities with normal tendon exam, 2+ pulses in all four extremities Initial Vital Signs Initial Vital Signs: Vital Signs Temperature 97.2 F L 04/18/24 23:04 Pulse Rate 72 04/18/24 23:04 Respiratory Rate 16 04/18/24 23:04 Blood Pressure 164/73 H 04/18/24 23:04 Pulse Oximetry 95 04/18/24 23:04 Oxygen Delivery Method Room Air 04/18/24 23:04 Procedures Laceration Repair Laceration 1: Site: face (left tragus) Side (If applicable): left Size (cm): 1.5 Description: stellate, flap, irregular and clean Depth: simple, single layer Local Anesthetic: lidocaine 2% Amount of anesthesia used (mL): 5 Pre-repair: wound explored, irrigated extensively and deep structures intact Skin layer closed with: nylon Skin layer suture size: 5-0 Number of sutures: 6 Technique: simple, interrupted Laceration 2: Site: face (left pinna) Side (If applicable): left Size (cm): 0.7 Description: irregular Depth: simple, single layer Local Anesthetic: lidocaine 2% Amount of anesthesia used (mL): 2 Pre-repair: wound explored and irrigated extensively Skin layer closed with: nylon Course Orders Ordered: Discontinued Medications Hydrocodone Bitart/Acetaminophen (Hydrocodone/Acet 5/325 Prepack) 1 bottle MISC DIRECTED ONE Stop: 04/19/24 02:33 Last Admin: 04/19/24 02:59 Dose: 1 bottle Documented By: GC Lidocaine/Prilocaine (Lidocaine/Prilocaine 5 Gm) 5 gm TOP NOW ONE Stop: 04/19/24 00:54 Last Admin: 04/19/24 01:07 Dose: 5 gm Documented By: BUTCH Vital Signs Vital signs: Vital Signs - 8 hr 04/18/24 23:04 04/19/24 03:08 Temperature 97.2 F L 97.3 F L Pulse Rate 72 70 Respiratory Rate 16 16 Blood Pressure 164/73 H 148/66 H Pulse Oximetry 95 97 Oxygen Delivery Method Room Air Room Air MDM - Fall MDM Narrative Medical decision making narrative: CT without acute intracranial abnormality or fracture, age-related senescent changes and sequelae of chronic small-vessel ischemic disease. CT cervical spine without fracture or traumatic malalignment multilevel cervical spondylosis. CT facial bones mild pansinus disease. Patient had complex laceration of the tragus that when a little bit into canal, was able to suture the majority but not completely into the canal but hemostasis was achieved. Patient also had small lack through the curl of the pinna that was repaired, patient had some avulsion /hematoma of the pinna but patient did not wish to continue with repair here. Discharge Plan Departure Patient Disposition: Home Clinical Impression: Laceration of tragus of left ear, Laceration of left pinna Instructions: DI for Laceration Repair -- Simple Activity Restrictions/Additional Instructions: Follow up with ENT, call tomorrow to set up an appointment. You will need suture removal in 7-10 days. The laceration to the tragus, goes a little bit into the canal and could not be completely closed. We sutured the edge of the pinna but left the small flap on done as discussed. Wound Care: Keep wound(s) clean and dry. Wash daily with soap and water only once daily. Do not use over the counter products (alcohol or peroxide)on the wounds unless instructed by a physician, you can use topical triple antibiotic ointment. If wound condition worsens (increased/expanding redness, developing fluid blisters, or worsening pain), either contact your doctor for an urgent re- assessment , or return to the Emergency Department. Return if fever greater than 100.4 Fahrenheit, increased swelling, increasing pain or worsening symptoms such as increased discharge or spreading redness. Prescriptions: New doxycycline hyclate 100 mg tablet 100 mg PO BID Qty: 20 0RF No Action tamsulosin [Flomax] 0.4 mg Capsule 0.4 mg PO DAILY Qty: 30 0RF nifedipine 30 mg Tablet Extended Release 24hr 30 mg PO DAILY Qty: 30 2RF metoprolol succinate 25 mg Tablet Extended Release 24 Hr 25 mg PO DAILY Qty: 30 2RF Fish Oil 100-160-1,000 mg capsule 1 cap PO DAILY Qty: 30 2RF clopidogrel 75 mg Tablet 75 mg PO DAILY Qty: 20 0RF Rx Instructions: start on 09/02 aspirin 81 mg Tablet,Delayed Release (Dr/Ec) 81 mg PO DAILY Qty: 90 0RF atorvastatin [Lipitor] 80 mg tablet 80 mg PO BEDTIME Qty: 90 0RF spironolactone 25 mg tablet 25 mg PO DAILY amlodipine 10 mg tablet 10 mg PO DAILY hydrochlorothiazide 12.5 mg tablet 12.5 mg PO QAM Referrals: Prasanna Beltran MD [Physician] - Stand Alone Forms: Patient Portal/API
[2024-04-19] MEDS: LIDOCAINE/PRILOCAINE 5 GM TOP (01:07)
[2024-04-19] MEDS: HYDROCODONE/ACET 5/325 PREPACK 1 BOTTLE MISC (02:59)
[2024-04-19 03:08] VITALS: BP 148/66; PULSE 70; RESP 16; TEMP 36.3; O2SAT 97
--- NOTE | 2024-04-19 03:10 | PC.NURSE ---
DSD & kerlix turbin wrap placed to ear wound.
== END 2024-04-19 03:11 | disposition home or self-care (01) ==
PROVIDERS: Emergency Provider Emergency Medicine
DX: S01.312A Laceration without foreign body of left ear, initial encounter (principal); W18.00XA Striking against unspecified object with subsequent fall, initial encounter; Z79.01 Long term (current) use of anticoagulants
CPT/HCPCS: 12011; 70450; 70486; 72125; 99282; 99284

== ENCOUNTER 2024-09-05 18:08 | Emergency (ER) | payer MEDICARE, OTHER, SELFPAY ==
[2024-01-19 05:44] VITALS: BMI 32.4
[2024-09-05 18:16] VITALS: BP 143/65; PULSE 82; RESP 20; TEMP 36.8; O2SAT 97
--- NOTE | 2024-09-05 18:21 | EKG_ITS ---
[place] [id number] [place] [id number] Test Date: 2024-09-05 Pat Name: Herbert Bautista Department: [facility] Room: Gender: Male Cert Pharmacy Tech: HILARY : 1945 Requested By: Order Number: [id number] Reading MD: Eliazar Ray MD Measurements Intervals Fabius Rate: 77 P: 68 NC: 192 QRS: -15 QRSD: 120 T: 63 QT: 388 QTc: 439 Interpretive Statements Sinus rhythm with occasional premature ventricular complexes Right bundle branch block Electronically Signed On 09-06-2024 7:37:40 PST by Eliazar Ray MD
--- NOTE | 2024-09-05 18:21 | DI.RAD.S_ITS ---
PROCEDURE: XR CHEST 1V INDICATIONS: Shortness of breath TECHNIQUE: One view of the chest was acquired. COMPARISON: [facility], , XR CHEST 1V, 07/26/2022, 11:24. [facility], CR, XR CHEST 1V, 07/25/2022, 17:46. FINDINGS: Surgical changes and devices: None. Lungs and pleura: Low lung volumes. Mild bibasilar opacities. No pleural effusions. Mediastinum: Mildly enlarged heart, unchanged Bones and chest wall: Degenerative changes IMPRESSION: Mild bibasilar opacities could represent early airspace disease versus atelectasis. Limited single view radiograph with low lung volumes. Dictated by: John Santillan M.D. on 09/05/2024 at 20:12 Approved by: John Santillan M.D. on 09/05/2024 at 20:13
[2024-09-05 19:20] LABS: Add Manual Diff / Slide Review NO; Basophils Absolute Auto 200 /uL (0-100); Basophils Percent Auto 2.8 % (0-2); Eosinophils Absolute Auto 200 /uL (0-450); Hematocrit 23.9 % (41-53); Hemoglobin 7.3 g/dL (13.5-17.5); Lymphocytes Absolute Auto 1200 /uL (1100-4500); Lymphocytes Percent Auto 20.3 % (25-40); Mean Corpuscular HGB Conc 30.4 % (30-36); Mean Corpuscular Hemoglobin 21.7 PG (26-34); Mean Corpuscular Volume 71.5 fL (80-100); Monocytes Absolute Auto 600 /uL (0-900); Monocytes Percent Auto 9.9 % (3-14); Neutrophils Absolute Auto 3900 /uL (1500-7000); Platelet Count 253 X10^3/uL (150-400); Red Blood Cell Count 3.34 X10^6/uL (4.5-5.9); Red Cell Distribution Width 17.7 % (11.6-14.8)
[2024-09-05 19:27] LABS: INR 1.1 (0.9-1.3); Prothrombin Time 12.2 SECONDS (9.4-12.5)
[2024-09-05 19:32] LABS: Alanine Aminotransferase 16 IU/L (<50); Albumin 3.8 g/dL (3.5-5.0); Albumin Globulin Ratio 1.7 (1.0-2.8); Alkaline Phosphatase 62 U/L (38-126); Aspartate Aminotransferase 21 IU/L (17-59); Bilirubin Total 0.3 mg/dL (0.2-1.3); Blood Urea Nitrogen 20 mg/dL (9-20); Calcium 9.6 mg/dL (8.4-10.2); Carbon Dioxide 26 mmol/L (22-32); Chloride 106 mmol/L (98-107); Estimated Glomerular Filt Rate > 60 mL/min (>60); Globulin 2.2 g/dL (1.7-4.1); Glucose 125 mg/dL (80-110); HEMOLYSIS < 15 (0-50); Lactate (Lactic Acid) 1.5 mmol/L (0.7-2.1); Potassium 3.9 mmol/L (3.4-5.1); Sodium 136 mmol/L (137-145)
[2024-09-05 19:44] LABS: NT-proBNP (BNP-Adult 18+) 197 pg/mL (<450); Troponin I < 0.012 ng/mL (0.01-0.034)
[2024-09-05 20:30] VITALS: PULSE 90; O2SAT 95
[2024-09-05 20:42] VITALS: BP 170/84; PULSE 72; RESP 27; O2SAT 99
[2024-09-05 21:00] VITALS: BP 184/86; PULSE 72; RESP 27; O2SAT 99
--- NOTE | 2024-09-05 21:03 | ED.GENADULT ---
HPI - General Adult General Chief complaint: Shortness of Breath/Dyspnea Stated complaint: SOB while moving car battery yesterday Time Seen by Provider: 09/05/24 20:27 Source: patient Mode of arrival: Ambulatory Limitations: no limitations History of Present Illness HPI narrative: Patient is an 79-year-old male. Here for evaluation of an episode that occurred yesterday. He states while he was moving a car battery yesterday he had a fairly sudden onset of shortness of breath. No chest pain associated with this. No coughing. No fevers. No chest pain. No lower extremity swelling. He stated that today he was still feeling somewhat short of breath but is much better than what it was yesterday. He was never experienced anything like this in the past. Related Data Home Medications Medication Instructions Recorded Confirmed amlodipine 10 mg tablet 10 mg PO DAILY 01/19/24 01/19/24 hydrochlorothiazide 12.5 mg tablet 12.5 mg PO QAM 01/19/24 01/19/24 spironolactone 25 mg tablet 25 mg PO DAILY 01/19/24 01/19/24 Previous Rx's Medication Instructions Recorded metoprolol succinate 25 mg 25 mg PO DAILY #30 tabs 11/04/21 tablet,extended release 24 hr nifedipine 30 mg tablet,extended 30 mg PO DAILY #30 tabs 11/04/21 release 24 hr omega 4-jmt-plo-fish oil 100 1 cap PO DAILY #30 caps 11/04/21 mg-160 mg-1,000 mg capsule (Fish Oil) tamsulosin 0.4 mg capsule (Flomax) 0.4 mg PO DAILY #30 caps 08/03/22 aspirin 81 mg tablet,delayed 81 mg PO DAILY #90 tabs 09/01/23 release atorvastatin 80 mg tablet (Lipitor) 80 mg PO BEDTIME #90 tabs 09/01/23 clopidogrel 75 mg tablet 75 mg PO DAILY #20 tabs 09/01/23 doxycycline hyclate 100 mg tablet 100 mg PO BID #20 tabs 04/19/24 Allergies Allergy/AdvReac Type Severity Reaction Status Date / Time Sulfa (Sulfonamide Allergy Mild Verified 09/05/24 18:16 Antibiotics) Review of Systems Review of Systems Narrative: See HPI Patient History Medical History Peripheral edema Dementia BPH (benign prostatic hyperplasia) H/O: CVA (cerebrovascular accident) High blood pressure Heart murmur Surgical History History of cholecystectomy Family History Mother Dementia Social History household members: none Smoking Status: Never smoker alcohol intake: never substance use type: does not use Smoking Status: Never smoker alcohol intake frequency: 0-2 drinks per day Substance Use Type: does not use Exam Initial Vital Signs Initial Vital Signs: Vital Signs Temperature 98.2 F 09/05/24 18:16 Pulse Rate 82 09/05/24 18:16 Respiratory Rate 20 09/05/24 18:16 Blood Pressure 143/65 H 09/05/24 18:16 Pulse Oximetry 97 09/05/24 18:16 Oxygen Delivery Method Room Air 09/05/24 18:16 Const General: cooperative, comfortable and No ill appearing HENMT Head: normal to inspection and normocephalic Resp Effort & Inspection: normal respiratory effort Auscultation: clear to auscultation bilaterally Cardio Rate: regular rate Rhythm: regular rhythm GI Inspection: normal to inspection Skin General: no rashes or lesions noted Neuro General: patient alert and patient awake Extrem General: normal to inspection Course Orders Ordered: ED Orders 09/05/24 18:21 XR chest 1V Stat EKG-12 Lead Stat Measure peak expiratory flow ONCE RT Consult Eval and Treat NOW 09/05/24 19:09 Complete Blood Count AUTO DIFF Stat Comprehensive Metabolic Panel Stat Lactate (Lactic Acid) Stat NT-proBNP (BNP-Adult 18+) Stat Prothrombin Time INR Stat Troponin I Stat Vital Signs Vital signs: Vital Signs - 8 hr 09/05/24 20:30 09/05/24 20:42 09/05/24 20:42 Pulse Rate 90 72 Respiratory Rate 27 H Blood Pressure 170/84 H Pulse Oximetry 95 99 Oxygen Delivery Method Room Air 09/05/24 21:00 09/05/24 21:00 Pulse Rate 72 Respiratory Rate 27 H Blood Pressure 184/86 H Pulse Oximetry 99 Oxygen Delivery Method Room Air Medical Decision Making Lab Data Lab results reviewed: Yes I reviewed the patient's lab results. 09/05/24 19:09 09/05/24 19:09 Labs: Lab Results 09/05/24 Range/Units 19:09 WBC 6.0 (4.5-11.0) X10^3/uL RBC 3.34 L (4.5-5.9) X10^6/uL Hgb 7.3 L (13.5-17.5) g/dL Hct 23.9 L (41-53) % MCV 71.5 L (80-100) fL MCH 21.7 L (26-34) PG MCHC 30.4 (30-36) % RDW 17.7 H (11.6-14.8) % Plt Count 253 (150-400) X10^3/uL Neut % (Auto) 64.0 (50-75) % Lymph % (Auto) 20.3 L (25-40) % [place] % (Auto) 9.9 (3-14) % Eos % (Auto) 3.0 (2-4) % Baso % (Auto) 2.8 H (0-2) % Neut # (Auto) 3900 (7893-4607) /uL Lymph # (Auto) 1200 (6699-5454) /uL [place] # (Auto) 600 (0-900) /uL Eos # (Auto) 200 (0-450) /uL Baso # (Auto) 200 H (0-100) /uL PT 12.2 (9.4-12.5) SECONDS INR 1.1 (0.9-1.3) Sodium 136 L (137-145) mmol/L Potassium 3.9 (3.4-5.1) mmol/L Chloride 106 (98-107) mmol/L Carbon Dioxide 26 (22-32) mmol/L BUN 20 (9-20) mg/dL Creatinine 0.91 (0.66-1.25) mg/dL Estimated GFR > 60 (>60) mL/min BUN/Creatinine Ratio 22.0 (6-22) Glucose 125 H (80-110) mg/dL Lactate 1.5 (0.7-2.1) mmol/L Calcium 9.6 (8.4-10.2) mg/dL Total Bilirubin 0.3 (0.2-1.3) mg/dL AST 21 (17-59) IU/L ALT 16 (<50) IU/L Alkaline Phosphatase 62 (38-126) U/L Troponin I < 0.012 (0.01-0.034) ng/mL NT-Pro-B Natriuret Pep 197 (<450) pg/mL Total Protein 6.0 L (6.3-8.2) g/dL Albumin 3.8 (3.5-5.0) g/dL Globulin 2.2 (1.7-4.1) g/dL Albumin/Globulin Ratio 1.7 (1.0-2.8) Imaging Data Chest x-ray: Radiologist's Impression: PROCEDURE: XR CHEST 1V INDICATIONS: Shortness of breath TECHNIQUE: One view of the chest was acquired. COMPARISON: [facility], CR, XR CHEST 1V, 07/26/2022, 11:24. [facility], CR, XR CHEST 1V, 07/25/2022, 17:46. FINDINGS: Surgical changes and devices: None. Lungs and pleura: Low lung volumes. Mild bibasilar opacities. No pleural effusions. Mediastinum: Mildly enlarged heart, unchanged Bones and chest wall: Degenerative changes IMPRESSION: Mild bibasilar opacities could represent early airspace disease versus atelectasis. Limited single view radiograph with low lung volumes. ECG Data Attestation: I personally reviewed and interpreted this ECG as follows: Interpretation: Sinus rhythm Ventricular rate is 70 normal axis Normal QRS Occasional PVC No ST T wave changes MDM Narrative Medical decision making narrative: Patient was not clinically in heart failure. Clinically does not have pneumonia. He was not hypoxic. Lungs are clear. Low suspicion for ACS. He was anemic today but I have a very low suspicion that this is what is causing his shortness of breath. He had a very sudden/quick onset of his shortness of breath yesterday in his seems to improve today and I would suspect that if shortness of breath was related to anemia would be more slower onset and more consistent. We will hold on any blood transfusions for now. He states he occasionally has some dark-colored stools but it is not on a regular basis. He does not drink alcohol. Is on Plavix. Does not use anti-inflammatories. We did discuss his anemia. Advised that he talk with his primary doctor about further evaluation of this. There was no indication for admission to the hospital. Will discharge patient home with strict return precautions. He expressed understanding and agreement with plan. Discharge Plan Departure Patient Disposition: Home Clinical Impression: Shortness of breath, Anemia Instructions: Anemia Activity Restrictions/Additional Instructions: Continue to take all of your medications as directed. You are going to need follow-up with your primary care doctor to discuss further evaluation of your anemia/low blood counts. Return to the emergency department for new or worsening symptoms. Prescriptions: No Action tamsulosin [Flomax] 0.4 mg Capsule 0.4 mg PO DAILY Qty: 30 0RF nifedipine 30 mg Tablet Extended Release 24hr 30 mg PO DAILY Qty: 30 2RF metoprolol succinate 25 mg Tablet Extended Release 24 Hr 25 mg PO DAILY Qty: 30 2RF Fish Oil 100-160-1,000 mg capsule 1 cap PO DAILY Qty: 30 2RF clopidogrel 75 mg Tablet 75 mg PO DAILY Qty: 20 0RF Rx Instructions: start on 09/02 aspirin 81 mg Tablet,Delayed Release (Dr/Ec) 81 mg PO DAILY Qty: 90 0RF atorvastatin [Lipitor] 80 mg tablet 80 mg PO BEDTIME Qty: 90 0RF spironolactone 25 mg tablet 25 mg PO DAILY amlodipine 10 mg tablet 10 mg PO DAILY hydrochlorothiazide 12.5 mg tablet 12.5 mg PO QAM doxycycline hyclate 100 mg tablet 100 mg PO BID Qty: 20 0RF Referrals: Miscellaneous,Doctor, MD [Primary Care Provider] - Stand Alone Forms: Patient Portal/API/Survey
== END 2024-09-05 21:14 | disposition home or self-care (01) ==
PROVIDERS: Emergency Provider Emergency Medicine
DX: R06.02 Shortness of breath (principal); D64.9 Anemia, unspecified; R79.89 Other specified abnormal findings of blood chemistry; I45.10 Unspecified right bundle-branch block
CPT/HCPCS: 36415; 71045; 80053; 83605; 83880; 84484; 85025; 85610; 93005; 93010; 99283; 99284

== ENCOUNTER → 2025-02-25 16:00 | Outpatient (CLI) | payer MEDICARE, OTHER, SELFPAY ==
[2024-01-19 05:44] VITALS: BMI 32.4
--- NOTE | 2025-02-25 16:05 | DI.ECHO.S_ITS ---
[facility] : : [id number] : : [place] : : [id number] : : Phone: [phone] Echocardiogram Report + + :Name: NAFISA MUKHERJEE Study Date: 02/25/2025 Height: 68 in : :[facility] ReadingLocation: Weight: 200 lb : : Gender: Male BSA: 2.0 m2 : :: 1945 Age: 79 yrs BP: 164/96 mmHg: :Reason For Study: DYPSNEA, MURMUR, AORTIC VALVE STENOSIS : :Ordering Physician: MUNA, : :CANDI Performed By: Yovani Smith : :Referring: CANDI TORO : + + Interpretation Summary The patient was in normal sinus rhythm during the exam. The patient had frequent PVCs during the exam. The left ventricle is normal in size. There is mild asymmetric left ventricular hypertrophy. Septum thickness about 1.3 cm. No significant LV outflow tract obstruction. No systolic anterior motion of the mitral valve. Left ventricular ejection fraction is estimated to be 70 +/- 5%. The right ventricle is normal in size and function. The aortic valve is trileaflet. Aortic valve moderate to severely calcified. The peak aortic velocity is 4.03 m/sec. The aortic valve mean gradient is 38.8 mmHg. The calculated aortic valve area is 0.9 cm2. sev ratio: 0.23 The peak aortic velocity on the previous exam was 3.7 m/sec. There is severe aortic stenosis. Compared to the prior echo study, there has been an increase in the severity of aortic stenosis. There is mild aortic regurgitation. The IVC is of normal diameter and collapses greater than 50% with a sniff. This suggests a low right atrial pressure of 3 mm Hg. There is aortic root sclerosis/calcification. Please consider structural heart disease expert consultation for TAVR. Procedure: A two-dimensional transthoracic echocardiogram with color flow and Doppler was performed. The study quality was technically good. Comparison is made with the echocardiogram of 01/20/2024. The patient was in normal sinus rhythm during the exam. The patient had frequent PVCs during the exam. Left Ventricle: The left ventricle is normal in size. There is mild asymmetric left ventricular hypertrophy. There is no ventricular septal defect visualized. Left ventricular ejection fraction is estimated to be 70 +/- 5%. There are no focal wall motion abnormalities. MV E/A: 0.91 Med Peak E' Benito: 5.1 cm/sec E/E' med: 17.6. Right Ventricle: The right ventricle is normal in size and function. Atria: The left atrial size is normal. There has been no significant change since the previous study. Right atrial size is normal. There is no Doppler evidence for an interatrial shunt. Mitral Valve: The mitral valve leaflets appear mildly thickened, but open well. The mitral valve leaflets are mildly calcified. No systolic anterior motion of the mitral valve. There is mild to moderate mitral annular calcification. No significant mitral valve stenosis. There is mild mitral regurgitation. Aortic Valve: The aortic valve is trileaflet. Aortic valve moderate to severely calcified. There is severe aortic stenosis. The peak aortic velocity is 4.03 m/sec. The aortic valve mean gradient is 38.8 mmHg. The calculated aortic valve area is 0.9 cm2. The peak aortic velocity on the previous exam was 3.7 m/sec. Compared to the prior echo study, there has been an increase in the severity of aortic stenosis. There is mild aortic regurgitation. Tricuspid Valve: The tricuspid valve leaflets are thin and pliable. There is trace tricuspid regurgitation. Pulmonary artery pressures cannot be estimated because of the lack of a measurable TR jet velocity. Pulmonic Valve: The pulmonic valve is not well seen, but is grossly normal. There is trace pulmonic regurgitation. Great Vessels: The aortic root is normal size. There is aortic root sclerosis/calcification. The dimensions of the ascending aorta are normal. The pulmonary artery is normal size. The IVC is of normal diameter and collapses greater than 50% with a sniff. This suggests a low right atrial pressure of 3 mm Hg. Pericardium/ Pleura There is no pericardial effusion. There is no pleural effusion. MMode/2D Measurements & Calculations LVIDd: 4.4 cm LVOT diam: 2.2 cm LVIDs: 3.1 cm Ao root diam: 3.6 cm FS: 30.2 % asc Aorta Diam: 3.5 cm EPSS: 0.55 cm IVSd: 1.3 cm LVPWd: 0.94 cm LV garay. diameter/BSA (cm/m^2): 2.2 LV sys. diameter/BSA (cm/m^2): 1.5 LA A2 area: 23.5 cm2 RA long axis: 4.9 cm LA A4 area: 19.4 cm2 RA area: 14.2 cm2 LA length (vol): 5.7 cm RA vol: 35.1 ml LA vol: 67.7 ml RA : 17.2 ml/m2 LA vol index: 33.1 ml/m2 IVC diam: 1.8 cm RVD1 (basal): 2.9 cm RVD2 (mid): 2.4 cm TAPSE: 3.3 cm Doppler Measurements & Calculations Ao V2 max: 402.9 cm/sec LVOT Max Benito: 94.0 cm/sec Ao V2 mean: 295.4 cm/sec LV V1 max P.5 mmHg Ao max P.9 mmHg LV V1 VTI: 25.0 cm Ao mean P.8 mmHg RAYMOND(I,D): 0.89 cm2 Ao V2 VTI: 106.8 cm RAYMOND(V,D): 0.88 cm2 sev ratio: 0.23 RAYMOND indexed to BSA (cm^2/m^2): 0.43 MV E max benito: 90.1 cm/sec PA V2 max: 116.0 cm/sec MV A max benito: 99.2 cm/sec PA V2 mean: 82.4 cm/sec MV E/A: 0.91 PA mean P.0 mmHg Med Peak E' Benito: 5.1 cm/sec PA pr(Accel): 68.7 mmHg E/E' med: 17.6 Lat Peak E' Benito: 4.4 cm/sec E/E' lat: 20.6 E/e' average: 19.1 MV dec time: 0.27 sec SV(LVOT): 94.6 ml Reading Physician:04:38 PM
== END ==
LOC: ECHO 16:04
PROVIDERS: Referring Provider Student in an Organized Health Care Education/Training Program; Visit Provider Student in an Organized Health Care Education/Training Program
DX: I08.0 Rheumatic disorders of both mitral and aortic valves (principal); D64.9 Anemia, unspecified; E61.1 Iron deficiency; R01.1 Cardiac murmur, unspecified; R06.00 Dyspnea, unspecified
CPT/HCPCS: 93306

== ENCOUNTER 2025-05-18 19:41 | Emergency (ER) | payer MEDICARE, OTHER, SELFPAY ==
[2024-01-19 05:44] VITALS: BMI 32.4
[2025-05-18 19:55] VITALS: BP 243/132; PULSE 92; RESP 18; O2SAT 95; BMI 30.4
[2025-05-18] MEDS: LIDOCAINE 2% (GLYDO) 6 ML GEL TOP (20:04)
--- NOTE | 2025-05-18 20:40 | ED.GENADULT ---
HPI - General Adult General Chief complaint: Urogenital-Male Stated complaint: px pelvis Time Seen by Provider: 05/18/25 19:41 Source: patient and EMS Mode of arrival: EMS History of Present Illness HPI narrative: 80-year-old gentleman with a history of hypertension, hyperlipidemia, coronary artery disease, on Flomax presents with acute urinary retention. Last void was at 10:00 a.m. this morning. Does have a history of needing catheters in the past. Patient notes that he has been off all of his medications since [facility] closed about a month ago. He is significantly hypertensive with initial evaluation. We will re-evaluate after Torres catheter has been place. No fevers chills, chest pain, dyspnea. Related Data Home Medications ?Medication ?Instructions ?Recorded ?Confirmed amlodipine 10 mg tablet 10 mg PO DAILY 01/19/24 01/19/24 hydrochlorothiazide 12.5 mg tablet 12.5 mg PO QAM 01/19/24 01/19/24 spironolactone 25 mg tablet 25 mg PO DAILY 01/19/24 01/19/24 Previous Rx's ?Medication ?Instructions ?Recorded metoprolol succinate 25 mg 25 mg PO DAILY #30 tabs 11/04/21 tablet,extended release 24 hr nifedipine 30 mg tablet,extended 30 mg PO DAILY #30 tabs 11/04/21 release 24 hr omega 2-txn-fhe-fish oil 100 1 cap PO DAILY #30 caps 11/04/21 mg-160 mg-1,000 mg capsule (Fish Oil) tamsulosin 0.4 mg capsule (Flomax) 0.4 mg PO DAILY #30 caps 08/03/22 aspirin 81 mg tablet,delayed 81 mg PO DAILY #90 tabs 09/01/23 release atorvastatin 80 mg tablet (Lipitor) 80 mg PO BEDTIME #90 tabs 09/01/23 clopidogrel 75 mg tablet 75 mg PO DAILY #20 tabs 09/01/23 doxycycline hyclate 100 mg tablet 100 mg PO BID #20 tabs 04/19/24 Allergies Allergy/AdvReac Type Severity Reaction Status Date / Time Sulfa (Sulfonamide Allergy Mild Verified 09/05/24 18:16 Antibiotics) Review of Systems Review of Systems Narrative: Pertinent positive and negative findings as per HPI Patient History Medical History Peripheral edema Dementia BPH (benign prostatic hyperplasia) H/O: CVA (cerebrovascular accident) High blood pressure Heart murmur Surgical History History of cholecystectomy Family History Mother Dementia Social History household members: none Smoking Status: Never smoker alcohol intake: never substance use type: does not use Smoking Status: Never smoker alcohol intake frequency: 0-2 drinks per day Exam Initial Vital Signs Initial Vital Signs: Vital Signs Pulse Rate 92 H 05/18/25 19:55 Respiratory Rate 18 05/18/25 19:55 Blood Pressure 243/132 H 05/18/25 19:55 Pulse Oximetry 95 05/18/25 19:55 Oxygen Delivery Method Room Air 05/18/25 19:55 General: Alert appropriate in no acute distress Respiratory: Able to speak in full sentences, no obvious respiratory distress Skin: No obvious rashes, warm and dry Neurologic: Grossly intact no obvious asymmetries or abnormalities Psych: appropriate insight and affect, cooperative Course Orders Ordered: ED Orders 05/18/25 20:02 Consult to [employer] 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 Narrative Medical decision making narrative: 80-year-old gentleman who has been off all medications for almost a month after [facility] closed and his typical refills were not refilled. This includes tamsulosin. States he has otherwise been feeling well was planning to call his primary care office tomorrow, he sees TAO Sweeney, who works in Dr. Lubin's office to see if they can help sort out the medications that need to be refilled. In the meantime, he had over 700 cc in his bladder. Torres was placed without difficulty. He is feeling much better and blood pressure has come down significantly. I suspect the acute urinary retention today with secondary to being off Flomax for almost a month. He does need to get all of his medications refilled and encouraged him to make sure he calls his primary care doctor's office tomorrow to follow through with that. He is educated on care of a Torres catheter and Torres leg bag. There is no indication for additional workup or need for hospitalization and he will be discharged Discharge Plan Departure Patient Disposition: Home Clinical Impression: Acute urinary retention Medication adverse effect Qualifiers: Encounter type: initial encounter Qualified Code(s): T50.905A - Adverse effect of unspecified drugs, medicaments and biological substances, initial encounter Instructions: How to Care for Your Torres Catheter -- Male, DI for Urinary Retention in Men Activity Restrictions/Additional Instructions: Thank you for coming in today You need to call Dr. Lubin's office and let Mr. Sweeney know that you need your medication prescriptions sent to a new pharmacy. The fact that you have not been able to refill medications this month because [facility] close is likely why you are having this problem with being able to pee. You need to be back on your tamsulosin as well as the rest of your medications. We placed a Torres catheter without difficulty. I would recommend the catheter stay in until you have been on the tamsulosin for at least 1-2 weeks. If you find that you are getting worse or develop any new symptoms, please feel free to return to the emergency department for further evaluation. Prescriptions: No Action tamsulosin [Flomax] 0.4 mg Capsule 0.4 mg PO DAILY Qty: 30 0RF nifedipine 30 mg Tablet Extended Release 24hr 30 mg PO DAILY Qty: 30 2RF metoprolol succinate 25 mg Tablet Extended Release 24 Hr 25 mg PO DAILY Qty: 30 2RF Fish Oil 100-160-1,000 mg capsule 1 cap PO DAILY Qty: 30 2RF clopidogrel 75 mg Tablet 75 mg PO DAILY Qty: 20 0RF Rx Instructions: start on 09/02 aspirin 81 mg Tablet,Delayed Release (Dr/Ec) 81 mg PO DAILY Qty: 90 0RF atorvastatin [Lipitor] 80 mg tablet 80 mg PO BEDTIME Qty: 90 0RF spironolactone 25 mg tablet 25 mg PO DAILY amlodipine 10 mg tablet 10 mg PO DAILY hydrochlorothiazide 12.5 mg tablet 12.5 mg PO QAM doxycycline hyclate 100 mg tablet 100 mg PO BID Qty: 20 0RF Referrals: Miscellaneous,Doctor, MD [Primary Care Provider, Medical] Stand Alone Forms: Patient Portal/API
[2025-05-18 20:49] LABS: Culture Indicated Urine Cult Not Indicated
[2025-05-18 21:28] VITALS: BP 147/81; PULSE 62; RESP 14; O2SAT 97
== END 2025-05-18 21:32 | disposition home or self-care (01) ==
PROVIDERS: Emergency Provider Emergency Medicine
DX: R33.8 Other retention of urine (principal); T50.905A Adverse effect of unspecified drugs, medicaments and biological substances, initial encounter
CPT/HCPCS: 51798; 81003; 81015; 99283

== ENCOUNTER 2025-05-19 18:07 | Emergency (ER) | payer MEDICARE, OTHER, SELFPAY ==
[2024-01-19 05:44] VITALS: BMI 32.4
[2025-05-19 18:14] VITALS: BP 169/99; PULSE 84; RESP 18; TEMP 37.5; O2SAT 94; BMI 30.4
--- NOTE | 2025-05-19 20:28 | ED_ITS ---
HPI - Male Genitourinary General Chief complaint: Urogenital-Male Stated complaint: here yesterday- hurts to pee- has catheter Time Seen by Provider: 05/19/25 19:54 Source: patient Mode of arrival: Ambulatory History of Present Illness HPI Narrative: Patient is a 80-year-old male with a past medical history of hypertension, hyperlipidemia, CAD on Flomax with recent acute urinary retention requiring Torres catheter placement, this occurred on 05/18/2025 Torres catheter was placed here. He presents for pain at the tip of his penis. Denies any other issues with his Torres catheter. Related Data Home Medications ?Medication ?Instructions ?Recorded ?Confirmed amlodipine 10 mg tablet 10 mg PO DAILY 01/19/2412/29 hydrochlorothiazide 12.5 mg tablet 12.5 mg PO QAM 12/2901/19/24 spironolactone 25 mg tablet 25 mg PO DAILY 01/19/24 Previous Rx's ?Medication ?Instructions ?Recorded metoprolol succinate 25 mg 25 mg PO DAILY #30 tabs 04/20 tablet,extended release 24 hr nifedipine 30 mg tablet,extended 30 mg PO DAILY #30 ta bs 11/04/21 release 24 hr omega 4-pvc-dva-fish oil 100 1 cap PO DAILY #30 caps 0 11/04/21 mg-160 mg-1,000 mg capsule (Fish Oil) tamsulosin 0.4 mg capsule (Flomax) 0.4 mg PO DAILY #30 caps 08/03/22 aspirin 81 mg tablet,delayed 81 mg PO DAILY #90 tabs 1 11/01/22 release atorvastatin 80 mg tablet (Lipitor) 80 mg PO BEDTIME # 90 tabs 09/01/23 clopidogrel 75 mg tablet 75 mg PO DAILY #20 tabs 11/01/19 doxycycline hyclate 100 mg tablet 100 mg PO BID #20 ta bs 04/19/24 phenazopyridine 100 mg tablet 200 mg (2 x 100 mg) PO T ID PRN 05/19/25 (Pyridium) pain 6 doses #12 tabs Allergies Allergy/AdvReac Type Severity Reaction Status Date / Time Sulfa (Sulfonamide Allergy Mild Verified 09/05/24 18:16 Antibiotics) Review of Systems Review of Systems Narrative: General: Denies fever, chills, weight loss HEENT: Denies headache, eye drainage, eye irritation, head trauma, sore throat, voice change Cardiovascular: Denies any chest pain, palpitations, tachycardia Respiratory: Denies any shortness of breath, cough, wheeze, stridor GI/: Positive Pain at the tip of the penis where Torres catheter was placed Denies any abdominal pain, nausea, vomiting, diarrhea, bright red blood per rectum, melanotic stools, urinary frequency, urinary retention, dysuria, hematuria MSK: Denies any joint pain, muscle pains, swelling Skin: Denies any rashes, lesions, discoloration Neuro: Denies any headache, lightheadedness, dizziness, fainting, weakness Psych: Denies SI/HI Patient History Medical History Peripheral edema Dementia BPH (benign prostatic hyperplasia) H/O: CVA (cerebrovascular accident) High blood pressure Heart murmur Surgical History History of cholecystectomy Family History Mother Dementia Social History household members: none alcohol intake: never substance use type: does not use alcohol intake frequency: 0-2 drinks per day Exam Narrative Exam Narrative: General: Cooperative, well-developed, not in acute distress HEENT: Normocephalic, atraumatic, PERRLA, normal sclera, eyelids normal Neck: Active full range of motion, atraumatic Chest: Normal to inspection, negative crepitus, no overlying erythema ecchymosis Respiratory: Normal respiratory effort, not in acute respiratory distress, clear to auscultation bilaterally negative cough, wheeze, tachypnea, rhonchi, rales Cardiology: Regular rate rhythm negative gallop, murmur, rubs GI/: No tenderness to palpation, soft, non rigid, normal to inspection, Torres catheter is in place, no gross deformity noted to the head of the meatus, Torres catheter draining appropriate colored urine MSK: Full active range of motion in all 4 extremities, atraumatic, no tenderness to palpation of any bony prominences Skin: No rashes or lesions noted Neuro: Alert awake oriented x3, moves all 4 extremities spontaneously, cranial nerves intact, able to answer all questions appropriately follows commands appropriately Psych: Cooperative, negative suicidal or homicidal ideations Initial Vital Signs Initial Vital Signs: Vital Signs Temperature 99.5 F 05/19/25 18:14 Pulse Rate 84 05/19/25 18:14 Respiratory Rate 18 05/19/25 18:14 Blood Pressure 169/99 H 05/19/25 18:14 Pulse Oximetry 94 05/19/25 18:14 Oxygen Delivery Method Room Air 05/19/25 18:14 Course Vital Signs Vital signs: Vital Signs - 8 hr 05/19/25 18:14 Temperature 99.5 F Pulse Rate 84 Respiratory Rate 18 Blood Pressure 169/99 H Pulse Oximetry 94 Oxygen Delivery Method Room Air MDM - Male Genitourinary Differential Diagnosis Differential diagnosis: Likely urinary tract infection, urethritis and acute retention of urine MDM Narrative Medical decision making narrative: Patient is a 78-year-old male with a past medical history hypertension hyperlipidemia CAD on clopidogrel, with recent Torres placed for acute urinary retention on 05/18/2025 here. He presents for pain at the head of the meatus, Torres is in appropriate position draining appropriate color but came for pain at the tip of his penis. Patient was given a dose of Pyridium here and discharged home with short course of medication. Was instructed follow up with Urology outpatient setting, he verbalized understanding of this and agrees to being discharged home with outpatient follow up Discharge Plan Departure Patient Disposition: Home Clinical Impression: Irritation of urethral meatus Instructions: How to Care for Your Torres Catheter -- Male Activity Restrictions/Additional Instructions: Please only take the medication as needed Please follow up with Urology Please read the discharge instructions sheet carefully and bring all papers to all doctor follow-up visits, as it may contain information that your doctor may want to see. Disease processes change and evolve, if your symptoms worsen or if you develop any new symptoms that are concerning to you please return for evaluation. Your evaluation today does not show any evidence of any life- threatening/serious illnesses requiring admission to the hospital or surgery. Please follow-up with your doctor for re-evaluation in approximately 1 day. Seek immediate medical attention for any worrisome symptoms. *If you do not have a primary care provider please contact the [facility] Resource line at [phone]. They will ask some questions about your medical history and help get you set up with a doctor in the community. Prescriptions: New phenazopyridine [Pyridium] 100 mg tablet 200 mg PO TID PRN (Reason: pain) Qty: 12 0RF No Action tamsulosin [Flomax] 0.4 mg Capsule 0.4 mg PO DAILY Qty: 30 0RF nifedipine 30 mg Tablet Extended Release 24hr 30 mg PO DAILY Qty: 30 2RF metoprolol succinate 25 mg Tablet Extended Release 24 Hr 25 mg PO DAILY Qty: 30 2RF Fish Oil 100-160-1,000 mg capsule 1 cap PO DAILY Qty: 30 2RF clopidogrel 75 mg Tablet 75 mg PO DAILY Qty: 20 0RF Rx Instructions: start on 09/02 aspirin 81 mg Tablet,Delayed Release (Dr/Ec) 81 mg PO DAILY Qty: 90 0RF atorvastatin [Lipitor] 80 mg tablet 80 mg PO BEDTIME Qty: 90 0RF spironolactone 25 mg tablet 25 mg PO DAILY amlodipine 10 mg tablet 10 mg PO DAILY hydrochlorothiazide 12.5 mg tablet 12.5 mg PO QAM doxycycline hyclate 100 mg tablet 100 mg PO BID Qty: 20 0RF Referrals: Miscellaneous,Doctor, MD [Primary Care Provider, Medical] Stand Alone Forms: Patient Portal/API
[2025-05-19] MEDS: PHENAZOPYRIDINE 100 MG TABLET PO (20:39)
[2025-05-19 20:45] VITALS: BP 135/78; PULSE 85; RESP 19; O2SAT 98
== END 2025-05-19 20:52 | disposition home or self-care (01) ==
PROVIDERS: Emergency Provider Student in an Organized Health Care Education/Training Program
DX: N36.8 Other specified disorders of urethra (principal)
CPT/HCPCS: 99283

== ENCOUNTER 2025-05-29 20:44 | Emergency (ER) | payer MEDICARE, OTHER, SELFPAY ==
[2024-01-19 05:44] VITALS: BMI 32.4
[2025-05-29 21:18] VITALS: BP 191/84; PULSE 91; RESP 20; TEMP 37.2; O2SAT 97; BMI 31.9
--- NOTE | 2025-05-29 23:00 | PC.NURSE ---
pt c/o possible urine infection pt has indwelling catheter which was recently place within the last month
--- NOTE | 2025-05-30 00:55 | ED.MALEGU ---
HPI - Male Genitourinary General Chief complaint: Urogenital-Male Stated complaint: Poss Urinary Catheter infection Time Seen by Provider: 05/29/25 21:07 Source: patient Mode of arrival: Ambulatory History of Present Illness HPI Narrative: 80-year-old gentleman with a past medical history hypertension dyslipidemia CAD was having acute urinary retention status post Torres catheter placement on 05/18 25 placed on Flomax presents tonight with concerned that he could be getting septic as he saw a string a weird things looking stuff coming out of his catheter and wants to come in to get evaluated. He has yet to see the urologist but denies fever, chills, body aches, abdominal pain, constipation. Other than what is stated 14 point review of system is negative. Related Data Home Medications ?Medication ?Instructions ?Recorded ?Confirmed amlodipine 10 mg tablet 10 mg PO DAILY 01/19/24 01/19/24 hydrochlorothiazide 12.5 mg tablet 12.5 mg PO QAM 01/19/24 01/19/24 spironolactone 25 mg tablet 25 mg PO DAILY 01/19/24 01/19/24 Previous Rx's ?Medication ?Instructions ?Recorded metoprolol succinate 25 mg 25 mg PO DAILY #30 tabs 11/04/21 tablet,extended release 24 hr nifedipine 30 mg tablet,extended 30 mg PO DAILY #30 tabs 11/04/21 release 24 hr omega 2-oqw-dzd-fish oil 100 1 cap PO DAILY #30 caps 11/04/21 mg-160 mg-1,000 mg capsule (Fish Oil) tamsulosin 0.4 mg capsule (Flomax) 0.4 mg PO DAILY #30 caps 08/03/22 aspirin 81 mg tablet,delayed 81 mg PO DAILY #90 tabs 09/01/23 release atorvastatin 80 mg tablet (Lipitor) 80 mg PO BEDTIME #90 tabs 09/01/23 clopidogrel 75 mg tablet 75 mg PO DAILY #20 tabs 09/01/23 doxycycline hyclate 100 mg tablet 100 mg PO BID #20 tabs 04/19/24 phenazopyridine 100 mg tablet 200 mg (2 x 100 mg) PO TID PRN 05/19/25 (Pyridium) pain 6 doses #12 tabs nitrofurantoin 100 mg PO Q12H 5 days #10 caps 05/30/25 monohydrate/macrocrystals 100 mg capsule (Macrobid) Allergies Allergy/AdvReac Type Severity Reaction Status Date / Time Sulfa (Sulfonamide Allergy Mild Verified 05/29/25 21:18 Antibiotics) Review of Systems Review of Systems ROS Unobtainable: All systems reviewed & are unremarkable except as noted in HPI and below Patient History Medical History Peripheral edema Dementia BPH (benign prostatic hyperplasia) H/O: CVA (cerebrovascular accident) High blood pressure Heart murmur Surgical History History of cholecystectomy Family History Mother Dementia Social History household members: none Smoking Status: Never smoker alcohol intake: never substance use type: does not use Smoking Status: Never smoker alcohol intake frequency: 0-2 drinks per day Exam Narrative Exam Narrative: GENERAL: [80] year old patient appears stated age. Well-developed patient, in mild distress. HEAD: Atraumatic. Normocephalic. EYES: Pupils equal round and reactive. Extraocular motions intact. No scleral icterus. No injection or drainage. NECK: Trachea midline. Non tender CARDIOVASCULAR: Regular rate and rhythm without murmurs, gallops, or rubs. RESPIRATORY: Clear to auscultation. Breath sounds equal bilaterally. No wheezes, rales, or rhonchi. GASTROINTESTINAL: Abdomen soft, non-tender, nondistended. EXTREMITIES: No edema or joint tenderness. BACK: Nontender without deformity or crepitance. No flank tenderness. NEURO: AOx3. SKIN: No rash or erythema of visible areas Initial Vital Signs Initial Vital Signs: Vital Signs Temperature 98.9 F 05/29/25 21:18 Pulse Rate 91 H 05/29/25 21:18 Respiratory Rate 20 05/29/25 21:18 Blood Pressure 191/84 H 05/29/25 21:18 Pulse Oximetry 97 05/29/25 21:18 Oxygen Delivery Method Room Air 05/29/25 21:18 Course Orders Ordered: ED Orders 05/30/25 01:16 Ictotest Urine Stat Urine Culture Stat Urine Microscopic Stat Vital Signs Vital signs: Vital Signs - 8 hr 05/29/25 21:18 Temperature 98.9 F Pulse Rate 91 H Respiratory Rate 20 Blood Pressure 191/84 H Pulse Oximetry 97 Oxygen Delivery Method Room Air MDM - Male Genitourinary Lab Data Labs: Urine Dip Bedside Urine Glucose Negative Bedside Urine Bilirubin + 1 Bedside Urine Ketone - Negative Urine Specific Rice 1.010 Bedside Urine Occult Blood +++ Bedside Urine pH 8 Bedside Urine Protein ++ 100 Bedside Urine Urobilinogen - Negative Bedside Urine Nitrite + Positive Bedside Urine Leukocytes + 70 Esterase MDM Narrative Medical decision making narrative: Vital signs, nurse triage note, medication list, previous ER visits, and all imaging studies reviewed. UA reviewed given Macrobid here in [place] on Macrobid and to follow up with Urology. Differential diagnosis UTI, Torres catheter displacement, urinary retention. Discharge Plan Departure Patient Disposition: Home Clinical Impression: Acute UTI Instructions: DI for Urinary Tract Infection (UTI) Activity Restrictions/Additional Instructions: Return with new or worsening symptoms. Follow up PCP and/or Urology next week. Prescriptions: New nitrofurantoin monohyd/m-cryst [Macrobid] 100 mg capsule 100 mg PO Q12H 5 Days Qty: 10 0RF Rx Instructions: must administer with a meal/food No Action tamsulosin [Flomax] 0.4 mg Capsule 0.4 mg PO DAILY Qty: 30 0RF phenazopyridine [Pyridium] 100 mg tablet 200 mg PO TID PRN (Reason: pain) Qty: 12 0RF nifedipine 30 mg Tablet Extended Release 24hr 30 mg PO DAILY Qty: 30 2RF metoprolol succinate 25 mg Tablet Extended Release 24 Hr 25 mg PO DAILY Qty: 30 2RF Fish Oil 100-160-1,000 mg capsule 1 cap PO DAILY Qty: 30 2RF clopidogrel 75 mg Tablet 75 mg PO DAILY Qty: 20 0RF Rx Instructions: start on 09/02 aspirin 81 mg Tablet,Delayed Release (Dr/Ec) 81 mg PO DAILY Qty: 90 0RF atorvastatin [Lipitor] 80 mg tablet 80 mg PO BEDTIME Qty: 90 0RF spironolactone 25 mg tablet 25 mg PO DAILY amlodipine 10 mg tablet 10 mg PO DAILY hydrochlorothiazide 12.5 mg tablet 12.5 mg PO QAM doxycycline hyclate 100 mg tablet 100 mg PO BID Qty: 20 0RF Referrals: Miscellaneous,Doctor, MD [Primary Care Provider, Medical] Stand Alone Forms: Patient Portal/API
--- NOTE | 2025-05-30 01:21 | PC.NURSE ---
urine obtained from catheter, foul smelling urine noted with sediment, pt unkempt, leg bag leaking, bag clamp secured to stop leaking
[2025-05-30 01:30] LABS: Ictotest Urine Negative (Negative)
[2025-05-30] MEDS: NITROFURANTOIN ER 100 MG CAPSULE PO (01:41)
[2025-05-30 02:10] VITALS: BP 184/84; PULSE 86; RESP 18; O2SAT 98
== END 2025-05-30 02:19 | disposition home or self-care (01) ==
PROVIDERS: Emergency Provider Family Medicine
DX: N39.0 Urinary tract infection, site not specified (principal)
CPT/HCPCS: 81003; 81015; 87077; 87086; 87186; 99283